=== PATIENT | male | born 1955 | race Caucasian/White ===

== ENCOUNTER 2022-11-26 10:59 | Inpatient (IN) ==
--- NOTE | 2022-11-26 11:22 | Emergency Department Note ---
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 Dosing ml/min Est GFR ( Amer) ml/min Est GFR (Non-Af Amer) ml/min BUN/Creatinine Ratio (10-20) Glucose (70-99(Fasting)) mg/dl Osmolality (280-300) mOsm/kg Lactate (0.4-2.0) mmol/L Calcium (8.6-10.3) mg/dl Magnesium (1.7-2.4) mg/dl Total Bilirubin (0.2-1.0) mg/dl AST (13-39) U/L ALT (7-52) U/L Alkaline Phosphatase (34-104) U/L Total Creatine Kinase (30-223) U/L Troponin I High Sens 35.2 H (0-20) pg/ml Total Protein (6.0-8.3) gm/dl Albumin (3.4-5.0) gm/dl Globulin (2.5-4.0) gm/dl Albumin/Globulin Ratio (0.9-2) Procalcitonin (0-0.5) ng/ml TSH (0.300-4.500) uIu/ml Urine Color Urine Appearance (Clear) Urine pH (4.5-7.5) Ur Specific [place] (1.000-1.030) Urine Protein (Negative) Urine Glucose (UA) (Negative) Urine Ketones (Negative) Urine Blood (Negative) Urine Nitrite (Negative) Urine Bilirubin (Negative) Urine Urobilinogen (Negative) Ur Leukocyte Esterase (Negative) Urine WBC (Auto) (0-5) /hpf Urine RBC (Auto) (0-4) /hpf U Hyaline Cast (Auto) (0-5) /lpf U Epithel Cells (Auto) (0-5) /lpf Urine Bacteria (Auto) (Negative) Urine Yeast Urine Osmolality (500-800) mOsm/kg Ur Random Sodium 10 mmol/L Urine Opiates Screen (Neg) Ur Methadone, Qual (Neg) Urine Barbiturates (Neg) Ur Phencyclidine (PCP) (Neg) U Amphetamin/Meth Scrn (Neg) MDMA (Ecstasy) Screen (Neg) U Benzodiazepines Scrn (Neg) Ur Cocaine Metabolite (Neg) U Marijuana (THC) Screen (Neg) SARS-CoV-2, RNA, NAAT NEGATIVE (NEGATIVE) Staphylococcus sp PCR (NotDetected) Staph aureus (PCR) (NotDetected) mecA/C & MREJ Resist Gene (NotDetected) Bld Cult ID Panel PCR (NotDetected) 11/26/22 11/26/22 11/26/22 Range/Units 14:16 14:44 15:16 WBC (4.8-10.8) K/ul RBC (4.70-6.10) M/uL Hgb (14.0-18.0) g/dl Hct (42.0-52.0) % MCV (80.0-100.0) fL MCH (25.0-34.0) pg MCHC (32.0-36.0) g/dL RDW Std Deviation (36.4-46.3) fL RDW Coeff of Timoteo (11.5-14.5) % Plt Count (130-400) K/uL MPV (9.4-12.4) fL Immature Gran % (Auto) % Neut % (Auto) % Lymph % (Auto) % [place] % (Auto) % Eos % (Auto) % Baso % (Auto) % Neut # (Auto) (1.40-6.50) K/uL Lymph # (Auto) (1.20-3.40) K/uL [place] # (Auto) (0.11-0.59) K/uL Eos # (Auto) (0.00-0.50) K/uL Baso # (Auto) (0.00-0.20) K/uL Immature Gran # (Auto) (0.01-0.20) K/uL PT (9.0-12.0) Seconds INR (0.9-1.1) APTT (21.0-31.0) Seconds PTT Ratio D-Dimer (0-500) ug/L FEU VBG pH 7.48 H (7.36-7.41) VBG pCO2 39 (38-50) mmHg VBG pO2 67 mmHg VBG HCO3 29 mmol/L VBG O2 Saturation 94.2 % VBG Base Excess 5.2 mEq/L Sodium (136-145) mmol/L Potassium (3.5-5.1) mmol/L Chloride (98-107) mmol/L Carbon Dioxide (21-32) mmol/L Anion Gap (3-11) BUN (6-23) mg/dl Creatinine (0.6-1.4) mg/dl Est Cr Clr Drug Dosing ml/min Est GFR ( Amer) ml/min Est GFR (Non-Af Amer) ml/min BUN/Creatinine Ratio (10-20) Glucose (70-99(Fasting)) mg/dl Osmolality 277 L (280-300) mOsm/kg Lactate 1.8 (0.4-2.0) mmol/L Calcium (8.6-10.3) mg/dl Magnesium (1.7-2.4) mg/dl Total Bilirubin (0.2-1.0) mg/dl AST (13-39) U/L ALT (7-52) U/L Alkaline Phosphatase (34-104) U/L Total Creatine Kinase (30-223) U/L Troponin I High Sens (0-20) pg/ml Total Protein (6.0-8.3) gm/dl Albumin (3.4-5.0) gm/dl Globulin (2.5-4.0) gm/dl Albumin/Globulin Ratio (0.9-2) Procalcitonin (0-0.5) ng/ml TSH (0.300-4.500) uIu/ml Urine Color Urine Appearance (Clear) Urine pH (4.5-7.5) Ur Specific [place] (1.000-1.030) Urine Protein (Negative) Urine Glucose (UA) (Negative) Urine Ketones (Negative) Urine Blood (Negative) Urine Nitrite (Negative) Urine Bilirubin (Negative) Urine Urobilinogen (Negative) Ur Leukocyte Esterase (Negative) Urine WBC (Auto) (0-5) /hpf Urine RBC (Auto) (0-4) /hpf U Hyaline Cast (Auto) (0-5) /lpf U Epithel Cells (Auto) (0-5) /lpf Urine Bacteria (Auto) (Negative) Urine Yeast Urine Osmolality (500-800) mOsm/kg Ur Random Sodium mmol/L Urine Opiates Screen (Neg) Ur Methadone, Qual (Neg) Urine Barbiturates (Neg) Ur Phencyclidine (PCP) (Neg) U Amphetamin/Meth Scrn (Neg) MDMA (Ecstasy) Screen (Neg) U Benzodiazepines Scrn (Neg) Ur Cocaine Metabolite (Neg) U Marijuana (THC) Screen (Neg) SARS-CoV-2, RNA, NAAT (NEGATIVE) Staphylococcus sp PCR (NotDetected) Staph aureus (PCR) (NotDetected) mecA/C & MREJ Resist Gene (NotDetected) Bld Cult ID Panel PCR (NotDetected) Imaging Data Radiologist's Impression: Cervical Spine CT 11/26/22 11:47 CT cervical spine wo con CLINICAL HISTORY: frequent falls, fall last night, neck pain TECHNIQUE: Multidetector row helical CT of the cervical spine was performed without administration of intravenous contrast. Coronal and sagittal reformations were obtained. Automated dose lowering techniques and/or adjustment according to patient size were utilized for this exam. Comparison: None available at the time of this dictation. FINDINGS: No acute fractures or subluxations are identified. Degenerative changes are seen in the visualized spine. The alignment is normal. Biapical scarring is seen in the lungs. IMPRESSION: Degenerative changes without evidence of acute bony injury. ACT 112: Negative or not required by law. Electronically signed by: Patel Up M.D. 11/26/2022 1:44 PM Chest X-Ray 11/26/22 11:47 XR chest 1V not portable CLINICAL HISTORY: weakness, possible sepsis COMPARISON STUDY: No previous studies for comparison. FINDINGS: No pneumothorax or pleural effusion is noted. There is mild interstitial thickening. Mild cardiomegaly is noted. No consolidation is identified. Patient is mildly rotated. Underlying emphysema is depicted within the lung apices on the cervical spine CT. IMPRESSION: 1. No consolidation to suggest pneumonia. 2. Cardiomegaly. Pulmonary vascular congestion without overt pulmonary edema. 3. Emphysema. ACT 112: Negative or not required by law. Electronically signed by: Franklyn Man M.D. 11/26/2022 1:[address] 11/26/22 11:[address] DOSE: HISTORY: frequent falls, evidence of trauma TECHNIQUE: Multiaxial CT images of the head were performed without the use of intravenous contrast. Automated exposure control was utilized for this study. A dose lowering technique was utilized adhering to the principles of ALARA. Comparison: None. Findings: The paranasal sinuses and mastoid air cells are clear. The calvarium and skull base are intact. There is no mass, hematoma, midline shift, acute infarct. White matter hypodensity is nonspecific but suggestive of microvascular ischemic change. The ventricles and sulci demonstrate mild age-related involutional changes. Right frontal scalp swelling. Impression: No acute intracranial abnormality. Right frontal scalp swelling. ACT 112: Negative or not required by law. Electronically signed by: Ced Buchanan M.D. 11/26/2022 1:31 PM Knee X-Ray 11/26/22 11:58 XR knee RT 1 or 2V routine, XR knee LT 1 or 2V routine CLINICAL HISTORY: chronic pain r knee, recent falls. Bilateral knee pain. COMPARISON STUDY: None. FINDINGS: No acute fracture or dislocation within the right or left knee. There is moderate right knee effusion. No significant left knee effusion. Basilar calcifications are noted. Severe tricompartmental osteoarthritis within the bilateral knees. Intramedullary rods seen within the left femur and left tibia. The excised hardware appears intact. IMPRESSION: 1. No acute fractures within the right or left knee. 2. Severe osteoarthritis within the bilateral knees. 3. Moderate right knee effusion. ACT 112: Negative or not required by law. Electronically signed by: Ced Buchanan M.D. 11/26/2022 1:09 PM Pelvis X-Ray 11/26/22 12:02 XR pelvis 1-2V routine CLINICAL HISTORY: recent falls, ambulatory dysfunction. Pelvic pain. COMPARISON STUDY: None. FINDINGS: Prior internal fixation of an old, healed proximal left femoral fracture. The visualized hardware appears intact. No acute fracture or dislocation within the pelvis or hips. The sacrum appears intact. Mild degenerative changes within the bilateral hips. IMPRESSION: No acute fracture or dislocation within the pelvis or hips. ACT 112: Negative or not required by law. Electronically signed by: Ced Buchanan M.D. 11/26/2022 1:36 PM Knee X-Ray 11/26/22 12:29 XR knee RT 1 or 2V routine, XR knee LT 1 or 2V routine CLINICAL HISTORY: chronic pain r knee, recent falls. Bilateral knee pain. COMPARISON STUDY: None. FINDINGS: No acute fracture or dislocation within the right or left knee. There is moderate right knee effusion. No significant left knee effusion. Basilar calcifications are noted. Severe tricompartmental osteoarthritis within the bilateral knees. Intramedullary rods seen within the left femur and left tibia. The excised hardware appears intact. IMPRESSION: 1. No acute fractures within the right or left knee. 2. Severe osteoarthritis within the bilateral knees. 3. Moderate right knee effusion. ACT 112: Negative or not required by law. Electronically signed by: Ced Buchanan M.D. 11/26/2022 1:09 PM Chest CTA 11/26/22 13:42 CT ANGIOGRAPHY OF THE CHEST, PULMONARY EMBOLUS PROTOCOL CLINICAL HISTORY: elevated dimer, hypoxia, elevated troponin COMPARISON STUDY: Chest radiograph performed earlier today. TECHNIQUE: Following IV administration of 117 mL of Optiray, helical axial images of the chest were obtained utilizing the pulmonary embolus protocol. Maximal intensity projections and sagittal and coronal reformats were viewed on an independent 3D workstation. IV contrast was administered without complication. Automated exposure control was utilized for the study. A dose lowering technique was utilized adhering to the principles of ALARA. CT DOSE: 2936.18 mGy.cm FINDINGS: No pulmonary emboli are identified although segmental and subsegmental pulmonary arteries are suboptimally assessed due to respiratory motion. There is no thoracic aortic dissection. No enlarged thoracic lymph nodes are present. Moderate emphysema is present. Subpleural opacities favor atelectasis. There is no consolidation to suggest pneumonia. Bilateral gynecomastia is incidentally noted. A 7 mm perifissural right middle lobe nodule on image 137 of 251 is likely benign. No acute fractures within the visualized bony thorax are noted. There are several old bilateral rib fractures. Severe joint space narrowing of the right shoulder is noted with multifocal calcific densities adjacent to the right shoulder which are degenerative. There is a right glenohumeral joint effusion with adjacent soft tissue thickening. A few equivocal tiny locules of gas are present. No acute fractures identified within the right shoulder. Abdomen and pelvis CT will be reported separately. IMPRESSION: 1. No pulmonary emboli identified although segmental and subsegmental pulmonary arteries suboptimally assessed due to respiratory motion. 2. Subpleural opacities suggestive of atelectasis. No consolidation to suggest pneumonia. 3. Moderate emphysema. 4. Severe right glenohumeral joint osteoarthritis, as described above. Suspected right glenohumeral joint effusion with adjacent stranding and two punctate locules of soft tissue gas. The findings are likely related to severe osteoarthritis. However, a superimposed infectious etiology would be difficult to completely exclude. ACT 112: Negative or not required by law. Electronically signed by: Franklyn Man M.D. 11/26/2022 3:50 PM Abdomen/Pelvis CT 11/26/22 13:47 CT OF THE ABDOMEN AND PELVIS WITH CONTRAST CLINICAL HISTORY: pain, infection, falls COMPARISON STUDY: Pelvis radiograph performed earlier today. TECHNIQUE: Following IV administration of 117 mL of Optiray, axial images of the abdomen and pelvis were obtained from the lung bases to the proximal femurs. Images were reviewed in the axial, sagittal, and coronal planes. IV contrast was administered without complication. Automated exposure control was utilized for the study. A dose lowering technique was utilized adhering to the principles of ALARA. FINDINGS: Please note that the chest CT will be reported separately. No pneumatosis, free air or portal venous gas is present. There is no hemoperitoneum. Bilateral gynecomastia is incidentally noted. 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 The liver is cirrhotic. No hepatic lesions are identified on venous phase exam. Main, left and right portal veins are patent. There is no biliary or pancreatic ductal dilatation. There are gallstones within the gallbladder without evidence for acute cholecystitis. The spleen is not visualized. The adrenal glands and kidneys are unremarkable. There is no hydronephrosis. Ayad pouch is noted with descending colostomy. There is no evidence for a bowel obstruction. There is slight thickening of the appendiceal tip, measuring 9 mm. There is a 6 cm nodule along the appendix. There is no periappendiceal inflammation. No free air or abscess. No lymphadenopathy is pre sent. No acute fractures within the pelvis, hips or lumbar spine are noted. Left femoral internal fixation is partially imaged. IMPRESSION: 1. No acute traumatic findings within the abdomen or pelvis. 2. Cirrhosis with varices formation. 3. 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 No bowel obstruction. 4. Mildly thickened appendiceal tip with a small appendiceal nodule. No evidence for acute appendicitis. However, nonemergent Surgical consultation is recommended given the possibility of an underlying appendiceal lesion. ACT 112: Positive. There are findings on this exam that require communication between the performing entity and the patient following Patient Test Result Information Act ([place] Act 112) guidelines. Electronically signed by: Franklyn Man M.D. 11/26/2022 4:09 PM Elbow X-Ray 11/26/22 14:06 XR elbow RT min 3V routine CLINICAL HISTORY: fall last night, pain COMPARISON: None FINDINGS: Alignment of the right elbow is anatomic. No acute fracture is identified. There is no evidence for a right elbow joint effusion. There may be lateral elbow soft tissue swelling. Exam is mildly compromised given difficulty positioning. There is mild osteoarthritis. IMPRESSION: 1. No acute fracture. Exam mildly compromised given difficulty positioning. 2. No evidence for a right elbow joint effusion. ACT 112: Negative or not required by law. Electronically signed by: Franklyn Man M.D. 11/26/2022 3:26 PM ECG Data Attestation: I personally reviewed and interpreted this ECG as follows: (Sinus tachycardia with a rate of 103. Intervals within normal limits. Normal axis. No acute ST elevation. No prior to compare.) MDM Narrative 67-year-old male with a history above is referred to the emergency department by his primary care provider for generalized weakness, frequent falls, inability to care for himself at home. Sounds like the patient's living situation is not healthy. He has a history of chronic pain medication and reportedly had methamphetamine in his system several months ago. When I initially evaluated the patient he was pleasant, slightly drowsy, tachycardic, temperature 99.6 orally. He does appear to be generally weak and can barely lift his legs off the stretcher. Mucous membranes are dry. Some superficial evidence of his fall last night with a wound on the right forearm, mild tenderness in the left knee. Right knee appears to be chronically painful. His O2 saturation was 87% on room air, he was placed on 5 L nasal cannula which is his baseline. Differential diagnosis as above was considered. IV was inserted and labs were obtained. He was given gentle IV fluids. Was given some Tylenol for pain and possible sepsis given temperature 99.6, tachycardia, and weakness. EKG sinus tachycardia, no STEMI. An order was placed for continuous cardiac monitoring and at time of evaluation demonstrated a sinus rhythm with a rate in the low 100s. X-rays of chest, pelvis, bilateral knees, and right elbow were obtained. Chest x-ray shows cardiomegaly with pulmonary vascular congestion, no pneumonia. Moderate right knee effusion, no fracture. No injury to the elbow. CT head and neck was obtained to evaluate for ambulatory dysfunction and recent falls, soft tissue swelling to right forehead, no additional acute process. Tdap updated Labs: Leukocytosis of 15 concerning for sepsis given tachycardia and weakness. Procalcitonin 4.75. Mild anemia hemoglobin 11.6. aPTT minimally elevated 31.9. Hyponatremia at 124, corrects to 125 with glucose of 183. Hypomagnesemia at 1.1, repleted with IV magnesium. Elevated AST and ALT likely secondary to cirrhosis. Total bilirubin 2.1 which is new finding. D-dimer significant elevated at 6030. Troponin mildly elevated at 37.8. 2-hour repeat essentially the same. Lactate normal 1.8. Urine with evidence of infection 3+ blood, positive nitrites. Urine drug screen positive marijuana. Patient covered with Zosyn empirically. Additional gentle fluids were administered hesitant to give high volume bolus due to hyponatremia. Case was reviewed with ED attending Dr. Orellana multiple times throughout the patient's stay in the emergency department. CTA of the chest and abdomen were obtained to further evaluate for the hypoxia, elevated D-dimer, and further evaluate for evidence of infection. This was pending when I discussed the case with Josselyn Alonzo PA-C with the hospitalist group. They agreed to admit the patient, request VBG, and will await CT findings prior to placement. Please refer to their notes for patient's further management. Attending Attestation: I Kar Reyna MD independently saw and evaluated this patient and agree with history and physical is otherwise documented by the physician occupational therapist assistant. See their note for full details. Patient in bed with pain to RUE after falls. Some contusion and abrasion here at elbow noted. Soft compartments of arms and legs. CTs and xrays ordered to look for traumatic orthopedic injury/fracture/bleed/dislocation. Reports of CTs and xrays reassuring. Labs are concerning for infection and covered with Abx (broad spectrum zosyn) as well as new O2 requirement. Bld cultures sent. Hyponatremia noted and given this without elevated lactate or hypotension only given 500mL NS here to prevent rapid sodium correction. Soft abdomen with ostomy in place. Patient agreeable for admission. Impression Sepsis, Hyponatremia, Hypomagnesemia, Falls, Hypoxia Discharge Plan Visit Data Chief Complaint: Pain (Generalized) Stated Complaint: PARESH HIGHLANDS REFERRED, R KNEE, SHOULDER, NECK PA ED Provider: Kar Orellana ED Midlevel Provider: Augie Nunes Discharge Problem: Sepsis, Hyponatremia, Hypomagnesemia, Falls, Hypoxia Patient Disposition: Admitted As Inpatient Discharge Instructions Interventions: ED Discharge Assessment Last Done: 11/26/22 20:05 Sepsis Qualifiers: Sepsis type: sepsis due to unspecified organism Sepsis acute organ dysfunction status: without acute organ dysfunction Qualified Code(s): A41.9 - Sepsis, unspecified organism Falls Qualifiers: Encounter type: initial encounter Qualified Code(s): W19.XXXA - Unspecified fall, initial encounter
[2022-11-26] MEDS ORDERED: SODIUM CHLORIDE 0.9% 500 ML IV ONE ×2 (11:47→16:45)
[2022-11-26] MEDS ORDERED: ACETAMINOPHEN 325 MG TAB PO STA (11:50)
[2022-11-26 12:37] LABS: Basophils # (auto) 0.03 K/uL (0.00-0.20); Basophils % (auto) 0.2 %; Hematocrit (blood only) 32.7 % (42.0-52.0); Hemoglobin 11.6 g/dl (14.0-18.0); Immature Granulocytes # (auto) 0.09 K/uL (0.01-0.20); Immature Granulocytes % (auto) 0.6 %; Lymphocytes # (auto) 0.54 K/uL (1.20-3.40); Lymphocytes % (auto) 3.6 %; Mean Corpuscular Hemoglobin 31.7 pg (25.0-34.0); Mean Corpuscular Hgb Conc 35.5 g/dL (32.0-36.0); Mean Corpuscular Volume 89.3 fL (80.0-100.0); Mean Platelet Volume 13.2 fL (9.4-12.4); Monocytes # (auto) 1.21 K/uL (0.11-0.59); Neutrophils # (auto) 13.29 K/uL (1.40-6.50); Neutrophils % (auto) 87.6 %; Platelet Count 140 K/uL (130-400); RDW Coefficient of Variation 13.2 % (11.5-14.5); RDW Standard Deviation 43.8 fL (36.4-46.3); Red Blood Count 3.66 M/uL (4.70-6.10); White Blood Count 15.16 K/ul (4.8-10.8)
[2022-11-26] MEDS ORDERED: DIPHTHERIA/TETANUS/PERTUSSIS Vaccine (Tdap, Age 7+yrs) 0.5mL SYR/VL IM ONE (12:46)
--- NOTE | 2022-11-26 13:10 | XRay Report ---
XR knee RT 1 or 2V routine, XR knee LT 1 or 2V routine CLINICAL HISTORY: chronic pain r knee, recent falls. Bilateral knee pain. COMPARISON STUDY: None. FINDINGS: No acute fracture or dislocation within the right or left knee. There is moderate right kne e effusion. No significant left knee effusion. Basilar calcifications are noted. Severe tricompartmen david osteoarthritis within the bilateral knees. Intramedullary rods seen within the left femur and lef t tibia. The excised hardware appears intact. IMPRESSION: 1. No acute fractures within the right or left knee. 2. Severe osteoarthritis within the bilateral knees. 3. Moderate right knee effusion. ACT 112: Negative or not required by law. Electronically signed by: Ced Buchanan M.D. 11/26/2022 1:09 PM
--- NOTE | 2022-11-26 13:19 | XRay Report ---
XR chest 1V not portable CLINICAL HISTORY: weakness, possible sepsis COMPARISON STUDY: No previous studies for comparison. FINDINGS: No pneumothorax or pleural effusion is noted. There is mild interstitial thickening. Mild c ardiomegaly is noted. No consolidation is identified. Patient is mildly rotated. Underlying emphysema is depicted within the lung apices on the cervical spine CT. IMPRESSION: 1. No consolidation to suggest pneumonia. 2. Cardiomegaly. Pulmonary vascular congestion without overt pulmonary edema. 3. Emphysema. ACT 112: Negative or not required by law. Electronically signed by: Franklyn Man M.D. 11/26/2022 1:18 PM
[2022-11-26 13:20] LABS: Albumin Level 2.9 gm/dl (3.4-5.0); Bilirubin,Total 2.1 mg/dl (0.2-1.0); Magnesium 1.1 mg/dl (1.7-2.4); Potassium 3.9 mmol/L (3.5-5.1)
[2022-11-26 13:26] LABS: Albumin Globulin Ratio 0.7 (0.9-2); BUN Creatinine Ratio 29.1 (10-20); Creatinine Clr Calc Pharmacy 88.1 ml/min; Est GFR (African American) 73.8 ml/min; Est GFR (Non-African American) 63.7 ml/min; Globulin 4.2 gm/dl (2.5-4.0); Total Protein 7.1 gm/dl (6.0-8.3)
[2022-11-26 13:33] LABS: Troponin I High Sensitivity 37.8 pg/ml (0-20)
--- NOTE | 2022-11-26 13:33 | CT Scan Report ---
HEAD CT NONCONTRAST CT DOSE: HISTORY: frequent falls, evidence of trauma TECHNIQUE: Multiaxial CT images of the head were performed without the use of intravenous contrast. A utomated exposure control was utilized for this study. A dose lowering technique was utilized adheri ng to the principles of ALARA. Comparison: None. Findings: The paranasal sinuses and mastoid air cells are clear. The calvarium and skull base are int act. There is no mass, hematoma, midline shift, acute infarct. White matter hypodensity is nonspecifi c but suggestive of microvascular ischemic change. The ventricles and sulci demonstrate mild age-rela ena involutional changes. Right frontal scalp swelling. Impression: No acute intracranial abnormality. Right frontal scalp swelling. ACT 112: Negative or not required by law. Electronically signed by: Ced Buchanan M.D. 11/26/2022 1:31 PM
--- NOTE | 2022-11-26 13:37 | XRay Report ---
XR pelvis 1-2V routine CLINICAL HISTORY: recent falls, ambulatory dysfunction. Pelvic pain. COMPARISON STUDY: None. FINDINGS: Prior internal fixation of an old, healed proximal left femoral fracture. The visualized camacho rdware appears intact. No acute fracture or dislocation within the pelvis or hips. The sacrum appears intact. Mild degenerative changes within the bilateral hips. IMPRESSION: No acute fracture or dislocation within the pelvis or hips. ACT 112: Negative or not required by law. Electronically signed by: Ced Buchanan M.D. 11/26/2022 1:36 PM
[2022-11-26 13:42] LABS: D Dimer 6030 ug/L FEU (0-500); Thyroid Stimulating Hormone 1.135 uIu/ml (0.300-4.500)
--- NOTE | 2022-11-26 13:45 | CT Scan Report ---
CT cervical spine wo con CLINICAL HISTORY: frequent falls, fall last night, neck pain TECHNIQUE: Multidetector row helical CT of the cervical spine was performed without administration of intravenous contrast. Coronal and sagittal reformations were obtained. Automated dose lowering techn iques and/or adjustment according to patient size were utilized for this exam. Comparison: None available at the time of this dictation. FINDINGS: No acute fractures or subluxations are identified. Degenerative changes are seen in the visualized sp ine. The alignment is normal. Biapical scarring is seen in the lungs. IMPRESSION: Degenerative changes without evidence of acute bony injury. ACT 112: Negative or not required by law. Electronically signed by: Patel Up M.D. 11/26/2022 1:44 PM
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
[2022-11-26] MEDS ORDERED: PIPERACILLIN/TAZOBACTAM 4.5 GM/100 ML BAG IV ONE (14:17)
[2022-11-26 14:33] LABS: Appearance Urine Cloudy (Clear); Bacteria Urine Automated Negative (Negative); Blood Urine 3+ (Negative); Glucose Urine UA Negative (Negative); Ketones Urine 1+ (Negative); Leukocyte Esterase Urine Trace (Negative); Nitrite Urine Positive (Negative); Protein Urine 2+ (Negative); Specific Gravity Urine 1.025 (1.000-1.030); Urobilinogen Urine Negative (Negative)
[2022-11-26 14:36] LABS: Amphetamines+Metham, Urine Neg (Neg); Barbiturates, Urine Neg (Neg); Benzodiazepine, Urine Neg (Neg); Cocaine, Urine Neg (Neg); MDMA (Ecstacy), Urine Neg (Neg); Methadone, Urine Neg (Neg); Opiate, Urine Neg (Neg); Phencyclidine, Urine Neg (Neg)
[2022-11-26 14:38] LABS: Bilirubin Urine 1+ (Negative); Color Urine Amber
[2022-11-26 14:48] LABS: RBC Urine Automated 0-4 /hpf (0-4)
[2022-11-26 14:54] LABS: Base Excess VBG 5.2 mEq/L; HCO3 VBG 29 mmol/L; Oxygen Saturation VBG 94.2 %; PCO2 VBG 39 mmHg (38-50); PO2 VBG 67 mmHg; pH VBG 7.48 (7.36-7.41)
[2022-11-26] MEDS: MAGNESIUM SULFATE / D5W 1 GM/100 ML BAG IV SCH ×4 (14:55→23:15)
[2022-11-26 15:02] LABS: INR 1.1 (0.9-1.1); Partial Thromboplastin Ratio 1.1; Partial Thromboplastin Time 31.9 Seconds (21.0-31.0); Prothrombin Time 11.9 Seconds (9.0-12.0)
[2022-11-26] MEDS ORDERED: OPTIRAY 320 125ml IV ONE (15:09)
[2022-11-26] MEDS ORDERED: KETOROLAC TROMETHAMINE 15 MG/ML VIAL IV ONE (15:26)
--- NOTE | 2022-11-26 15:27 | XRay Report ---
XR elbow RT min 3V routine CLINICAL HISTORY: fall last night, pain COMPARISON: None FINDINGS: Alignment of the right elbow is anatomic. No acute fracture is identified. There is no everardo dence for a right elbow joint effusion. There may be lateral elbow soft tissue swelling. Exam is mild ly compromised given difficulty positioning. There is mild osteoarthritis. IMPRESSION: 1. No acute fracture. Exam mildly compromised given difficulty positioning. 2. No evidence for a right elbow joint effusion. ACT 112: Negative or not required by law. Electronically signed by: Franklyn Man M.D. 11/26/2022 3:26 PM
--- NOTE | 2022-11-26 15:52 | CT Scan Report ---
CT ANGIOGRAPHY OF THE CHEST, PULMONARY EMBOLUS PROTOCOL CLINICAL HISTORY: elevated dimer, hypoxia, elevated troponin COMPARISON STUDY: Chest radiograph performed earlier today. TECHNIQUE: Following IV administration of 117 mL of Optiray, helical axial images of the chest were o btained utilizing the pulmonary embolus protocol. Maximal intensity projections and sagittal and cor onal reformats were viewed on an independent 3D workstation. IV contrast was administered without co mplication. Automated exposure control was utilized for the study. A dose lowering technique was ut ilized adhering to the principles of ALARA. CT DOSE: 2936.18 mGy.cm FINDINGS: No pulmonary emboli are identified although segmental and subsegmental pulmonary arteries are suboptimally assessed due to respiratory motion. There is no thoracic aortic dissection. No enlar ged thoracic lymph nodes are present. Moderate emphysema is present. Subpleural opacities favor atele ctasis. There is no consolidation to suggest pneumonia. Bilateral gynecomastia is incidentally noted. A 7 mm perifissural right middle lobe nodule on image 137 of 251 is likely benign. No acute fracture s within the visualized bony thorax are noted. There are several old bilateral rib fractures. Severe joint space narrowing of the right shoulder is noted with multifocal calcific densities adjacent to t he right shoulder which are degenerative. There is a right glenohumeral joint effusion with adjacent soft tissue thickening. A few equivocal tiny locules of gas are present. No acute fractures identifie d within the right shoulder. Abdomen and pelvis CT will be reported separately. IMPRESSION: 1. No pulmonary emboli identified although segmental and subsegmental pulmonary arteries suboptimally assessed due to respiratory motion. 2. Subpleural opacities suggestive of atelectasis. No consolidation to suggest pneumonia. 3. Moderate emphysema. 4. Severe right glenohumeral joint osteoarthritis, as described above. Suspected right glenohumeral joint effusion with adjacent stranding and two punctate locules of soft tissue gas. The findings are likely related to severe osteoarthritis. However, a superimposed infectious etiology would be difficu lt to completely exclude. ACT 112: Negative or not required by law. Electronically signed by: Franklyn Man M.D. 11/26/2022 3:50 PM
--- NOTE | 2022-11-26 16:11 | CT Scan Report ---
CT OF THE ABDOMEN AND PELVIS WITH CONTRAST CLINICAL HISTORY: pain, infection, falls COMPARISON STUDY: Pelvis radiograph performed earlier today. TECHNIQUE: Following IV administration of 117 mL of Optiray, axial images of the abdomen and pelvis w ere obtained from the lung bases to the proximal femurs. Images were reviewed in the axial, sagittal, and coronal planes. IV contrast was administered without complication. Automated exposure control w as utilized for the study. A dose lowering technique was utilized adhering to the principles of MONALISA Chacon. FINDINGS: Please note that the chest CT will be reported separately. No pneumatosis, free air or port al venous gas is present. There is no hemoperitoneum. Bilateral gynecomastia is incidentally noted. T here are paraesophageal varices. The liver is cirrhotic. No hepatic lesions are identified on venous phase exam. Main, left and right portal veins are patent. There is no biliary or pancreatic ductal di latation. There are gallstones within the gallbladder without evidence for acute cholecystitis. The s pleen is not visualized. The adrenal glands and kidneys are unremarkable. There is no hydronephrosis. Ayad pouch is noted with descending colostomy. There is no evidence for a bowel obstruction. The re is slight thickening of the appendiceal tip, measuring 9 mm. There is a 6 cm nodule along the appe ndix. There is no periappendiceal inflammation. No free air or abscess. No lymphadenopathy is present . No acute fractures within the pelvis, hips or lumbar spine are noted. Left femoral internal fixatio n is partially imaged. IMPRESSION: 1. No acute traumatic findings within the abdomen or pelvis. 2. Cirrhosis with varices formation. 3. 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 No bowel obs truction. 4. Mildly thickened appendiceal tip with a small appendiceal nodule. No evidence for acute appendicit is. However, nonemergent Surgical consultation is recommended given the possibility of an underlying appendiceal lesion. ACT 112: Positive. There are findings on this exam that require communication between the performing entity and the patient following Patient Test Result Information Act ([place] Act 112) guidelines. Electronically signed by: Franklyn Man M.D. 11/26/2022 4:09 PM
--- NOTE | 2022-11-26 17:01 | Electrocardiogram Report ---
Test Reason : Blood Pressure : / mmHG Vent. Rate : 103 BPM Atrial Rate : 103 BPM P-R Int : 178 ms QRS Dur : 094 ms QT Int : 354 ms P-R-T Axes : 087 027 027 degrees QTc Int : 463 ms Sinus tachycardia with Premature supraventricular complexes Low voltage QRS Borderline ECG No previous ECGs available Confirmed by Canelo Rolon ([id number]) on 11/26/2022 5:01:07 PM Referred By: REFERRED SELF Confirmed By:Canelo Rolon
[2022-11-26] MEDS ORDERED: ALBUTEROL 0.083% NEBU SOLN 3 ML VIAL INH PRN (17:09)
[2022-11-26] MEDS ORDERED: SODIUM CHLORIDE 0.45 % 1,000 ML IV SCH (18:45)
[2022-11-26 18:48] LABS: BUN Creatinine Ratio 31.1 (10-20); Calcium 8.9 mg/dl (8.6-10.3); Creatinine Clr Calc Pharmacy 97.2 ml/min; Est GFR (African American) 83.2 ml/min; Est GFR (Non-African American) 71.8 ml/min; Potassium 3.4 mmol/L (3.5-5.1)
[2022-11-26] MEDS ORDERED: GLUCAGON FOR INJ 1 MG VIAL SQ PRN (20:31)
[2022-11-26] MEDS ORDERED: GLUCOSE 10 TAB/TUBE PO PRN (20:31)
[2022-11-26] MEDS ORDERED: CARBOHYDRATES FOR HYPOGLYCEMIA PO PRN (20:31)
[2022-11-26] MEDS ORDERED: GLUCOSE 40% GEL 15 GM TUBE PO PRN (20:31)
[2022-11-26] MEDS ORDERED: POLYETHYLENE (MIRALAX) 17 GM PACK PO PRN (20:31)
[2022-11-26] MEDS ORDERED: ONDANSETRON INJ 2 MG/ML 2 ML VIAL IV PRN (20:31)
[2022-11-26] MEDS ORDERED: DEXTROSE 50% 50 ML SYRINGE IV PRN (20:31)
[2022-11-26] MEDS ORDERED: POTASSIUM CHLORIDE CRTAB 20 MEQ TABCR PO STA (20:37)
[2022-11-26] MEDS: PANTOprazole 40 MG TAB PO SCH (20:56)
[2022-11-26] MEDS: bisacodyL 5 MG TABEC PO SCH (20:56)
[2022-11-26] MEDS: CITALOPRAM 20 MG TAB PO SCH (20:58)
[2022-11-26] MEDS: ENOXAPARIN INJ 40 MG/0.4 ML SYR SQ SCH (21:13)
[2022-11-26] MEDS: ACETAMINOPHEN 500 MG TAB PO SCH (21:17)
[2022-11-26] MEDS: PIPERACILLIN/TAZOBACTAM 4.5 GM in DEXTROSE 5% MINI-B 100 ML IV SCH (21:18)
[2022-11-26] MEDS: LANTUS PER UNIT CHARGE SQ SCH (22:38)
[2022-11-26] MEDS: INSULIN ASPART PER UNIT CHARGE SC SCH (23:08)
[2022-11-26] MEDS: oxyCODONE HCL IR 5 MG TAB (IMMEDIATE RELEASE) PO PRN (23:14)
[2022-11-27 01:35] LABS: A calco-baum cmplx NotReported Not Detected (NotDetected); Bact fragilis Not Reported Not Detected (NotDetected); C auris Not Reported Not Detected (NotDetected); Calbicans Not Reported Not Detected (NotDetected); Candida glabrata Not Reported Not Detected (NotDetected); Candida krusei Not Reported Not Detected (NotDetected); Cneoformans/gatti Not Reported Not Detected (NotDetected); Cparapsilosis Not Reported Not Detected (NotDetected); E cloacae compx Not Reported Not Detected (NotDetected); Efaecalis Not Reported Not Detected (NotDetected); Efaecium Not Reported Not Detected (NotDetected); Enterobacterales Not Reported Not Detected (NotDetected); Escherichia coli Not Reported Not Detected (NotDetected); H influenzae Not Reported Not Detected (NotDetected); K aerogenes Not Reported Not Detected (NotDetected); Koxytoca Not Reported Not Detected (NotDetected); Kpneumoniae grp Not Reported Not Detected (NotDetected); Lmonocyt Not Reported Not Detected (NotDetected); N meningitidis Not Reported Not Detected (NotDetected); P aeruginosa Not Reported Not Detected (NotDetected); Proteus spp Not Reported Not Detected (NotDetected); Salmonella spp Not Reported Not Detected (NotDetected); Smarcescens Not Reported Not Detected (NotDetected); Staph lugdunensis Not Reported Not Detected (NotDetected); Staph spp. Not Reported DETECTED (NotDetected); Staphaureus Not Reported DETECTED (NotDetected); Staphepi Not Reported Not Detected (NotDetected); Staphylococcus spp. DETECTED (NotDetected); Stenmaltophilia Not Reported Not Detected (NotDetected); Strep agal(GrpB) Not Reported Not Detected (NotDetected); Strep pneum Not Reported Not Detected (NotDetected); Strep pyog (GrpA) Not Reported Not Detected (NotDetected); Strep spp Not Reported Not Detected (NotDetected)
[2022-11-27 01:54] LABS: BUN Creatinine Ratio 30.7 (10-20); Calcium 8.9 mg/dl (8.6-10.3); Creatinine Clr Calc Pharmacy 91.8 ml/min; Est GFR (African American) 76.2 ml/min; Est GFR (Non-African American) 65.7 ml/min; Potassium 3.4 mmol/L (3.5-5.1)
[2022-11-27 01:59] LABS: mecAC+MREJ Resistant Gene MRSA DETECTED (NotDetected)
[2022-11-27] MEDS ORDERED: NSS + 20MEQ KCL 20 MEQ/1,000 ML BAG IV ONE (02:15)
[2022-11-27] MEDS: DAPTOmycin 625 MG in SYRINGE 0 ML IV SCH (02:50)
[2022-11-27] MEDS: ACETAMINOPHEN 500 MG TAB PO SCH ×3 (05:36→20:55)
[2022-11-27] MEDS: PIPERACILLIN/TAZOBACTAM 4.5 GM in DEXTROSE 5% MINI-B 100 ML IV SCH ×3 (05:41→20:53)
[2022-11-27] MEDS ORDERED: POTASSIUM CHLORIDE CRTAB 20 MEQ TABCR PO STA (06:53)
--- NOTE | 2022-11-27 06:55 | Hospitalist Progress Note ---
Date of Service November 27, 2022 Assessment & Plan (1) Sepsis: Plan: This is a 67yo M who follows with [facility] with complex medical history of DM II, history of chronic pain no longer on narcotics, cirrhosis, history of splenectomy, history of Jazmyne's gangrene, lymphedema, nocturnal hypoxia who presents with multiple falls at home. On admission, HR 110, WBC 15.16, meeting SIRs criteria. Lactate wnl, procal 4.75 CT abd/pelvis without acute infectious abnormality but did note mildly thickened appendiceal tip with a small appendiceal nodule. No evidence for acute appendicitis. CTA chest with suspected right glenohumeral joint effusion with adjacent stranding and two punctate locules of soft tissue gas. The findings are likely related to severe osteoarthritis. However, a superimposed infectious etiology would be difficult to completely exclude. Dedicated shoulder xray notes severe OA Blood Cx x2 growing staph species. Started on Daptomycin, repeat blood Cx pending. Infectious Disease consult placed. UA abnormal with trace leuk est, + nitrite, 3+ blood, urine Cx with pinpoint growth at this time Continue empiric Zosyn with Daptomycin at this time. General Surgery consult- recommending follow up CT scan in 3 months, no surgical intervention. (2) Hyponatremia: Plan: Na 124 on admission Serum osm 277, urine osm 608, urine na 10 Secondary to dehydration IV fluids-currently on NSS with Kcl 20mEq @80 Nephrology consult- appreciate recs (3) Falls: Plan: Frequent falls at home, worsened over past few weeks No acute fracture or traumatic findings on imaging as above Head CT with no suggestive cause CK elevated at 4266 on admission and downtrending to 1263 Continue IV hydration as above PT/OT eval once more stable (4) Hypomagnesemia: Plan: Mg 1.1, ran out of supplementation 4 days ago Replete as needed (5) Diabetes mellitus, type II: Plan: A1c 7.5 in June 2022, repeat currently 7.6 Hold home agents Basal/bolus insulin while in-patient BSG AC HS (6) Anemia: Plan: Chronic. Hgb 11.6 today (unknown baseline). Continue iron supplementation (7) Nocturnal hypoxia: Plan: On oxygen at night (8) COPD (chronic obstructive pulmonary disease): Plan: History of tobacco use, no longer smoking Continue Bethany Medina Currently saturating 93% on 5 L nasal cannula-unclear whether he uses oxygen during the day but does so at night Goal O2 >90% given COPD-wean as tolerated (9) Depression: Plan: Continue SSRI (10) Cirrhosis: Plan: Listed on outpatient paperwork from [facility], patient a poor historian so unclear Abdomen/pelvis CT notes cirrhosis with varices formation. T. bili 2.1, AST 198, ALT 59 and downtrending currently Continue to follow labs (11) Chronic pain syndrome: Plan: Pt noting he is in significant pain, notes that his pain is not currently being treated. Previously on narcotics but PCP discontinued when he failed UDS. UDS on admission positive for marijuana, endorses daily use Given pt's Hx of frequent falls, severe OA and complaints that his pain is not being treated appropriately, will treat his pain temporarily while hospitalized with the following regimen: tylenol 1000mg q8h for mild pain, po oxycodone 5mg q8h for moderate pain and dilaudid 0.5mg q6h for severe pain. Goal is to wean off narcotics for discharge. Consider consult to pain management. DVT Ppx: Lovenox Code status: DNR/DNI per conversation PCP: CLIFTON Pena [facility] Dispo: PT initial eval recommending extended care facility Admission and Anticipated Discharge Date Admission Date: November 26, 2022 Subjective Pt seen this AM. States that he is in significant pain, hurts on his right side especially. States that "tylenol is not cutting it". Notes that he falls frequently. Review of Systems Review of Systems: All systems reviewed & are unremarkable except as noted in Subjective Physical Exam Physical Exam: General: Alert at times and other times appears somnolent Psych: mood and affect dejected Neuro:Difficulty moving especially his right side HEENT: NC/AT CV: RRR, Normal s1, s2. Resp: no increased effort of breathing. Abdomen: Soft, nontender Extremities: Difficulty moving right shoulder Results & Data Results & Data Vital Signs (Past 12 Hours) Vital Signs Temp Pulse Pulse Resp BP BP Pulse Ox 11/27/22 04:00 37 C 99 H 21 124/74 95 11/27/22 00:37 98 H 11/27/22 00:35 87 11/26/22 23:29 36.6 C 104 H 20 121/71 94 11/26/22 20:31 36.9 C 100 H 21 133/79 94 11/26/22 20:31 11/26/22 20:32 11/26/22 20:05 79 22 128/85 92 Pulse Ox O2 Del Method O2 Del Method O2 Flow Rate O2 Flow Rate 11/27/22 04:00 Oxymask 6 11/27/22 00:37 11/27/22 00:35 11/26/22 23:29 Oxymask 6 11/26/22 20:31 Nasal Cannula 5 11/26/22 20:31 96 Nasal Cannula 5 11/26/22 20:32 Nasal Cannula 5 11/26/22 20:05 Nasal Cannula 4 (1) Sepsis Sepsis acute organ dysfunction status: without acute organ dysfunction Sepsis type: sepsis due to unspecified organism Qualified Code(s): A41.9 - Sepsis, unspecified organism (3) Falls Encounter type: initial encounter Qualified Code(s): W19.XXXA - Unspecified fall, initial encounter
[2022-11-27 07:16] LABS: Albumin Globulin Ratio 0.7 (0.9-2); Albumin Level 2.7 gm/dl (3.4-5.0); BUN Creatinine Ratio 29.7 (10-20); Bilirubin,Total 1.9 mg/dl (0.2-1.0); Creatinine Clr Calc Pharmacy 91.9 ml/min; Est GFR (African American) 78.7 ml/min; Est GFR (Non-African American) 67.9 ml/min; Globulin 4.1 gm/dl (2.5-4.0); Potassium 3.6 mmol/L (3.5-5.1); Total Protein 6.8 gm/dl (6.0-8.3)
[2022-11-27 07:21] LABS: Hematocrit (blood only) 31.8 % (42.0-52.0); Hemoglobin 11.1 g/dl (14.0-18.0); Mean Corpuscular Hemoglobin 31.3 pg (25.0-34.0); Mean Corpuscular Hgb Conc 34.9 g/dL (32.0-36.0); Mean Corpuscular Volume 89.6 fL (80.0-100.0); Mean Platelet Volume 13.2 fL (9.4-12.4); Platelet Count 155 K/uL (130-400); RDW Coefficient of Variation 13.3 % (11.5-14.5); RDW Standard Deviation 43.8 fL (36.4-46.3); Red Blood Count 3.55 M/uL (4.70-6.10); White Blood Count 14.48 K/ul (4.8-10.8)
[2022-11-27] MEDS: CITALOPRAM 20 MG TAB PO SCH ×2 (08:10→20:57)
[2022-11-27] MEDS: MAGNESIUM OXIDE 400 MG TAB PO SCH (08:11)
[2022-11-27] MEDS: ENOXAPARIN INJ 40 MG/0.4 ML SYR SQ SCH ×2 (08:11→20:56)
[2022-11-27] MEDS: FLUTICASONE FUROATE 100MCG 14 PUFFS/INHALER INH SCH (08:11)
[2022-11-27] MEDS: FERROUS SULFATE 325 MG TAB PO SCH (08:11)
[2022-11-27] MEDS: PANTOprazole 40 MG TAB PO SCH ×2 (08:12→20:57)
[2022-11-27] MEDS: VITAMIN B COMPLEX TAB PO SCH (08:12)
[2022-11-27] MEDS: MULTIVITAMIN TAB PO SCH (08:12)
[2022-11-27] MEDS: UMECLIDINIUM/VILANTEROL 62.5/25MCG 7 PUFFS/INHALER INH SCH (08:13)
[2022-11-27] MEDS: oxyCODONE HCL IR 5 MG TAB (IMMEDIATE RELEASE) PO PRN (08:15)
[2022-11-27] MEDS: INSULIN ASPART PER UNIT CHARGE SC SCH ×4 (08:15→20:45)
[2022-11-27] MEDS ORDERED: NON-FORMULARY MEDICATION (Fluticasone-Umeclidin-Vilanter [Trelegy Ellipta] 100-62.5-25 mcg INH SCH (09:00)
--- NOTE | 2022-11-27 09:47 | XRay Report ---
XR shoulder RT min 2V routine CLINICAL HISTORY: pain TECHNIQUE: 2 views of the right shoulder were obtained. Comparison: Comparison is made to CT chest 11/26/2022 FINDINGS: There is no evidence of an acute fracture. Prominent degenerative changes are seen at the glenohumera l joint. The overlying soft tissues are unremarkable. The visualized portions of the lungs are clear. IMPRESSION: Prominent osteoarthritic changes are seen in the shoulder joint without evidence of acute fracture. ACT 112: Negative or not required by law. Electronically signed by: Patel Up M.D. 11/27/2022 9:45 AM
[2022-11-27 09:55] LABS: Estimated Average Glucose 171 mg/dl; Hemoglobin A1C 7.6 % (4.5-5.6)
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
--- NOTE | 2022-11-27 10:51 | Orthopedic Consultation ---
Date of Consultation November 27, 2022 Assessment & Plan (1) Osteoarthritis, shoulder: (2) Shoulder effusion: Plan Plan I suspect this is an exacerbation of arthritis. Shoulder at this point in time does not have appearance of a septic joint. We will continue to follow. If his clinical course worsens or changes, we may consider aspiration. History of Present Illness Reason for Consultation: Right shoulder pain Attending Physician: Kat Pickens MD History of Present Illness The gentleman admitted with sepsis and confusion. He has complaints of pain in the right shoulder region. He states a history of chronic pain in the shoulder, but has worsened with time Allergies Allergy/AdvReac Type Severity Reaction Status Date / Time morphine AdvReac Unknown Hallucinati Verified 11/26/22 17:04 ng Home Medications Medication Instructions Recorded Confirmed Type acetaminophen 500 mg tablet 500 mg PO BID PRN Pain 11/26/22 11/26/22 History albuterol sulfate 2.5 mg/3 mL 2.5 mg inhalation Q4H PRN 11/26/22 11/26/22 History (0.083 %) solution for nebulization Shortness Of Breath Or Wheezing baclofen 10 mg tablet 10 mg PO TID PRN Muscle Spasm 11/26/22 11/26/22 History bisacodyl 5 mg tablet 5 mg PO HS 11/26/22 11/26/22 History bumetanide 2 mg tablet 2 mg PO DAILY 11/26/22 11/26/22 History citalopram 20 mg tablet 20 mg PO BID 11/26/22 11/26/22 History doxylamine succinate 25 mg tablet 25 mg PO HS PRN Sleep 11/26/22 11/26/22 History ferrous sulfate 325 mg (65 mg 325 mg PO DAILY 11/26/22 11/26/22 History iron) tablet fluticasone fur. 100 mcg-umeclid 1 inh inhalation DAILY 11/26/22 11/26/22 History 62.5 mcg-vilant 25 mcg inhalat.powder (Trelegy Ellipta) guselkumab 100 mg/mL subcutaneous 100 mg subcut UD 11/26/22 11/26/22 History auto-injector (Tremfya) insulin degludec 200 unit/mL (3 20 unit subcut HS 11/26/22 11/26/22 History mL) subcutaneous pen (Tresiba FlexTouch U-200 insulin) magnesium 500 mg tablet 15 mg PO DAILY 11/26/22 11/26/22 History metformin 500 mg tablet 1,000 mg PO BID 11/26/22 11/26/22 History multivit,Ca,min-iron 8 mg-folic 1 tab PO DAILY 11/26/22 11/26/22 History acid 200 mcg-lycopene 600 mcg tablet (Centrum Men) pantoprazole 40 mg tablet,delayed 40 mg PO BID 11/26/22 11/26/22 History release vitamin B complex 1 tab PO DAILY 11/26/22 11/26/22 History Patient History Medical History (Updated 11/27/22 @ 10:58 by Indra Gautam MD) Anemia Chronic pain syndrome Cirrhosis COPD (chronic obstructive pulmonary disease) Depression Diabetes mellitus, type II Nocturnal hypoxia Surgical History Amputated finger S/P colon resection Family History Other Heart disease Stroke Social History (Updated 11/26/22 @ 16:07 by Josselyn Alonzo PA-C) Smoking Status: Never smoker Second Hand Exposure: No; Do You Dip or Chew Tobacco: No; Hx Alcohol Use: No Hx Substance Use: Yes Prescribed Medications: Marijuana Last Used Substance: Hours (ago) Preferred Language: Spanish Communication Ability: Effective Inspector Subassemblies Required: No Beliefs That Will Affect Care: None Current Living Situation: Family Current Living Situation Comment: Lives w/ daughter who is w/c bound Other Information That Helps Us Care for You: No Feels Safe at Home: Yes Safety Concerns: Feels Safe At This Time Assistive Devices: Cane, Oxygen - Continuous and Walker Physical Exam Musculoskeletal: Right shoulder exam: He has effusion in the shoulder. He has no redness or increase in warmth in the shoulder compared to the contralateral side. He has pain with range of motion of the shoulder Results & Data Vital Signs (Past 12 Hours) Vital Signs Temp Pulse Pulse Resp BP Pulse Ox O2 Del Method 11/27/22 07:43 36.8 C 92 H 18 132/81 94 Oxymask 11/27/22 04:00 37 C 99 H 21 124/74 95 Oxymask 11/27/22 00:37 98 H 11/27/22 00:35 87 11/26/22 23:29 36.6 C 104 H 20 121/71 94 Oxymask O2 Flow Rate 11/27/22 07:43 6.0 11/27/22 04:00 6 11/27/22 00:37 11/27/22 00:35 11/26/22 23:29 6 Diagnostic Findings I reviewed x-rays of the right shoulder which show severe arthritic changes in the shoulder. (2) Shoulder effusion Laterality: right Qualified Code(s): M25.411 - Effusion, right shoulder
--- NOTE | 2022-11-27 15:26 | Surgery Consultation ---
Date of Consultation November 27, 2022 Assessment & Plan (1) Abnormal abdominal CT scan: Patient seen and examined with Dr. Mohr. Recent imaging, labs, and progress notes reviewed. 67-year-old male admitted with diagnosis of sepsis. Incidental finding of mildly thickened appendiceal tip with small appendiceal nodule. Patient denies abdominal pain, he is non-tender with palpation. Abdomen is soft. No indication for surgical intervention. Would recommend follow-up CT scan in 3 months to evaluate appendix. General Surgery will sign off at this time, please reach out with any questions or concerns. Supervising Physician Co-Signing Physician Notes As per Toshia Martínez physician inventory assistant Incidental finding of a small nodule 6 mm in the appendix Patient is completely asymptomatic regarding any issues associated with right lower quadrant tenderness or pain At this time he is alert issues a priority and I would recommend a follow-up CAT scan in approximately 3 to 4 months to document stability of this 6 mm nodule This was discussed with the patient History of Present Illness Reason for Consultation: Abnormal appendix Attending Physician: Kat Pickens MD History of Present Illness Mr. Carbajal is a 67-year-old male who presented to [facility] for evaluation after recent multiple falls at home and generalized weakness. He has a complicated past medical history significant for DM II, history of chronic pain no longer on narcotics, h/o drug acute, cirrhosis, history of splenectomy, history of Jazmyne's gangrene, lymphedema, nocturnal hypoxia. Patient was admitted by hospitalist service with diagnosis of Sepsis. CT scan of the abdomen revealed no acute infectious abnormality, but mentioned a mildly thickened appendiceal tip with a small appendiceal nodule. No evidence for acute appendicitis. Currently, Mr. Carbajal denies abdominal pain, nausea or vomiting. Allergies Allergy/AdvReac Type Severity Reaction Status Date / Time morphine AdvReac Unknown Hallucinati Verified 11/26/22 17:04 ng Home Medications Medication Instructions Recorded Confirmed Type acetaminophen 500 mg tablet 500 mg PO BID PRN Pain 11/26/22 11/26/22 History albuterol sulfate 2.5 mg/3 mL 2.5 mg inhalation Q4H PRN 11/26/22 11/26/22 History (0.083 %) solution for nebulization Shortness Of Breath Or Wheezing baclofen 10 mg tablet 10 mg PO TID PRN Muscle Spasm 11/26/22 11/26/22 History bisacodyl 5 mg tablet 5 mg PO HS 11/26/22 11/26/22 History bumetanide 2 mg tablet 2 mg PO DAILY 11/26/22 11/26/22 History citalopram 20 mg tablet 20 mg PO BID 11/26/22 11/26/22 History doxylamine succinate 25 mg tablet 25 mg PO HS PRN Sleep 11/26/22 11/26/22 History ferrous sulfate 325 mg (65 mg 325 mg PO DAILY 11/26/22 11/26/22 History iron) tablet fluticasone fur. 100 mcg-umeclid 1 inh inhalation DAILY 11/26/22 11/26/22 History 62.5 mcg-vilant 25 mcg inhalat.powder (Trelegy Ellipta) guselkumab 100 mg/mL subcutaneous 100 mg subcut UD 11/26/22 11/26/22 History auto-injector (Tremfya) insulin degludec 200 unit/mL (3 20 unit subcut HS 11/26/22 11/26/22 History mL) subcutaneous pen (Tresiba FlexTouch U-200 insulin) magnesium 500 mg tablet 15 mg PO DAILY 11/26/22 11/26/22 History metformin 500 mg tablet 1,000 mg PO BID 11/26/22 11/26/22 History multivit,Ca,min-iron 8 mg-folic 1 tab PO DAILY 11/26/22 11/26/22 History acid 200 mcg-lycopene 600 mcg tablet (Centrum Men) pantoprazole 40 mg tablet,delayed 40 mg PO BID 11/26/22 11/26/22 History release vitamin B complex 1 tab PO DAILY 11/26/22 11/26/22 History Patient History Medical History (Updated 11/27/22 @ 15:22 by Isamar Martínez PA-C) Anemia Chronic pain syndrome Cirrhosis COPD (chronic obstructive pulmonary disease) Depression Diabetes mellitus, type II Nocturnal hypoxia Surgical History Amputated finger S/P colon resection Family History Other Heart disease Stroke Social History (Updated 11/26/22 @ 16:07 by Josselyn Alonzo PA-C) Smoking Status: Never smoker Second Hand Exposure: No; Do You Dip or Chew Tobacco: No; Hx Alcohol Use: No Hx Substance Use: Yes Prescribed Medications: Marijuana Last Used Substance: Hours (ago) Preferred Language: Maltese Communication Ability: Effective Energy Conservation Technician Required: No Beliefs That Will Affect Care: None Current Living Situation: Family Current Living Situation Comment: Lives w/ daughter who is w/c bound Other Information That Helps Us Care for You: No Feels Safe at Home: Yes Safety Concerns: Feels Safe At This Time Assistive Devices: Cane, Oxygen - Continuous and Walker Review of Systems Constitutional: no fever and no chills Gastrointestinal: no abdominal pain, no nausea and no vomiting Physical Exam Constitutional: WD/WN, vitals as above Respiratory: no respiratory distress and no labored breathing Gastrointestinal (Abdomen): Inspection/Auscultation: abdomen not distended Percussion/Palpation: abdomen soft; abdomen nontender, no guarding and abdomen not rigid Results & Data Vital Signs (Past 12 Hours) Vital Signs Temp Pulse Resp BP Pulse Ox O2 Del Method O2 Flow Rate 11/27/22 14:21 Oxymask 6 11/27/22 11:25 36.8 C 91 H 20 124/94 94 Oxymask 6.0 11/27/22 08:00 Oxymask 6 11/27/22 07:43 36.8 C 92 H 18 132/81 94 Oxymask 6.0 11/27/22 04:00 37 C 99 H 21 124/74 95 Oxymask 6 PG Care Time/CCT Total # of Minutes Spent Total Time Spent with Patient: Total time spent is greater than 50% in coordination of care (as documented) at patient's floor/unit and/or counseling patient: Coding Level of Care Code 85431 INT INP/OBS CARE 2/55MIN Diagnoses Abnormal abdominal CT scan R93.5
[2022-11-27] MEDS: LANTUS PER UNIT CHARGE SQ SCH (20:47)
[2022-11-27] MEDS: bisacodyL 5 MG TABEC PO SCH (20:56)
[2022-11-27] MEDS: NSS + 20MEQ KCL 20 MEQ/1,000 ML BAG IV SCH (21:05)
[2022-11-28] MEDS: oxyCODONE HCL IR 5 MG TAB (IMMEDIATE RELEASE) PO PRN ×2 (00:35→20:45)
[2022-11-28] MEDS: HYDROmorphone INJ 0.5 MG/0.5 ML SYR IV PRN (02:56)
[2022-11-28] MEDS: PIPERACILLIN/TAZOBACTAM 4.5 GM in DEXTROSE 5% MINI-B 100 ML IV SCH ×3 (05:17→20:32)
[2022-11-28] MEDS: ACETAMINOPHEN 500 MG TAB PO SCH ×3 (05:17→20:35)
[2022-11-28] MEDS: NSS + 20MEQ KCL 20 MEQ/1,000 ML BAG IV SCH ×3 (05:17→20:34)
[2022-11-28] MEDS: DAPTOmycin 625 MG in SYRINGE 0 ML IV SCH (05:19)
[2022-11-28 06:32] LABS: Hematocrit (blood only) 29.6 % (42.0-52.0); Hemoglobin 10.2 g/dl (14.0-18.0); Mean Corpuscular Hemoglobin 31.1 pg (25.0-34.0); Mean Corpuscular Hgb Conc 34.5 g/dL (32.0-36.0); Mean Corpuscular Volume 90.2 fL (80.0-100.0); Mean Platelet Volume 12.8 fL (9.4-12.4); Nucleated RBC # (auto) 0.05 K/uL (0.00-0.12); Nucleated RBC % (auto) 0.5 %; Platelet Count 184 K/uL (130-400); RDW Coefficient of Variation 14.1 % (11.5-14.5); RDW Standard Deviation 46.8 fL (36.4-46.3); Red Blood Count 3.28 M/uL (4.70-6.10); White Blood Count 10.46 K/ul (4.8-10.8)
[2022-11-28 06:40] LABS: Albumin Globulin Ratio 0.6 (0.9-2); Albumin Level 2.5 gm/dl (3.4-5.0); BUN Creatinine Ratio 32.4 (10-20); Bilirubin,Total 1.6 mg/dl (0.2-1.0); Calcium 8.8 mg/dl (8.6-10.3); Creatinine Clr Calc Pharmacy 103.2 ml/min; Est GFR (African American) 87.1 ml/min; Est GFR (Non-African American) 75.2 ml/min; Magnesium 1.8 mg/dl (1.7-2.4); Phosphorus 2.4 mg/dl (2.5-4.9); Potassium 4.1 mmol/L (3.5-5.1); Total Protein 6.5 gm/dl (6.0-8.3)
[2022-11-28 06:54] LABS: Basophils # (auto) 0.04 K/uL (0.00-0.20); Basophils % (auto) 0.4 %; Eosinophils # (auto) 0.11 K/uL (0.00-0.50); Eosinophils % (auto) 1.1 %; Immature Granulocytes # (auto) 0.11 K/uL (0.01-0.20); Immature Granulocytes % (auto) 1.1 %; Lymphocytes # (auto) 0.55 K/uL (1.20-3.40); Lymphocytes % (auto) 5.3 %; Monocytes # (auto) 0.51 K/uL (0.11-0.59); Monocytes % (auto) 4.9 %; Neutrophils # (auto) 9.14 K/uL (1.40-6.50); Neutrophils % (auto) 87.2 %
[2022-11-28] MEDS: INSULIN ASPART PER UNIT CHARGE SC SCH ×4 (08:31→20:37)
[2022-11-28] MEDS: FERROUS SULFATE 325 MG TAB PO SCH (08:33)
[2022-11-28] MEDS: MULTIVITAMIN TAB PO SCH (08:33)
[2022-11-28] MEDS: CITALOPRAM 20 MG TAB PO SCH ×2 (08:33→20:35)
[2022-11-28] MEDS: PANTOprazole 40 MG TAB PO SCH ×2 (08:33→20:36)
[2022-11-28] MEDS: VITAMIN B COMPLEX TAB PO SCH (08:34)
[2022-11-28] MEDS: MAGNESIUM OXIDE 400 MG TAB PO SCH (08:34)
[2022-11-28] MEDS: FLUTICASONE FUROATE 100MCG 14 PUFFS/INHALER INH SCH (08:35)
[2022-11-28] MEDS: UMECLIDINIUM/VILANTEROL 62.5/25MCG 7 PUFFS/INHALER INH SCH (08:35)
[2022-11-28] MEDS: ENOXAPARIN INJ 40 MG/0.4 ML SYR SQ SCH ×2 (08:36→20:34)
--- NOTE | 2022-11-28 10:04 | Orthopedic Progress Note ---
Date of Service November 28, 2022 Assessment & Plan (1) Osteoarthritis, shoulder: Plan: I do not see clinical evidence of septic shoulder at this point in time to warrant arthrocentesis of the shoulder. We will continue to observe for now. If symptoms worsen, may consider arthrocentesis of the shoulder (2) Shoulder effusion: Admission and Anticipated Discharge Date Admission Date: November 26, 2022 Subjective he states overall his right shoulder feels better today. Physical Exam Musculoskeletal: Right shoulder exam: He exhibits effusion in the shoulder. He has no evidence of warmth. Overall I can move the shoulder slightly more than yesterday. He has no erythema. Results & Data Vital Signs (Past 12 Hours) Vital Signs Temp Pulse Pulse Resp BP Pulse Ox O2 Del Method 11/28/22 07:43 36.8 C 84 20 110/60 96 Oxymask 11/28/22 07:19 89 11/28/22 02:53 36.6 C 89 21 119/69 94 Oxymask 11/27/22 23:20 36.9 C 90 21 108/70 93 Oxymask O2 Flow Rate 11/28/22 07:43 7.0 11/28/22 07:19 11/28/22 02:53 6 11/27/22 23:20 6 (2) Shoulder effusion Laterality: right Qualified Code(s): M25.411 - Effusion, right shoulder
[2022-11-28] MEDS ORDERED: SODIUM PHOSPHATE 3 MMOL/1 ML INFUSION IV STA (10:45)
[2022-11-28] MEDS ORDERED: SODIUM PHOSPHATE 15 MMOL in SODIUM CHLORIDE 0.9% 250 ML IV ONE (11:00)
--- NOTE | 2022-11-28 11:01 | Nephrology Progress Note ---
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 Initial picture was of hypovolemia but now has been adequately resuscitated. Urine was monitored on 608 and urine sodium of 10. -Will give urea 15g bid. -Daily Na (2) Hypomagnesemia: Plan: Magnesium is improving with supplements. Continue to monitor and supplement as needed. Admission and Anticipated Discharge Date Admission Date: November 26, 2022 Subjective Seen for Hyponatremia. he now has MRSA bacteremia. c/o shoulder pain. No SOB Review of Systems Review of Systems: All other systems were reviewed and negative except as noted in HPI Physical Exam Physical Exam: General exam: Appears comfortable, no acute distress HEENT: Pupils are equal and reactive to light Neck: No JVD, neck is supple trachea is midline Respiratory system: Clear breath sounds bilaterally. Gastrointestinal: Abdomen is soft, non distended, non tender, bowel sounds are p resent CVS: Regular rate and rhythm. No murmurs, rubs or gallops Musculoskeletal: Right shoulder is very tender with limited range of motion Extremities: Non tender, no edema, peripheral pulses are present Neuro: Oriented, no tremors, no focal neurological deficits Skin: No rashes Results & Data Vital Signs (Past 12 Hours) Vital Signs Temp Pulse Pulse Resp BP Pulse Ox O2 Del Method 11/28/22 07:43 36.8 C 84 20 110/60 96 Oxymask 11/28/22 07:19 89 11/28/22 02:53 36.6 C 89 21 119/69 94 Oxymask 11/27/22 23:20 36.9 C 90 21 108/70 93 Oxymask O2 Flow Rate 11/28/22 07:43 7.0 11/28/22 07:19 11/28/22 02:53 6 11/27/22 23:20 6 Laboratory Results 11/28/22 05:25 11/28/22 11/28/22 05:25 05:25 WBC 10.46 RBC 3.28 L MCV 90.2 MCH 31.1 MCHC 34.5 RDW Std Deviation 46.8 H RDW Coeff of Timoteo 14.1 Plt Count 184 MPV 12.8 H Phosphorus 2.4 L Albumin 2.5 L
[2022-11-28] MEDS: UREA (UREA-NA) 15 GM PACK PO SCH ×3 (11:44→20:50)
--- NOTE | 2022-11-28 14:57 | Hospitalist Progress Note ---
Date of Service November 28, 2022 Assessment & Plan (1) Sepsis: Plan: This is a 67yo M who follows with [facility] with complex medical history of DM II, history of chronic pain no longer on narcotics, cirrhosis, history of splenectomy, history of Jazmyne's gangrene, lymphedema, nocturnal hypoxia who presents with multiple falls at home. On admission, HR 110, WBC 15.16, meeting SIRs criteria. Lactate wnl, procal 4.75 CT abd/pelvis without acute infectious abnormality but did note mildly thickened appendiceal tip with a small appendiceal nodule. No evidence for acute appendicitis. CTA chest with suspected right glenohumeral joint effusion with adjacent stranding and two punctate locules of soft tissue gas. The findings are likely related to severe osteoarthritis. However, a superimposed infectious etiology would be difficult to completely exclude. Dedicated shoulder xray notes severe OA Blood Cx x2 growing staph species. Started on Daptomycin, repeat blood Cx pending. Infectious Disease consult placed. UA abnormal with trace leuk est, + nitrite, 3+ blood, urine Cx with no significant growth at this time Continue empiric Zosyn with Daptomycin at this time. General Surgery consult- recommending follow up CT scan in 3 months, no surgical intervention. Appreciate ID recs. (2) Hyponatremia: Plan: Na 124 on admission Serum osm 277, urine osm 608, urine na 10 Secondary to dehydration IV fluids-currently on NSS with Kcl 20mEq @80 Nephrology consult- appreciate recs (3) Falls: Plan: Frequent falls at home, worsened over past few weeks No acute fracture or traumatic findings on imaging as above Head CT with no suggestive cause CK elevated at 4266 on admission and downtrending to 1263 Continue IV hydration as above PT/OT eval once more stable (4) Hypomagnesemia: Plan: Mg 1.1, ran out of supplementation 4 days ago Replete as needed (5) Diabetes mellitus, type II: Plan: A1c 7.5 in June 2022, repeat currently 7.6 Hold home agents Basal/bolus insulin while in-patient BSG AC HS (6) Anemia: Plan: Chronic. Hgb 11.6 on admission (unknown baseline). Continue iron supplementation (7) Nocturnal hypoxia: Plan: On oxygen at night (8) COPD (chronic obstructive pulmonary disease): Plan: History of tobacco use, no longer smoking Continue Bethany Medina Currently saturating 93% on 5 L nasal cannula-unclear whether he uses oxygen during the day but does so at night Goal O2 >90% given COPD-wean as tolerated (9) Depression: Plan: Continue SSRI (10) Cirrhosis: Plan: Listed on outpatient paperwork from [facility], patient a poor historian so unclear Abdomen/pelvis CT notes cirrhosis with varices formation. T. bili 2.1, AST 198, ALT 59 and downtrending currently Continue to follow labs (11) Chronic pain syndrome: Plan: Pt noting he is in significant pain, noted that his pain was not currently being treated. Previously on narcotics but PCP discontinued when he failed UDS. UDS on admission positive for marijuana, endorses daily use Given pt's Hx of frequent falls, severe OA and complaints that his pain is not being treated appropriately, will treat his pain temporarily while hospitalized with the following regimen: tylenol 1000mg q8h for mild pain, po oxycodone 5mg q8h for moderate pain and dilaudid 0.5mg q6h for severe pain. Goal is to wean off narcotics for discharge. Consider consult to pain management. DVT Ppx: Lovenox Code status: DNR/DNI per conversation PCP: CLIFTON Pena [facility] Dispo: PT initial eval recommending extended care facility Admission and Anticipated Discharge Date Admission Date: November 26, 2022 Subjective Pt seen this AM, drowsy. Appears to be talking to himself at times. Notes that pain is improved but still there. Review of Systems Review of Systems: All systems reviewed & are unremarkable except as noted in Subjective Physical Exam Physical Exam: General: somnolent Psych: mood and affect could not be determined Neuro:Difficulty moving especially his right side HEENT: NC/AT CV: RRR, Normal s1, s2. Resp: no increased effort of breathing. Abdomen: Soft, nontender Extremities: + edema Results & Data Results & Data Vital Signs (Past 12 Hours) Vital Signs Temp Pulse Pulse Resp BP Pulse Ox O2 Del Method 11/28/22 12:42 Oxymask 11/28/22 12:27 36.9 C 82 18 112/55 L 94 Oxymask 11/28/22 07:43 36.8 C 84 20 110/60 96 Oxymask 11/28/22 07:19 89 O2 Flow Rate 11/28/22 12:42 6 11/28/22 12:27 6.0 11/28/22 07:43 7.0 11/28/22 07:19 (1) Sepsis Sepsis acute organ dysfunction status: without acute organ dysfunction Sepsis type: sepsis due to unspecified organism Qualified Code(s): A41.9 - Sepsis, unspecified organism (3) Falls Encounter type: initial encounter Qualified Code(s): W19.XXXA - Unspecified fall, initial encounter
[2022-11-28] MEDS: bisacodyL 5 MG TABEC PO SCH (20:36)
[2022-11-28] MEDS: LANTUS PER UNIT CHARGE SQ SCH (20:39)
[2022-11-29] MEDS: MELATONIN 3 MG TAB PO PRN (01:44)
[2022-11-29] MEDS: HYDROmorphone INJ 0.5 MG/0.5 ML SYR IV PRN ×2 (03:54→17:02)
[2022-11-29] MEDS: DAPTOmycin 625 MG in SYRINGE 0 ML IV SCH (05:24)
[2022-11-29] MEDS: PIPERACILLIN/TAZOBACTAM 4.5 GM in DEXTROSE 5% MINI-B 100 ML IV SCH ×3 (05:25→20:29)
[2022-11-29] MEDS: ACETAMINOPHEN 500 MG TAB PO SCH ×3 (05:26→22:46)
[2022-11-29 06:22] LABS: Marijuana Quant, GCMS Urine 2000 ng/mL (<5)
[2022-11-29] MEDS: UREA (UREA-NA) 15 GM PACK PO SCH ×2 (08:00→20:31)
[2022-11-29] MEDS: ENOXAPARIN INJ 40 MG/0.4 ML SYR SQ SCH ×2 (08:00→20:26)
[2022-11-29] MEDS: NSS + 20MEQ KCL 20 MEQ/1,000 ML BAG IV SCH ×2 (08:00→20:20)
[2022-11-29] MEDS: INSULIN ASPART PER UNIT CHARGE SC SCH ×4 (08:00→20:50)
[2022-11-29] MEDS: MAGNESIUM OXIDE 400 MG TAB PO SCH (08:01)
[2022-11-29] MEDS: PANTOprazole 40 MG TAB PO SCH ×2 (08:01→20:29)
[2022-11-29] MEDS: UMECLIDINIUM/VILANTEROL 62.5/25MCG 7 PUFFS/INHALER INH SCH (08:01)
[2022-11-29] MEDS: CITALOPRAM 20 MG TAB PO SCH ×2 (08:01→20:26)
[2022-11-29] MEDS: FLUTICASONE FUROATE 100MCG 14 PUFFS/INHALER INH SCH (08:01)
[2022-11-29] MEDS: FERROUS SULFATE 325 MG TAB PO SCH (08:01)
[2022-11-29] MEDS: MULTIVITAMIN TAB PO SCH (08:01)
[2022-11-29] MEDS: VITAMIN B COMPLEX TAB PO SCH (08:01)
[2022-11-29 08:06] LABS: Albumin Globulin Ratio 0.6 (0.9-2); Albumin Level 2.4 gm/dl (3.4-5.0); BUN Creatinine Ratio 30.1 (10-20); Bilirubin,Total 1.6 mg/dl (0.2-1.0); Calcium 8.7 mg/dl (8.6-10.3); Creatinine Clr Calc Pharmacy 93.2 ml/min; Est GFR (Non-African American) 66.4 ml/min; Globulin 4.1 gm/dl (2.5-4.0); Magnesium 1.7 mg/dl (1.7-2.4); Phosphorus 2.1 mg/dl (2.5-4.9); Total Protein 6.5 gm/dl (6.0-8.3)
[2022-11-29] MEDS ORDERED: SODIUM PHOSPHATE 3 MMOL/1 ML INFUSION IV STA (08:11)
[2022-11-29 08:15] LABS: Hematocrit (blood only) 29.6 % (42.0-52.0); Hemoglobin 10.1 g/dl (14.0-18.0); Mean Corpuscular Hemoglobin 30.8 pg (25.0-34.0); Mean Corpuscular Hgb Conc 34.1 g/dL (32.0-36.0); Mean Corpuscular Volume 90.2 fL (80.0-100.0); RDW Coefficient of Variation 14.4 % (11.5-14.5); RDW Standard Deviation 47.8 fL (36.4-46.3); Red Blood Count 3.28 M/uL (4.70-6.10); White Blood Count 9.89 K/ul (4.8-10.8)
[2022-11-29 08:19] LABS: Mean Platelet Volume 12.6 fL (9.4-12.4); Platelet Count 247 K/uL (130-400)
[2022-11-29 08:22] LABS: Basophils # (auto) 0.06 K/uL (0.00-0.20); Basophils % (auto) 0.6 %; Dohle Bodies 1+; Echinocytes 1+; Eosinophils # (auto) 0.18 K/uL (0.00-0.50); Eosinophils % (auto) 1.8 %; Immature Granulocytes # (auto) 0.29 K/uL (0.01-0.20); Immature Granulocytes % (auto) 2.9 %; Lymphocytes # (auto) 0.92 K/uL (1.20-3.40); Lymphocytes % (auto) 9.3 %; Monocytes # (auto) 0.69 K/uL (0.11-0.59); Neutrophils # (auto) 7.75 K/uL (1.40-6.50); Neutrophils % (auto) 78.4 %; Nucleated RBC # (auto) 0.11 K/uL (0.00-0.12); Nucleated RBC % (auto) 1.1 %; Platelet Estimate Normal (Normal); Polychromasia 1+; Target Cells 1+; Toxic Vacuolation 1+
--- NOTE | 2022-11-29 08:27 | Hospitalist Progress Note ---
Date of Service November 29, 2022 Assessment & Plan (1) Sepsis: Plan: This is a 67yo M who follows with [facility] with complex medical history of DM II, history of chronic pain no longer on narcotics, cirrhosis, history of splenectomy, history of Jazmyne's gangrene, lymphedema, nocturnal hypoxia who presents with multiple falls at home. On admission, HR 110, WBC 15.16, meeting SIRs criteria. Lactate wnl, procal 4.75 CT abd/pelvis without acute infectious abnormality but did note mildly thickened appendiceal tip with a small appendiceal nodule. No evidence for acute appendicitis. CTA chest with suspected right glenohumeral joint effusion with adjacent stranding and two punctate locules of soft tissue gas. The findings are likely related to severe osteoarthritis. However, a superimposed infectious etiology would be difficult to completely exclude. Dedicated shoulder xray notes severe OA Blood Cx x2 growing staph species. Started on Daptomycin, transitioned to vancomycin with Zosyn. Infectious Disease consult placed- appreciate recs. UA abnormal with trace leuk est, + nitrite, 3+ blood, urine Cx with no significant growth at this time. Echo pending. Imaging of right arm, right elbow and right forearm pending. General Surgery consult- recommending follow up CT scan in 3 months, no surgical intervention. Appreciate ID recs. (2) Hyponatremia: Plan: Na 124 on admission Serum osm 277, urine osm 608, urine na 10 IV fluids-currently on NSS with Kcl 20mEq @40 On urea started by nephrology Nephrology on board- appreciate recs (3) Falls: Plan: Frequent falls at home, worsened over past few weeks No acute fracture or traumatic findings on imaging as above Head CT with no suggestive cause CK elevated at 4266 on admission and downtrending to 1263 Continue IV hydration as above ID recommending CT imaging of arm, elbow and forearm. 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 Hgb 11.6 on admission (unknown baseline). Continue iron supplementation (7) Nocturnal hypoxia: Plan: On oxygen at night (8) COPD (chronic obstructive pulmonary disease): Plan: History of tobacco use, no longer smoking Continue Bethany Medina Currently saturating 93% on 5 L nasal cannula-unclear whether he uses oxygen during the day but does so at night Goal O2 >90% given COPD-wean as tolerated (9) Depression: Plan: Continue SSRI (10) Cirrhosis: Plan: Listed on outpatient paperwork from [facility], patient a poor historian so unclear Abdomen/pelvis CT notes cirrhosis with varices formation. T. bili 2.1, AST 198, ALT 59 and downtrending currently Continue to follow labs (11) Chronic pain syndrome: Plan: Pt noting he is in significant pain, noted that his pain was not currently being treated. Previously on narcotics but PCP discontinued when he failed UDS. UDS on admission positive for marijuana, endorses daily use Given pt's Hx of frequent falls, severe OA and complaints that his pain is not being treated appropriately, will treat his pain temporarily while hospitalized with the following regimen: tylenol 1000mg q8h for mild pain, po oxycodone 5mg q8h for moderate pain and dilaudid 0.5mg q6h for severe pain. Goal is to wean off narcotics for discharge. Consider consult to pain management. DVT Ppx: Lovenox Code status: DNR/DNI per conversation PCP: CLIFTON Pena [facility] Dispo: PT initial eval recommending extended care facility Admission and Anticipated Discharge Date Admission Date: November 26, 2022 Subjective Seen this AM. States that his pain is better controlled but still there. Denies other acute concerns. Review of Systems Review of Systems: All systems reviewed & are unremarkable except as noted in Subjective Physical Exam Physical Exam: General: somnolent Psych: mood and affect could not be determined Neuro:Difficulty moving especially his right side HEENT: NC/AT CV: RRR Resp: no increased effort of breathing. Abdomen: Soft, nontender Extremities: + edema Results & Data Results & Data Vital Signs (Past 12 Hours) Vital Signs Temp Pulse Pulse Resp BP Pulse Ox O2 Del Method 11/29/22 07:38 37.0 C 79 20 123/66 95 Nasal Cannula 11/29/22 02:33 36.8 C 83 18 116/72 97 Nasal Cannula 11/29/22 00:19 89 11/28/22 20:30 Nasal Cannula 11/28/22 22:42 36.8 C 89 18 114/69 94 Nasal Cannula O2 Flow Rate 11/29/22 07:38 5 11/29/22 02:33 6 11/29/22 00:19 11/28/22 20:30 6 11/28/22 22:42 (1) Sepsis Sepsis acute organ dysfunction status: without acute organ dysfunction Sepsis type: sepsis due to unspecified organism Qualified Code(s): A41.9 - Sepsis, unspecified organism (3) Falls Encounter type: initial encounter Qualified Code(s): W19.XXXA - Unspecified fall, initial encounter
[2022-11-29] MEDS ORDERED: SODIUM PHOSPHATE 15 MMOL in SODIUM CHLORIDE 0.9% 250 ML IV ONE (08:30)
--- NOTE | 2022-11-29 09:01 | Nephrology Progress Note ---
Date of Service November 29, 2022 Assessment & Plan (1) Hyponatremia: Plan: Patient with hyponatremia from SIADH. Urine osms 608 and urine sodium of 10. -on 11/28 started urea 15g bid which should continue -Daily bmp > 1L positive yesterday but < 1L po intake charted > started FR 1.5L lowered fluid rate to 40 ml/hr; would look to stop if possible may need to consider JAKE if bacteremia persists (2) Hypomagnesemia: Plan: Magnesium is improving with supplements. Continue to monitor and supplement as needed. mag 1.7 today Admission and Anticipated Discharge Date Admission Date: November 26, 2022 Subjective no interval events. ongoing bacteremia though cxs yesterday not as strongly positive; no pain, no worsening breathing. ros limited by pt MS Review of Systems Review of Systems: All systems reviewed & are unremarkable except as noted in Subjective (MS waxes and wanes during interview) Physical Exam Constitutional: well developed, well nourished, + obese, + altered mental status and + frail appearing; no acute distress Eyes: EOM intact bilaterally ENMT: Ears: no external ear abnormality Nose: no external nose abnormality Mouth: + dry oral mucous membranes Neck: no nuchal rigidity Respiratory: normal respiratory effort Auscultation: + diminished lung sounds Cardiovascular: Rate/Rhythm: regular rate and regular rhythm Extremities: + edema (trace BLE distally) Gastrointestinal (Abdomen): Inspection/Auscultation: normal bowel sounds; + abdomen abnormal to inspection (ostomy present) Percussion/Palpation: abdomen soft; abdomen nontender Musculoskeletal: Extremities: strength 5/5 throughout Skin: no rashes, warm and dry Neurologic: pritchard, fluent speech, no tremor Psychiatric: Orientation: oriented to person and oriented to place; + not oriented to time Results & Data Vital Signs (Past 12 Hours) Vital Signs Temp Pulse Pulse Resp BP Pulse Ox O2 Del Method 11/29/22 07:38 37.0 C 79 20 123/66 95 Nasal Cannula 11/29/22 02:33 36.8 C 83 18 116/72 97 Nasal Cannula 11/29/22 00:19 89 11/28/22 22:42 36.8 C 89 18 114/69 94 Nasal Cannula O2 Flow Rate 11/29/22 07:38 5 11/29/22 02:33 6 11/29/22 00:19 11/28/22 22:42 Laboratory Results 11/29/22 07:15 11/29/22 07:[address] chest 11/26 1. No pulmonary emboli identified although segmental and subsegmental pulmonary arteries suboptimally assessed due to respiratory motion. 2. Subpleural opacities suggestive of atelectasis. No consolidation to suggest pneumonia. 3. Moderate emphysema. 4. Severe right glenohumeral joint osteoarthritis, as described above. Suspected right glenohumeral joint effusion with adjacent stranding and two punctate locules of soft tissue gas. The findings are likely related to severe osteoarthritis. However, a superimposed infectious etiology would be difficult to completely exclude.
[2022-11-29] MEDS: oxyCODONE HCL IR 5 MG TAB (IMMEDIATE RELEASE) PO PRN (13:38)
--- NOTE | 2022-11-29 14:36 | Infectious Disease Consult ---
Date of Service November 29, 2022 Telehealth Information I performed this visit using a real-time telehealth connection between my location and the patients location ([facility]). After connecting through interactive tele-video, patient was identified by name and date of and/or wristband check.Patient (or authorized healthcare packaging sales representative) was informed that this was a telemedicine visit and it was being conducted confidentially over secure lines. My office door was closed and no one else was present in the room with me.Patient (or authorized healthcare packaging sales representative) provided consent to proceed with the visit, expressed an understanding of privacy and security of the telemedicine visit, and gave permission to have a hospital packaging sales representative in the room in order to assist with the visit and to conduct portions of the visit, as needed. I informed the patient (or authorized healthcare packaging sales representative) that I reviewed their record and presented the opportunity for them to ask any questions regarding the visit today. The patient agreed to participate. Assessment & Plan (1) MRSA bacteremia: (2) Right forearm cellulitis: (3) Multiple falls: (4) Chronic liver disease and cirrhosis: Plan 1. If there is no contraindication for using vancomycin, I would recommend changing daptomycin into IV vancomycin. 2. Please continue to send for blood cultures every 48 hours instead of daily until negative. 3. Please obtain a CT scan with IV contrast of the right arm, right elbow, and right forearm to rule out deep-seated infection or septic arthritis of the right elbow. 4. Please obtain a transthoracic echo. 5. Thank you for consulting ID. We will continue to follow. History of Present Illness History of Present Illness Mr. Carbajal is a 67-year-old man with a history of type 2 diabetes, liver cirrhosis, COPD, with a chronic hypoxic respiratory failure, and chronic pain syndrome who was admitted to [facility] on 11/26 because of generalized weakness and multiple falls at home. Most of the history was obtained from medical records as the patient could not communicate well. On presentation, he was afebrile, normotensive and saturating 92% at room air. Initial blood workup showed leukocytosis of 15 (ANC of 13), hyponatremia, hypokalemia, bilirubin of 2.1, moderately elevated AST and mildly elevated ALT as well as CPK of 4266. CTA of the chest and CT abdomen and pelvis were performed which showed severe osteoarthritis of the right shoulder with effusion. It further demonstrated cirrhotic changes in the liver with a post surgical changes status post partial colectomy with Ayad pouch and colostomy. It further demonstrated mildly thickened appendiceal tip with a small appendiceal nodule. Both Orthopedics and the surgical team were consulted because of the changes in the right shoulder and mildly thickened appendiceal tip and none of the teams were concerned about any active pathologies or infections. Shortly after admission, 4/4 bottles came back positive for MRSA. After obtaining further history and assessing the patient via TeleMed, I noticed significant swelling and redness around the right elbow. He also had significant tenderness on moving the arm and the forearm. The ID team was consulted for further recommendations and to help with the management of MRSA bacteremia. Allergies Allergy/AdvReac Type Severity Reaction Status Date / Time morphine AdvReac Unknown Hallucinati Verified 11/26/22 17:04 ng Home Medications Medication Instructions Recorded Confirmed Type acetaminophen 500 mg tablet 500 mg PO BID PRN Pain 11/26/22 11/26/22 History albuterol sulfate 2.5 mg/3 mL 2.5 mg inhalation Q4H PRN 11/26/22 11/26/22 History (0.083 %) solution for nebulization Shortness Of Breath Or Wheezing baclofen 10 mg tablet 10 mg PO TID PRN Muscle Spasm 11/26/22 11/26/22 History bisacodyl 5 mg tablet 5 mg PO HS 11/26/22 11/26/22 History bumetanide 2 mg tablet 2 mg PO DAILY 11/26/22 11/26/22 History citalopram 20 mg tablet 20 mg PO BID 11/26/22 11/26/22 History doxylamine succinate 25 mg tablet 25 mg PO HS PRN Sleep 11/26/22 11/26/22 History ferrous sulfate 325 mg (65 mg 325 mg PO DAILY 11/26/22 11/26/22 History iron) tablet fluticasone fur. 100 mcg-umeclid 1 inh inhalation DAILY 11/26/22 11/26/22 History 62.5 mcg-vilant 25 mcg inhalat.powder (Trelegy Ellipta) guselkumab 100 mg/mL subcutaneous 100 mg subcut UD 11/26/22 11/26/22 History auto-injector (Tremfya) insulin degludec 200 unit/mL (3 20 unit subcut HS 11/26/22 11/26/22 History mL) subcutaneous pen (Tresiba FlexTouch U-200 insulin) magnesium 500 mg tablet 15 mg PO DAILY 11/26/22 11/26/22 History metformin 500 mg tablet 1,000 mg PO BID 11/26/22 11/26/22 History multivit,Ca,min-iron 8 mg-folic 1 tab PO DAILY 11/26/22 11/26/22 History acid 200 mcg-lycopene 600 mcg tablet (Centrum Men) pantoprazole 40 mg tablet,delayed 40 mg PO BID 11/26/22 11/26/22 History release vitamin B complex 1 tab PO DAILY 11/26/22 11/26/22 History Patient History Medical History (Updated 11/29/22 @ 14:38 by Jordon Story MD) Anemia Chronic pain syndrome Cirrhosis COPD (chronic obstructive pulmonary disease) Depression Diabetes mellitus, type II Nocturnal hypoxia Surgical History Amputated finger S/P colon resection Family History Other Heart disease Stroke Social History (Updated 11/26/22 @ 16:07 by Josselyn Alonzo PA-C) Smoking Status: Never smoker Second Hand Exposure: No; Do You Dip or Chew Tobacco: No; Hx Alcohol Use: No Hx Substance Use: Yes Prescribed Medications: Marijuana Last Used Substance: Hours (ago) Preferred Language: Estonian Communication Ability: Effective Backend Tester Required: No Beliefs That Will Affect Care: None Current Living Situation: Family Current Living Situation Comment: Lives w/ daughter who is w/c bound Other Information That Helps Us Care for You: No Feels Safe at Home: Yes Safety Concerns: Feels Safe At This Time Assistive Devices: Cane, Oxygen - at Night, Oxygen - Continuous and Walker Review of Systems Constitutional: fatigue and chills. HEENT: no sore throat, no nasal discharge Cardiovascular: no chest pain, or palpitations Respiratory: SOB (chronic). No cough Gastrointestinal: No nausea, vomiting, diarrhea or abdominal pain : no dysuria, hesitancy or frequency. Musculoskeletal/Skin: Rt arm and forearm swelling and pain Neurologic: no dizziness or headache Physical Exam Couldn't be obtained as the visit was via telemed. Results & Data Vital Signs (Past 12 Hours) Vital Signs Temp Pulse Pulse Resp BP Pulse Ox O2 Del Method 11/29/22 08:00 Nasal Cannula 11/29/22 12:44 36.6 C 80 22 126/70 95 Nasal Cannula 11/29/22 07:00 91 H 11/29/22 07:38 37.0 C 79 20 123/66 95 Nasal Cannula 11/29/22 02:33 36.8 C 83 18 116/72 97 Nasal Cannula O2 Flow Rate 11/29/22 08:00 5 11/29/22 12:44 5 11/29/22 07:00 11/29/22 07:38 5 11/29/22 02:33 6 Laboratory Results MICROBIOLOGY: 11/26: 4/4 bottles of blood culture came back positive for MRSA 11/26: Urine culture with possible skin prudencio contamination 11/27: 2/4 bottles of blood culture positive for MRSA 11/28: 1/ bottles of blood culture positive for MRSA 11/29: 2 sets of blood culture pending Diagnostic Findings CT abd/pelvis on 11/26: 1. No acute traumatic findings within the abdomen or pelvis. 2. Cirrhosis with varices formation. 3. 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 No bowel obstruction. 4. Mildly thickened appendiceal tip with a small appendiceal nodule. No evidence for acute appendicitis. However, nonemergent Surgical consultation is recommended given the possibility of an underlying appendiceal lesion. CTA chest on 11/26: 1. No pulmonary emboli identified although segmental and subsegmental pulmonary arteries suboptimally assessed due to respiratory motion. 2. Subpleural opacities suggestive of atelectasis. No consolidation to suggest pneumonia. 3. Moderate emphysema. 4. Severe right glenohumeral joint osteoarthritis, as described above. Suspected right glenohumeral joint effusion with adjacent stranding and two punctate locules of soft tissue gas. The findings are likely related to severe osteoarthritis. However, a superimposed infectious etiology would be difficult to completely exclude.
[2022-11-29] MEDS ORDERED: VANCOMYCIN CONSULT ACTIVE PRN (15:43)
[2022-11-29] MEDS ORDERED: VANCOMYCIN HCL 2,000 MG in SODIUM CHLORIDE 0.9% 500 ML IV SCH ×2 (15:45→17:00)
[2022-11-29] MEDS ORDERED: VANCOMYCIN HCL 2,000 MG in SODIUM CHLORIDE 0.9% 500 ML IV ONE (17:00)
--- NOTE | 2022-11-29 17:19 | Pharmacy Report ---
Pharmacy PK ABX Note - Date of Service November 29, 2022 - Assessment and Plan Assessment 67 year old M receiving vancomycin for treatment of bacteremia. Pertinent microbiologic data includes: blood culture growing MRSA from 11/26; blood culture growing MRSA from 11/27; blood culture growing MRSA from 11/28. Blood cultures from 11/29 currently pending Day # 1 of antimicrobial therapy. Plan Vancomycin * Loading dose: 2000 mg IV x 1 * Maintenance dose: 1000 mg IV every 8 hours * Regimen is predicted to achieve target AUC/VISHAL of 400-600 mg/L.hr * Trough to be ordered if continued > 48 hours Pharmacy will continue to follow and will adjust dose/frequency as necessary. Thank you. Pharmacy has transitioned to AUC monitoring for vancomycin. AUC/VISHAL is the preferred PK/PD target and is associated with decreased risk of nephrotoxicity compared to traditional trough targets.
[2022-11-29] MEDS: bisacodyL 5 MG TABEC PO SCH (20:25)
[2022-11-29] MEDS: LANTUS PER UNIT CHARGE SQ SCH (20:49)
[2022-11-29] MEDS: VANCOMYCIN HCL 1,000 MG in SODIUM CHLORIDE 0.9% 250 ML IV SCH (22:45)
[2022-11-30] MEDS: PIPERACILLIN/TAZOBACTAM 4.5 GM in DEXTROSE 5% MINI-B 100 ML IV SCH (05:06)
[2022-11-30] MEDS: VANCOMYCIN HCL 1,000 MG in SODIUM CHLORIDE 0.9% 250 ML IV SCH ×3 (05:07→20:38)
[2022-11-30] MEDS ORDERED: DAPTOmycin 850 MG in SYRINGE 0 ML IV SCH (06:00)
[2022-11-30] MEDS: ACETAMINOPHEN 500 MG TAB PO SCH ×3 (06:33→20:23)
[2022-11-30 07:04] LABS: Hematocrit (blood only) 29.8 % (42.0-52.0); Hemoglobin 10.2 g/dl (14.0-18.0); Mean Corpuscular Hemoglobin 31.1 pg (25.0-34.0); Mean Corpuscular Hgb Conc 34.2 g/dL (32.0-36.0); Mean Corpuscular Volume 90.9 fL (80.0-100.0); Mean Platelet Volume 12.2 fL (9.4-12.4); Nucleated RBC % (auto) 0.9 %; Platelet Count 269 K/uL (130-400); RDW Coefficient of Variation 13.6 % (11.5-14.5); RDW Standard Deviation 45.4 fL (36.4-46.3); Red Blood Count 3.28 M/uL (4.70-6.10); White Blood Count 11.22 K/ul (4.8-10.8)
[2022-11-30 07:19] LABS: Albumin Globulin Ratio 0.6 (0.9-2); Albumin Level 2.3 gm/dl (3.4-5.0); BUN Creatinine Ratio 39.8 (10-20); Bilirubin,Total 1.8 mg/dl (0.2-1.0); Creatinine Clr Calc Pharmacy 113.2 ml/min; Est GFR (African American) 97.4 ml/min; Est GFR (Non-African American) 84.1 ml/min; Magnesium 1.6 mg/dl (1.7-2.4); Phosphorus 2.8 mg/dl (2.5-4.9); Total Protein 6.3 gm/dl (6.0-8.3)
[2022-11-30 07:27] LABS: Basophils % (auto) 0.9 %; Dohle Bodies 1+; Echinocytes 1+; Eosinophils # (auto) 0.21 K/uL (0.00-0.50); Eosinophils % (auto) 1.9 %; Immature Granulocytes # (auto) 0.69 K/uL (0.01-0.20); Immature Granulocytes % (auto) 6.1 %; Lymphocytes # (auto) 1.32 K/uL (1.20-3.40); Lymphocytes % (auto) 11.8 %; Monocytes # (auto) 1.04 K/uL (0.11-0.59); Monocytes % (auto) 9.3 %; Neutrophils # (auto) 7.86 K/uL (1.40-6.50); Target Cells 1+
--- NOTE | 2022-11-30 08:19 | Nephrology Progress Note ---
Date of Service November 30, 2022 Assessment & Plan (1) Hyponatremia: Plan: Patient with hyponatremia from SIADH. Urine osms 608 and urine sodium of 10. -on 11/28 started urea 15g bid which should continue -Daily bmp > 1L positive yesterday but < 1L po intake charted > continue FR 1.5L -will give him lasix 10 mg IV tid and K 10 mEq bid >IVF are off now may need to consider JAKE if bacteremia persists (2) Hypomagnesemia: Plan: Magnesium is improving with supplements. Continue to monitor and supplement as needed. mag 1.6 today >>changed daily mag ox to bid slo mag Admission and Anticipated Discharge Date Admission Date: November 26, 2022 Subjective 1.5L positive yesterday; on bipap; unable to give much ROS > awakens and alert only transiently; denies pain; started on vanco yesterday Review of Systems Review of Systems: Unobtainable due to reduced consciousness Physical Exam Constitutional: well developed, well nourished, + obese, + altered mental status and + frail appearing; no acute distress Eyes: EOM intact bilaterally ENMT: Ears: no external ear abnormality Nose: no external nose abnormality Mouth: + dry oral mucous membranes Neck: no nuchal rigidity Respiratory: normal respiratory effort Auscultation: + diminished lung sounds Cardiovascular: Rate/Rhythm: regular rate and regular rhythm Extremities: + edema (trace BLE distally) Gastrointestinal (Abdomen): Inspection/Auscultation: normal bowel sounds; + abdomen abnormal to inspection (ostomy present) Percussion/Palpation: abdomen soft; abdomen nontender Musculoskeletal: Extremities: strength 5/5 throughout Skin: no rashes, warm and dry Psychiatric: Orientation: oriented to person and oriented to place; + not oriented to time Results & Data Vital Signs (Past 12 Hours) Vital Signs Temp Pulse Pulse Resp BP Pulse Ox O2 Del Method 11/29/22 23:02 84 11/30/22 02:30 37 C 80 20 147/78 H 94 Nasal Cannula 11/29/22 22:47 36.6 C 85 20 125/75 95 Nasal Cannula Laboratory Results 11/30/22 06:05 11/30/22 06:05
[2022-11-30] MEDS: INSULIN ASPART PER UNIT CHARGE SC SCH ×4 (08:50→20:29)
[2022-11-30 10:11] LABS: Base Excess VBG 3.1 mEq/L; HCO3 VBG 30 mmol/L; Oxygen Saturation VBG 93.6 %; PCO2 VBG 59 mmHg (38-50); PO2 VBG 65 mmHg; pH VBG 7.32 (7.36-7.41)
--- NOTE | 2022-11-30 10:20 | Hospitalist Progress Note ---
Date of Service November 30, 2022 Assessment & Plan (1) Sepsis: Plan: This is a 67yo M who follows with [facility] with complex medical history of DM II, history of chronic pain no longer on narcotics, cirrhosis, history of splenectomy, history of Jazmyne's gangrene, lymphedema, nocturnal hypoxia who presents with multiple falls at home. On admission, HR 110, WBC 15.16, meeting SIRs criteria. Lactate wnl, procal 4.75 CT abd/pelvis without acute infectious abnormality but did note mildly thickened appendiceal tip with a small appendiceal nodule. No evidence for acute appendicitis. CTA chest with suspected right glenohumeral joint effusion with adjacent stranding and two punctate locules of soft tissue gas. The findings are likely related to severe osteoarthritis. However, a superimposed infectious etiology would be difficult to completely exclude. Dedicated shoulder xray notes severe OA Blood Cx x2 growing staph species. Started on Daptomycin, transitioned to vancomycin with Zosyn. Infectious Disease consult placed- appreciate recs of finding source with arm CT imaging and TTE. Currently on Vancomycin only for treatment. UA abnormal with trace leuk est, + nitrite, 3+ blood, urine Cx with no significant growth at this time. General Surgery consult- recommending follow up CT scan in 3 months, no surgical intervention. Continue Vancomycin (2) Hypercapnic respiratory failure, chronic: Plan: With increased lethargy, vbg ordered Retaining CO2, placed on bipap. Repeat ABG with increased retention, ICU consulted and pt transferred- Appreciate recs. Last narcotic dose 5pm the day before, less likely cause. Question of whether pt should be using cpap chronically for sleep- consider outpatient polysomnography. (3) Hyponatremia: Plan: Na 124 on admission Serum osm 277, urine osm 608, urine na 10 on admission On urea started by nephrology- appreciate nephrology recs Improving (4) Falls: Plan: Frequent falls at home, worsened over past few weeks No acute fracture or traumatic findings on imaging as above Head CT with no suggestive cause CK elevated at 4266 on admission and downtrending to 1263 Treated with IV hydration CT imaging of arm, elbow and forearm pending, XRAYS with no acute fracture. 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 Hgb 11.6 on admission (unknown baseline). Continue iron supplementation (8) Nocturnal hypoxia: Plan: On oxygen at night (9) COPD (chronic obstructive pulmonary disease): Plan: History of tobacco use, no longer smoking Continue Bethany Medina (10) Depression: Plan: Continue SSRI (11) Cirrhosis: Plan: Listed on outpatient paperwork from [facility] [address] [facility], patient a poor historian so unclear Abdomen/pelvis CT notes cirrhosis with varices formation. T. bili 2.1, AST 198, ALT 59 and downtrending currently Continue to follow labs (12) Chronic pain syndrome: Plan: Pt noting he is in significant pain, noted that his pain was not currently being treated. Previously on narcotics but PCP discontinued when he failed UDS. UDS on admission positive for marijuana, endorses daily use Given pt's Hx of frequent falls, severe OA and complaints that his pain is not being treated appropriately, previously temporarily treated while hospitalized with the following regimen: tylenol 1000mg q8h prn for mild pain, po oxycodone 5mg q8h prn for moderate pain and dilaudid 0.5mg q6h prn for severe pain. Goal is to wean off narcotics for discharge. Consider consult to pain management. DVT Ppx: Lovenox Code status: DNR/DNI per conversation PCP: CLIFTON Pena [facility] [address] [facility] Dispo: PT initial eval recommending extended care facility Admission and Anticipated Discharge Date Admission Date: November 26, 2022 Subjective Pt seen multiple times. Concern for lethargy- per nursing pt had not received pain medications since the day prior. Was able to be aroused but would fall back asleep quickly. Review of Systems Review of Systems: Unobtainable due to cognitive status Physical Exam Physical Exam: General: somnolent Psych: mood and affect could not be determined Neuro:somnolent HEENT: NC/AT CV: RRR Resp: no increased effort of breathing. Abdomen: Soft, nontender Extremities: + edema Results & Data Results & Data Vital Signs (Past 12 Hours) Vital Signs Temp Pulse Pulse Resp BP Pulse Ox O2 Del Method 11/30/22 08:32 36.7 C 88 18 142/70 H 96 Room Air 11/29/22 23:02 84 11/30/22 02:30 37 C 80 20 147/78 H 94 Nasal Cannula 11/29/22 22:47 36.6 C 85 20 125/75 95 Nasal Cannula (1) Sepsis Sepsis acute organ dysfunction status: without acute organ dysfunction Sepsis type: sepsis due to unspecified organism Qualified Code(s): A41.9 - Sepsis, unspecified organism (4) Falls Encounter type: initial encounter Qualified Code(s): W19.XXXA - Unspecified fall, initial encounter
[2022-11-30] MEDS: ENOXAPARIN INJ 40 MG/0.4 ML SYR SQ SCH ×2 (10:55→20:19)
[2022-11-30] MEDS: CITALOPRAM 20 MG TAB PO SCH ×2 (10:56→20:22)
[2022-11-30] MEDS: MULTIVITAMIN TAB PO SCH (10:56)
[2022-11-30] MEDS: PANTOprazole 40 MG TAB PO SCH ×2 (10:56→20:23)
[2022-11-30] MEDS: FERROUS SULFATE 325 MG TAB PO SCH (10:56)
[2022-11-30] MEDS: FLUTICASONE FUROATE 100MCG 14 PUFFS/INHALER INH SCH (10:56)
[2022-11-30] MEDS: UMECLIDINIUM/VILANTEROL 62.5/25MCG 7 PUFFS/INHALER INH SCH (10:56)
[2022-11-30] MEDS: MAGNESIUM CHLORIDE W/CALCIUM 64MG DELAYED REL TAB PO SCH ×2 (10:56→20:22)
[2022-11-30] MEDS: VITAMIN B COMPLEX TAB PO SCH (10:57)
[2022-11-30] MEDS: UREA (UREA-NA) 15 GM PACK PO SCH ×2 (10:57→20:23)
[2022-11-30] MEDS: MAGNESIUM SULFATE / D5W 1 GM/100 ML BAG IV SCH ×2 (11:02→13:28)
--- NOTE | 2022-11-30 12:12 | Communication Note ---
Date of Service: November 30, 2022 MICROBIOLOGY: 11/26: 4/4 bottles of blood culture came back positive for MRSA 11/26: Urine culture with possible skin prudencio contamination 11/27: 2/4 bottles of blood culture positive for MRSA 11/28: 2/4 bottles of blood culture positive for MRSA 11/29: 2/4 bottles of blood culture positive for MRSA Diagnostic Findings CT abd/pelvis on 11/26: 1. No acute traumatic findings within the abdomen or pelvis. 2. Cirrhosis with varices formation. 3. 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 No bowel obstruction. 4. Mildly thickened appendiceal tip with a small appendiceal nodule. No evidence for acute appendicitis. However, nonemergent Surgical consultation is recommended given the possibility of an underlying appendiceal lesion. CTA chest on 11/26: 1. No pulmonary emboli identified although segmental and subsegmental pulmonary arteries suboptimally assessed due to respiratory motion. 2. Subpleural opacities suggestive of atelectasis. No consolidation to suggest pneumonia. 3. Moderate emphysema. 4. Severe right glenohumeral joint osteoarthritis, as described above. Suspected right glenohumeral joint effusion with adjacent stranding and two punctate locules of soft tissue gas. The findings are likely related to severe osteoarthritis. However, a superimposed infectious etiology would be difficult to completely exclude. Assessment & Plan (1) MRSA bacteremia - with persistent bacteremia, the 2 potential etiologies (given the current clinical picture will be Rt arm/forearm abscess or endocarditis or both) (2) Right forearm cellulitis: (3) Multiple falls: (4) Chronic liver disease and cirrhosis: Plan 1. Please continue on IV vancomycin (VISHAL of 1). The persistent bacteremia is due to uncontrolled source (Rt arm/forearm abscess) or endocarditis (literature jocelyne wed that the median days of MRSA bacteremia in endocarditis is 5-7 days); therefore, I have no concerns for failure of therapy especially with MRSA VISHAL of 1 to Vancomycin. 2. Please continue to send for blood cultures every 48 hours instead of daily until negative. 3. We follow up on the CT scan of the right arm, right elbow, and right forearm to investigate for deep-seated infection or septic arthritis of the right elbow.We will also F/U on transthoracic echo. 5. Thank you for consulting ID. We will continue to follow.
[2022-11-30] MEDS ORDERED: VANCOMYCIN LEVEL ONE (13:00)
[2022-11-30 13:26] LABS: Base Excess ABG 4.9 mEq/L (-9-1.8); HCO3 ABG 33 mmol/L (19-24); Oxygen Saturation ABG 98.3 % (90-95); PCO2 ABG 65 mmHg (35-46); PO2 ABG 83 mmHg (80-95); pH ABG 7.31 (7.35-7.45)
[2022-11-30 13:28] LABS: Allen Test Pos (Pos)
[2022-11-30] MEDS: FUROSEMIDE INJ 20 MG/2 ML VIAL IV SCH ×2 (14:11→20:19)
[2022-11-30] MEDS ORDERED: POTASSIUM CHLORIDE / WTR 10 MEQ/100 ML PLCT IV ONE (14:21)
[2022-11-30] MEDS: POTASSIUM CHLORIDE 10 MEQ TABCR PO SCH ×2 (14:30→20:23)
--- NOTE | 2022-11-30 15:12 | Critical Care Consultation ---
Date of Consultation November 30, 2022 Assessment & Plan (1) Hypercapnic respiratory failure, chronic: (2) Chronic liver disease and cirrhosis: (3) MRSA bacteremia: (4) Hyponatremia: Plan Impression: 67-year-old male with known cirrhosis and sleep disordered breathing with hypercarbic respiratory failure likely exacerbated by concomitant use of respiratory suppressant medications (Dilaudid and oxycodone). He is also bacteremic. Recommendations: 1. Neurologic: The patient is encephalopathic. Suspect this is related to his metabolic disarray. We will follow his clinical status. Check ammonia. We will discontinue all respiratory suppressant medications especially narcotics and avoid any benzodiazepines or other medications which could contribute to his hypercarbia. Hold baclofen and doxylamine at night. 2. Pulmonary: Acute on chronic hypercapnic respiratory failure. We will transition the patient to bilevel 20/12 and continue this. We will repeat venous blood gas in the a.m. to assess how the patient is doing. He should use noninvasive positive pressure ventilation nightly and as needed during the day. Weight loss recommended. 3. Cardiovascular: Patient is hemodynamically stable currently. Continue to follow. 4. Renal: Hyponatremia: On p.o. urea. Nephrology following. Acid-base status demonstrates acute on chronic hypercarbic respiratory failure and would follow for now. Volume status appears adequate. 5. ID: MRSA bacteremia on vancomycin. Management per infectious disease. May require PICC line once bacteremia clears. Defer to ID additional work-up. 6. Endocrine: Glycemic control per ICU protocol. 7. GI: History of cirrhosis. Appears reasonably well compensated currently. Await ammonia level. 8. Heme-onc: Mild anemia. No indication for transfusion. Mild leukocytosis unremarkable in the setting of acute infection. Discussed with ICU nurse. We will follow overnight in the intensive care unit. Anticipate he may be able to go to the floor if we stabilize his respiratory requirements. History of Present Illness Attending Physician: Kat Pickens MD History of Present Illness Asked by hospitalist to evaluate this patient with hypercarbic respiratory failure and altered sensorium. History is obtained from review electronic medical record and discussion with the hospitalist as well as the bedside nurse. Patient is a 67-year-old morbidly obese male with a history of sleep disordered breathing who is on oxygen chronically at 5 L/min and CPAP at unknown settings. He was admitted to the hospital 11/26/2022 after being found down at home. The patient has frequent falls and apparently is being evaluated for placement as he is no longer felt to be safe at home. There is a questionable history of obstructive lung disease although the patient's been noncompliant with medication. He was found to be bacteremic. He has had infectious disease consultation for been placed on vancomycin. He is hyponatremic. He was found to be altered this morning. They placed him on BiPAP. He appears to be on AVAPS. A follow-up blood gas performed later revealed stable elevation in his CO2 and was recommended the patient be transferred to the ICU. I assessed the patient on the floor. He is obtunded but does awaken to verbal and tactile stimulus. He appears oriented when you talk to him but does fall back to sleep. Allergies Allergy/AdvReac Type Severity Reaction Status Date / Time morphine AdvReac Unknown Hallucinati Verified 11/26/22 17:04 ng Home Medications Medication Instructions Recorded Confirmed Type acetaminophen 500 mg tablet 500 mg PO BID PRN Pain 11/26/22 11/26/22 History albuterol sulfate 2.5 mg/3 mL 2.5 mg inhalation Q4H PRN 11/26/22 11/26/22 History (0.083 %) solution for nebulization Shortness Of Breath Or Wheezing baclofen 10 mg tablet 10 mg PO TID PRN Muscle Spasm 11/26/22 11/26/22 History bisacodyl 5 mg tablet 5 mg PO HS 11/26/22 11/26/22 History bumetanide 2 mg tablet 2 mg PO DAILY 11/26/22 11/26/22 History citalopram 20 mg tablet 20 mg PO BID 11/26/22 11/26/22 History doxylamine succinate 25 mg tablet 25 mg PO HS PRN Sleep 11/26/22 11/26/22 History ferrous sulfate 325 mg (65 mg 325 mg PO DAILY 11/26/22 11/26/22 History iron) tablet fluticasone fur. 100 mcg-umeclid 1 inh inhalation DAILY 11/26/22 11/26/22 History 62.5 mcg-vilant 25 mcg inhalat.powder (Trelegy Ellipta) guselkumab 100 mg/mL subcutaneous 100 mg subcut UD 11/26/22 11/26/22 History auto-injector (Tremfya) insulin degludec 200 unit/mL (3 20 unit subcut HS 11/26/22 11/26/22 History mL) subcutaneous pen (Tresiba FlexTouch U-200 insulin) magnesium 500 mg tablet 15 mg PO DAILY 11/26/22 11/26/22 History metformin 500 mg tablet 1,000 mg PO BID 11/26/22 11/26/22 History multivit,Ca,min-iron 8 mg-folic 1 tab PO DAILY 11/26/22 11/26/22 History acid 200 mcg-lycopene 600 mcg tablet (Centrum Men) pantoprazole 40 mg tablet,delayed 40 mg PO BID 11/26/22 11/26/22 History release vitamin B complex 1 tab PO DAILY 11/26/22 11/26/22 History Patient History Medical History (Updated 11/30/22 @ 16:04 by King Desouza MD) Anemia Chronic pain syndrome Cirrhosis COPD (chronic obstructive pulmonary disease) Depression Diabetes mellitus, type II Nocturnal hypoxia Surgical History Amputated finger S/P colon resection Family History Other Heart disease Stroke Social History (Updated 11/26/22 @ 16:07 by Josselyn Alonzo PA-C) Smoking Status: Never smoker Second Hand Exposure: No; Do You Dip or Chew Tobacco: No; Hx Alcohol Use: No Hx Substance Use: Yes Prescribed Medications: Marijuana Last Used Substance: Hours (ago) Preferred Language: German Communication Ability: Effective Cook Chili Required: No Beliefs That Will Affect Care: None Current Living Situation: Family Current Living Situation Comment: Lives w/ daughter who is w/c bound Other Information That Helps Us Care for You: No Feels Safe at Home: Yes Safety Concerns: Feels Safe At This Time Assistive Devices: Cane, Oxygen - at Night, Oxygen - Continuous and Walker Review of Systems Review of Systems: Unobtainable due to reduced consciousness Physical Exam Constitutional: + morbidly obese and + disheveled; not ill appearing Neck: trachea midline, no thyromegaly Respiratory: normal respiratory effort, lungs clear to auscultation Cardiovascular: RRR, no murmur, no edema Gastrointestinal (Abdomen): normal bowel sounds, soft, nontender, no hepatosplenomegaly Musculoskeletal: Extremities: extremities normal to inspection Skin: no rashes, warm and dry Neurologic: Nonfocal exam Lymphatic: no cervical lymphadenopathy Results & Data Results & Data Vital Signs (Past 12 Hours) Vital Signs Temp Pulse Pulse Resp BP Pulse Ox O2 Del Method 11/30/22 11:30 36.7 C 84 18 132/74 96 BiPAP 11/30/22 10:38 72 25 H 95 11/30/22 09:15 Oxymask 11/30/22 08:32 36.7 C 88 18 142/70 H 96 BiPAP O2 Flow Rate 11/30/22 11:30 5 11/30/22 10:38 5 11/30/22 09:15 5 11/30/22 08:32 5 Critical Care Results & Data Vital Signs (Past 12 Hours) Vital Signs Temp Pulse Pulse Resp BP Pulse Ox O2 Del Method 11/30/22 11:30 36.7 C 84 18 132/74 96 BiPAP 11/30/22 10:38 72 25 H 95 11/30/22 09:15 Oxymask 11/30/22 08:32 36.7 C 88 18 142/70 H 96 BiPAP O2 Flow Rate 11/30/22 11:30 5 11/30/22 10:38 5 11/30/22 09:15 5 11/30/22 08:32 5 Lab & Micro Results (Past 24 Hours) RBC 3.28 M/uL (4.70-6.10) L 11/30/22 WBC 11.22 K/ul (4.8-10.8) H 11/30/22 Hgb 10.2 g/dl (14.0-18.0) L 11/30/22 Hct 29.8 % (42.0-52.0) L 11/30/22 MCV 90.9 fL (80.0-100.0) 11/30/22 MCH 31.1 pg (25.0-34.0) 11/30/22 MCHC 34.2 g/dL (32.0-36.0) 11/30/22 RDW Standard Deviation 45.4 fL (36.4-46.3) 11/30/22 RDW Coefficient of Variation 13.6 % (11.5-14.5) 11/30/22 Plt Count 269 K/uL (130-400) 11/30/22 MPV 12.2 fL (9.4-12.4) 11/30/22 Nucleated Red Blood Cells % (auto) 0.9 % 11/30 Nucleated RBC Absolute Count (auto) 0.10 K/uL (0.00-0.12) 0 11/30/22 Neutrophils (%) (Auto) 70.0 % 11/30/22 Lymphocytes (%) (Auto) 11.8 % 11/30/22 Monocytes # (Auto) 1.04 K/uL (0.11-0.59) H 11/30/22 Eosinophils # (Auto) 0.21 K/uL (0.00-0.50) 11/30/22 Immature Granulocyte % (Auto) 6.1 % 11/30/22 Neutrophils # (Auto) 7.86 K/uL (1.40-6.50) H 11/30/22 Lymphocytes # (Auto) 1.32 K/uL (1.20-3.40) 11/30/22 Monocytes # (Auto) 1.04 K/uL (0.11-0.59) H 11/30/22 Eosinophils # (Auto) 0.21 K/uL (0.00-0.50) 11/30/22 Basophils # (Auto) 0.10 K/uL (0.00-0.20) 11/30/22 Immature Granulocyte # (Auto) 0.69 K/uL (0.01-0.20) H 11/30 Echinocytes 1+ 11/30/22 Target Cells 1+ 11/30/22 Dohle Bodies 1+ 11/30/22 Na 132 mmol/L (136-145) L 11/30/22 K 4.0 mmol/L (3.5-5.1) 11/30/22 Cl 99 mmol/L (98-107) 11/30/22 CO2 29 mmol/L (21-32) 11/30/22 Anion Gap 4 (3-11) 11/30/22 BUN 37 mg/dl (6-23) H 11/30/22 Creatinine 0.93 mg/dl (0.6-1.4) 11/30/22 Estimated GFR ( Amer) 97.4 ml/min 11/30/22 Estimated GFR (Non-Af Amer) 84.1 ml/min 11/30/22 BUN/Creatinine Ratio 39.8 (10-20) H 11/30/22 Glu 127 mg/dl (70-99(Fasting)) H 11/30/22 Ca 9.0 mg/dl (8.6-10.3) 11/30/22 Phosphorus Level 2.8 mg/dl (2.5-4.9) 11/30/22 Total Bilirubin 1.8 mg/dl (0.2-1.0) H 11/30/22 AST 72 U/L (13-39) H 11/30/22 ALT 51 U/L (7-52) 11/30/22 Alkaline Phosphatase 248 U/L (34-104) H 11/30/22 TP 6.3 gm/dl (6.0-8.3) 11/30/22 Albumin 2.3 gm/dl (3.4-5.0) L 11/30/22 Globulin 4.0 gm/dl (2.5-4.0) 11/30/22 Albumin/Globulin Ratio 0.6 (0.9-2) L 11/30/22 Mg 1.6 mg/dl (1.7-2.4) L 11/30/22 06:05 Calcium Level 9.0 mg/dl (8.6-10.3) 11/30/22 06:05 Ionized Calcium 1.24 mmol/L (1.12-1.32) 11/30/22 06:05 Venous Blood pH 7.32 (7.36-7.41) L 11/30/22 10:06 Venous Blood Partial Pressure CO2 59 mmHg (38-50) H 11/30/22 10 :06 Venous Blood Partial Pressure O2 65 mmHg 11/30/22 10:06 Venous Blood HCO3 30 mmol/L 11/30/22 10:06 Venous Blood Base Excess 3.1 mEq/L 11/30/22 10:06 Venous Blood Oxygen Saturation 93.6 % 11/30/22 10:06 Arterial Blood pH 7.31 (7.35-7.45) L 11/30/22 13:16 Arterial Blood Partial Pressure CO2 65 mmHg (35-46) H 11/30/22 13:16 Arterial Blood Partial Pressure O2 83 mmHg (80-95) 11/30/22 13: 16 Arterial Blood HCO3 33 mmol/L (19-24) H 11/30/22 13:16 Arterial Blood Base Excess 4.9 mEq/L (-9-1.8) H 11/30/22 13:16 Arterial Blood Oxygen Saturation 98.3 % (90-95) H 11/30/22 13:1 6 Blood Gas Oxygen Given 4.5L 11/30/22 13:16 Lapesh Test Pos (Pos) 11/30/22 13:16 Microbiology 11/29/22 07:34 Aerobic Blood Culture - Preliminary Blood Gram positive cocci clusters Anaerobic Blood Culture - Preliminary No growth in Anaerobic bottle after 24 hours. 11/29/22 07:11 Aerobic Blood Culture - Preliminary Blood Gram positive cocci clusters Anaerobic Blood Culture - Preliminary No growth in Anaerobic bottle after 24 hours. 11/28/22 05:25 Aerobic Blood Culture - Preliminary Blood Staph aureus MRSA Anaerobic Blood Culture - Preliminary No growth in Anaerobic bottle after 48 hours. 11/28/22 05:32 Aerobic Blood Culture - Preliminary Blood Gram positive cocci clusters Anaerobic Blood Culture - Preliminary No growth in Anaerobic bottle after 48 hours. I & O Totals 24 Hours 11/29/22 11/30/22 12/01/22 06:59 06:59 06:59 Intake Total 2288.333 / 2288.333 4156.334 / 4156.334 800.667 / 800.667 Output Total 1875 / 1875 1900 / 1900 Balance 413.333 / 381.760 9118.334 / 2256.334 800.667 / 800.667 Cumulative 11/26/22 10:59 thru 11/30/22 15:30 Intake Total 30517.167 Output Total 5275 Balance 7332.167 RT Ventilator Mngmt (Last Documented) Ventilator Ordered Settings Respiratory Rate 18 11/30/22 11:30 Ventilator - PT Measurements Respiratory Rate 18 Coding Level of Care Code 72948 IN/OBS CONSULT LVL 4,60M Diagnoses Hypercapnic respiratory failure, chronic J96.12 Chronic liver disease and cirrhosis K74.60; K76.9 MRSA bacteremia R78.81; B95.62 Hyponatremia E87.1
--- NOTE | 2022-11-30 15:20 | Pharmacy Report ---
Pharmacy PK ABX Note - Date of Service November 30, 2022 - Assessment and Plan Assessment 67 year old M receiving vancomycin for treatment of MRSA bacteremia. Pertinent microbiologic data includes: blood culture growing MRSA from 11/26; blood culture growing MRSA from 11/27; blood culture growing MRSA from 11/28. Blood cultures from 11/29 (+) [facility]. ID following. Day # 2 of antimicrobial therapy. Plan Vancomycin * Current vanc regimen: 1gm IV q8h * Trough level this afternoon (drawn late, non-steady state, ~9hr level), 13.5mcg/mL. Predicted to achieve ssAUC 539mg/L.hr- therapeutic. * Continue Maintenance dose: 1000 mg IV every 8 hours * Repeat trough 12/02 AM (or sooner if clinically indicated) Pharmacy will continue to follow and will adjust dose/frequency as necessary. Thank you. Pharmacy has transitioned to AUC monitoring for vancomycin. AUC/VISHAL is the preferred PK/PD target and is associated with decreased risk of nephrotoxicity compared to traditional trough targets.
--- NOTE | 2022-11-30 18:30 | Cardiology Consultation ---
Date of Consultation November 30, 2022 Assessment & Plan (1) MRSA bacteremia: (2) Chronic liver disease and cirrhosis: (3) Hypercapnic respiratory failure, chronic: Plan -Possible source could be skin infection with subsequent bacteremia. A transthoracic echocardiogram was attempted today but is technically insufficient due to the patient's body habitus and his inability to cooperate with the examination. A CT of the abdomen pelvis was performed on 11/26/2022 with notable findings of cirrhosis as well as paraesophageal varices. Although the information obtained with regards to presence or absence of vegetation will be helpful, patient's respiratory status at present precludes transesophageal echocardiogram. This is being addressed by withholding sedatives, and with positive pressure ventilation. The patient however has been found to have findings on CT consistent with hepatic cirrhosis as well as distal paraesophageal varices which may preclude JAKE unless the varices can be better delineated perhaps with an EGD. Overall the risks of such procedures may prove prohibitive at present. Patient's condition to be reassessed. History of Present Illness Attending Physician: Kat Pickens MD History of Present Illness Patient seen in cardiology consultation per the request of Dr. Pickens for consideration of a transesophageal echocardiogram for further evaluation of the patient's findings of persistent MRSA bacteremia on 6 blood cultures performed 11/27/2022 11/28/2022 and 11/29/2022. The patient has received the majority of his health care in the past within the [facility] system, and therefore no significant cardiac history is available at present. He presented via the emergency department on 11/26/2022 having been found lying under a table post fall. Patient with multiple recent falls. 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 The patient has been receiving IV vancomycin. Today he became progressively more somnolent. An arterial blood gas revealed hypercapnia with PCO2 of 65, HCO3 33, oxygen saturation 98%, and pH of 7.31. He has since been transferred to the intensive care unit and is now resting comfortably on CPAP with oxygen supplementation at 5 L/min. He is somnolent and unable to answer questions at present. Allergies Allergy/AdvReac Type Severity Reaction Status Date / Time morphine AdvReac Unknown Hallucinati Verified 11/26/22 17:04 ng Home Medications Medication Instructions Recorded Confirmed Type acetaminophen 500 mg tablet 500 mg PO BID PRN Pain 11/26/22 11/26/22 History albuterol sulfate 2.5 mg/3 mL 2.5 mg inhalation Q4H PRN 11/26/22 11/26/22 H istory (0.083 %) solution for nebulization Shortness Of Breath Or Wheezing baclofen 10 mg tablet 10 mg PO TID PRN Muscle Spasm 11/26/22 11/26/22 History bisacodyl 5 mg tablet 5 mg PO HS 11/26/22 11/26/22 History bumetanide 2 mg tablet 2 mg PO DAILY 11/26/22 11/26/22 History citalopram 20 mg tablet 20 mg PO BID 11/26/22 11/26/22 History doxylamine succinate 25 mg tablet 25 mg PO HS PRN Sleep 11/26/22 11/26/22 History ferrous sulfate 325 mg (65 mg 325 mg PO DAILY 11/26/22 11/26/22 History iron) tablet fluticasone fur. 100 mcg-umeclid 1 inh inhalation DAILY 11/26/22 11/26/22 History 62.5 mcg-vilant 25 mcg inhalat.powder (Trelegy Ellipta) guselkumab 100 mg/mL subcutaneous 100 mg subcut UD 11/26/22 11/26/22 History auto-injector (Tremfya) insulin degludec 200 unit/mL (3 20 unit subcut HS 11/26/22 11/26/22 History mL) subcutaneous pen (Tresiba FlexTouch U-200 insulin) magnesium 500 mg tablet 15 mg PO DAILY 11/26/22 11/26/22 History metformin 500 mg tablet 1,000 mg PO BID 11/26/22 11/26/22 History multivit,Ca,min-iron 8 mg-folic 1 tab PO DAILY 11/26/22 11/26/22 History acid 200 mcg-lycopene 600 mcg tablet (Centrum Men) pantoprazole 40 mg tablet,delayed 40 mg PO BID 11/26/22 11/26/22 History release vitamin B complex 1 tab PO DAILY 11/26/22 11/26/22 History Patient History Medical History Anemia Chronic pain syndrome Cirrhosis COPD (chronic obstructive pulmonary disease) Depression Diabetes mellitus, type II Nocturnal hypoxia Surgical History Amputated finger S/P colon resection Family History Other Heart disease Stroke Social History Smoking Status: Never smoker Second Hand Exposure: No; Do You Dip or Chew Tobacco: No; Hx Alcohol Use: No Hx Substance Use: Yes Prescribed Medications: Marijuana Last Used Substance: Hours (ago) Preferred Language: Croatian Communication Ability: Effective 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 Beliefs That Will Affect Care: None Current Living Situation: Family Current Living Situation Comment: Lives w/ daughter who is w/c bound Other Information That Helps Us Care for You: No Feels Safe at Home: Yes Safety Concerns: Feels Safe At This Time Assistive Devices: Cane, Oxygen - at Night, Oxygen - Continuous and Walker Review of Systems Review of Systems: Unobtainable due to reduced consciousness Physical Exam Constitutional: + morbidly obese Respiratory: Mildly reduced breath sounds at bases Cardiovascular: Rate/Rhythm: regular rate and regular rhythm Extremities: + edema (Chronic edema, history of lymphedema) Gastrointestinal (Abdomen): normal bowel sounds, soft, nontender, no hepatosplenomegaly Neurologic: PERRL, EOMI, accommodation nl, no face palsy, no dysarthria Results & Data Vital Signs (Past 12 Hours) Vital Signs Temp Pulse Pulse Resp BP BP Pulse Ox 11/30/22 18:00 75 19 96 11/30/22 18:00 134/81 11/30/22 17:02 131/97 11/30/22 17:02 76 22 96 11/30/22 17:00 74 25 H 98 11/30/22 16:00 70 18 99 11/30/22 16:00 119/66 11/30/22 15:57 125/72 11/30/22 15:57 71 17 11/30/22 15:00 75 23 93 11/30/22 14:00 79 25 H 88 L 11/30/22 13:46 77 21 91 11/30/22 13:46 159/68 H 11/30/22 13:30 77 22 90 11/30/22 13:30 148/78 H 11/30/22 13:15 157/85 H 11/30/22 13:15 74 21 96 11/30/22 13:00 77 22 96 11/30/22 13:00 110/67 11/30/22 12:45 137/80 11/30/22 12:45 76 29 H 86 L 11/30/22 12:30 76 23 95 11/30/22 12:30 135/77 11/30/22 12:15 117/82 11/30/22 12:15 75 21 93 11/30/22 12:00 78 21 92 11/30/22 12:00 141/75 H 11/30/22 11:46 142/78 H 11/30/22 11:46 80 22 91 11/30/22 11:30 79 25 H 88 L 11/30/22 11:30 115/82 11/30/22 11:15 136/84 11/30/22 11:15 78 31 H 92 11/30/22 11:00 81 27 H 93 11/30/22 11:00 130/73 11/30/22 10:45 137/78 11/30/22 10:45 75 23 91 11/30/22 10:31 127/71 11/30/22 10:31 76 20 93 11/30/22 10:16 227/197 H 11/30/22 10:16 74 31 H 95 11/30/22 10:00 77 19 95 11/30/22 10:00 142/81 H 11/30/22 09:45 138/79 11/30/22 09:45 79 19 98 11/30/22 09:30 140/72 11/30/22 09:30 80 21 99 11/30/22 09:15 83 20 71 L 11/30/22 09:15 137/73 11/30/22 09:00 75 28 H 91 11/30/22 18:16 37 C 11/30/22 18:01 77 11/30/22 18:01 11/30/22 15:06 70 24 98 11/30/22 11:30 36.7 C 84 18 132/74 96 11/30/22 10:38 72 25 H 95 11/30/22 09:15 11/30/22 08:32 36.7 C 88 18 142/70 H 96 O2 Del Method O2 Flow Rate 11/30/22 18:00 11/30/22 18:00 11/30/22 17:02 11/30/22 17:02 11/30/22 17:00 11/30/22 16:00 11/30/22 16:00 11/30/22 15:57 11/30/22 15:57 11/30/22 15:00 11/30/22 14:00 11/30/22 13:46 11/30/22 13:46 11/30/22 13:30 11/30/22 13:30 11/30/22 13:15 11/30/22 13:15 11/30/22 13:00 11/30/22 13:00 11/30/22 12:45 11/30/22 12:45 11/30/22 12:30 11/30/22 12:30 11/30/22 12:15 11/30/22 12:15 11/30/22 12:00 11/30/22 12:00 11/30/22 11:46 11/30/22 11:46 11/30/22 11:30 11/30/22 11:30 11/30/22 11:15 11/30/22 11:15 11/30/22 11:00 11/30/22 11:00 11/30/22 10:45 11/30/22 10:45 11/30/22 10:31 11/30/22 10:31 11/30/22 10:16 11/30/22 10:16 11/30/22 10:00 11/30/22 10:00 11/30/22 09:45 11/30/22 09:45 11/30/22 09:30 11/30/22 09:30 11/30/22 09:15 11/30/22 09:15 11/30/22 09:00 11/30/22 18:16 11/30/22 18:01 11/30/22 18:01 CPAP 5 11/30/22 15:06 5 11/30/22 11:30 BiPAP 5 11/30/22 10:38 5 11/30/22 09:15 Oxymask 5 11/30/22 08:32 BiPAP 5 Laboratory Results Cardiac Enzymes 11/30/22 Range/Units 06:05 AST 72 H (13-39) U/L CBC 11/30/22 Range/Units 06:05 WBC 11.22 H (4.8-10.8) K/ul RBC 3.28 L (4.70-6.10) M/uL Hgb 10.2 L (14.0-18.0) g/dl Hct 29.8 L (42.0-52.0) % Plt Count 269 (130-400) K/uL Neut # (Auto) 7.86 H (1.40-6.50) K/uL Lymph # (Auto) 1.32 (1.20-3.40) K/uL Cherry # (Auto) 1.04 H (0.11-0.59) K/uL Eos # (Auto) 0.21 (0.00-0.50) K/uL Baso # (Auto) 0.10 (0.00-0.20) K/uL Comprehensive Metabolic Panel 11/30/22 Range/Units 06:05 Sodium 132 L (136-145) mmol/L Potassium 4.0 (3.5-5.1) mmol/L Chloride 99 (98-107) mmol/L Carbon Dioxide 29 (21-32) mmol/L BUN 37 H (6-23) mg/dl Creatinine 0.93 (0.6-1.4) mg/dl Glucose 127 H (70-99(Fasting)) mg/dl Calcium 9.0 (8.6-10.3) mg/dl AST 72 H (13-39) U/L ALT 51 (7-52) U/L Alkaline Phosphatase 248 H (34-104) U/L Total Protein 6.3 (6.0-8.3) gm/dl Albumin 2.3 L (3.4-5.0) gm/dl Intake and Output 11/30/22 11/30/22 11/30/22 06:59 14:59 22:59 Intake Total 740 / 4156.334 700.667 / 1170.667 470 / 1170.667 Output Total 750 / 1900 600 / 600 Balance -10 / 2256.334 700.667 / 570.667 -130 / 570.667 Intake: IV 640 / 3536.334 700.667 / 1170.667 470 / 1170.667 Magnesium Sulfate / D5w 1 gm In 100 / 200 100 / 200 100 ml @ 50 mls/hr IV Q2H [facility] Rx#:[id number] Nss + 20Meq KCl 20 meq In 1,000 500.667 / 500.667 ml @ 40 mls/hr IV .Q24H [facility] Rx #:[id number] Piperacillin/Tazobactam 4.5 gm 100 / 300 100 / 100 In Dextrose 5% Mini-B 100 ml @ 25 mls/hr IV Q8H [facility] Rx#: [id number] Potassium Chloride / Wtr 10 meq 100 / 100 In 100 ml @ 100 mls/hr IV ONE ONE Rx#:[id number] Vancomycin HCl 1,000 mg In 540 / 540 270 / 270 Sodium Chloride 0.9% 250 ml @ 200 mls/hr IV Q8 [facility] Rx#: [id number] Oral 100 / 620 Output: Urine 750 / 1800 600 / 600 Other: Weight 133.1 kg Diagnostic Findings EKG performed 11/26/2022 revealed sinus tachycardia 103 bpm with occasional PACs
[2022-11-30] MEDS: bisacodyL 5 MG TABEC PO SCH (20:22)
[2022-11-30 20:33] LABS: HCO3 VBG 33 mmol/L; Oxygen Saturation VBG 92.3 %; PCO2 VBG 54 mmHg (38-50); PO2 VBG 62 mmHg
[2022-11-30] MEDS: LANTUS PER UNIT CHARGE SQ SCH (20:40)
[2022-12-01] MEDS: FUROSEMIDE INJ 20 MG/2 ML VIAL IV SCH ×3 (04:30→20:05)
[2022-12-01] MEDS: VANCOMYCIN HCL 1,000 MG in SODIUM CHLORIDE 0.9% 250 ML IV SCH (04:50)
[2022-12-01 04:51] LABS: Hematocrit (blood only) 31.8 % (42.0-52.0); Hemoglobin 10.6 g/dl (14.0-18.0); Mean Corpuscular Hemoglobin 30.6 pg (25.0-34.0); Mean Corpuscular Hgb Conc 33.3 g/dL (32.0-36.0); Mean Corpuscular Volume 91.9 fL (80.0-100.0); Mean Platelet Volume 11.8 fL (9.4-12.4); Platelet Count 296 K/uL (130-400); RDW Coefficient of Variation 15.2 % (11.5-14.5); RDW Standard Deviation 50.6 fL (36.4-46.3); Red Blood Count 3.46 M/uL (4.70-6.10)
[2022-12-01 04:52] LABS: Albumin Globulin Ratio 0.6 (0.9-2); Albumin Level 2.4 gm/dl (3.4-5.0); BUN Creatinine Ratio 33.7 (10-20); Bilirubin,Total 1.3 mg/dl (0.2-1.0); Calcium 9.1 mg/dl (8.6-10.3); Creatinine Clr Calc Pharmacy 126.9 ml/min; Est GFR (African American) 104.8 ml/min; Est GFR (Non-African American) 90.4 ml/min; Globulin 4.3 gm/dl (2.5-4.0); Magnesium 1.6 mg/dl (1.7-2.4); Potassium 3.8 mmol/L (3.5-5.1); Total Protein 6.7 gm/dl (6.0-8.3)
[2022-12-01] MEDS: ACETAMINOPHEN 500 MG TAB PO SCH ×3 (05:02→23:00)
[2022-12-01 05:12] LABS: Basophils # (auto) 0.09 K/uL (0.00-0.20); Basophils % (auto) 0.9 %; Eosinophils # (auto) 0.17 K/uL (0.00-0.50); Eosinophils % (auto) 1.7 %; Immature Granulocytes # (auto) 0.89 K/uL (0.01-0.20); Lymphocytes # (auto) 1.27 K/uL (1.20-3.40); Lymphocytes % (auto) 12.8 %; Monocytes % (auto) 9.1 %; Neutrophils # (auto) 6.58 K/uL (1.40-6.50); Neutrophils % (auto) 66.5 %; Poikilocytosis Present; Polychromasia 2+; Rouleaux 1+
[2022-12-01] MEDS ORDERED: MAGNESIUM SULFATE / D5W 1 GM/100 ML BAG IV ONE ×2 (06:32→07:50)
--- NOTE | 2022-12-01 07:42 | Hospitalist Progress Note ---
Date of Service December 01, 2022 Assessment & Plan (1) Sepsis: (2) Hypercapnic respiratory failure, chronic: (3) Hyponatremia: (4) Falls: (5) Hypomagnesemia: (6) Diabetes mellitus, type II: (7) Anemia: (8) Nocturnal hypoxia: Plan: On oxygen at night (9) COPD (chronic obstructive pulmonary disease): (10) Depression: (11) Cirrhosis: (12) Chronic pain syndrome: Plan: Plan Mr. Carbajal is 67 year old gentleman who follows with [facility] with complex medical history of DM II, prior chronic pain no longer on narcotics, cirrhosis, history of splenectomy, history of Jazmyne's gangrene, lymphedema, nocturnal hypoxia who presented on 11/26 with multiple falls at home and found to have MRSA bacteremia. TTE was not able to r/o abscess/vegetations and JAKE was attempted but not successful due to encephalopathy and respiratory liability. 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 Course has been complicated by metabolic encephalopathy and acute on chronic hypercapnic respiratory failure, prompting over night transfer to ICU on 11/30. #Acute metabolic encephalopathy -Transferred to ICU given progressive hypercarbia and worsening mentation on 11/30 -ICU management #Persistent MRSA bacteremia #Sepsis *resolved #Leukocytosis *resolved On admission, HR 110, WBC 15.16, meeting SIRs criteria. Lactate wnl, procal 4.75 CT abd/pelvis without acute infectious abnormality but did note mildly thickened appendiceal tip with a small appendiceal nodule. No evidence for acute appendicitis. CTA chest with suspected right glenohumeral joint effusion with adjacent stranding and two punctate locules of soft tissue gas. The findings are likely related to severe osteoarthritis. However, a superimposed infectious etiology would be difficult to completely exclude. Dedicated shoulder xray notes severe OA UA abnormal with trace leuk est, + nitrite, 3+ blood, urine Cx with no significant growth at this time. -Infectious Disease consult, attempt to find source of bacteremia: JAKE and CT w/ con R arm -Ortho Surgery consult- recommended follow up CT scan in 3 months, no surgical intervention. -Orthopedics called on 12/01: discussed options with Dr Roby, recommended IR for arthrocentesis -Continue Vancomycin -Order for R shoulder arthrocentesis, tentative 12/02 #Acute on Chronic hypercapnic respiratory failure With increased lethargy, vbg ordered Retaining CO2, placed on bipap. Repeat ABG with increased retention, ICU consulted and pt transferred- Appreciate recs. Last narcotic dose 5pm the day before, less likely cause. Question of whether pt should be using cpap chronically for sleep- consider outpatient polysomnography. #Hyponatremia * resolved Na 124 on admission Serum osm 277, urine osm 608, urine na 10 on admission Nephrology consulted: 11/28 Urea 15mg BID Continue to monitor while NPO #Hypomagnesemia -Replace as needed #Chronic normocytic anemia #Mechanical falls #Rhabdomyolysis *resolved #Right shoulder pain, severe OA, ?septic joint No acute fracture or traumatic findings on imaging as above Head CT with no suggestive cause CK elevated at 4266 on admission and downtrending to 1263 CT imaging of arm, elbow and forearm: OA v ? septic joint PT/OT eval once more stable -IR joint aspiration pending, vanc as above #DMII A1c 7.5 in June 2022, repeat currently 7.6 Hold home agents Basal/bolus insulin while in-patient #COPD History of tobacco use, no longer smoking Continue Bethany Medina #Depression Continue SSRI #Compensated Cirrhosis Listed on outpatient paperwork from [facility], patient a poor historian so unclear Abdomen/pelvis CT notes cirrhosis with varices formation. T. bili 2.1, AST 198, ALT 59 and downtrending currently Continue to follow labs Ammonia 31 #Chronic Pain syndrome Pt noting he is in significant pain, noted that his pain was not currently being treated. Previously on narcotics but PCP discontinued when he failed UDS. UDS on admission positive for marijuana, endorses daily use Given pt's Hx of frequent falls, severe OA and complaints that his pain is not being treated appropriately, previously temporarily treated while hospitalized with the following regimen: tylenol 1000mg q8h prn for mild pain, po oxycodone 5mg q8h prn for moderate pain and dilaudid 0.5mg q6h prn for severe pain. Goal is to wean off narcotics for discharge. DVT Ppx: Lovenox Code status: DNR/DNI per conversation PCP: CLIFTON Pena [facility] Dispo: PT initial eval recommending extended care facility, will reeval given recent decline Admission and Anticipated Discharge Date Admission Date: November 26, 2022 Subjective Moved to ICU overnight due to progressive encephalopathy and hypercapnia Evaluated at bedside, arousable to physical stimuli, on bipap Review of Systems Review of Systems: Unobtainable due to reduced consciousness Physical Exam Constitutional: laying in bed, bipap mask in place Respiratory: clear lungs, no wheezing, rhonchi or crackles appreciated, tolertaing bipap Cardiovascular: RRR, no murmur, no edema Gastrointestinal (Abdomen): normal bowel sounds, soft, nontender, no hepatosplenomegaly Skin: no rashes, warm and dry Results & Data Results & Data Vital Signs (Past 12 Hours) Vital Signs Pulse Resp BP Pulse Ox O2 Del Method O2 Flow Rate 12/01/22 06:00 81 25 H 88 L 12/01/22 06:00 133/70 12/01/22 05:00 78 18 91 12/01/22 05:00 118/65 12/01/22 04:01 86/73 L 12/01/22 04:01 77 24 91 12/01/22 04:00 77 19 94 12/01/22 02:25 77 26 H 93 5 11/30/22 22:37 90 27 H 93 5 12/01/22 03:01 76 21 140/72 88 L 12/01/22 03:00 78 17 92 12/01/22 02:01 79 25 H 87 L 12/01/22 02:01 143/102 H 12/01/22 02:00 79 21 93 12/01/22 03:58 BiPAP 5 12/01/22 01:01 80 16 86 L 12/01/22 01:00 77 15 136/80 95 12/01/22 00:00 81 16 95 11/30/22 23:01 116/65 11/30/22 23:01 81 21 86 L 11/30/22 23:00 79 26 H 92 11/30/22 22:01 79 25 H 96 11/30/22 22:01 142/69 H 11/30/22 22:00 80 21 97 11/30/22 21:00 80 23 98 11/30/22 21:00 140/72 11/30/22 20:00 78 24 98 11/30/22 20:21 77 19 97 5 Laboratory Results Short CBC 12/01/22 Range/Units 04:03 WBC 9.90 (4.8-10.8) K/ul Hgb 10.6 L (14.0-18.0) g/dl Hct 31.8 L (42.0-52.0) % Plt Count 296 (130-400) K/uL BMP 12/01/22 04:03 Sodium 136 Potassium 3.8 Chloride 98 Carbon Dioxide 34 H BUN 28 H Creatinine 0.83 Glucose 111 H Calcium 9.1 Liver Function 12/01/22 Range/Units 04:03 Total Bilirubin 1.3 H (0.2-1.0) mg/dl AST 50 H (13-39) U/L ALT 44 (7-52) U/L Alkaline Phosphatase 289 H (34-104) U/L Albumin 2.4 L (3.4-5.0) gm/dl Medications Administered Home Medications Medication Instructions Recorded Confirmed Last Taken acetaminophen 500 mg tablet 500 mg PO BID PRN Pain 11/26/22 11/26/22 Unknown albuterol sulfate 2.5 mg/3 mL 2.5 mg inhalation Q4H PRN 11/26/22 11/26/22 Unknown (0.083 %) solution for nebulization Shortness Of Breath Or Wheezing baclofen 10 mg tablet 10 mg PO TID PRN Muscle Spasm 11/26/22 11/26/22 Unknown bisacodyl 5 mg tablet 5 mg PO HS 11/26/22 11/26/22 Unknown bumetanide 2 mg tablet 2 mg PO DAILY 11/26/22 11/26/22 Unknown citalopram 20 mg tablet 20 mg PO BID 11/26/22 11/26/22 Unknown doxylamine succinate 25 mg tablet 25 mg PO HS PRN Sleep 11/26/22 11/26/22 Unknown ferrous sulfate 325 mg (65 mg 325 mg PO DAILY 11/26/22 11/26/22 Unknown iron) tablet fluticasone fur. 100 mcg-umeclid 1 inh inhalation DAILY 11/26/22 11/26/22 Unknown 62.5 mcg-vilant 25 mcg inhalat.powder (Trelegy Ellipta) guselkumab 100 mg/mL subcutaneous 100 mg subcut UD 11/26/22 11/26/22 Unknown auto-injector (Tremfya) insulin degludec 200 unit/mL (3 20 unit subcut HS 11/26/22 11/26/22 Unknown mL) subcutaneous pen (Tresiba FlexTouch U-200 insulin) magnesium 500 mg tablet 15 mg PO DAILY 11/26/22 11/26/22 Unknown metformin 500 mg tablet 1,000 mg PO BID 11/26/22 11/26/22 Unknown multivit,Ca,min-iron 8 mg-folic 1 tab PO DAILY 11/26/22 11/26/22 Unknown acid 200 mcg-lycopene 600 mcg tablet (Centrum Men) pantoprazole 40 mg tablet,delayed 40 mg PO BID 11/26/22 11/26/22 Unknown release vitamin B complex 1 tab PO DAILY 11/26/22 11/26/22 Unknown Active Medications Generic Name Dose Route Start Last Admin Trade Name Markoq PRN Reason Stop Dose Admin Acetaminophen 1,000 mg 11/26/22 21:00 12/01/22 05:02 Acetaminophen 500 Mg Tab PO 12/26/22 20:59 1,000 mg Q8 TIFFANI Administration Bisacodyl 5 mg 11/26/22 21:00 11/30/22 20:22 Bisacodyl 5 Mg Tabec PO 12/26/22 20:59 Not Given HS TIFFANI Citalopram Hydrobromide 20 mg 11/26/22 21:00 11/30/22 20:22 Citalopram 20 Mg Tab PO 12/26/22 20:59 Not Given BID TIFFANI Enoxaparin Sodium 40 mg 11/26/22 21:00 11/30/22 20:19 Enoxaparin Inj 40 Mg/0.4 Ml Syr SQ 12/26/22 20:59 40 mg Q12H TIFFANI Administration Ferrous Sulfate 325 mg 11/27/22 09:00 11/30/22 10:56 Ferrous Sulfate 325 Mg Tab PO 12/27/22 08:59 Not Given DAILY TIFFANI Fluticasone Furoate 1 puffs 11/27/22 09:00 11/30/22 10:56 Fluticasone Furoate 100mcg 14 Puffs/Inhaler INH 12/27/22 08:59 Not Given DAILY TIFFANI Furosemide 10 mg 11/30/22 12:45 12/01/22 04:30 Furosemide Inj 20 Mg/2 Ml Vial IV 12/30/22 12:44 10 mg Q8H TIFFANI Administration Vancomycin HCl 1,000 mg/ 270 mls @ 200 mls/hr 11/29/22 22:00 12/01/22 06:48 Sodium Chloride IV 12/13/22 21:59 Infused Q8 TIFFANI Infusion Magnesium Sulfate/Dextrose 1 gm in 100 mls @ 50 mls/hr 12/01/22 06:32 12/01/22 07:22 Magnesium Sulfate / D5w IV 12/01/22 08:31 50 mls/hr ONE ONE Administration Insulin Aspart 0 units 11/26/22 21:00 11/30/22 20:29 Insulin Aspart Per Unit Charge SC 12/26/22 20:59 Not Given ACHS TIFFANI Insulin Glargine 0 units 11/26/22 21:00 11/30/22 20:40 Lantus Per Unit Charge SQ 12/26/22 20:59 8 units HS TIFFANI Administration Magnesium Chloride 64 mg 11/30/22 09:00 11/30/22 20:22 Magnesium Chloride W/Calcium 64mg Delayed Rel Tab PO 12/30/22 08:59 Not Given BID TIFFANI Melatonin 3 mg 11/29/22 01:36 11/29/22 01:44 Melatonin 3 Mg Tab PO 12/29/22 01:35 3 mg HS PRN Administration Sleep Multivitamins 1 tab 11/27/22 09:00 11/30/22 10:56 Multivitamin Tab PO 12/27/22 08:59 Not Given QAM TIFFANI Pantoprazole Sodium 40 mg 11/26/22 21:00 11/30/22 20:23 Pantoprazole 40 Mg Tab PO 12/26/22 20:59 Not Given BID TIFFANI Potassium Chloride 10 meq 11/30/22 12:45 11/30/22 20:23 Potassium Chloride 10 Meq Tabcr PO 12/30/22 12:44 Not Given BID TIFFANI Umeclidinium/Vilanterol 1 puffs 11/27/22 09:00 11/30/22 10:56 Umeclidinium/Vilanterol 62.5/25mcg 7 Puffs/Inhaler INH 12/27/22 08:59 Not Given DAILY TIFFANI Urea 15 gm 11/28/22 11:00 11/30/22 20:23 Urea (Urea-Na) 15 Gm Pack PO 12/28/22 10:59 Not Given BID TIFFANI Vitamin B Complex 1 tab 11/27/22 09:00 11/30/22 10:57 Vitamin B Complex Tab PO 12/27/22 08:59 Not Given DAILY TIFFANI (1) Sepsis Sepsis acute organ dysfunction status: without acute organ dysfunction Sepsis type: sepsis due to unspecified organism Qualified Code(s): A41.9 - Sepsis, un specified organism (4) Falls Encounter type: initial encounter Qualified Code(s): W19.XXXA - Unspecified fall, initial encounter
--- NOTE | 2022-12-01 08:00 | Critical Care Progress Note ---
Date of Service December 01, 2022 Assessment & Plan (1) Hypercapnic respiratory failure, chronic: (2) Chronic liver disease and cirrhosis: (3) Multiple falls: (4) Right forearm cellulitis: (5) MRSA bacteremia: Plan Reason Critically Ill: 67 -year-old male upgraded to ICU status yesterday due to hypercarbic respiratory failure likely exacerbated by concomitant use of respiratory suppressant medications Neuro - Altered mental status likely multifactorial in the setting of metabolic encephalology, medications. - Ammonia wnl - TSH= 1.135 - Hold on any mediations that could alter mental status Cardiac - Hemodynamically stable TTE with poor visualization Respiratory - Acute on chronic hypercapnic respiratory failure.History of COPD - repeat VBG this morning - noninvasive positive pressure ventilation nightly and try to wean during the day pending stability in his repeat VBG GI - NPO diet Cirrhosis: Abdomen/pelvis CT notes cirrhosis with varices formation. Ammonia wnl Continue to follow LFTs RENAL/LYTES - Hyponatremia: On p.o. urea. Nephrology following. Acid-base status demonstrates acute on chronic hypercarbic respiratory failure. Replace lytes as needed. - No concerns at this time. ENDO - Follow ICU hyperglycemic protocols HEME - Stable H&H. Continue to trend ID - MRSA bacteremia on vancomycin. Repeat blood cultures drawn on 12/01, continue with q48h blood cultures until cleared Continue Vancomycin Management per infectious disease. 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 CT arm pending for evaluation. LINES/IV ACCESS - PIVs intact. DVT PROPHYLAXIS - Lovenox Thank you for allowing us to be part of this patient's care. Please refer to Dr. bah's documentation for any further recommendations. Admission and Anticipated Discharge Date Admission Date: November 26, 2022 Supervising Physician Co-Signing Physician Notes Patient seen and examined. EMR reviewed. Discussed on multidisciplinary rounds and with bedside critical care nurse as well as with family practice resident. Agree with assessment plan as noted. Patient's blood gas on BiPAP looks significantly better. For reasons that are not entirely clear, the patient was transition from BiPAP to CPAP overnight. His blood gas this morning demonstrates elevation in his CO2 with respiratory acidosis. He was transitioned back to bilevel and will follow-up with a blood gas later today to see how he is doing. This needs to be a bridge to something as the patient cannot remain on BiPAP indefinitely. His ammonia level appears appropriate. We will discontinue all medications potentially related to altered sensorium. His exam is nonfocal and I do not think additional imaging is required at this point in time. Patient remains persistently bacteremic. ID consultation has been obtained and he is undergoing evaluation for signs of potential metastatic seeding including a CT of his elbow or humerus. There did appear to be some increased fluid around the glenohumeral joint however the patient was evaluated by orthopedics earlier during this admission and does not appear that they felt the joint was septic. May consider aspiration. We discussed with cardiology potential JAKE. This is risky given the patient's known varices and I am not sure that it would private branch exchange service advisor acutely. If he had a large vegetation, I do not think he is a surgical candidate given his other underlying medical issues and he does not have evidence of septic emboli. It is too early to determine whether or not he is persistently bacteremic or not and he has no evidence of a perivalvular abscess but will continue to follow for any evidence of conduction delays. Continue antibiotics dosed by ID. We will keep in the ICU pending patient's improvement and weaning from noninvasive positive pressure ventilation. Patient remains critically ill at this point in time with significant possibility of clinical deterioration and/or . A total of 35 minutes in critical care time was spent in evaluation management stabilization of this patient Subjective Pt on BiPap this morning. Arousable and asnering questions appropriately but then immediately goes back to sleep. Review of Systems Review of Systems: As per above Physical Exam Physical Exam: Constitutional: well-appearing, no acute distress HEENT: NCAT, no conjunctival injection CV: regular rhythm, no murmur appreciated, extremities well-perfused, no LE edema Resp:+ wheezes, no rales/rhonchi appreciated, no increased work of breathing GI: soft, nondistended, nontender, BS normoactive MSK: no gross deformities appreciated Skin: warm, dry, no rash appreciated Neuro: alert, oriented, no focal neurologic deficit appreciated Results & Data Results & Data Vital Signs (Past 12 Hours) Vital Signs Pulse Resp BP Pulse Ox O2 Del Method O2 Flow Rate 12/01/22 06:00 81 25 H 88 L 12/01/22 06:00 133/70 09/27/23 05:00 78 18 91 12/01/22 05:00 118/65 12/01/22 04:01 86/73 L 12/01/22 04:01 77 24 91 12/01/22 04:00 77 19 94 12/01/22 02:25 77 26 H 93 5 11/30/22 22:37 90 27 H 93 5 12/01/22 03:01 76 21 140/72 88 L 12/01/22 03:00 78 17 92 12/01/22 02:01 79 25 H 87 L 12/01/22 02:01 143/102 H 12/01/22 02:00 79 21 93 12/01/22 03:58 BiPAP 5 12/01/22 01:01 80 16 86 L 12/01/22 01:00 77 15 136/80 95 12/01/22 00:00 81 16 95 11/30/22 23:01 116/65 11/30/22 23:01 81 21 86 L 11/30/22 23:00 79 26 H 92 11/30/22 22:01 79 25 H 96 11/30/22 22:01 142/69 H 11/30/22 22:00 80 21 97 11/30/22 21:00 80 23 98 11/30/22 21:00 140/72 11/30/22 20:00 78 24 98 11/30/22 20:21 77 19 97 5 Resident Activity Tracking Resident Involvement: Resident Care Provided Care Provided: Adult Hospital Medicine (ICU)
--- NOTE | 2022-12-01 09:08 | Cardiology Progress Note ---
Date of Service December 01, 2022 Assessment & Plan (1) MRSA bacteremia: (2) Chronic liver disease and cirrhosis: (3) Hypercapnic respiratory failure, chronic: Plan -Possible source could be skin infection with subsequent bacteremia. A transthoracic echocardiogram was attempted today but is technically insufficient due to the patient's body habitus and his inability to cooperate with the examination. A CT of the abdomen pelvis was performed on 11/26/2022 with notable findings of cirrhosis as well as paraesophageal varices. Respiratory status and esophageal varices precludes JAKE. Patient not a candidate for cardiac surgery due to multiple comorbidities. Best option likely to proceed with 4 week course of empiric antibiotic therapy. Admission and Anticipated Discharge Date Admission Date: November 26, 2022 Subjective Patient seen in cardiology follow up. Still somnolent. Remains on BiPap. Opens eyes to his name, but not conversant. Telemetry reveals SR in the 70s . Physical Exam Constitutional: + morbidly obese Cardiovascular: Rate/Rhythm: regular rate and regular rhythm Extremities: + edema (Chronic edema, history of lymphedema) Gastrointestinal (Abdomen): normal bowel sounds, soft, nontender, no hepatosplenomegaly Neurologic: PERRL, EOMI, accommodation nl, no face palsy, no dysarthria Results & Data Vital Signs (Past 12 Hours) Vital Signs Pulse Resp BP Pulse Ox O2 Del Method O2 Flow Rate 12/01/22 06:00 81 25 H 88 L 12/01/22 06:00 133/70 12/01/22 05:00 78 18 91 12/01/22 05:00 118/65 12/01/22 04:01 86/73 L 12/01/22 04:01 77 24 91 12/01/22 04:00 77 19 94 12/01/22 02:25 77 26 H 93 5 11/30/22 22:37 90 27 H 93 5 12/01/22 03:01 76 21 140/72 88 L 12/01/22 03:00 78 17 92 12/01/22 02:01 79 25 H 87 L 12/01/22 02:01 143/102 H 12/01/22 02:00 79 21 93 12/01/22 03:58 BiPAP 5 12/01/22 01:01 80 16 86 L 12/01/22 01:00 77 15 136/80 95 12/01/22 00:00 81 16 95 11/30/22 23:01 116/65 11/30/22 23:01 81 21 86 L 11/30/22 23:00 79 26 H 92 11/30/22 22:01 79 25 H 96 11/30/22 22:01 142/69 H 11/30/22 22:00 80 21 97 Laboratory Results Cardiac Enzymes 12/01/22 Range/Units 04:03 AST 50 H (13-39) U/L CBC 12/01/22 Range/Units 04:03 WBC 9.90 (4.8-10.8) K/ul RBC 3.46 L (4.70-6.10) M/uL Hgb 10.6 L (14.0-18.0) g/dl Hct 31.8 L (42.0-52.0) % Plt Count 296 (130-400) K/uL Neut # (Auto) 6.58 H (1.40-6.50) K/uL Lymph # (Auto) 1.27 (1.20-3.40) K/uL Roane # (Auto) 0.90 H (0.11-0.59) K/uL Eos # (Auto) 0.17 (0.00-0.50) K/uL Baso # (Auto) 0.09 (0.00-0.20) K/uL Comprehensive Metabolic Panel 12/01/22 Range/Units 04:03 Sodium 136 (136-145) mmol/L Potassium 3.8 (3.5-5.1) mmol/L Chloride 98 (98-107) mmol/L Carbon Dioxide 34 H (21-32) mmol/L BUN 28 H (6-23) mg/dl Creatinine 0.83 (0.6-1.4) mg/dl Glucose 111 H (70-99(Fasting)) mg/dl Calcium 9.1 (8.6-10.3) mg/dl AST 50 H (13-39) U/L ALT 44 (7-52) U/L Alkaline Phosphatase 289 H (34-104) U/L Total Protein 6.7 (6.0-8.3) gm/dl Albumin 2.4 L (3.4-5.0) gm/dl Intake and Output 11/30/22 12/01/22 12/01/22 22:59 06:59 14:59 Intake Total 470 / 1710.667 540 / 1710.667 Output Total 1100 / 3100 2000 / 3100 Balance -630 / -1389.333 -1460 / -1389.333 Intake: IV 470 / 1710.667 540 / 1710.667 Magnesium Sulfate / D5w 1 gm In 100 / 200 100 ml @ 50 mls/hr IV Q2H [facility] Rx#:[id number] Potassium Chloride / Wtr 10 meq 100 / 100 In 100 ml @ 100 mls/hr IV ONE ONE Rx#:[id number] Vancomycin HCl 1,000 mg In 270 / 810 540 / 810 Sodium Chloride 0.9% 250 ml @ 200 mls/hr IV Q8 [facility] Rx#: [id number] Output: Urine 600 / 600 Urine Amount (Catheter) 500 / 2499 1999 / 2499 Friedman/Indwelling 500 / 2499 1999 / 2499 Other: Weight 107.7 kg Weight Measurement Method Built in [facility]
[2022-12-01 10:05] LABS: Base Excess VBG 7.9 mEq/L; HCO3 VBG 36 mmol/L; Oxygen Saturation VBG 93.8 %; PCO2 VBG 69 mmHg (38-50); PO2 VBG 69 mmHg; pH VBG 7.33 (7.36-7.41)
--- NOTE | 2022-12-01 10:12 | Pharmacy Report ---
Pharmacy PK ABX Note - Date of Service December 01, 2022 - Assessment and Plan Assessment 67 year old M receiving vancomycin for treatment of MRSA bacteremia. Pertinent microbiologic data includes: blood culture growing MRSA from 11/26; blood culture growing MRSA from 11/27; blood culture growing MRSA from 11/28. Blood cultures from 11/29 (+) [facility]. ID following. Day # 3 of antimicrobial therapy. Plan Vancomycin * Current vanc regimen: 1gm IV q8h * Dose adjusted to 1500mg IV q12h starting this afternoon to assist with ease of dosing/administration in anticipation of prolonged course * Regimen predicted to achieve ssAUC 579mg/L.hr and less toxicity compared with q8h regimen * Random level tomorrow afternoon Pharmacy will continue to follow and will adjust dose/frequency as necessary. Thank you. Pharmacy has transitioned to AUC monitoring for vancomycin. AUC/VISHAL is the preferred PK/PD target and is associated with decreased risk of nephrotoxicity compared to traditional trough targets.
[2022-12-01] MEDS: POTASSIUM CHLORIDE / WTR 10 MEQ/100 ML PLCT IV SCH ×6 (10:18→17:07)
[2022-12-01] MEDS: FERROUS SULFATE 325 MG TAB PO SCH (10:21)
[2022-12-01] MEDS: MULTIVITAMIN TAB PO SCH (10:21)
[2022-12-01] MEDS: PANTOprazole 40 MG TAB PO SCH ×2 (10:21→20:04)
[2022-12-01] MEDS: MAGNESIUM CHLORIDE W/CALCIUM 64MG DELAYED REL TAB PO SCH ×2 (10:21→20:04)
[2022-12-01] MEDS: VITAMIN B COMPLEX TAB PO SCH (10:22)
[2022-12-01] MEDS: POTASSIUM CHLORIDE 10 MEQ TABCR PO SCH (10:22)
[2022-12-01] MEDS: ENOXAPARIN INJ 40 MG/0.4 ML SYR SQ SCH ×2 (10:22→13:07)
[2022-12-01] MEDS: UREA (UREA-NA) 15 GM PACK PO SCH (10:22)
[2022-12-01] MEDS: UMECLIDINIUM/VILANTEROL 62.5/25MCG 7 PUFFS/INHALER INH SCH (10:23)
[2022-12-01] MEDS: FLUTICASONE FUROATE 100MCG 14 PUFFS/INHALER INH SCH (10:24)
[2022-12-01] MEDS: INSULIN ASPART PER UNIT CHARGE SC SCH ×4 (10:34→20:45)
[2022-12-01] MEDS ORDERED: OPTIRAY 320 100ml IV ONE (11:26)
--- NOTE | 2022-12-01 12:14 | CT Scan Report ---
CT humerus RT w con CT DOSE: CLINICAL HISTORY: r/o infection . Right shoulder pain. Fall. TECHNIQUE: Multiaxial CT images the right humerus were performed following the intravenous administra tion of contrast. Sagittal and coronal reformations were also obtained. A dose lowering technique wa s utilized adhering to the principles of ALARA. COMPARISON STUDY: Chest CTA 11/26/2022. FINDINGS: No acute fracture or dislocation within the right humerus. Severe osteoarthritis at the gle nohumeral joint with subchondral cystic change, subchondral sclerosis, large marginal osteophytes. Th ere are multiple intra-articular loose bodies seen at the glenohumeral joint. No definite destructive changes at the glenohumeral joint. However, this is only partially imaged on this study. There is a moderate right shoulder effusion with peripheral enhancement of the synovial lining. Narrowing of the subacromial space consistent with chronic rotator cuff injury. Mild subcutaneous edema within the ri ght shoulder/upper arm. IMPRESSION: 1. No acute fracture or dislocation within the right humerus. 2. Moderate effusion of the right glenohumeral joint with enhancement of the synovial lining. This co uld be due to the chronic/severe osteoarthritis. However, a superimposed infection would be difficult to exclude by imaging. No definite destructive changes identified at the glenohumeral joint. 3. Mild subcutaneous edema within the right shoulder/upper arm. ACT 112: Negative or not required by law. Electronically signed by: Ced Buchanan M.D. 12/01/2022 12:11 PM
--- NOTE | 2022-12-01 12:22 | Nephrology Progress Note ---
Date of Service December 01, 2022 Assessment & Plan (1) Hyponatremia: Plan: Patient with now resolved hyponatremia from SIAD[facility]. Urine osms 608 and urine sodium of 10. ->>on 11/28 started urea 15g bid which I stopped today d/t NPO status adn now normal Na -Daily bmp >>> pt is NPO; when taking full po again, will need to continue FR 1.5L; protein shakes should not count toward this ->>Continue lasix 10 mg IV tid for now; may need to cut back soon -changed po K to IV; already had 20 mEq IV today >> will give another 30 mEq K IV and follow labs >IVF are off now Repeat chest x-ray ordered Cardiology consultation 11/30 and 12/01 progress note reviewed today: Patient not a JAKE candidate d/t esophageal varices adn respiratory status; not a cardiac surgery candidate d/t comorbidities/deconditioned status > recommend empiric 4 wk therapy (2) Hypomagnesemia: Plan: Magnesium is improving with supplements. Continue to monitor and supplement as needed. mag plateaued at 1.6 today >>changed bid slo mag 2 double dose of Slow-Mag twice daily Continue daily magnesium checks Plan pt NPO currently > has had 4 gm IV mag today > check mag daily; continue to replete IV for now Admission and Anticipated Discharge Date Admission Date: November 26, 2022 Subjective moved to ICU yesterday PM for acute on chronic resp failure. 1.8 liters negative yesterday. remains on bipap and for me lethargic/obtunded though RN re ports he was more alert earlier in day Review of Systems Review of Systems: Unobtainable due to reduced consciousness Physical Exam Constitutional: well developed, well nourished, + obese, + altered mental status and + frail appearing; no acute distress Eyes: EOM intact bilaterally ENMT: Ears: no external ear abnormality Nose: no external nose abnormality Mouth: + dry oral mucous membranes Neck: no nuchal rigidity Respiratory: normal respiratory effort Auscultation: + diminished lung sounds Cardiovascular: Rate/Rhythm: regular rate and regular rhythm Extremities: + edema (trace BLE distally) Gastrointestinal (Abdomen): Inspection/Auscultation: normal bowel sounds; + abdomen abnormal to inspection (ostomy present) Percussion/Palpation: abdomen soft; abdomen nontender Musculoskeletal: Extremities: strength 5/5 throughout Skin: no rashes, warm and dry Psychiatric: Orientation: oriented to person and oriented to place; + not oriented to time Results & Data Vital Signs (Past 12 Hours) Vital Signs Temp Pulse Pulse Pulse Resp BP BP 12/01/22 12:13 84 21 12/01/22 08:30 78 12/01/22 08:30 12/01/22 10:25 80 17 12/01/22 09:00 36.1 C L 74 18 127/67 12/01/22 08:00 36.1 C L 74 18 143/85 H 12/01/22 07:00 35.9 C L 75 18 149/93 H 12/01/22 06:00 81 25 H 12/01/22 06:00 133/70 12/01/22 05:00 78 18 12/01/22 05:00 118/65 12/01/22 04:01 86/73 L 12/01/22 04:01 77 24 12/01/22 04:00 77 19 12/01/22 02:25 77 26 H 12/01/22 03:01 76 21 140/72 12/01/22 03:00 78 17 12/01/22 02:01 79 25 H 12/01/22 02:01 143/102 H 12/01/22 02:00 79 21 12/01/22 03:58 12/01/22 01:01 80 16 12/01/22 01:00 77 15 136/80 Pulse Ox O2 Del Method O2 Flow Rate FiO2 12/01/22 12:13 96 45 12/01/22 08:30 12/01/22 08:30 CPAP 12/01/22 10:25 91 5 12/01/22 09:00 93 CPAP 5 12/01/22 08:00 93 CPAP 5 12/01/22 07:00 93 CPAP 5 12/01/22 06:00 88 L 12/01/22 06:00 12/01/22 05:00 91 12/01/22 05:00 12/01/22 04:01 12/01/22 04:01 91 12/01/22 04:00 94 12/01/22 02:25 93 5 12/01/22 03:01 88 L 12/01/22 03:00 92 12/01/22 02:01 87 L 12/01/22 02:01 12/01/22 02:00 93 12/01/22 03:58 BiPAP 5 12/01/22 01:01 86 L 12/01/22 01:00 95 Laboratory Results 12/01/22 04:03 12/01/22 04:03 Mag 1.6 ABG reviewed
--- NOTE | 2022-12-01 12:34 | CT Scan Report ---
CT forearm RT w con, CT elbow RT w con CLINICAL HISTORY: r/o infection TECHNIQUE: Multidetector row helical CT of the right forearm was performed without intravenous contra st. Coronal and sagittal reformations were obtained. Automated dose lowering techniques and/or adjust ment according to patient size were utilized for this examination. CT DOSE: 4130.49 mGy.cm Comparison: Comparison is made to elbow radiograph 11/27/2019 FINDINGS: Exam is limited by patient positioning. No joint effusion is seen. Mild osteoarthritic degenerative changes are seen. IMPRESSION: No acute fracture or dislocation. There is mild osteoarthritic degenerative change in the elbow ACT 112: Negative or not required by law. Electronically signed by: Patel Up M.D. 12/01/2022 12:32 PM
--- NOTE | 2022-12-01 12:46 | Billing Data ---
Date of Service December 01, 2022 Coding Level of Care Code 33215 CRITICAL CARE
--- NOTE | 2022-12-01 14:06 | XRay Report ---
XR chest 1V portable HISTORY: f/u fluid status; hypoxic pt COMPARISON: Chest CT 11/26/2022. FINDINGS: There are low lung volumes. No pneumothorax. No pleural effusions. The heart is mildly enla rged. Emphysema and mild diffuse interstitial thickening persists. No new focal lung consolidations t o suggest a pneumonia. There is mild central pulmonary vascular congestion without overt edema. This is similar to the prior study. IMPRESSION: Stable cardiomegaly and mild central pulmonary vascular congestion without overt edema. ACT 112: Negative or not required by law. Electronically signed by: Ced Buchanan M.D. 12/01/2022 2:04 PM
[2022-12-01 14:28] LABS: iSTAT Art Bld Gas pCO2 Correct 60 mmHg (35-46); iSTAT Art Bld Gas pH Corrected 7.367 (7.35-7.45); iSTAT Arterial Blood Gas HCO3 35 meg/L (19-24); iSTAT Arterial Blood Gas pCO2 62 mmHg (35-46); iSTAT Arterial Blood Gas pH 7.36 (7.35-7.45); iSTAT Arterial Blood Gas pO2 92 mmHg (80-95); iSTAT Arterial Blood Gas pO2 C 88; iSTAT Carbon Dioxide 36 mmol/L (24-31); iSTAT FiO2 45 %; iSTAT Hematocrit 33 % (42-52); iSTAT Hemoglobin 11.2 g/dl (14.0-18.0); iSTAT Potassium 4.2 mmol/L (3.3-5.0); iSTAT Site L Brachial; iSTAT Sodium 137 mmol/L (135-144)
[2022-12-01] MEDS: VANCOMYCIN HCL 1,500 MG in SODIUM CHLORIDE 0.9% 500 ML IV SCH (15:00)
[2022-12-01] MEDS ORDERED: Nursing to Pharmacy Communication SCH (19:15)
[2022-12-01] MEDS: bisacodyL 5 MG TABEC PO SCH (20:04)
[2022-12-01] MEDS: LANTUS PER UNIT CHARGE SQ SCH (20:45)
[2022-12-02] MEDS: VANCOMYCIN HCL 1,500 MG in SODIUM CHLORIDE 0.9% 500 ML IV SCH (01:51)
[2022-12-02 04:51] LABS: Base Excess VBG 12.1 mEq/L; HCO3 VBG 41 mmol/L; Oxygen Saturation VBG 81.6 %; PCO2 VBG 70 mmHg (38-50); PO2 VBG 50 mmHg; pH VBG 7.37 (7.36-7.41)
[2022-12-02 05:08] LABS: Albumin Globulin Ratio 0.6 (0.9-2); Albumin Level 2.3 gm/dl (3.4-5.0); BUN Creatinine Ratio 37.7 (10-20); Bilirubin,Total 1.2 mg/dl (0.2-1.0); C Reactive Protein 24.5 mg/dl (0-0.5); Calcium 9.2 mg/dl (8.6-10.3); Creatinine Clr Calc Pharmacy 137.9 ml/min; Est GFR (African American) 113.1 ml/min; Est GFR (Non-African American) 97.5 ml/min; Globulin 3.9 gm/dl (2.5-4.0); Magnesium 1.5 mg/dl (1.7-2.4); Phosphorus 2.7 mg/dl (2.5-4.9); Potassium 4.1 mmol/L (3.5-5.1); Total Protein 6.2 gm/dl (6.0-8.3)
[2022-12-02 05:09] LABS: Hematocrit (blood only) 31.3 % (42.0-52.0); Hemoglobin 10.7 g/dl (14.0-18.0); Mean Corpuscular Hemoglobin 31.3 pg (25.0-34.0); Mean Corpuscular Hgb Conc 34.2 g/dL (32.0-36.0); Mean Corpuscular Volume 91.5 fL (80.0-100.0); Mean Platelet Volume 11.8 fL (9.4-12.4); Nucleated RBC # (auto) 0.12 K/uL (0.00-0.12); Nucleated RBC % (auto) 1.2 %; Platelet Count 316 K/uL (130-400); RDW Coefficient of Variation 15.6 % (11.5-14.5); RDW Standard Deviation 51.5 fL (36.4-46.3); Red Blood Count 3.42 M/uL (4.70-6.10); White Blood Count 10.07 K/ul (4.8-10.8)
[2022-12-02] MEDS: FUROSEMIDE INJ 20 MG/2 ML VIAL IV SCH ×3 (05:30→20:12)
[2022-12-02] MEDS: ACETAMINOPHEN 500 MG TAB PO SCH ×3 (05:42→20:11)
[2022-12-02 06:47] LABS: Acanthocytes 1+; Target Cells 2+
--- NOTE | 2022-12-02 06:53 | Hospitalist Progress Note ---
Date of Service December 02, 2022 Assessment & Plan (1) Sepsis: (2) Hypercapnic respiratory failure, chronic: (3) Hyponatremia: (4) Falls: (5) Hypomagnesemia: (6) Diabetes mellitus, type II: (7) Anemia: (8) Nocturnal hypoxia: (9) COPD (chronic obstructive pulmonary disease): (10) Depression: (11) Cirrhosis: (12) Chronic pain syndrome: Plan: Plan Mr. Carbajal is 67 year old gentleman who follows with [facility] with complex medical history of DM II, prior chronic pain no longer on narcotics, cirrhosis, history of splenectomy, history of Jazmyne's gangrene, lymphedema, nocturnal hypoxia who presented on 11/26 with multiple falls at home and found to have MRSA bacteremia. TTE was not able to r/o abscess/vegetations and JAKE was attempted but not successful due to encephalopathy and respiratory liability. Given cardiac comorbidities, if source is cardiac in nature, it would not exchange operator; however, there is also looming concern for septic joint given subcutaneous edema and effusion of right shoulder noted on repeat CT with con on 12/01. Course has been complicated by metabolic encephalopathy and acute on chronic hypercapnic respiratory failure, prompting over night transfer to ICU on 11/30. Patient not deemed a candidate for JAKE given varices and respiratory status, therefore unable to r/o cardiac etiology of bacteremia. Planned for IR arthocentesis of right should to assess if joint possible source. Last blood culture with growth on 11/29. If positive, will discuss washout with ortho. If negative, will plan for 4 weeks of IV antibiotics. In the interim, patient in ICU due to encephalopathy. Patient now with relative hypotension. VBG with in uptrending pCO2. Per ICU, deemed appropriate for downgrade. Patient to continue bipap and wean as able throughout day. Plan for arthocentesis today to explore possibility of septic joint. #Acute metabolic encephalopathy -Transferred to ICU given progressive hypercarbia and worsening mentation on 11/30 -Appears to be at baseline #Persistent MRSA bacteremia, unclear source #Sepsis 2/2 MRSA bacteremia*resolved #Leukocytosis *resolved On admission, HR 110, WBC 15.16, meeting SIRs criteria. Lactate wnl, procal 4.75 CT abd/pelvis without acute infectious abnormality but did note mildly thickened appendiceal tip with a small appendiceal nodule. No evidence for acute appendicitis. CTA chest with suspected right glenohumeral joint effusion with adjacent stranding and two punctate locules of soft tissue gas. The findings are likely related to severe osteoarthritis. However, a superimposed infectious etiology would be difficult to completely exclude. Dedicated shoulder xray notes severe OA UA abnormal with trace leuk est, + nitrite, 3+ blood, urine Cx with no significant growth at this time. -Infectious Disease consult, attempt to find source of bacteremia: JAKE and CT w/ con R arm -Ortho Surgery consult- recommended follow up CT scan in 3 months, no surgical intervention. -Orthopedics called on 12/01: discussed options with Dr Ca, if fluid +/? will consider washout -Continue Vancomycin -Follow up fluid studies from arthrocentesis #Acute on Chronic hypercapnic respiratory failure *stable With increased lethargy, vbg ordered Retaining CO2, placed on bipap. Last narcotic dose 5pm the day before, less likely cause. Continue bipap with naps and overnight Oxygen saturation goal no higher 88-92% #Hyponatremia * resolved Na 124 on admission Serum osm 277, urine osm 608, urine na 10 on admission Nephrology consulted: 11/28 Urea 15mg BID, discontinued 12/01 Diet started lunch 12/02 #Hypomagnesemia -Replace as needed #Chronic normocytic anemia Stable #Mechanical falls #Rhabdomyolysis *resolved #Right shoulder pain, severe OA, ?septic joint No acute fracture or traumatic findings on imaging as above Head CT with no suggestive cause CK elevated at 4266 on admission and downtrending to 1263 CT imaging of arm, elbow and forearm: OA v ? septic joint PT/OT eval once more stable -IR joint aspiration pending, vanc as above #DMII A1c 7.5 in June 2022, repeat currently 7.6 Hold home agents Basal/bolus insulin while in-patient #COPD History of tobacco use, no longer smoking Continue Trelegy, DuoNebs #Depression Continue SSRI #Compensated Cirrhosis Listed on outpatient paperwork from [facility], patient a poor historian so unclear Abdomen/pelvis CT notes cirrhosis with varices formation. T. bili 2.1, AST 198, ALT 59 and downtrending currently Continue to follow labs Ammonia 31 #Chronic Pain syndrome Pt noting he is in significant pain, noted that his pain was not currently being treated. Previously on narcotics but PCP discontinued when he failed UDS. UDS on admission positive for marijuana, endorses daily use Given pt's Hx of frequent falls, severe OA and complaints that his pain is not being treated appropriately, previously temporarily treated while hospitalized with the following regimen: tylenol 1000mg q8h prn for mild pain, po oxycodone 5mg q8h prn for moderate pain and dilaudid 0.5mg q6h prn for severe pain. Goal is to wean off narcotics for discharge. DVT Ppx: Lovenox Code status: DNR/DNI per conversation PCP: CLIFTON Pena [place] Dispo: PT initial eval recommending extended care facility, will reeval given recent decline Admission and Anticipated Discharge Date Admission Date: November 26, 2022 Subjective NAEO Reports occasional pain with movement, but denies any new acute concerns. Bipap in place, still appears sleepy but more easy to awaken with verbal stimuli Review of Systems Review of Systems: All systems reviewed & are unremarkable except as noted in Subjective Physical Exam Constitutional: WD/WN, vitals as above Cardiovascular: RRR, no murmur, no edema Gastrointestinal (Abdomen): normal bowel sounds, soft, nontender, no hepatosplenomegaly Skin: no rashes, warm and dry Results & Data Results & Data Vital Signs (Past 12 Hours) Vital Signs Temp Pulse Resp BP BP Pulse Ox O2 Del Method 12/02/22 04:00 72 16 95 12/02/22 04:00 36.4 C L 106/63 12/02/22 03:01 117/70 12/02/22 03:00 74 22 97 12/02/22 02:00 75 20 98 12/02/22 02:58 75 22 97 12/02/22 01:00 73 20 96 12/02/22 01:00 108/61 12/02/22 00:00 36.9 C 74 20 97 12/02/22 00:00 102/58 L 12/01/22 23:02 69 20 98 12/01/22 23:02 78/47 L 12/01/22 23:01 70 20 95 12/01/22 23:01 80/51 L 12/01/22 23:00 69 20 97 12/01/22 22:11 117/47 L 12/01/22 22:00 71 26 H 12/01/22 21:00 71 22 93 12/01/22 20:00 74 20 94 12/01/22 20:00 36.1 C L 133/71 12/01/22 19:01 134/60 12/01/22 19:00 74 23 97 12/01/22 23:06 118/72 12/02/22 00:00 68 12/01/22 20:00 73 12/01/22 20:00 BiPAP 12/01/22 22:25 73 25 H 98 FiO2 12/02/22 04:00 12/02/22 04:00 12/02/22 03:01 12/02/22 03:00 12/02/22 02:00 12/02/22 02:58 35 12/02/22 01:00 12/02/22 01:00 12/02/22 00:00 12/02/22 00:00 12/01/22 23:02 12/01/22 23:02 12/01/22 23:01 12/01/22 23:01 12/01/22 23:00 12/01/22 22:11 12/01/22 22:00 12/01/22 21:00 12/01/22 20:00 12/01/22 20:00 12/01/22 19:01 12/01/22 19:00 12/01/22 23:06 12/02/22 00:00 12/01/22 20:00 12/01/22 20:00 12/01/22 22:25 45 Laboratory Results Short CBC 12/02/22 Range/Units 04:31 WBC 10.07 (4.8-10.8) K/ul Hgb 10.7 L (14.0-18.0) g/dl Hct 31.3 L (42.0-52.0) % Plt Count 316 (130-400) K/uL BMP 12/02/22 04:31 Sodium 137 Potassium 4.1 Chloride 99 Carbon Dioxide 34 H BUN 26 H Creatinine 0.69 Glucose 106 H Calcium 9.2 Liver Function 12/02/22 Range/Units 04:31 Total Bilirubin 1.2 H (0.2-1.0) mg/dl AST 39 (13-39) U/L ALT 36 (7-52) U/L Alkaline Phosphatase 313 H (34-104) U/L Albumin 2.3 L (3.4-5.0) gm/dl Medications Administered Home Medications Medication Instructions Recorded Confirmed Last Taken acetaminophen 500 mg tablet 500 mg PO BID PRN Pain 11/26/22 11/26/22 Unknown albuterol sulfate 2.5 mg/3 mL 2.5 mg inhalation Q4H PRN 11/26/22 11/26/22 Unknown (0.083 %) solution for nebulization Shortness Of Breath Or Wheezing baclofen 10 mg tablet 10 mg PO TID PRN Muscle Spasm 11/26/22 11/26/22 Unknown bisacodyl 5 mg tablet 5 mg PO HS 11/26/22 11/26/22 Unknown bumetanide 2 mg tablet 2 mg PO DAILY 11/26/22 11/26/22 Unknown citalopram 20 mg tablet 20 mg PO BID 11/26/22 11/26/22 Unknown doxylamine succinate 25 mg tablet 25 mg PO HS PRN Sleep 11/26/22 11/26/22 Unk nown ferrous sulfate 325 mg (65 mg 325 mg PO DAILY 11/26/22 11/26/22 Unknown iron) tablet fluticasone fur. 100 mcg-umeclid 1 inh inhalation DAILY 11/26/22 11/26/22 Unknown 62.5 mcg-vilant 25 mcg inhalat.powder (Trelegy Ellipta) guselkumab 100 mg/mL subcutaneous 100 mg subcut UD 11/26/22 11/26/22 Unknown auto-injector (Tremfya) insulin degludec 200 unit/mL (3 20 unit subcut HS 11/26/22 11/26/22 Unknown mL) subcutaneous pen (Tresiba FlexTouch U-200 insulin) magnesium 500 mg tablet 15 mg PO DAILY 11/26/22 11/26/22 Unknown metformin 500 mg tablet 1,000 mg PO BID 11/26/22 11/26/22 Unknown multivit,Ca,min-iron 8 mg-folic 1 tab PO DAILY 11/26/22 11/26/22 Unknown acid 200 mcg-lycopene 600 mcg tablet (Centrum Men) pantoprazole 40 mg tablet,delayed 40 mg PO BID 11/26/22 11/26/22 Unknown release vitamin B complex 1 tab PO DAILY 11/26/22 11/26/22 Unknown Active Medications Generic Name Dose Route Start Last Admin Trade Name Freq PRN Reason Stop Dose Admin Acetaminophen 1,000 mg 11/26/22 21:00 12/02/22 05:42 Acetaminophen 500 Mg Tab PO 12/26/22 20:59 1,000 mg Q8 [facility] Administration Bisacodyl 5 mg 11/26/22 21:00 12/01/22 20:04 Bisacodyl 5 Mg Tabec PO 12/26/22 20:59 Not Given HS [facility] Citalopram Hydrobromide 20 mg 11/26/22 21:00 11/30/22 20:22 Citalopram 20 Mg Tab PO 12/26/22 20:59 Not Given BID [facility] Enoxaparin Sodium 40 mg 12/01/22 10:00 12/01/22 10:22 Enoxaparin Inj 40 Mg/0.4 Ml Syr SQ 12/26/22 20:59 40 mg DAILY [facility] Administration Ferrous Sulfate 325 mg 11/27/22 09:00 12/01/22 10:21 Ferrous Sulfate 325 Mg Tab PO 12/27/22 08:59 Not Given DAILY [facility] Fluticasone Furoate 1 puffs 11/27/22 09:00 12/01/22 10:24 Fluticasone Furoate 100mcg 14 Puffs/Inhaler INH 12/27/22 08:59 1 puffs DAILY [facility] Administration Furosemide 10 mg 11/30/22 12:45 12/02/22 05:30 Furosemide Inj 20 Mg/2 Ml Vial IV 12/30/22 12:44 10 mg Q8H [facility] Administration Vancomycin HCl 1,500 mg/ 530 mls @ 200 mls/hr 12/01/22 14:00 12/02/22 04:49 Sodium Chloride IV 12/15/22 13:59 Infused Q12H [facility] Infusion Protocol Insulin Aspart 0 units 11/26/22 21:00 12/01/22 20:45 Insulin Aspart Per Unit Charge SC 12/26/22 20:59 Not Given ACHS [facility] Insulin Glargine 0 units 11/26/22 21:00 12/01/22 20:45 Lantus Per Unit Charge SQ 12/26/22 20:59 Not Given HS [facility] Magnesium Chloride 64 mg 11/30/22 09:00 12/01/22 20:04 Magnesium Chloride W/Calcium 64mg Delayed Rel Tab PO 12/30/22 08:59 Not Given BID [facility] Melatonin 3 mg 11/29/22 01:36 11/29/22 01:44 Melatonin 3 Mg Tab PO 12/29/22 01:35 3 mg HS PRN Administration Sleep Multivitamins 1 tab 11/27/22 09:00 12/01/22 10:21 Multivitamin Tab PO 12/27/22 08:59 Not Given QAM [facility]FF[facility] Pantoprazole Sodium 40 mg 11/26/22 21:00 12/01/22 20:04 Pantoprazole 40 Mg Tab PO 12/26/22 20:59 Not Given BID [facility]FFANI Umeclidinium/Vilanterol 1 puffs 11/27/22 09:00 12/01/22 10:23 Umeclidinium/Vilanterol 62.5/25mcg 7 Puffs/Inhaler INH 12/27/22 08:59 1 puffs DAILY TIFFANI Administration Vitamin B Complex 1 tab 11/27/22 09:00 12/01/22 10:22 Vitamin B Complex Tab PO 12/27/22 08:59 Not Given DAILY TIFFANI (1) Sepsis Sepsis acute organ dysfunction status: without acute organ dysfunction Sepsis type: sepsis due to unspecified organism Qualified Code(s): A41.9 - Sepsis, unspecified organism (4) Falls Encounter type: initial encounter Qualified Code(s): W19.XXXA - Unspecified fall, initial encounter
[2022-12-02 07:09] LABS: Neutrophils % (manual) 78 %
[2022-12-02 07:11] LABS: Basophils % (manual) 1 %; Lymphocytes % (manual) 7 %; Metamyelocytes % (manual) 4 %; Monocytes % (manual) 6 %; Myelocytes % (manual) 4 %
[2022-12-02 07:12] LABS: Nucleated Red Blood Cells (manual) 5 %
--- NOTE | 2022-12-02 07:41 | Critical Care Progress Note ---
Date of Service December 02, 2022 Assessment & Plan (1) Hypercapnic respiratory failure, chronic: (2) Chronic liver disease and cirrhosis: (3) Multiple falls: (4) Right forearm cellulitis: (5) MRSA bacteremia: Plan Reason Critically Ill: 67 -year-old male upgraded to ICU status due to hypercarbic respiratory failure likely exacerbated by concomitant use of respiratory suppressant medications Neuro - Altered mental status likely multifactorial in the setting of metabolic encephalology, medications. - Ammonia wnl; plan to repeat tomorrow - TSH= 1.135 - Hold on any mediations that could alter mental status Cardiac - Hemodynamically stable TTE with poor visualization Respiratory - Acute on chronic hypercapnic respiratory failure.History of COPD - repeat VBG 12/01 with normal pH, pCO2 remains elevated - BiPap nightly and try to wean during the day GI - NPO diet; advance as tolerated Cirrhosis: Abdomen/pelvis CT notes cirrhosis with varices formation. Ammonia wnl, will repeat tomorrow Continue to follow LFTs RENAL/LYTES - Hyponatremia: On p.o. urea. Nephrology following. Acid-base status demonstrates acute on chronic hypercarbic respiratory failure. Replace lytes as needed. - No concerns at this time. ENDO - Follow ICU hyperglycemic protocols HEME - Stable H&H. Continue to trend ID - MRSA bacteremia on vancomycin. Repeat blood cultures drawn on 12/01 without growth after 24 hours, continue with q48h blood cultures until cleared Continue Vancomycin Management per infectious disease. TTE with poor visualization, JAKE unlikely to exchange consultant and given esophageal varices on CT would be caution in moving forward with at present CT 12/03 demonstrates moderate effusion of the right glenohumeral joint, ortho had seen prior in admission. In discussion with ortho/hospitalist with have IR aspiration of the joint hopefully this afternoon INTEGUMENTARY - Concern for abscess/cellulitis as possible source of sepsis.Management as per above LINES/IV ACCESS - PIVs intact. DVT PROPHYLAXIS - Lovenox Thank you for allowing us to be part of this patient's care. Please refer to Dr. Desouza's documentation for any further recommendations. Admission and Anticipated Discharge Date Admission Date: November 26, 2022 Supervising Physician Co-Signing Physician Notes Patient seen and examined. EMR reviewed. Discussed on multidisciplinary rounds and with respiratory therapy and bedside critical care nurse. Seen and examined with family practice resident and agree with assessment plan as noted. The patient appears to be showing some functional improvement. He is able to wake up. We will pursue a trial off of BiPAP at this point in time. His pH has normalized. I think he would do better if he is able to sit up and would certainly do better being out of bed to chair as tolerated. PT and OT consultations been entered. We may be able to advance his diet if he is able to stay awake. We will review with orthopedics findings on the CT scan and see whether or not aspiration is required. His surveillance cultures have been negative. Antibiotics are dosed per ID. We will continue BiPAP but will increase to 18/8 nightly and as needed during the day. The patient's critical care issues appear resolved. His current state appears to be likely at or close to his respiratory baseline. Would not try and target oxygen saturations above 88% given his hypercarbia. Continue to avoid any respiratory suppressant medications. Patient can be transferred out of the intensive care unit with the hospitalist to assume primary care. We will continue to follow for pulmonary issues. Feel free to call us with questions or concerns Subjective Pt was seen at bedside this morning. Arousable and answering questions appropriately. More awake than yesterday. Review of Systems Review of Systems: As per above Physical Exam Physical Exam: Constitutional: well-appearing, no acute distress HEENT: NCAT, no conjunctival injection CV: regular rhythm, no murmur appreciated, extremities well-perfused, no LE edema Resp:+ wheezes, no rales/rhonchi appreciated, no increased work of breathing GI: soft, nondistended, nontender, BS normoactive MSK: no gross deformities appreciated. Pain is motion of right shoulder limiting ROM. No erythema over joint. Skin: warm, dry, no rash appreciated Neuro: alert, oriented, no focal neurologic deficit appreciated Results & Data Results & Data Vital Signs (Past 12 Hours) Vital Signs Temp Pulse Resp BP BP Pulse Ox O2 Del Method 12/02/22 04:00 72 16 95 12/02/22 04:00 36.4 C L 106/63 12/02/22 03:01 117/70 12/02/22 03:00 74 22 97 12/02/22 02:00 75 20 98 12/02/22 02:58 75 22 97 12/02/22 01:00 73 20 96 12/02/22 01:00 108/61 09/28/23 00:00 36.9 C 74 20 97 12/02/22 00:00 102/58 L 12/01/22 23:02 69 20 98 12/01/22 23:02 78/47 L 12/01/22 23:01 70 20 95 12/01/22 23:01 80/51 L 12/01/22 23:00 69 20 97 12/01/22 22:11 117/47 L 12/01/22 22:00 71 26 H 12/01/22 21:00 71 22 93 12/01/22 20:00 74 20 94 12/01/22 20:00 36.1 C L 133/71 12/01/22 23:06 118/72 12/02/22 00:00 68 12/01/22 20:00 73 12/01/22 20:00 BiPAP 12/01/22 22:25 73 25 H 98 FiO2 12/02/22 04:00 12/02/22 04:00 12/02/22 03:01 12/02/22 03:00 12/02/22 02:00 12/02/22 02:58 35 12/02/22 01:00 12/02/22 01:00 12/02/22 00:00 12/02/22 00:00 12/01/22 23:02 12/01/22 23:02 12/01/22 23:01 12/01/22 23:01 12/01/22 23:00 12/01/22 22:11 12/01/22 22:00 12/01/22 21:00 12/01/22 20:00 12/01/22 20:00 12/01/22 23:06 12/02/22 00:00 12/01/22 20:00 12/01/22 20:00 12/01/22 22:25 45 Resident Activity Tracking Resident Involvement: Resident Care Provided Care Provided: Adult Hospital Medicine (ICU)
[2022-12-02] MEDS: MAGNESIUM SULFATE / D5W 1 GM/100 ML BAG IV SCH ×2 (07:51→10:28)
[2022-12-02] MEDS: INSULIN ASPART PER UNIT CHARGE SC SCH ×4 (07:52→21:03)
[2022-12-02] MEDS: MAGNESIUM CHLORIDE W/CALCIUM 64MG DELAYED REL TAB PO SCH ×2 (07:53→20:11)
[2022-12-02] MEDS: FERROUS SULFATE 325 MG TAB PO SCH (07:53)
[2022-12-02] MEDS: MULTIVITAMIN TAB PO SCH (07:53)
[2022-12-02] MEDS: PANTOprazole 40 MG TAB PO SCH ×2 (07:53→20:11)
[2022-12-02] MEDS: UMECLIDINIUM/VILANTEROL 62.5/25MCG 7 PUFFS/INHALER INH SCH (07:54)
[2022-12-02] MEDS: FLUTICASONE FUROATE 100MCG 14 PUFFS/INHALER INH SCH (07:54)
[2022-12-02] MEDS: VITAMIN B COMPLEX TAB PO SCH (07:54)
[2022-12-02] MEDS ORDERED: PANTOprazole 40 MG in SYRINGE 0 ML IV SCH (09:00)
--- NOTE | 2022-12-02 09:43 | Nephrology Progress Note ---
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 Urine osms 608 and urine sodium of 10. ->>on 11/28 started urea 15g bid which I stopped December 01 d/t NPO status and remains with normal Na -Daily bmp >>> pt is NPO; when taking full po again, will need to continue FR 1.5L; protein shakes should not count toward this and should be encouraged ->>Continue lasix 10 mg IV tid for now; may need to cut to twice daily tomorrow or day after ->> Ordered potassium IV 60 mill equivalents total today >>Evaluate for need for standing potassium dose starting tomorrow Cardiology consultation 11/30 and 12/01 progress note reviewed today: Patient not a JAKE candidate d/t esophageal varices adn respiratory status; not a cardiac surgery candidate d/t comorbidities/deconditioned status > recommend empiric 4 wk therapy Magnesium is improving with supplements. Continue to monitor and supplement as needed. mag plateaued at 1.6 today >> When taking p.o. needs double dose of Slow-Mag twice daily >> Until then continue as needed IV repletion We will sign off Recommend Daily basic metabolic panel while in house Basic metabolic panel 1 week after hospital discharge 1.5 L fluid limit towards which protein shakes do not count when taking p.o. again and at discharge Resume outpatient Bumex when taking p.o. again Magnesium supplementation orally as below when taking p.o. again No need for postdischarge nephrology follow-up unless electrolyte issues ongoing (2) Hypomagnesemia: Plan: Magnesium is improving with supplements. Continue to monitor and supplement as needed. mag plateaued at 1.6 today >> When taking p.o. needs double dose of Slow-Mag twice daily >> Until then continue as needed IV repletion Admission and Anticipated Discharge Date Admission Date: November 26, 2022 Subjective remains NPO\on BiPAP; 1.4 L negative yesterday; attempted to see pt x 2 this am but he was at IR for shoulder; did not do ROS or PE for today Physical Exam Neck: + nuchal rigidity Respiratory: normal respiratory effort Auscultation: + diminished lung sounds Cardiovascular: Rate/Rhythm: regular rate and regular rhythm Extremities: + edema (trace BLE distally) Gastrointestinal (Abdomen): Inspection/Auscultation: normal bowel sounds; + abdomen abnormal to inspection (ostomy present) Percussion/Palpation: abdomen soft; abdomen nontender Musculoskeletal: Extremities: strength 5/5 throughout Skin: no rashes, warm and dry Psychiatric: Orientation: oriented to person and oriented to place; + not oriented to time Results & Data Vital Signs (Past 12 Hours) Vital Signs Temp Pulse Resp BP BP Pulse Ox FiO2 12/02/22 08:00 79 21 98 12/02/22 08:00 128/79 12/02/22 07:59 80 24 97 12/02/22 07:59 128/70 12/02/22 07:00 78 23 98 12/02/22 07:00 130/68 12/02/22 07:59 77 26 H 97 45 12/02/22 04:00 72 16 95 12/02/22 04:00 36.4 C L 106/63 12/02/22 03:01 117/70 12/02/22 03:00 74 22 97 12/02/22 02:00 75 20 98 12/02/22 02:58 75 22 97 35 12/02/22 01:00 73 20 96 12/02/22 01:00 108/61 12/02/22 00:00 36.9 C 74 20 97 12/02/22 00:00 102/58 L 12/01/22 23:02 69 20 98 12/01/22 23:02 78/47 L 12/01/22 23:01 70 20 95 12/01/22 23:01 80/51 L 12/01/22 23:00 69 20 97 12/01/22 22:11 117/47 L 12/01/22 22:00 71 26 H 12/01/22 23:06 118/72 12/02/22 00:00 68 12/01/22 22:25 73 25 H 98 45 Laboratory Results 12/02/22 04:31 12/02/22 04:31 Diagnostic Findings Repeat chest x-ray reviewed; less vascular congestion and no pako edema
[2022-12-02] MEDS: POTASSIUM CHLORIDE / WTR 10 MEQ/100 ML PLCT IV SCH ×6 (10:31→17:39)
--- NOTE | 2022-12-02 10:45 | Billing Data ---
Date of Service December 02, 2022 Coding Level of Care Code 58784 INT INP/OBS CARE
--- NOTE | 2022-12-02 13:08 | Fluoroscopy Report ---
Fluoroscopic guided left shoulder joint aspiration INDICATION: Persistent bacteremia; rule out septic arthritis PROCEDURE: Procedure and risks were explained. Informed consent was obtained. A final timeout was com pleted. The left shoulder was prepped and draped in sterile fashion. 1% lidocaine was utilized for sk in anesthesia. Utilizing fluoroscopic guidance, an 18-gauge 10 cm Chiba needle was advanced into the left shoulder j oint capsule. 2 permanent spot images were obtained. Approximately 11 mL of blood-tinged joint fluid was aspirated and sent to lab for analysis. The needle was removed and Band-Aid applied. The patient tolerated the procedure well. Total fluoroscopy time 9 seconds. DAP is 0.298 mcGy/m2. IMPRESSION: Left shoulder joint aspiration as above. Performed, dictated, and signed by Kang Oneill PA-C; to be co-signed by Dr. Ced Buchanan. Electronically signed by: Ced Buchanan M.D. 12/02/2022 1:45 PM
--- NOTE | 2022-12-02 13:57 | Pharmacy Report ---
Pharmacy PK ABX Note - Date of Service December 02, 2022 - Assessment and Plan Assessment 67 year old M receiving vancomycin for treatment of MRSA bacteremia. Pertinent microbiologic data includes: blood culture growing MRSA from 11/26; blood culture growing MRSA from 11/27; blood culture growing MRSA from 11/28. Blood cultures from 11/29 (+) MRSA. 12/01 surveillance cultures negative at 24h. ID following. Day # 4 of antimicrobial therapy. Plan Vancomycin * Current vanc regimen: 1500mg IV q12h * Random, non-steady state level drawn this afternoon ~(10hr level), 21.6mcg/mL. Predicted to achieve ssAUC nearly 600mg/L.hr (ssTrough 20.7mcg/mL) with ~20% toxicity risk. * Decrease dose to 1250mg IV q12h given body habitus and additional accumulation likely (predicted to achieve ssAUC 488mg/L.hr) * Repeat random level 12/04 Pharmacy will continue to follow and will adjust dose/frequency as necessary. Thank you. Pharmacy has transitioned to AUC monitoring for vancomycin. AUC/VISHAL is the preferred PK/PD target and is associated with decreased risk of nephrotoxicity compared to traditional trough targets.
[2022-12-02] MEDS: VANCOMYCIN HCL 1,250 MG in SODIUM CHLORIDE 0.9% 250 ML IV SCH (14:47)
[2022-12-02 16:03] LABS: Appearance Synovial Fluid Cloudy; Color Synovial Fluid Red; Mononuclear WBC Synovial 8.4 %; Polynuclear WBC Synovial 91.6 %; RBC Synovial Fluid Auto 90000 /uL; Source Synovial Fluid Other; WBC Synovial Fluid Auto 61470 /ul (0-200)
--- NOTE | 2022-12-02 17:01 | Communication Note ---
Date of Service: December 02, 2022 Attempted to see pt x 2 today but at IR for elbow We will sign off Recommend Daily basic metabolic panel while in house Basic metabolic panel 1 week after hospital discharge 1.5 L fluid limit towards which protein shakes do not count when taking p.o. again and at discharge Resume outpatient Bumex when taking p.o. again; for now cont IV lasix 10 mg tid; may need to cut to 2 x daily next 48 hrs >K repleted aggressively (60 mEq today IV) > eval in am for standing dose Magnesium supplementation orally as below when taking p.o. again No need for postdischarge nephrology follow-up unless electrolyte issues ongoing
--- NOTE | 2022-12-02 19:54 | Communication Note ---
Date of Service: December 02, 2022 Patient's shoulder aspiration today yielded approximately 61,000 nucleated cells and 91% neutrophils. Considering this level is concerning for septic arthritis we will plan on making patient n.p.o. at midnight for planned irrigation and debridement tomorrow.
[2022-12-02] MEDS: CITALOPRAM 20 MG TAB PO SCH (20:10)
[2022-12-02] MEDS: bisacodyL 5 MG TABEC PO SCH (20:12)
[2022-12-02] MEDS: MELATONIN 3 MG TAB PO PRN (20:12)
[2022-12-02] MEDS ORDERED: LANTUS PER UNIT CHARGE SQ STA (20:50)
[2022-12-03] MEDS: VANCOMYCIN HCL 1,250 MG in SODIUM CHLORIDE 0.9% 250 ML IV SCH ×2 (01:02→18:39)
[2022-12-03] MEDS: FUROSEMIDE INJ 20 MG/2 ML VIAL IV SCH ×3 (04:16→20:24)
[2022-12-03 04:31] LABS: Albumin Globulin Ratio 0.6 (0.9-2); Albumin Level 2.4 gm/dl (3.4-5.0); BUN Creatinine Ratio 31.6 (10-20); Bilirubin,Total 1.2 mg/dl (0.2-1.0); Calcium 9.2 mg/dl (8.6-10.3); Creatinine Clr Calc Pharmacy 134.9 ml/min; Est GFR (African American) 106.9 ml/min; Est GFR (Non-African American) 92.3 ml/min; Globulin 4.2 gm/dl (2.5-4.0); Magnesium 1.4 mg/dl (1.7-2.4); Phosphorus 2.3 mg/dl (2.5-4.9); Potassium 4.2 mmol/L (3.5-5.1); Total Protein 6.6 gm/dl (6.0-8.3)
[2022-12-03] MEDS: MAGNESIUM SULFATE / D5W 1 GM/100 ML BAG IV SCH ×2 (05:08→06:38)
[2022-12-03] MEDS: ACETAMINOPHEN 500 MG TAB PO SCH ×3 (05:11→22:42)
[2022-12-03] MEDS ORDERED: SODIUM PHOSPHATE 3 MMOL/1 ML 5 ML VIAL IV STA (06:49)
[2022-12-03 06:53] LABS: Hematocrit (blood only) 29.6 % (42.0-52.0); Hemoglobin 10.2 g/dl (14.0-18.0); Mean Corpuscular Hemoglobin 30.7 pg (25.0-34.0); Mean Corpuscular Hgb Conc 34.5 g/dL (32.0-36.0); Mean Corpuscular Volume 89.2 fL (80.0-100.0); Mean Platelet Volume 11.3 fL (9.4-12.4); Platelet Count 358 K/uL (130-400); RDW Coefficient of Variation 14.6 % (11.5-14.5); RDW Standard Deviation 47.3 fL (36.4-46.3); Red Blood Count 3.32 M/uL (4.70-6.10)
--- NOTE | 2022-12-03 06:58 | Hospitalist Progress Note ---
Date of Service December 03, 2022 Assessment & Plan (1) Sepsis: (2) Hypercapnic respiratory failure, chronic: (3) Hyponatremia: (4) Falls: (5) Hypomagnesemia: (6) Diabetes mellitus, type II: (7) Anemia: (8) Nocturnal hypoxia: (9) COPD (chronic obstructive pulmonary disease): (10) Depression: (11) Cirrhosis: (12) Chronic pain syndrome: Plan: Plan Mr. Carbajal is 67 year old gentleman who follows with [facility] with complex medical history of DM II, prior chronic pain no longer on narcotics, cirrhosis, history of splenectomy, history of Jazmyne's gangrene, lymphedema, nocturnal hypoxia who presented on 11/26 with multiple falls at home and found to have MRSA bacteremia. TTE was not able to r/o abscess/vegetations and JAKE was attempted but not successful due to encephalopathy and respiratory liability. Given cardiac comorbidities, if source is cardiac in nature, it would not price changer; however, there is also looming concern for septic joint given subcutaneous edema and effusion of right shoulder noted on repeat CT with con on 12/01. Course has been complicated by metabolic encephalopathy and acute on chronic hypercapnic respiratory failure, prompting over night transfer to ICU on 11/30. Patient not deemed a candidate for JAKE given varices and respiratory status, therefore unable to r/o cardiac etiology of bacteremia. Planned for IR arthocentesis of right should to assess if joint possible source. Last blood culture with growth on 11/29. If positive, will discuss washout with ortho. If negative, will plan for 4 weeks of IV antibiotics. Course in icu with relative hypotension. VBG with in uptrending pCO2. Per ICU, deemed appropriate for downgrade on 12/02 with patient to continue bipap and wean as able throughout day. Given intermittent fevers, hypotension, poor TTE imaging/inability to obtain JAKE, and findings on CT, IR aspiration of shoulder was pursued. Aspirate within values suggestive for septic arthritis, likely explaining poor clinical progress. Discussion with Ortho on 12/02 was had regarding washout with procedure planned today, 12.03. #Acute metabolic encephalopathy *resolved -Transferred to ICU given progressive hypercarbia and worsening mentation on 11/30 -Appears to be at baseline #Right shoulder septic joint #Persistent MRSA bacteremia, unclear source #Sepsis 2/2 MRSA bacteremia*resolved #Leukocytosis *resolved On admission, HR 110, WBC 15.16, meeting SIRs criteria. Lactate wnl, procal 4.75 CT abd/pelvis without acute infectious abnormality but did note mildly thickened appendiceal tip with a small appendiceal nodule. No evidence for acute appendicitis. CTA chest with suspected right glenohumeral joint effusion with adjacent stranding and two punctate locules of soft tissue gas. The findings are likely related to severe osteoarthritis. However, a superimposed infectious etiology would be difficult to completely exclude. Dedicated shoulder xray notes severe OA; UA abnormal with trace leuk est, + nitrite, 3+ blood, urine Cx with no significant growth at this time. CT R shoulder with subcutaneous edema and effusion -IR aspiration 12/02: WBC 26325, 91% PMNS -Orthopedics called on 12/01: discussed options with Dr Ca, if fluid +/? will consider washout -Given aspiration values meet threshold for septic joint, plan for washout 12/03 -Continue Vancomycin -Repeat Blood Cultures #Acute on Chronic hypercapnic respiratory failure *stable Baselin 5 L requirement, per pulm now at baseline and stable Continue bipap 18 over 8 with naps and overnight Oxygen saturation goal no higher 88-92% Encourage weight loss when pending discharge CPT ordered Encourage OOB, PT/OT Extubate to Bipap in PACU #Hyponatremia * resolved Na 124 on admission Serum osm 277, urine osm 608, urine na 10 on admission Nephrology consulted: 11/28 Urea 15mg BID, discontinued 12/01 Diet started lunch 12/02 #Hypomagnesemia -Replace as needed #Chronic normocytic anemia Stable #Mechanical falls #Rhabdomyolysis *resolved #Right shoulder pain, severe OA, ?septic joint No acute fracture or traumatic findings on imaging as above Head CT with no suggestive cause CK elevated at 4266 on admission and downtrending to 1263 CT imaging of arm, elbow and forearm: OA v ? septic joint PT/OT eval once more stable -Joint washout 12/03 #DMII A1c 7.5 in June 2022, repeat currently 7.6 Hold home agents Basal/bolus insulin while in-patient #COPD History of tobacco use, no longer smoking Continue Bethany Medina #Depression Continue SSRI #Compensated Cirrhosis Listed on outpatient paperwork from [facility], patient a poor historian so unclear Abdomen/pelvis CT notes cirrhosis with varices formation. T. bili 2.1, AST 198, ALT 59 and downtrending currently ALP elevated, ? related to septic joint Continue to follow labs Ammonia WNL Plan to RUQ US if LFT fail to down trend after washout #Chronic Pain syndrome Pt noting he is in significant pain, noted that his pain was not currently being treated. Previously on narcotics but PCP discontinued when he failed UDS. UDS on admission positive for marijuana, endorses daily use Given pt's Hx of frequent falls, severe OA and complaints that his pain is not being treated appropriately, previously temporarily treated while hospitalized with the following regimen: tylenol 1000mg q8h prn for mild pain, po oxycodone 5mg q8h prn for moderate pain and dilaudid 0.5mg q6h prn for severe pain. Goal is to wean off narcotics for discharge. DVT Ppx: Lovenox Code status: DNR/DNI per conversation PCP: CLIFTON Silveira Witten Dispo: PT initial eval recommending extended care facility, will reeval given recent decline Admission and Anticipated Discharge Date Admission Date: November 26, 2022 Subjective NAEO, pending washout of right shoulder Denies any new symptoms this am, but agitated when attempting to awaken patient Review of Systems Review of Systems: All systems reviewed & are unremarkable except as noted in Subjective Physical Exam Constitutional: WD/WN, vitals as above Cardiovascular: RRR, no murmur, no edema Gastrointestinal (Abdomen): normal bowel sounds, soft, nontender, no hepatosplenomegaly Skin: no rashes, warm and dry Results & Data Results & Data Vital Signs (Past 12 Hours) Vital Signs Temp Pulse Pulse Resp BP Pulse Ox O2 Del Method 12/03/22 04:00 38 C H 81 20 125/67 94 BiPAP 12/03/22 02:50 81 27 H 95 12/03/22 00:19 80 26 H 98 12/03/22 00:00 37.1 C 77 20 106/53 L 97 BiPAP 12/02/22 20:00 Nasal Cannula 12/02/22 20:00 37.6 C H 82 19 112/62 96 Nasal Cannula O2 Flow Rate FiO2 12/03/22 04:00 30 12/03/22 02:50 30 12/03/22 00:19 30 12/03/22 00:00 30 12/02/22 20:00 4 09/28/23 20:00 4 Laboratory Results Short CBC 12/03/22 Range/Units 06:10 Hgb 10.2 L (14.0-18.0) g/dl Hct 29.6 L (42.0-52.0) % Plt Count 358 (130-400) K/uL BMP 12/03/22 04:00 Sodium 134 L Potassium 4.2 Chloride 95 L Carbon Dioxide 34 H BUN 25 H Creatinine 0.79 Glucose 162 H Calcium 9.2 Liver Function 12/03/22 Range/Units 04:00 Total Bilirubin 1.2 H (0.2-1.0) mg/dl AST 70 H (13-39) U/L ALT 48 (7-52) U/L Alkaline Phosphatase 421 H (34-104) U/L Albumin 2.4 L (3.4-5.0) gm/dl Medications Administered Home Medications Medication Instructions Recorded Confirmed Last Taken acetaminophen 500 mg tablet 500 mg PO BID PRN Pain 11/26/22 11/26/22 Unknown albuterol sulfate 2.5 mg/3 mL 2.5 mg inhalation Q4H PRN 11/26/22 11/26/22 Unknown (0.083 %) solution for nebulization Shortness Of Breath Or Wheezing baclofen 10 mg tablet 10 mg PO TID PRN Muscle Spasm 11/26/22 11/26/22 Unknown bisacodyl 5 mg tablet 5 mg PO HS 11/26/22 11/26/22 Unknown bumetanide 2 mg tablet 2 mg PO DAILY 11/26/22 11/26/22 Unknown citalopram 20 mg tablet 20 mg PO BID 11/26/22 11/26/22 Unknown doxylamine succinate 25 mg tablet 25 mg PO HS PRN Sleep 11/26/22 11/26/22 Unknown ferrous sulfate 325 mg (65 mg 325 mg PO DAILY 11/26/22 11/26/22 Unknown iron) tablet fluticasone fur. 100 mcg-umeclid 1 inh inhalation DAILY 11/26/22 11/26/22 Unknown 62.5 mcg-vilant 25 mcg inhalat.powder (Trelegy Ellipta) guselkumab 100 mg/mL subcutaneous 100 mg subcut UD 11/26/22 11/26/22 Unknown auto-injector (Tremfya) insulin degludec 200 unit/mL (3 20 unit subcut HS 11/26/22 11/26/22 Unknown mL) subcutaneous pen (Tresiba FlexTouch U-200 insulin) magnesium 500 mg tablet 15 mg PO DAILY 11/26/22 11/26/22 Unknown metformin 500 mg tablet 1,000 mg PO BID 11/26/22 11/26/22 Unknown multivit,Ca,min-iron 8 mg-folic 1 tab PO DAILY 11/26/22 11/26/22 Unknown acid 200 mcg-lycopene 600 mcg tablet (Centrum Men) pantoprazole 40 mg tablet,delayed 40 mg PO BID 11/26/22 11/26/22 Unknown release vitamin B complex 1 tab PO DAILY 11/26/22 11/26/22 Unknown Active Medications Generic Name Dose Route Start Last Admin Trade Name Markoq PRN Reason Stop Dose Admin Acetaminophen 1,000 mg 11/26/22 21:00 12/03/22 05:11 Acetaminophen 500 Mg Tab PO 12/26/22 20:59 1,000 mg Q8 TIFFANI Administration Bisacodyl 5 mg 11/26/22 21:00 12/02/22 20:12 Bisacodyl 5 Mg Tabec PO 12/26/22 20:59 5 mg HS TIFFANI Administration Citalopram Hydrobromide 20 mg 11/26/22 21:00 12/02/22 20:10 Citalopram 20 Mg Tab PO 12/26/22 20:59 20 mg BID TIFFANI Administration Enoxaparin Sodium 40 mg 12/01/22 10:00 12/01/22 10:22 Enoxaparin Inj 40 Mg/0.4 Ml Syr SQ 12/26/22 20:59 40 mg DAILY TIFFANI Administration Ferrous Sulfate 325 mg 11/27/22 09:00 12/02/22 07:53 Ferrous Sulfate 325 Mg Tab PO 12/27/22 08:59 Not Given DAILY TIFFANI Fluticasone Furoate 1 puffs 11/27/22 09:00 12/02/22 07:54 Fluticasone Furoate 100mcg 14 Puffs/Inhaler INH 12/27/22 08:59 1 puffs DAILY TIFFANI Administration Furosemide 10 mg 11/30/22 12:45 12/03/22 04:16 Furosemide Inj 20 Mg/2 Ml Vial IV 12/30/22 12:44 10 mg Q8H TIFFANI Administration Vancomycin HCl 1,250 mg/ 275 mls @ 200 mls/hr 12/02/22 14:00 12/03/22 02:30 Sodium Chloride IV 12/16/22 13:59 Infused Q12H TIFFANI Infusion Protocol Magnesium Sulfate/Dextrose 1 gm in 100 mls @ 50 mls/hr 12/03/22 05:00 11/06 11/27 06:38 Magnesium Sulfate / D5w IV 12/03/22 08:59 50 mls/hr Q2H TIFFANI Administration Insulin Aspart 0 units 11/26/22 21:00 12/02/22 21:03 Insulin Aspart Per Unit Charge SC 12/26/22 20:59 2 units ACHS TIFFANI Administration Insulin Glargine 0 units 11/26/22 21:00 12/01/22 20:45 Lantus Per Unit Charge SQ 12/26/22 20:59 Not Given HS TIFFANI Magnesium Chloride 64 mg 11/30/22 09:00 12/02/22 20:11 Magnesium Chloride W/Calcium 64mg Delayed Rel Tab PO 12/30/22 08:59 64 mg BID TIFFANI Administration Melatonin 3 mg 11/29/22 01:36 12/02/22 20:12 Melatonin 3 Mg Tab PO 12/29/22 01:35 3 mg HS PRN Administration Sleep Multivitamins 1 tab 11/27/22 09:00 12/02/22 07:53 Multivitamin Tab PO 12/27/22 08:59 Not Given QAM TIFAFNI Pantoprazole Sodium 40 mg 12/02/22 21:00 12/02/22 20:11 Pantoprazole 40 Mg Tab PO 01/01/23 20:59 40 mg BID TIFFANI Administration Umeclidinium/Vilanterol 1 puffs 11/27/22 09:00 12/02/22 07:54 Umeclidinium/Vilanterol 62.5/25mcg 7 Puffs/Inhaler INH 12/27/22 08:59 1 puffs DAILY TIFFANI Administration Vitamin B Complex 1 tab 11/27/22 09:00 12/02/22 07:54 Vitamin B Complex Tab PO 12/27/22 08:59 Not Given DAILY TIFFANI (1) Sepsis Sepsis acute organ dysfunction status: without acute organ dysfunction Sepsis type: sepsis due to unspecified organism Qualified Code(s): A41.9 - Sepsis, uns pecified organism (4) Falls Encounter type: initial encounter Qualified Code(s): W19.XXXA - Unspecified fall, initial encounter
[2022-12-03] MEDS ORDERED: SODIUM PHOSPHATE 20 MMOL in SODIUM CHLORIDE 0.9% 500 ML IV ONE (07:00)
[2022-12-03] MEDS ORDERED: MAGNESIUM SULFATE / D5W 1 GM/100 ML BAG IV SCH (07:00)
[2022-12-03 07:11] LABS: ALC (manual) 1.12 K/uL (1.2-3.4); ANC (manual) 8.65 K/uL (1.4-6.5); Eosinophils # (manual) 0.22 K/uL (0-0.50); Eosinophils % (manual) 2 %; Lymphocytes # (manual) 1.12 K/uL (1.2-3.4); Lymphocytes % (manual) 10 %; Metamyelocytes # (manual) 0.67 K/uL (0-0); Metamyelocytes % (manual) 6 %; Monocytes # (manual) 0.45 K/uL (0.11-0.59); Monocytes % (manual) 4 %; Myelocytes # (manual) 0.11 K/uL (0-0); Myelocytes % (manual) 1 %; Neutrophils # (manual) 8.65 K/uL (1.40-6.50); Neutrophils % (manual) 77 %; Nucleated RBC # (auto) 0.13 K/uL (0.00-0.12); Nucleated RBC % (auto) 1.2 %; Polychromasia 1+; Target Cells 1+; White Blood Count 11.23 K/ul (4.8-10.8)
[2022-12-03] MEDS: INSULIN ASPART PER UNIT CHARGE SC SCH ×4 (08:57→22:43)
--- NOTE | 2022-12-03 09:19 | Pulmonology Progress Note ---
Date of Service December 03, 2022 Assessment & Plan (1) Hypercapnic respiratory failure, chronic: Plan Impression: 67-year-old male admitted with bacteremia and likely septic shoulder with acute on chronic hypercarbic respiratory failure. Recommendations: 1. Hypercarbic respiratory failure: Continue BiPAP 18 over 8 at night and as needed during the day. If the patient goes to the OR, would recommend extubating him to BiPAP in the PACU. Continue to avoid use of any respiratory suppressant medication. 2. Would work on pulmonary toilet and optimizing the patient's pulmonary respiratory mechanics. Getting him sitting up in bed and out of bed to chair as tolerated is much as possible would be beneficial. 3. Ultimately weight loss will be required. 4. The patient has an oxygen requirement around 5 L at baseline. Would try to avoid oxygen saturations above 90% given his concomitant hypercarbia. Will continue to follow for pulmonary issues. Feel free to contact us with questions or concerns Admission and Anticipated Discharge Date Admission Date: November 26, 2022 Subjective Patient seen and examined. EMR reviewed. Review of Systems Review of Systems: Unobtainable due to reduced consciousness Physical Exam Constitutional: + morbidly obese and + disheveled; not ill appearing Neck: trachea midline, no thyromegaly Respiratory: normal respiratory effort, lungs clear to auscultation Cardiovascular: RRR, no murmur, no edema Gastrointestinal (Abdomen): normal bowel sounds, soft, nontender, no hepatosplenomegaly Musculoskeletal: Extremities: extremities normal to inspection Skin: no rashes, warm and dry Neurologic: Nonfocal exam Lymphatic: no cervical lymphadenopathy Results & Data Results & Data Vital Signs (Past 12 Hours) Vital Signs Temp Pulse Pulse Resp BP Pulse Ox O2 Del Method 12/03/22 04:00 38 C H 81 20 125/67 94 BiPAP 12/03/22 02:50 81 27 H 95 12/03/22 00:19 80 26 H 98 12/03/22 00:00 37.1 C 77 20 106/53 L 97 BiPAP FiO2 12/03/22 04:00 30 12/03/22 02:50 30 12/03/22 00:19 30 12/03/22 00:00 30 Laboratory Results 12/03/22 06:10 12/03/22 04:00 PG Care Time/CCT Total # of Minutes Spent Total Time Spent with Patient: Total time spent is greater than 50% in coordination of care (as documented) at patient's floor/unit and/or counseling patient: Coding Level of Care Code 57211 SUB INP/OBS CARE 2/35MIN Diagnoses Hypercapnic respiratory failure, chronic J96.12
[2022-12-03] MEDS: UMECLIDINIUM/VILANTEROL 62.5/25MCG 7 PUFFS/INHALER INH SCH (10:58)
[2022-12-03] MEDS: ENOXAPARIN INJ 40 MG/0.4 ML SYR SQ SCH (10:58)
[2022-12-03] MEDS: FLUTICASONE FUROATE 100MCG 14 PUFFS/INHALER INH SCH (10:58)
[2022-12-03] MEDS ORDERED: fentaNYL citrate PF 100 MCG/2 ML VIAL ONE (14:05)
[2022-12-03] MEDS ORDERED: PROPOFOL IV EMULSION 10 MG/ML 20 ML VIAL IV ONE (14:09)
[2022-12-03] MEDS ORDERED: LIDOCAINE 2% 2 ML VIAL/AMP(20MG/ML) INFIL ONE (14:09)
--- NOTE | 2022-12-03 14:31 | Anesthesiology Consultation ---
Date of Service December 03, 2022 Assessment & Plan (1) Encounter for pre-operative examination: Chart Review Chart Review: Acceptable Risk for Surgery (urgent due to infection) History Surgery Operation Date: 12/03/22 12:35 Proposed Procedures p Arthroscopy Shoulder - Mitch Ramirez DO s Incision and Drainage Shoulder - Mitch Ramirez DO Height/Weight Height: 6 ft 4 in Weight: 136.7 kg Allergies Allergy/AdvReac Type Severity Reaction Status Date / Time morphine AdvReac Unknown Hallucinati Verified 11/26/22 17:04 ng Medications Home Medications Medication Instructions Recorded Confirmed Last Taken acetaminophen 500 mg tablet 500 mg PO BID PRN Pain 11/26/22 11/26/22 Unknown albuterol sulfate 2.5 mg/3 mL 2.5 mg inhalation Q4H PRN 11/26/22 11/26/22 Unknown (0.083 %) solution for nebulization Shortness Of Breath Or Wheezing baclofen 10 mg tablet 10 mg PO TID PRN Muscle Spasm 11/26/22 11/26/22 Unknown bisacodyl 5 mg tablet 5 mg PO HS 11/26/22 11/26/22 Unknown bumetanide 2 mg tablet 2 mg PO DAILY 11/26/22 11/26/22 Unknown citalopram 20 mg tablet 20 mg PO BID 11/26/22 11/26/22 Unknown doxylamine succinate 25 mg tablet 25 mg PO HS PRN Sleep 11/26/22 11/26/22 Unknown ferrous sulfate 325 mg (65 mg 325 mg PO DAILY 11/26/22 11/26/22 Unknown iron) tablet fluticasone fur. 100 mcg-umeclid 1 inh inhalation DAILY 11/26/22 11/26/22 Unknown 62.5 mcg-vilant 25 mcg inhalat.powder (Trelegy Ellipta) guselkumab 100 mg/mL subcutaneous 100 mg subcut UD 11/26/22 11/26/22 Unknown auto-injector (Tremfya) insulin degludec 200 unit/mL (3 20 unit subcut HS 11/26/22 11/26/22 Unknown mL) subcutaneous pen (Tresiba FlexTouch U-200 insulin) magnesium 500 mg tablet 15 mg PO DAILY 11/26/22 11/26/22 Unknown metformin 500 mg tablet 1,000 mg PO BID 11/26/22 11/26/22 Unknown multivit,Ca,min-iron 8 mg-folic 1 tab PO DAILY 11/26/22 11/26/22 Unknown acid 200 mcg-lycopene 600 mcg tablet (Centrum Men) pantoprazole 40 mg tablet,delayed 40 mg PO BID 11/26/22 11/26/22 Unknown release vitamin B complex 1 tab PO DAILY 11/26/22 11/26/22 Unknown Active Medications Generic Name Dose Route Start Last Admin Trade Name Herlinda PRN Reason Stop Dose Admin Acetaminophen 1,000 mg 11/26/22 21:00 12/03/22 05:11 Acetaminophen 500 Mg Tab PO 12/26/22 20:59 1,000 mg Q8 TIFFANI Administration Bisacodyl 5 mg 11/26/22 21:00 12/02/22 20:12 Bisacodyl 5 Mg Tabec PO 12/26/22 20:59 5 mg HS TIFFANI Administration Citalopram Hydrobromide 20 mg 11/26/22 21:00 12/02/22 20:10 Citalopram 20 Mg Tab PO 12/26/22 20:59 20 mg BID TIFFANI Administration Enoxaparin Sodium 40 mg 12/01/22 10:00 12/03/22 10:58 Enoxaparin Inj 40 Mg/0.4 Ml Syr SQ 12/26/22 20:59 40 mg DAILY TIFFANI Administration Ferrous Sulfate 325 mg 11/27/22 09:00 12/02/22 07:53 Ferrous Sulfate 325 Mg Tab PO 12/27/22 08:59 Not Given DAILY TIFFANI Fluticasone Furoate 1 puffs 11/27/22 09:00 12/03/22 10:58 Fluticasone Furoate 100mcg 14 Puffs/Inhaler INH 12/27/22 08:59 1 puffs DAILY TIFFANI Administration Furosemide 10 mg 11/30/22 12:45 12/03/22 12:07 Furosemide Inj 20 Mg/2 Ml Vial IV 12/30/22 12:44 10 mg Q8H TIFFANI Administration Vancomycin HCl 1,250 mg/ 275 mls @ 200 mls/hr 12/02/22 14:00 12/03/22 02:30 Sodium Chloride IV 12/16/22 13:59 Infused Q12H [facility] Infusion Protocol Insulin Aspart 0 units 11/26/22 21:00 12/03/22 08:57 Insulin Aspart Per Unit Charge SC 12/26/22 20:59 1 units ACHS TIFFANI Administration Insulin Glargine 0 units 11/26/22 21:00 12/01/22 20:45 Lantus Per Unit Charge SQ 12/26/22 20:59 Not Given HS TIFFANI Magnesium Chloride 64 mg 11/30/22 09:00 12/02/22 20:11 Magnesium Chloride W/Calcium 64mg Delayed Rel Tab PO 12/30/22 08:59 64 mg BID TIFFANI Administration Melatonin 3 mg 11/29/22 01:36 12/02/22 20:12 Melatonin 3 Mg Tab PO 12/29/22 01:35 3 mg HS PRN Administration Sleep Multivitamins 1 tab 11/27/22 09:00 12/02/22 07:53 Multivitamin Tab PO 12/27/22 08:59 Not Given QAM TIFFANI Pantoprazole Sodium 40 mg 12/02/22 21:00 12/02/22 20:11 Pantoprazole 40 Mg Tab PO 01/01/23 20:59 40 mg BID TIFFANI Administration Umeclidinium/Vilanterol 1 puffs 11/27/22 09:00 12/03/22 10:58 Umeclidinium/Vilanterol 62.5/25mcg 7 Puffs/Inhaler INH 12/27/22 08:59 1 puffs DAILY TIFFANI Administration Vitamin B Complex 1 tab 11/27/22 09:00 12/02/22 07:54 Vitamin B Complex Tab PO 12/27/22 08:59 Not Given DAILY TIFFANI NPO Date Last Intake of Fluids: 12/02/22 Time Last Intake of Fluids: 16:30 Date Last Intake of Solids: 12/02/22 Time Last Intake of Solids: 16:30 Past Medical History Medical History (Updated 12/03/22 @ 14:31 by Brooks Valencia MD) Anemia Chronic pain syndrome Cirrhosis COPD (chronic obstructive pulmonary disease) Depression Diabetes mellitus, type II Hypercapnic respiratory failure, chronic MRSA bacteremia Nocturnal hypoxia Past Family History Family History Other Heart disease Stroke Past Surgical History Surgical History Amputated finger S/P colon resection Social History Smoking Status: Never smoker Do You Dip or Chew Tobacco: No Hx Alcohol Use: No Hx Substance Use: Yes substance use type: marijuana Last Used Substance: Hours (ago) Physical Exam Vital Signs Last Vital Signs Temp 36.8 C 12/03/22 12:26 Pulse 74 12/03/22 12:26 Resp 20 12/03/22 12:26 BP 106/63 12/03/22 12:26 Pulse Ox 92 12/03/22 12:26 O2 Del Method Nasal Cannula 12/03/22 12:26 O2 Flow Rate 4 12/03/22 12:26 FiO2 30 12/03/22 10:36 Testing Laboratory Results 12/03/22 06:10 12/03/22 04:00 PT 11.9 Seconds (9.0-12.0) 11/26/22 12:11 INR 1.1 (0.9-1.1) 11/26/22 12:11 APTT 31.9 Seconds (21.0-31.0) H 11/26/22 12:11 Hemoglobin A1c 7.6 % (4.5-5.6) H 11/27/22 05:37 Urine Color Gini 11/26/22 13:47 Urine Appearance Cloudy (Clear) A 11/26/22 13:47 Urine pH 6.0 (4.5-7.5) 11/26/22 13:47 Ur Specific [place] 1.025 (1.000-1.030) 11/26/22 13:47 Urine Protein 2+ (Negative) H 11/26/22 13:47 Urine Glucose (UA) Negative (Negative) 11/26/22 13:47 Urine Ketones 1+ (Negative) H 11/26/22 13:47 Urine Nitrite Positive (Negative) A 11/26/22 13:47 Ur Leukocyte Esterase Trace (Negative) H 11/26/22 13:47 Urine WBC (Auto) 1-5 /hpf (0-5) 11/26/22 13:47 Urine RBC (Auto) 0-4 /hpf (0-4) 11/26/22 13:47 U Hyaline Cast (Auto) 1-5 /lpf (0-5) 11/26/22 13:47 U Epithel Cells (Auto) 10-20 /lpf (0-5) H 11/26/22 13:47 Urine Bacteria (Auto) Negative (Negative) 11/26/22 13:47 12/02/22 11:17 Gram Stain - Final Synovial Fluid Aerobic and Anaerobic Culture - Preliminary Staphylococcus species 12/02/22 11:17 Fungal Smear - Final Joint Fluid,Shoulder 11/28/22 05:25 Aerobic Blood Culture - Preliminary Blood Staph aureus MRSA Anaerobic Blood Culture - Final No growth in Anaerobic bottle after 5 days. 11/28/22 05:32 Aerobic Blood Culture - Preliminary Blood Staph aureus MRSA Anaerobic Blood Culture - Final No growth in Anaerobic bottle after 5 days. 12/01/22 04:03 Aerobic Blood Culture - Preliminary Blood No growth in Aerobic bottle after 48 hours. Anaerobic Blood Culture - Final 12/01/22 04:03 Aerobic Blood Culture - Preliminary Blood No growth in Aerobic bottle after 48 hours. Anaerobic Blood Culture - Final 11/27/22 05:37 Aerobic Blood Culture - Preliminary Blood Staph aureus MRSA Anaerobic Blood Culture - Final No growth in Anaerobic bottle after 5 days. 11/27/22 05:49 Aerobic Blood Culture - Preliminary Blood Staph aureus MRSA Anaerobic Blood Culture - Final No growth in Anaerobic bottle after 5 days. 11/29/22 07:34 Aerobic Blood Culture - Preliminary Blood Staph aureus MRSA Anaerobic Blood Culture - Preliminary No growth in Anaerobic bottle after 48 hours. 11/29/22 07:11 Aerobic Blood Culture - Preliminary Blood Staph aureus MRSA Anaerobic Blood Culture - Preliminary No growth in Anaerobic bottle after 48 hours. 11/26/22 13:44 Aerobic Blood Culture - Final Blood Staph aureus MRSA Anaerobic Blood Culture - Final Staph aureus MRSA 11/26/22 12:11 Aerobic Blood Culture - Final Blood Staph aureus MRSA Anaerobic Blood Culture - Final Staph aureus MRSA 11/26/22 13:47 Urine Culture - Final Urine,Clean Catch Three types of organisms present, all low counts probable skin prudencio. No further identifications or sensitivities to follow. 12/03/22 08:24 POC Glucose 150 H Electrocardiogram Date: 11/26/22 Findings: + ST @ (103) Echocardiogram Date: 11/30/22 difficult study be LV systolic function listed as normal
[2022-12-03] MEDS ORDERED: ATROPINE SULFATE 0.1 MG/ML 10ML SYR IV PRN (14:41)
[2022-12-03] MEDS ORDERED: KETOROLAC 30 MG/ML VIAL IV PRN (14:41)
[2022-12-03] MEDS ORDERED: HYDROmorphone INJ 1 MG/ML SYRINGE IV PRN (14:41)
--- NOTE | 2022-12-03 14:49 | History & Physical Bridge Note ---
Date of Service December 03, 2022 History & Physical Bridge Note I have examined the patient, reviewed the History & Physical and in the interval since the performance of the History & Physical I have noted the following changes of clinical significance: Will perform arthroscopic irrigation debridement right shoulder, synovectomy shoulder and aspiration right knee.
[2022-12-03] MEDS: LACTATED RINGER'S 1,000 ML IV SCH (14:56)
[2022-12-03] MEDS ORDERED: EpINEphrine HCL INJ 1 MG/ML 1ML SYRINGE ONE ×2 (15:23→16:38)
[2022-12-03] MEDS ORDERED: ROCURONIUM BROMIDE 10 MG/ML 5 ML VIAL IV ONE (15:58)
[2022-12-03] MEDS ORDERED: SUGAMMADEX SODIUM 200 MG/2 ML VIAL IV ONE (15:58)
[2022-12-03] MEDS ORDERED: ONDANSETRON INJ 2 MG/ML 2 ML VIAL ONE (15:58)
[2022-12-03] MEDS ORDERED: PHENYLEPHRINE 100MCG/ML 5ML SYR ONE (15:59)
[2022-12-03] MEDS ORDERED: SUCCINYLCHOLINE CHLORIDE 20 MG/ML 10 ML VIAL IV ONE (15:59)
[2022-12-03 16:15] LABS: Appearance Synovial Fluid Cloudy; Color Synovial Fluid Pink; Mononuclear WBC Synovial 25.2 %; Polynuclear WBC Synovial 74.8 %; RBC Synovial Fluid Auto 80000 /uL; Source Synovial Fluid Right Knee; WBC Synovial Fluid Auto 102040 /ul (0-200)
[2022-12-03] MEDS ORDERED: ePHEDrine sulfate 50 MG/5 ML SYR ONE (16:30)
[2022-12-03] MEDS: CITALOPRAM 20 MG TAB PO SCH ×2 (16:40→22:42)
[2022-12-03] MEDS: MULTIVITAMIN TAB PO SCH (16:41)
[2022-12-03] MEDS: VITAMIN B COMPLEX TAB PO SCH (16:41)
[2022-12-03] MEDS: MAGNESIUM CHLORIDE W/CALCIUM 64MG DELAYED REL TAB PO SCH ×2 (16:41→22:43)
[2022-12-03] MEDS: FERROUS SULFATE 325 MG TAB PO SCH (16:41)
[2022-12-03] MEDS: PANTOprazole 40 MG TAB PO SCH ×2 (16:41→22:43)
[2022-12-03] MEDS ORDERED: BUPIVACAINE/EPINEPHRINE 0.5% MPF 1:200,000 30 ML VIAL ONE (16:55)
--- NOTE | 2022-12-03 17:41 | Anesthesiology Progress Note ---
Date of Service December 03, 2022 Anesthesia Post Procedure Vital Signs Vital Signs: Temp Pulse Pulse Resp BP BP Pulse Ox 12/03/22 11:23 78 24 97 12/03/22 07:05 74 24 98 12/03/22 12:10 37.1 C 74 24 97 12/03/22 12:05 115/69 12/03/22 12:05 37.1 C 72 15 97 12/03/22 12:00 37.1 C 76 16 98 12/03/22 11:50 37.1 C 75 23 99 12/03/22 11:40 37.0 C 73 25 H 98 12/03/22 11:30 37.0 C 74 20 97 12/03/22 11:20 37.0 C 74 23 98 12/03/22 11:10 37.0 C 74 22 98 12/03/22 11:00 37.0 C 74 23 95 12/03/22 10:50 37.0 C 75 14 100 12/03/22 10:40 36.9 C 73 21 95 12/03/22 10:30 36.9 C 74 21 98 12/03/22 10:20 36.9 C 73 22 97 12/03/22 10:10 36.9 C 73 18 98 12/03/22 10:00 36.9 C 72 17 95 12/03/22 09:50 36.9 C 76 24 96 12/03/22 09:40 36.9 C 73 21 95 12/03/22 09:30 36.9 C 73 24 96 12/03/22 09:20 36.9 C 74 24 98 12/03/22 09:10 36.9 C 74 22 98 12/03/22 12:26 36.8 C 74 20 106/63 92 12/03/22 08:00 74 12/03/22 10:36 12/03/22 09:00 36.9 C 74 24 99 12/03/22 08:25 36.9 C 74 21 97 12/03/22 08:25 129/82 12/03/22 08:00 36.9 C 74 23 97 12/03/22 07:00 37.4 C 78 16 96 12/03/22 04:00 38 C H 81 20 125/67 94 12/03/22 02:50 81 27 H 95 12/03/22 00:19 80 26 H 98 12/03/22 00:00 37.1 C 77 20 106/53 L 97 12/02/22 20:00 12/02/22 20:00 37.6 C H 82 19 112/62 96 12/02/22 18:08 86 25 H 97 O2 Del Method O2 Flow Rate FiO2 12/03/22 11:23 30 12/03/22 07:05 30 12/03/22 12:10 12/03/22 12:05 12/03/22 12:05 12/03/22 12:00 12/03/22 11:50 12/03/22 11:40 12/03/22 11:30 12/03/22 11:20 12/03/22 11:10 12/03/22 11:00 12/03/22 10:50 12/03/22 10:40 12/03/22 10:30 12/03/22 10:20 12/03/22 10:10 12/03/22 10:00 12/03/22 09:50 12/03/22 09:40 12/03/22 09:30 12/03/22 09:20 12/03/22 09:10 12/03/22 12:26 Nasal Cannula 4 12/03/22 08:00 12/03/22 10:36 BiPAP 30 12/03/22 09:00 12/03/22 08:25 12/03/22 08:25 12/03/22 08:00 12/03/22 07:00 12/03/22 04:00 BiPAP 30 12/03/22 02:50 30 12/03/22 00:19 30 12/03/22 00:00 BiPAP 30 12/02/22 20:00 Nasal Cannula 4 12/02/22 20:00 Nasal Cannula 4 12/02/22 18:08 30 Pain Intensity Generalized: Pain Intensity: 7 Right: Pain Intensity: 10 Transfer of Care Handoff Completed per policy Notes Mental Status: alert / awake / arousable and participated in evaluation Patient Amnestic to Procedure: Yes Nausea / Vomiting: adequately controlled Pain: adequately controlled Airway Patency, RR, SpO2: stable & adequate BP & HR: stable & adequate Hydration State: stable & adequate Anesthetic Complications: no major complications apparent and Pt Satisfied with anesthetic care
--- NOTE | 2022-12-03 17:53 | Operative Report ---
Post Operative Report Pre & Post Diagnosis Operation Date: 12/04/22 09:50 Pre Operative: Procedure Operation Date: 12/04/22 09:50 <No data on this case meets the specified criteria> Surgeon Mitch Ramirez, Estimated Blood Loss 5 I attest to the content of the Intraoperative Record and any orders documented therein. Any exceptions are noted below.
--- NOTE | 2022-12-03 18:09 | Operative Report ---
Post Operative Report Pre & Post Diagnosis Operation Date: 12/04/22 09:50 Pre Op diagnosis: Right shoulder septic arthritis, osteoarthritis right shoulder, right shoulder pain, Right knee effusion Postop diagnosis: Right shoulder septic arthritis, large rotator cuff tear, glenoid labral tear, extensive synovitis shoulder, subacromial impingement, loose body 10 mm x 9 mm x 7 mm, severe osteoarthritis, Right knee septic arthritis I identified the patient and participated in the time-out.: Yes Procedure Operation Date: 12/04/22 09:50 Procedure: Right shoulder arthroscopic irrigation and extensive debridement, debridement rotator cuff tear, debridement glenoid labral tear, extensive synovectomy shoulder, chondroplasty humerus and chondroplasty glenoid, removal loose body 10 mm x 9 mm x 7 mm, subacromial decompression with bursectomy, right knee aspiration Surgeon Mitch Ramirez, Centrifuge Separator Tender None Estimated Blood Loss 5 Findings Consistent with Post-Op Diagnosis Specimens Aerobic, anaerobic, Gram stain right shoulder joint. Loose body right shoulder joint. Aerobic, anaerobic, Gram stain right knee joint Drains 10 Swiss Hemovac right shoulder joint Anesthesia Type General Complications none Disposition Accompanied Patient To Recovery: No Indications This is a 67-year-old gentleman with unexplained sepsis who eventually had a guided aspiration performed of the right shoulder noting 61,000 white count with left shift. Patient was initially to be treated by Dr. Marcelino Ca yesterday however he was not n.p.o. for surgery. Dr. Marcelino Ca requested that I assumed care of the patient and patient was then scheduled for arthroscopic irrigation debridement right shoulder and then after discussion with the patient who indicated that his right knee was also severely painful since his admission, patient was also scheduled for aspiration of his right knee under anesthesia. Patient was scheduled for surgery as indicated Description of Procedure All potential risks, benefits, complications, alternatives, rehab, need for further surgery, potential for incomplete relief of symptoms, neurovascular injury, DVT, PE, , stiffness, weakness, loss of function, persistent pain, swelling, numbness, bone fracture and wound complications were discussed with the patient. The patient decided to proceed with the procedure as indicated. The patient was taken to the operative suite and placed supine on the operating room table. After the consent was reviewed and the proper operative site was identified, the patient was anesthetized and LMA was placed. Next patient was then positioned in a beachchair position using a Schlein positioner and the right shoulder was then sterilely prepped and draped in the usual fashion. Surgical timeout was performed. Next an 18-gauge spinal needle was placed into the posterior portal site for the shoulder and then an #11 Blade scalpel was used to make an incision in the posterior aspect the of the shoulder followed by placement of a blunt trocar and sleeve, camera and inflow. Next the anterior portal site was established using a #18-gauge spinal needle placed through the rotator interval. Followed placement of a blunt trocar and sleeve. Next sequential diagnostic arthroscopy commenced first noting extensive synovitis, murky purulent drainage, extensive glenoid labral tear, large rotator cuff tear with visualization of the subacromial space and severe osteoarthritis of the humerus and glenoid. The biceps tendon was noted to have intra-articular Tenosynovitis. There is synovitis throughout the glenohumeral joint including extension into the inferior pouch. Next a 4.5 mm sucker shaver was then introduced to perform an extensive debridement of the labrum, tenosynovectomy was performed of the bicep tendon with a 4.5 mm sucker shaver and an extensive synovectomy of the entire glenohumeral joint was performed with a 4.5 mm sucker shaver and an werewolf ablation wand. Advanced arthritic changes were noted of both the humerus and the glenoid. Chondroplasty was performed with the 4.5 mm sucker shaver to remove loose fragments of articular cartilage of both the humerus and the glenoid. A large loose body was encountered in this superior aspect of the glenohumeral joint measuring 10 mm x 9 mm x 7 mm. A hemostat was inserted to the anterior portal and the large loose body was then removed and passed off the specimen. The werewolf ablation wand was then inserted to smooth and contour the remaining glenoid labrum as well as to finish the complete synovectomy within the joint. Next the arthroscope was directed into the subacromial space and a lateral portal was established under direct visualization using an 18-gauge spinal needle and an 11 blade scalpel. Next 4.5 mm sucker shaver was introduced and due to the soft tissue and bursal impingement within the subacromial space, a subacromial decompression and bursectomy was performed. The rotator cuff was inspected noted to have extensive tearing with retraction of the supraspinatus and infraspinatus. A 4.5 mm sucker shaver was then used to perform a debridement of the supraspinatus and infraspinatus tendons. The werewolf ablation wand was then used to smooth the remaining fibers of the supraspinatus. A 10 Swiss Hemovac drain was guided from the anterior portal site through the lateral portal site using a Wissinger [place] transfer technique. After all particulate debris was flushed from the subacromial space, the instruments were removed and the portal sites were closed using buried interrupted 3-0 nylon and a sterile compressive dressing and sling was applied. Next the right knee was sterilely prepped with Betadine and alcohol and an 18- gauge needle was then used to aspirate approxi-20 cc of murky yellow appearing aspirate from the right knee joint. The specimen was sent for cell count with manual differential, aerobic, anaerobic and Gram stain analysis as well as crystal analysis. A sterile Band-Aid was applied to the aspiration site in the right knee. The patient was awakened and taken to recovery in stable condition. I attest to the content of the Intraoperative Record and any orders documented therein. Any exceptions are noted below.
[2022-12-03] MEDS: LANTUS PER UNIT CHARGE SQ SCH (22:43)
[2022-12-03] MEDS: bisacodyL 5 MG TABEC PO SCH (22:43)
[2022-12-04 04:01] LABS: Hematocrit (blood only) 28.7 % (42.0-52.0); Hemoglobin 9.7 g/dl (14.0-18.0); Mean Corpuscular Hemoglobin 30.7 pg (25.0-34.0); Mean Corpuscular Hgb Conc 33.8 g/dL (32.0-36.0); Mean Corpuscular Volume 90.8 fL (80.0-100.0); Mean Platelet Volume 11.5 fL (9.4-12.4); Nucleated RBC # (auto) 0.06 K/uL (0.00-0.12); Nucleated RBC % (auto) 0.5 %; Platelet Count 325 K/uL (130-400); RDW Coefficient of Variation 14.6 % (11.5-14.5); Red Blood Count 3.16 M/uL (4.70-6.10); White Blood Count 12.63 K/ul (4.8-10.8)
[2022-12-04 04:20] LABS: Albumin Globulin Ratio 0.5 (0.9-2); Albumin Level 2.3 gm/dl (3.4-5.0); BUN Creatinine Ratio 27.2 (10-20); Bilirubin,Total 1.3 mg/dl (0.2-1.0); Calcium 8.7 mg/dl (8.6-10.3); Creatinine Clr Calc Pharmacy 131.8 ml/min; Est GFR (African American) 105.8 ml/min; Est GFR (Non-African American) 91.3 ml/min; Globulin 4.2 gm/dl (2.5-4.0); Magnesium 1.4 mg/dl (1.7-2.4); Phosphorus 3.7 mg/dl (2.5-4.9); Total Protein 6.5 gm/dl (6.0-8.3)
[2022-12-04 04:43] LABS: Basophils # (auto) 0.07 K/uL (0.00-0.20); Basophils % (auto) 0.6 %; Eosinophils # (auto) 0.14 K/uL (0.00-0.50); Eosinophils % (auto) 1.1 %; Immature Granulocytes # (auto) 1.23 K/uL (0.01-0.20); Immature Granulocytes % (auto) 9.7 %; Lymphocytes # (auto) 2.01 K/uL (1.20-3.40); Lymphocytes % (auto) 15.9 %; Monocytes # (auto) 0.75 K/uL (0.11-0.59); Monocytes % (auto) 5.9 %; Neutrophils # (auto) 8.43 K/uL (1.40-6.50); Neutrophils % (auto) 66.8 %
[2022-12-04] MEDS ORDERED: VANCOMYCIN LEVEL ONE ×2 (05:00→13:00)
[2022-12-04] MEDS: FUROSEMIDE INJ 20 MG/2 ML VIAL IV SCH ×3 (05:16→20:50)
[2022-12-04] MEDS: ACETAMINOPHEN 500 MG TAB PO SCH ×3 (05:21→20:51)
[2022-12-04] MEDS: VANCOMYCIN HCL 1,250 MG in SODIUM CHLORIDE 0.9% 250 ML IV SCH ×2 (06:45→18:23)
--- NOTE | 2022-12-04 06:53 | Pharmacy Report ---
Pharmacy PK ABX Note - Date of Service December 04, 2022 - Assessment and Plan Assessment 12/04: * Vanc level obtained this morning, indicating that current regimen is appropriate to continue (predicted AUC 461mg/L.hr). * Would prefer AUC at higher end of 400-600mg/L.hr range. PM dose of vanc was delayed by 4 hours yesterday. Expect that level would have been higher without this delay, achieving AUC at the higher end of goal. * No changes at this time. 12/02: * 67 year old M receiving vancomycin for treatment of MRSA bacteremia. Pertinent microbiologic data includes: blood culture growing MRSA from 11/26; blood culture growing MRSA from 11/27; blood culture growing MRSA from 11/28. Blood cultures from 11/29 (+) MRSA. 12/01 surveillance cultures negative at 24h. ID following. * Day # 4 of antimicrobial therapy. Plan Vancomycin * Continue Vanc 1250mg IV q12h * No further levels have been ordered at this time. Will consider ordering additional labs in 1-2 days if pt remains hospitalized on vanc therapy. Pharmacy will continue to follow and will adjust dose/frequency as necessary. Thank you. Pharmacy has transitioned to AUC monitoring for vancomycin. AUC/VISHAL is the preferred PK/PD target and is associated with decreased risk of nephrotoxicity compared to traditional trough targets.
--- NOTE | 2022-12-04 07:19 | Anesthesiology Consultation ---
Date of Service December 04, 2022 Assessment & Plan (1) Encounter for pre-operative examination: Chart Review Chart Review: Acceptable Risk for Surgery History Surgery Operation Date: 12/03/22 12:35 Proposed Procedures p Arthroscopy Shoulder - Mitch Ramirez DO s Incision and Drainage Shoulder - Mitch Ramirez DO Operation Date: 12/04/22 09:50 Proposed Procedures p Arthroscopy Knee - Mitch Ramirez DO s Incision and Drainage Right Knee - Mitch Ramirez DO Height/Weight Height: 6 ft 4 in Weight: 137 kg Allergies Allergy/AdvReac Type Severity Reaction Status Date / Time morphine AdvReac Unknown Hallucinati Verified 11/26/22 17:04 ng Medications Home Medications Medication Instructions Recorded Confirmed Last Taken acetaminophen 500 mg tablet 500 mg PO BID PRN Pain 11/26/22 11/26/22 Unknown albuterol sulfate 2.5 mg/3 mL 2.5 mg inhalation Q4H PRN 11/26/22 11/26/22 Unknown (0.083 %) solution for nebulization Shortness Of Breath Or Wheezing baclofen 10 mg tablet 10 mg PO TID PRN Muscle Spasm 11/26/22 11/26/22 Unknown bisacodyl 5 mg tablet 5 mg PO HS 11/26/22 11/26/22 Unknown bumetanide 2 mg tablet 2 mg PO DAILY 11/26/22 11/26/22 Unknown citalopram 20 mg tablet 20 mg PO BID 11/26/22 11/26/22 Unknown doxylamine succinate 25 mg tablet 25 mg PO HS PRN Sleep 11/26/22 11/26/22 Unknow n ferrous sulfate 325 mg (65 mg 325 mg PO DAILY 11/26/22 11/26/22 Unknown iron) tablet fluticasone fur. 100 mcg-umeclid 1 inh inhalation DAILY 11/26/22 11/26/22 Unknown 62.5 mcg-vilant 25 mcg inhalat.powder (Trelegy Ellipta) guselkumab 100 mg/mL subcutaneous 100 mg subcut UD 11/26/22 11/26/22 Unknown auto-injector (Tremfya) insulin degludec 200 unit/mL (3 20 unit subcut HS 11/26/22 11/26/22 Unknown mL) subcutaneous pen (Tresiba FlexTouch U-200 insulin) magnesium 500 mg tablet 15 mg PO DAILY 11/26/22 11/26/22 Unknown metformin 500 mg tablet 1,000 mg PO BID 11/26/22 11/26/22 Unknown multivit,Ca,min-iron 8 mg-folic 1 tab PO DAILY 11/26/22 11/26/22 Unknown acid 200 mcg-lycopene 600 mcg tablet (Centrum Men) pantoprazole 40 mg tablet,delayed 40 mg PO BID 11/26/22 11/26/22 Unknown release vitamin B complex 1 tab PO DAILY 11/26/22 11/26/22 Unknown Active Medications Generic Name Dose Route Start Last Admin Trade Name Herlinda PRN Reason Stop Dose Admin Acetaminophen 1,000 mg 11/26/22 21:00 12/04/22 05:21 Acetaminophen 500 Mg Tab PO 12/26/22 20:59 1,000 mg Q8 TIFFANI Administration Bisacodyl 5 mg 11/26/22 21:00 12/03/22 22:43 Bisacodyl 5 Mg Tabec PO 12/26/22 20:59 5 mg HS TIFFANI Administration Citalopram Hydrobromide 20 mg 11/26/22 21:00 12/03/22 22:42 Citalopram 20 Mg Tab PO 12/26/22 20:59 20 mg BID TIFFANI Administration Ferrous Sulfate 325 mg 11/27/22 09:00 12/03/22 16:41 Ferrous Sulfate 325 Mg Tab PO 12/27/22 08:59 Not Given DAILY TIFFANI Fluticasone Furoate 1 puffs 11/27/22 09:00 12/03/22 10:58 Fluticasone Furoate 100mcg 14 Puffs/Inhaler INH 12/27/22 08:59 1 puffs DAILY TIFFANI Administration Furosemide 10 mg 11/30/22 12:45 12/04/22 05:16 Furosemide Inj 20 Mg/2 Ml Vial IV 12/30/22 12:44 10 mg Q8H TIFFANI Administration Vancomycin HCl 1,250 mg/ 275 mls @ 200 mls/hr 12/02/22 14:00 12/04/22 06:45 Sodium Chloride IV 12/16/22 13:59 200 mls/hr Q12H TIFFANI Administration Protocol Lactated Ringer's 1,000 mls @ 15 mls/hr 12/03/22 15:00 12/03/22 14:56 Lr IV 01/02/23 14:59 15 mls/hr .Q24H TIFFANI Administration Insulin Aspart 0 units 11/26/22 21:00 12/03/22 22:43 Insulin Aspart Per Unit Charge SC 12/26/22 20:59 2 units ACHS TIFFANI Administration Insulin Glargine 0 units 11/26/22 21:00 12/03/22 22:43 Lantus Per Unit Charge SQ 12/26/22 20:59 8 units HS TIFFANI Administration Magnesium Chloride 64 mg 11/30/22 09:00 12/03/22 22:43 Magnesium Chloride W/Calcium 64mg Delayed Rel Tab PO 12/30/22 08:59 64 mg BID TIFFANI Administration Melatonin 3 mg 11/29/22 01:36 12/02/22 20:12 Melatonin 3 Mg Tab PO 12/29/22 01:35 3 mg HS PRN Administration Sleep Multivitamins 1 tab 11/27/22 09:00 12/03/22 16:41 Multivitamin Tab PO 12/27/22 08:59 Not Given QAM TIFFANI Pantoprazole Sodium 40 mg 12/02/22 21:00 12/03/22 22:43 Pantoprazole 40 Mg Tab PO 01/01/23 20:59 40 mg BID TIFFANI Administration Umeclidinium/Vilanterol 1 puffs 11/27/22 09:00 12/03/22 10:58 Umeclidinium/Vilanterol 62.5/25mcg 7 Puffs/Inhaler INH 12/27/22 08:59 1 puffs DAILY TIFFANI Administration Vitamin B Complex 1 tab 11/27/22 09:00 12/03/22 16:41 Vitamin B Complex Tab PO 12/27/22 08:59 Not Given DAILY TIFFANI NPO Date Last Intake of Fluids: 12/02/22 Time Last Intake of Fluids: 16:30 Date Last Intake of Solids: 12/02/22 Time Last Intake of Solids: 16:30 Past Medical History Medical History Anemia Chronic pain syndrome Cirrhosis COPD (chronic obstructive pulmonary disease) Depression Diabetes mellitus, type II Hypercapnic respiratory failure, chronic MRSA bacteremia Nocturnal hypoxia Past Family History Family History Other Heart disease Stroke Past Surgical History Surgical History Amputated finger S/P colon resection Social History Smoking Status: Never smoker Do You Dip or Chew Tobacco: No Hx Alcohol Use: No Hx Substance Use: Yes substance use type: marijuana Last Used Substance: Hours (ago) Physical Exam Vital Signs Last Vital Signs Temp 36.6 C 12/04/22 03:00 Pulse 77 12/04/22 03:00 Resp 20 12/04/22 03:00 BP 106/63 12/04/22 03:00 Pulse Ox 96 12/04/22 03:00 O2 Del Method Nasal Cannula 12/04/22 03:00 O2 Flow Rate 3 12/03/22 23:00 FiO2 30 12/04/22 02:33 Testing Laboratory Results 12/04/22 03:36 12/04/22 03:36 PT 11.9 Seconds (9.0-12.0) 11/26/22 12:11 INR 1.1 (0.9-1.1) 11/26/22 12:11 APTT 31.9 Seconds (21.0-31.0) H 11/26/22 12:11 Hemoglobin A1c 7.6 % (4.5-5.6) H 11/27/22 05:37 Urine Color Gini 11/26/22 13:47 Urine Appearance Cloudy (Clear) A 11/26/22 13:47 Urine pH 6.0 (4.5-7.5) 11/26/22 13:47 Ur Specific [place]ow 1.025 (1.000-1.030) 11/26/22 13:47 Urine Protein 2+ (Negative) H 11/26/22 13:47 Urine Glucose (UA) Negative (Negative) 11/26/22 13:47 Urine Ketones 1+ (Negative) H 11/26/22 13:47 Urine Nitrite Positive (Negative) A 11/26/22 13:47 Ur Leukocyte Esterase Trace (Negative) H 11/26/22 13:47 Urine WBC (Auto) 1-5 /hpf (0-5) 11/26/22 13:47 Urine RBC (Auto) 0-4 /hpf (0-4) 11/26/22 13:47 U Hyaline Cast (Auto) 1-5 /lpf (0-5) 11/26/22 13:47 U Epithel Cells (Auto) 10-20 /lpf (0-5) H 11/26/22 13:47 Urine Bacteria (Auto) Negative (Negative) 11/26/22 13:47 12/03/22 Unknown Gram Stain - Final Knee 12/03/22 16:11 Gram Stain - Final Shoulder,Right 12/02/22 11:17 Gram Stain - Final Synovial Fluid Aerobic and Anaerobic Culture - Preliminary Staphylococcus species 12/02/22 11:17 Fungal Smear - Final Joint Fluid,Shoulder 11/28/22 05:25 Aerobic Blood Culture - Preliminary Blood Staph aureus MRSA Anaerobic Blood Culture - Final No growth in Anaerobic bottle after 5 days. 11/28/22 05:32 Aerobic Blood Culture - Preliminary Blood Staph aureus MRSA Anaerobic Blood Culture - Final No growth in Anaerobic bottle after 5 days. 12/01/22 04:03 Aerobic Blood Culture - Preliminary Blood No growth in Aerobic bottle after 48 hours. Anaerobic Blood Culture - Final 12/01/22 04:03 Aerobic Blood Culture - Preliminary Blood No growth in Aerobic bottle after 48 hours. Anaerobic Blood Culture - Final 11/27/22 05:37 Aerobic Blood Culture - Preliminary Blood Staph aureus MRSA Anaerobic Blood Culture - Final No growth in Anaerobic bottle after 5 days. 11/27/22 05:49 Aerobic Blood Culture - Preliminary Blood Staph aureus MRSA Anaerobic Blood Culture - Final No growth in Anaerobic bottle after 5 days. 11/29/22 07:34 Aerobic Blood Culture - Preliminary Blood Staph aureus MRSA Anaerobic Blood Culture - Preliminary No growth in Anaerobic bottle after 48 hours. 11/29/22 07:11 Aerobic Blood Culture - Preliminary Blood Staph aureus MRSA Anaerobic Blood Culture - Preliminary No growth in Anaerobic bottle after 48 hours. 11/26/22 13:44 Aerobic Blood Culture - Final Blood Staph aureus MRSA Anaerobic Blood Culture - Final Staph aureus MRSA 11/26/22 12:11 Aerobic Blood Culture - Final Blood Staph aureus MRSA Anaerobic Blood Culture - Final Staph aureus MRSA 11/26/22 13:47 Urine Culture - Final Urine,Clean Catch Three types of organisms present, all low counts probable skin prudencio. No further identifications or sensitivities to follow. 12/03/22 20:41 POC Glucose 179 H Electrocardiogram Date: 11/26/22 Findings: + ST @ (103) Echocardiogram Date: 11/30/22 LV Function: normal
--- NOTE | 2022-12-04 08:39 | Hospitalist Progress Note ---
Date of Service December 04, 2022 Assessment & Plan (1) Sepsis: (2) Hypercapnic respiratory failure, chronic: (3) Hyponatremia: (4) Falls: (5) Hypomagnesemia: (6) Diabetes mellitus, type II: (7) Anemia: (8) Nocturnal hypoxia: (9) COPD (chronic obstructive pulmonary disease): (10) Depression: (11) Cirrhosis: (12) Chronic pain syndrome: Plan: Plan Mr. Carbajal is 67 year old gentleman who follows with [facility] with complex medical history of DM II, prior chronic pain no longer on narcotics, cirrhosis, history of splenectomy, history of Jazmyne's gangrene, lymphedema, nocturnal hypoxia who presented on 11/26 with multiple falls at home and found to have MRSA bacteremia. TTE was not able to r/o abscess/vegetations and JAKE was attempted but not successful due to encephalopathy and respiratory liability. 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 Course has been complicated by metabolic encephalopathy and acute on chronic hypercapnic respiratory failure, prompting over night transfer to ICU on 11/30. Patient not deemed a candidate for JAKE given varices and respiratory status, therefore unable to r/o cardiac etiology of bacteremia. Course in icu with relative hypotension. VBG with in uptrending pCO2. Per ICU, deemed appropriate for downgrade on 12/02 with patient to continue bipap and wean as able throughout day. Given intermittent fevers, hypotension, poor TTE imaging/inability to obtain JAKE, and findings on CT, IR aspiration of shoulder was pursued on 12/02. Aspirate within values suggestive for septic arthritis, likely explaining poor clinical progress. Patient underwent washout/shoulder synovectomy and extensive debridement. Right knee also with concerns of septic arthritis during surgical evaluation on 12/03. Now planned for right knee washout on 12/04 #Acute metabolic encephalopathy *resolved -Transferred to ICU given progressive hypercarbia and worsening mentation on 11/30 -Appears to be at baseline #Right shoulder septic arthritis #Extensive synovitis of right shoulder #Right knee septic arthritis #Persistent MRSA bacteremia, unclear source #Sepsis 2/2 MRSA bacteremia*resolved #Leukocytosis *resolved On admission, HR 110, WBC 15.16, meeting SIRs criteria. Lactate wnl, procal 4.75 CT abd/pelvis without acute infectious abnormality but did note mildly thickened appendiceal tip with a small appendiceal nodule. No evidence for acute appendicitis. CTA chest with suspected right glenohumeral joint effusion with adjacent stranding and two punctate locules of soft tissue gas. The findings are likely related to severe osteoarthritis. However, a superimposed infectious etiology would be difficult to completely exclude. Dedicated shoulder xray notes severe OA; UA abnormal with trace leuk est, + nitrite, 3+ blood, urine Cx with no significant growth at this time. CT R shoulder with subcutaneous edema and effusion; Blood cultures +11/26-11/29 NRSA, repeat NGTD, synovial aspirate R Shoulder MRSA 12/02 -IR aspiration 12/02: WBC 61635, 91% PMNS -Orthopedics called on 12/01: discussed options with Dr Ca, if fluid +/? will consider washout -s/p extensive washout of right shoulder 12/03 -pending right knee washout 12/04 -Continue Vancomycin #Acute on Chronic hypercapnic respiratory failure *stable Baselin 5 L requirement, per pulm now at baseline and stable Continue bipap 18 over 8 with naps and overnight Oxygen saturation goal no higher 88-92% Encourage weight loss when pending discharge CPT ordered Encourage OOB, PT/OT Extubate to Bipap in PACU post operatively #Hyponatremia * resolved Na 124 on admission Serum osm 277, urine osm 608, urine na 10 on admission Nephrology consulted: 11/28 Urea 15mg BID, discontinued 12/01 1.5 L fluid limit towards which protein shakes do not count when taking p.o. again and at discharge Lasix 10mg q8h #Hypomagnesemia -Replace as needed #Chronic normocytic anemia Stable #Large rotator cuff tear, right #Severe osteoarthritis, right shoulder #Mechanical falls #Rhabdomyolysis *resolved No acute fracture or traumatic findings on imaging as above Head CT with no suggestive cause CK elevated at 4266 on admission and downtrending to 1263 CT imaging of arm, elbow and forearm: OA v ? septic joint PT/OT eval once more stable -Joint washout 12/03 with chondroplasty/synovectomy -Right knee 12/04 pending #DMII A1c 7.5 in June 2022, repeat currently 7.6 Hold home agents Basal/bolus insulin while in-patient #COPD History of tobacco use, no longer smoking Continue Trelevenita, DuMatteo #Depression Continue SSRI #Compensated Cirrhosis Listed on outpatient paperwork from [facility], patient a poor historian so unclear Abdomen/pelvis CT notes cirrhosis with varices formation. T. bili 2.1, AST 198, ALT 59 and downtrending currently ALP elevated, ? related to septic joint Continue to follow labs Ammonia WNL Plan to RUQ US if LFT fail to down trend after washout #Chronic Pain syndrome Pt noting he is in significant pain, noted that his pain was not currently being treated. Previously on narcotics but PCP discontinued when he failed UDS. UDS on admission positive for marijuana, endorses daily use Given pt's Hx of frequent falls, severe OA and complaints that his pain is not being treated appropriately, previously temporarily treated while hospitalized with the following regimen: tylenol 1000mg q8h prn for mild pain, po oxycodone 5mg q8h prn for moderate pain and dilaudid 0.5mg q6h prn for severe pain. Goal is to wean off narcotics for discharge. DVT Ppx: Lovenox Code status: DNR/DNI per conversation PCP: CLIFTON Pena [facility] Dispo: PT initial eval recommending extended care facility, will reeval given recent decline Admission and Anticipated Discharge Date Admission Date: November 26, 2022 Subjective NAEO, no postoperative complications Endorses on going pain but states it is much improved Review of Systems Review of Systems: All systems reviewed & are unremarkable except as noted in Subjective Physical Exam Constitutional: WD/WN, vitals as above Cardiovascular: RRR, no murmur, no edema Gastrointestinal (Abdomen): normal bowel sounds, soft, nontender, no hepatosplenomegaly Skin: no rashes, warm and dry Results & Data Results & Data Vital Signs (Past 12 Hours) Vital Signs Temp Pulse Pulse Resp BP Pulse Ox O2 Del Method 12/04/22 08:07 80 12/04/22 08:07 Nasal Cannula 12/03/22 22:00 83 12/04/22 03:00 36.6 C 77 20 106/63 96 Nasal Cannula 12/04/22 02:33 81 32 H 97 12/04/22 00:35 77 24 98 12/03/22 23:00 37.4 C 83 16 106/62 94 Nasal Cannula O2 Flow Rate FiO2 09/30/23 08:07 12/04/22 08:07 3 12/03/22 22:00 12/04/22 03:00 12/04/22 02:33 30 12/04/22 00:35 30 12/03/22 23:00 3 Laboratory Results Short CBC 12/04/22 Range/Units 03:36 WBC 12.63 H (4.8-10.8) K/ul Hgb 9.7 L (14.0-18.0) g/dl Hct 28.7 L (42.0-52.0) % Plt Count 325 (130-400) K/uL BMP 12/04/22 03:36 Sodium 134 L Potassium 4.0 Chloride 94 L Carbon Dioxide 35 H BUN 22 Creatinine 0.81 Glucose 128 H Calcium 8.7 Liver Function 12/04/22 Range/Units 03:36 Total Bilirubin 1.3 H (0.2-1.0) mg/dl AST 62 H (13-39) U/L ALT 43 (7-52) U/L Alkaline Phosphatase 356 H (34-104) U/L Albumin 2.3 L (3.4-5.0) gm/dl Medications Administered Home Medications Medication Instructions Recorded Confirmed Last Taken acetaminophen 500 mg tablet 500 mg PO BID PRN Pain 11/26/22 11/26/22 Unknown albuterol sulfate 2.5 mg/3 mL 2.5 mg inhalation Q4H PRN 11/26/22 11/26/22 Unknown (0.083 %) solution for nebulization Shortness Of Breath Or Wheezing baclofen 10 mg tablet 10 mg PO TID PRN Muscle Spasm 11/26/22 11/26/22 Unknown bisacodyl 5 mg tablet 5 mg PO HS 11/26/22 11/26/22 Unknown bumetanide 2 mg tablet 2 mg PO DAILY 11/26/22 11/26/22 Unknown citalopram 20 mg tablet 20 mg PO BID 11/26/22 11/26/22 Unknown doxylamine succinate 25 mg tablet 25 mg PO HS PRN Sleep 11/26/22 11/26/22 Unknown ferrous sulfate 325 mg (65 mg 325 mg PO DAILY 11/26/22 11/26/22 Unknown iron) tablet fluticasone fur. 100 mcg-umeclid 1 inh inhalation DAILY 11/26/22 11/26/22 Unknown 62.5 mcg-vilant 25 mcg inhalat.powder (Trelegy Ellipta) guselkumab 100 mg/mL subcutaneous 100 mg subcut UD 11/26/22 11/26/22 Unknown auto-injector (Tremfya) insulin degludec 200 unit/mL (3 20 unit subcut HS 11/26/22 11/26/22 Unknown mL) subcutaneous pen (Tresiba FlexTouch U-200 insulin) magnesium 500 mg tablet 15 mg PO DAILY 11/26/22 11/26/22 Unknown metformin 500 mg tablet 1,000 mg PO BID 11/26/22 11/26/22 Unknown multivit,Ca,min-iron 8 mg-folic 1 tab PO DAILY 11/26/22 11/26/22 Unknown acid 200 mcg-lycopene 600 mcg tablet (Centrum Men) pantoprazole 40 mg tablet,delayed 40 mg PO BID 11/26/22 11/26/22 Unknown release vitamin B complex 1 tab PO DAILY 11/26/22 11/26/22 Unknown Active Medications Generic Name Dose Route Start Last Admin Trade Name Markoq PRN Reason Stop Dose Admin Acetaminophen 1,000 mg 11/26/22 21:00 12/04/22 05:21 Acetaminophen 500 Mg Tab PO 12/26/22 20:59 1,000 mg Q8 TIFFANI Administration Bisacodyl 5 mg 11/26/22 21:00 12/03/22 22:43 Bisacodyl 5 Mg Tabec PO 12/26/22 20:59 5 mg HS TIFFANI Administration Citalopram Hydrobromide 20 mg 11/26/22 21:00 12/03/22 22:42 Citalopram 20 Mg Tab PO 12/26/22 20:59 20 mg BID TIFFANI Administration Ferrous Sulfate 325 mg 11/27/22 09:00 12/03/22 16:41 Ferrous Sulfate 325 Mg Tab PO 12/27/22 08:59 Not Given DAILY TIFFANI Fluticasone Furoate 1 puffs 11/27/22 09:00 12/03/22 10:58 Fluticasone Furoate 100mcg 14 Puffs/Inhaler INH 12/27/22 08:59 1 puffs DAILY TIFFANI Administration Furosemide 10 mg 11/30/22 12:45 12/04/22 05:16 Furosemide Inj 20 Mg/2 Ml Vial IV 12/30/22 12:44 10 mg Q8H TIFFANI Administration Vancomycin HCl 1,250 mg/ 275 mls @ 200 mls/hr 12/02/22 14:00 12/04/22 08:29 Sodium Chloride IV 12/16/22 13:59 Infused Q12H TIFFANI Infusion Protocol Lactated Ringer's 1,000 mls @ 15 mls/hr 12/03/22 15:00 12/04/22 08:29 Lr IV 01/02/23 14:59 0 mls/hr .Q24H TIFFANI Infusion Insulin Aspart 0 units 11/26/22 21:00 12/04/22 10:21 Insulin Aspart Per Unit Charge SC 12/26/22 20:59 Not Given ACHS TIFFANI Insulin Glargine 0 units 11/26/22 21:00 12/03/22 22:43 Lantus Per Unit Charge SQ 12/26/22 20:59 8 units HS TIFFANI Administration Magnesium Chloride 64 mg 11/30/22 09:00 12/03/22 22:43 Magnesium Chloride W/Calcium 64mg Delayed Rel Tab PO 12/30/22 08:59 64 mg BID TIFFANI Administration Melatonin 3 mg 11/29/22 01:36 12/02/22 20:12 Melatonin 3 Mg Tab PO 12/29/22 01:35 3 mg HS PRN Administration Sleep Multivitamins 1 tab 11/27/22 09:00 12/03/22 16:41 Multivitamin Tab PO 12/27/22 08:59 Not Given QAM TIFFANI Pantoprazole Sodium 40 mg 12/02/22 21:00 12/03/22 22:43 Pantoprazole 40 Mg Tab PO 01/01/23 20:59 40 mg BID TIFFANI Administration Umeclidinium/Vilanterol 1 puffs 11/27/22 09:00 12/03/22 10:58 Umeclidinium/Vilanterol 62.5/25mcg 7 Puffs/Inhaler INH 12/27/22 08:59 1 puffs DAILY TIFFANI Administration Vitamin B Complex 1 tab 11/27/22 09:00 12/03/22 16:41 Vitamin B Complex Tab PO 12/27/22 08:59 Not Given DAILY TIFFANI (1) Sepsis Sepsis acute organ dysfunction status: without acute organ dysfunction Sepsis type: sepsis due to unspecified organism Qualified Code(s): A41.9 - Sepsis, unspecified organism (4) Falls Encounter type: initial encounter Qualified Code(s): W19.XXXA - Unspecified fall, initial encounter
--- NOTE | 2022-12-04 08:54 | Pulmonology Progress Note ---
Date of Service December 04, 2022 Assessment & Plan (1) Hypercapnic respiratory failure, chronic: Plan Impression: 67-year-old male admitted with bacteremia and septic shoulder/knee with acute on chronic hypercarbic respiratory failure. Recommendations: 1. Hypercarbic respiratory failure: He appears to be responding favorably. Continue BiPAP 18 over 8 at night and as needed during the day. 2. Would work on pulmonary toilet and optimizing the patient's pulmonary respiratory mechanics. Getting him sitting up in bed and out of bed to chair as tolerated is much as possible would be beneficial. 3. Ultimately weight loss will be required. Patient appears to be back to his pulmonary baseline. Pulmonary will sign off at this point time. Feel free to contact us with questions or concerns Admission and Anticipated Discharge Date Admission Date: November 26, 2022 Subjective Patient seen and examined. EMR reviewed. The patient is awake alert and conversant this morning. He states he used positive airway pressure last evening. He was taken to the OR for shoulder washout. Shoulder feels much better. His knee was also aspirated. He is not having any significant respiratory difficulties currently. Review of Systems Review of Systems: All systems reviewed & are unremarkable except as noted in Subjective Physical Exam Constitutional: + morbidly obese and + disheveled; not ill appearing Neck: trachea midline, no thyromegaly Respiratory: normal respiratory effort, lungs clear to auscultation Cardiovascular: RRR, no murmur, no edema Gastrointestinal (Abdomen): normal bowel sounds, soft, nontender, no hepatosplenomegaly Musculoskeletal: Extremities: extremities normal to inspection Skin: no rashes, warm and dry Lymphatic: no cervical lymphadenopathy Results & Data Results & Data Vital Signs (Past 12 Hours) Vital Signs Temp Pulse Pulse Resp BP Pulse Ox O2 Del Method 12/04/22 08:00 37.0 C 77 18 115/74 94 Room Air 12/04/22 08:07 80 12/04/22 08:07 Nasal Cannula 12/03/22 22:00 83 12/04/22 03:00 36.6 C 77 20 106/63 96 Nasal Cannula 12/04/22 02:33 81 32 H 97 12/04/22 00:35 77 24 98 12/03/22 23:00 37.4 C 83 16 106/62 94 Nasal Cannula O2 Flow Rate FiO2 12/04/22 08:00 12/04/22 08:07 12/04/22 08:07 3 12/03/22 22:00 12/04/22 03:00 12/04/22 02:33 30 12/04/22 00:35 30 12/03/22 23:00 3 Laboratory Results 12/04/22 03:36 12/04/22 03:36 PG Care Time/CCT Total # of Minutes Spent Total Time Spent with Patient: Total time spent is greater than 50% in coordination of care (as documented) at patient's floor/unit and/or counseling patient: Coding Level of Care Code 35147 SUB INP/OBS CARE 2/35MIN Diagnoses Hypercapnic respiratory failure, chronic J96.12
[2022-12-04] MEDS ORDERED: fentaNYL citrate PF 100 MCG/2 ML VIAL ONE ×3 (09:31→11:35)
[2022-12-04] MEDS ORDERED: EPINEPHrine INJ 1 MG/ML AMP ONE ×2 (09:32)
[2022-12-04] MEDS ORDERED: BUPIVACAINE/EPINEPHRINE 0.5% MPF 1:200,000 30 ML VIAL ONE (09:32)
[2022-12-04] MEDS ORDERED: ONDANSETRON INJ 2 MG/ML 2 ML VIAL IV PRN (09:44)
[2022-12-04] MEDS ORDERED: KETOROLAC 30 MG/ML VIAL IV PRN (09:44)
[2022-12-04] MEDS ORDERED: ATROPINE SULFATE 0.1 MG/ML 10ML SYR IV PRN (09:44)
--- NOTE | 2022-12-04 09:44 | History & Physical Bridge Note ---
Date of Service December 04, 2022 History & Physical Bridge Note I have examined the patient, reviewed the History & Physical and in the interval since the performance of the History & Physical I have noted the following changes of clinical significance: Will require arthroscopic irrigation and debridement right knee due to septic arthritis.
[2022-12-04] MEDS: INSULIN ASPART PER UNIT CHARGE SC SCH ×4 (10:21→20:53)
[2022-12-04] MEDS ORDERED: ONDANSETRON INJ 2 MG/ML 2 ML VIAL ONE (10:38)
[2022-12-04] MEDS ORDERED: PROPOFOL IV EMULSION 10 MG/ML 20 ML VIAL IV ONE (10:38)
[2022-12-04] MEDS ORDERED: LIDOCAINE 2% 2 ML VIAL/AMP(20MG/ML) INFIL ONE (10:38)
[2022-12-04] MEDS: HYDROmorphone INJ 1 MG/ML SYRINGE IV PRN ×8 (11:35→12:11)
[2022-12-04] MEDS ORDERED: HYDROmorphone INJ 1 MG/ML SYRINGE ONE ×2 (11:36→12:00)
[2022-12-04] MEDS ORDERED: KETOROLAC 30 MG/ML VIAL ONE (11:37)
--- NOTE | 2022-12-04 12:07 | Operative Report ---
Post Operative Report Pre & Post Diagnosis Operation Date: 12/04/22 09:50 Pre-Op Diagnosis: Septic arthritis right knee, effusion, sepsis Post-Op Diagnosis: Septic arthritis right knee, severe post traumatic osteoarthritis right knee, medial meniscus tear, lateral meniscus tear, Contracture right knee, extensive synovitis, ACL tear I identified the patient and participated in the time-out.: Yes Procedure Operation Date: 12/04/22 09:50 Actual Procedures p Arthroscopic irrigation and debridement right septic knee, extensive synovectomy, debridement ACL, partial medial meniscectomy, partial lateral meniscectomy, removal of large loose bodies x 3 (15 mm x 10 mm x 6 mm) (10 mm x 6 mm x 5 mm ) (8 mm x 7 mm x 5 mm) (Right) - Mitch Ramirez DO Surgeon Mitch Ramirez DO Macerator Operator None Estimated Blood Loss 5 Findings Consistent with Post-Op Diagnosis Specimens Large loose bodies as noted above for pathology. Aerobic/anaerobic/Gram stain from aspirate on 12/03/2022 Drains 10 Greek Hemovac x1 Anesthesia Type General Complications none Disposition Accompanied Patient To Recovery: No Indications This is a 67-year-old gentleman with severe right knee pain. Patient had knee pain and right shoulder pain for the last several weeks. He presented with sepsis and shoulder was determined to be septic. Aspiration performed yesterday to rule out sepsis right knee. Right knee was determined to be septic as well and patient scheduled for arthroscopic irrigation debridement as indicated. Description of Procedure All potential risks, benefits, complications, alternatives, rehab, need for further surgery, potential for incomplete relief of symptoms, neurovascular injury, DVT, PE, , stiffness, weakness, loss of function, persistent pain, swelling, numbness, and wound complications were discussed with the patient. The patient decided to proceed with the procedure as indicated. The patient was taken to the operative suite and placed supine on the operating room table. The right lower extremity was identified and the consent was reviewed. Patient was anesthetized and LMA was placed. Tourniquet was placed high on the operative right thigh over cast padding. The operative extremity was then sterilely prepped and draped in usual fashion. The right lower limb was then elevated and tourniquet was inflated to 325 mmHg. 11 blade scalpel was used to make an incision inferior lateral aspect of the knee followed by placement of blunt trocar sleeve, camera and inflow. Next superior medial portal was established using 11 blade scalpel incision followed by placement of a blunt trocar and sleeve and outflow. Next sequential diagnostic arthroscopy commenced in the anterior knee. The severe contracture prevented typical order of operations due to limited space within the knee joint compartments. There is noted to be obvious murky thick fluid throughout the knee joint consistent with septic arthritis. The anterior compartment was severely scarred and using direct visualization an 18-gauge spinal needle was inserted for anteromedial portal placement followed by 11 blade scalpel incision. Next a blunt trocar and sleeve was inserted followed by placement of the 4.5 mm incisor plus sucker shaver. Synovectomy and debridement was performed in the anterior compartment of the knee which then allowed visualization of 3 large loose bodies in the anterior compartment measuring 15 mm x 10 mm x 6 mm, 10 mm x 6 mm x 5 mm, 8 mm x 7 mm x 5 mm. The loose bodies were debrided with the sucker shaver and any soft tissue connections were severed. Next a arthroscopic grasper was used to morselized and removed the large loose bodies from the anterior knee. These were passed off for pathologic specimen. Next the visualization was improved and the portals were switched to allow improved visualization and further debridement and synovectomy of the anterior knee. Next with further debridement and lavage with Ancef in the lavage solution, the medial and lateral gutters were then cleared and synovectomy was performed with the sucker shaver. Next the camera was then placed in the superior medial portal site and a new accessory portal was made anterolaterally to allow visualization and synovectomy of the suprapatellar pouch. Knee joint contracture noted to be severe. Fixed flexion contracture of approximately 12 degrees and flexion limited to approximately 50 degrees. Next the next the arthroscope was placed in the inferior lateral portal site and the medial compartment was visualized noting severe tearing of the medial meniscus. Partial medial meniscectomy was then performed with the 4.5 mm sucker shaver. 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 Next the arthroscope was then directed into the lateral compartment noting similar c hanges with tearing of the lateral meniscus and grade IV chondromalacia of the lateral femoral condyle and lateral tibial plateau. Next a 4.5 mm sucker shaver was then used to perform a partial lateral meniscectomy and synovectomy of the lateral compartment. Next the ACL was visualized and noted to be torn approximately 30%. Arthroscopic debridement was performed of the ACL with a 4.5 mm sucker shaver. The patellofemoral joint was difficult to visualize due to the severe contracture however grade IV chondromalacia was noted of the patellofemoral joint. Next the arthroscope was then directed back into the suprapatellar pouch and a 10 Greek Hemovac drain was then shuttled into the joint and then using a arthroscopic manipulator, the 10 Greek Hemovac drain was then guided into the lateral gutter and then into the anterior compartment of the knee. Next the excess fluid was removed from the joint after approximately 15 L of fluid had been run through the joint. No evidence of further sepsis was noted. Complete synovectomy had been performed. Next the portal sites were closed with interrupted 3-0 nylon sutures. Portal sites and joint were injected with approximate 20 cc of 0.5% Marcaine. A sterile compressive dressing was applied overwrapped with a double Garrison wrap from the toes to the groin. The tourniquet was released, the patient was awakened and taken to recovery in s table condition. I attest to the content of the Intraoperative Record and any orders documented therein. Any exceptions are noted below.
--- NOTE | 2022-12-04 12:26 | Anesthesiology Progress Note ---
Date of Service December 04, 2022 Anesthesia Post Procedure Vital Signs Vital Signs: Temp Pulse Pulse Resp BP Pulse Ox O2 Del Method 12/04/22 12:10 75 14 140/81 93 Nasal Cannula 12/04/22 12:00 72 13 128/72 93 Nasal Cannula 12/04/22 11:50 74 14 126/65 93 Nasal Cannula 12/04/22 11:40 37 C 72 12 116/65 93 Nasal Cannula 12/04/22 11:30 36 C L 75 13 126/66 93 Nasal Cannula 12/04/22 08:00 37.0 C 77 18 115/74 94 Room Air 12/04/22 08:07 80 12/04/22 08:07 Nasal Cannula 12/03/22 22:00 83 12/04/22 03:00 36.6 C 77 20 106/63 96 Nasal Cannula 12/04/22 02:33 81 32 H 97 12/04/22 00:35 77 24 98 12/03/22 23:00 37.4 C 83 16 106/62 94 Nasal Cannula 12/03/22 20:30 Nasal Cannula 12/03/22 19:00 36.7 C 89 21 110/65 97 Nasal Cannula 12/03/22 19:07 85 18 140/74 96 Nasal Cannula 12/03/22 18:40 36.7 C 85 18 126/68 96 Nasal Cannula 12/03/22 17:55 87 20 109/64 92 Nasal Cannula 12/03/22 18:15 37.2 C 83 20 123/69 91 Nasal Cannula 12/03/22 18:05 86 22 117/60 91 Nasal Cannula 12/03/22 17:45 86 19 136/63 100 Oxymask 12/03/22 17:35 86 24 131/58 L 96 Oxymask 12/03/22 17:26 36.2 C L 87 17 138/66 97 Oxymask O2 Flow Rate FiO2 12/04/22 12:10 3 12/04/22 12:00 3 12/04/22 11:50 3 12/04/22 11:40 3 12/04/22 11:30 3 12/04/22 08:00 12/04/22 08:07 12/04/22 08:07 3 12/03/22 22:00 12/04/22 03:00 12/04/22 02:33 30 12/04/22 00:35 30 12/03/22 23:00 3 12/03/22 20:30 3 12/03/22 19:00 12/03/22 19:07 3 12/03/22 18:40 3 12/03/22 17:55 2 12/03/22 18:15 2 12/03/22 18:05 2 12/03/22 17:45 5 12/03/22 17:35 5 12/03/22 17:26 11 Pain Intensity Generalized: Pain Intensity: 2 Right: Pain Intensity: 4 Right Shoulder: Pain Intensity: 2 Right Knee: Pain Intensity: 7 Transfer of Care Handoff Completed per policy Notes Mental Status: alert / awake / arousable Patient Amnestic to Procedure: Yes Nausea / Vomiting: adequately controlled Pain: adequately controlled Airway Patency, RR, SpO2: stable & adequate BP & HR: stable & adequate Hydration State: stable & adequate Anesthetic Complications: no major complications apparent
[2022-12-04] MEDS: VITAMIN B COMPLEX TAB PO SCH (13:45)
[2022-12-04] MEDS: UMECLIDINIUM/VILANTEROL 62.5/25MCG 7 PUFFS/INHALER INH SCH (13:46)
[2022-12-04] MEDS: CITALOPRAM 20 MG TAB PO SCH ×2 (13:46→20:52)
[2022-12-04] MEDS: FERROUS SULFATE 325 MG TAB PO SCH (13:46)
[2022-12-04] MEDS: PANTOprazole 40 MG TAB PO SCH ×2 (13:46→20:52)
[2022-12-04] MEDS: MAGNESIUM CHLORIDE W/CALCIUM 64MG DELAYED REL TAB PO SCH ×2 (13:46→20:52)
[2022-12-04] MEDS: MULTIVITAMIN TAB PO SCH (13:46)
[2022-12-04] MEDS: FLUTICASONE FUROATE 100MCG 14 PUFFS/INHALER INH SCH (13:46)
[2022-12-04] MEDS: MAGNESIUM SULFATE / D5W 1 GM/100 ML BAG IV SCH ×3 (13:59→18:40)
[2022-12-04] MEDS: LACTATED RINGER'S 1,000 ML IV SCH (17:32)
[2022-12-04] MEDS: bisacodyL 5 MG TABEC PO SCH (20:51)
[2022-12-04] MEDS: LANTUS PER UNIT CHARGE SQ SCH (20:52)
[2022-12-05] MEDS: FUROSEMIDE INJ 20 MG/2 ML VIAL IV SCH ×3 (04:11→20:08)
[2022-12-05] MEDS: VANCOMYCIN HCL 1,250 MG in SODIUM CHLORIDE 0.9% 250 ML IV SCH ×2 (06:06→17:54)
[2022-12-05] MEDS: ACETAMINOPHEN 500 MG TAB PO SCH ×3 (06:12→21:00)
[2022-12-05 06:36] LABS: Hematocrit (blood only) 28.5 % (42.0-52.0); Hemoglobin 9.4 g/dl (14.0-18.0); Mean Corpuscular Hemoglobin 30.5 pg (25.0-34.0); Mean Corpuscular Volume 92.5 fL (80.0-100.0); Mean Platelet Volume 11.6 fL (9.4-12.4); Nucleated RBC # (auto) 0.03 K/uL (0.00-0.12); Nucleated RBC % (auto) 0.3 %; Platelet Count 313 K/uL (130-400); RDW Coefficient of Variation 14.9 % (11.5-14.5); RDW Standard Deviation 49.5 fL (36.4-46.3); Red Blood Count 3.08 M/uL (4.70-6.10); White Blood Count 9.99 K/ul (4.8-10.8)
[2022-12-05 07:00] LABS: BUN Creatinine Ratio 27.8 (10-20); Calcium 8.3 mg/dl (8.6-10.3); Est GFR (African American) 106.9 ml/min; Est GFR (Non-African American) 92.3 ml/min; Magnesium 1.6 mg/dl (1.7-2.4); Phosphorus 3.3 mg/dl (2.5-4.9); Potassium 4.2 mmol/L (3.5-5.1)
[2022-12-05 07:33] LABS: Basophils # (auto) 0.08 K/uL (0.00-0.20); Basophils % (auto) 0.8 %; Eosinophils # (auto) 0.18 K/uL (0.00-0.50); Eosinophils % (auto) 1.8 %; Immature Granulocytes # (auto) 0.91 K/uL (0.01-0.20); Immature Granulocytes % (auto) 9.1 %; Monocytes # (auto) 0.68 K/uL (0.11-0.59); Monocytes % (auto) 6.8 %; Neutrophils # (auto) 6.34 K/uL (1.40-6.50); Neutrophils % (auto) 63.5 %; Target Cells 1+
--- NOTE | 2022-12-05 09:04 | Hospitalist Progress Note ---
Date of Service December 05, 2022 Assessment & Plan (1) Sepsis: (2) Hypercapnic respiratory failure, chronic: (3) Hyponatremia: (4) Falls: (5) Hypomagnesemia: (6) Diabetes mellitus, type II: (7) Anemia: (8) Nocturnal hypoxia: (9) COPD (chronic obstructive pulmonary disease): (10) Depression: (11) Cirrhosis: (12) Chronic pain syndrome: Plan: Plan Mr. Carbajal is 67 year old gentleman who follows with [facility] with complex medical history of DM II, prior chronic pain no longer on narcotics, cirrhosis, history of splenectomy, history of Jazmyne's gangrene, lymphedema, nocturnal hypoxia who presented on 11/26 with multiple falls at home and found to have MRSA bacteremia. TTE was not able to r/o abscess/vegetations and JAKE was attempted but not successful due to encephalopathy and respiratory liability. Given cardiac comorbidities, if source is cardiac in nature, it would not manager program management; however, there was looming concern for septic joint given subcutaneous edema and effusion of right shoulder noted on repeat CT with con on 12/01. Course has been complicated by metabolic encephalopathy and acute on chronic hypercapnic respiratory failure, prompting over night transfer to ICU on 11/30. Patient not deemed a candidate for JAKE given varices and respiratory status, therefore unable to r/o cardiac etiology of bacteremia. Course in icu with relative hypotension. VBG with in uptrending pCO2. Per ICU, deemed appropriate for downgrade on 12/02 with patient to continue bipap and wean as able throughout day. Given intermittent fevers, hypotension, poor TTE imaging/inability to obtain JAKE, and findings on CT, IR aspiration of shoulder was pursued on 12/02. Aspirate within values suggestive for septic arthritis, likely explaining poor clinical progress. Patient underwent washout/shoulder synovectomy and extensive debridement. Right knee also with concerns of septic arthritis during surgical evaluation on 12/03. Now s/p right knee washout on 12/04. Discussed with Dr Story Infectious disease, [Fowler text communication] new recommendations for duration of abx. The plan is for 6 weeks of therapy from 12/04 (last washout). This prolonged duration is due to inability to confirm/refute presence of vegetations with JAKE. EOT 01/15/2023 #Acute metabolic encephalopathy *resolved -Transferred to ICU given progressive hypercarbia and worsening mentation on 11/30 -Appears to be at baseline #Right shoulder septic arthritis #Extensive synovitis of right shoulder #Right knee septic arthritis #Persistent MRSA bacteremia, unclear source #Sepsis 2/2 MRSA bacteremia*resolved #Leukocytosis *resolved On admission, HR 110, WBC 15.16, meeting SIRs criteria. Lactate wnl, procal 4.75 CT abd/pelvis without acute infectious abnormality but did note mildly thickened appendiceal tip with a small appendiceal nodule. No evidence for acute appendicitis. CTA chest with suspected right glenohumeral joint effusion with adjacent stranding and two punctate locules of soft tissue gas. The findings are likely related to severe osteoarthritis. However, a superimposed infectious etiology would be difficult to completely exclude. Dedicated shoulder xray notes severe OA; UA abnormal with trace leuk est, + nitrite, 3+ blood, urine Cx with no significant growth at this time. CT R shoulder with subcutaneous edema and effusion; Blood cultures +11/26-11/29 NRSA, repeat NGTD, synovial aspirate R Shoulder MRSA 12/02 -IR aspiration 12/02: WBC 68019, 91% PMNS -Orthopedics called on 12/01: discussed options with Dr Ca -s/p extensive washout of right shoulder 12/03 -s/p right knee washout 12/04 -Continue Vancomycin EOT 01/15/2023 #Acute on Chronic hypercapnic respiratory failure *stable/baseline Baselin 5 L requirement, per pulm now at baseline and stable Continue bipap 18 over 8 with naps and overnight Oxygen saturation goal no higher 88-92% Encourage weight loss when pending discharge CPT ordered Encourage OOB, PT/OT Pulm on consult, reports overall improvement/stable respiratory status #Hyponatremia iso cirrhosis *stable Na 124 on admission Serum osm 277, urine osm 608, urine na 10 on admission Nephrology consulted: 11/28 Urea 15mg BID, discontinued 12/01 1.5 L fluid limit towards which protein shakes do not count when taking p.o. again and at discharge Continue IV lasix with plan to transition to PO in am, 40mg daily #Hypomagnesemia -Replace as needed with IV #Chronic normocytic anemia Stable #Large rotator cuff tear, right #Severe osteoarthritis, right shoulder #Mechanical falls #Rhabdomyolysis *resolved No acute fracture or traumatic findings on imaging as above Head CT with no suggestive cause CK elevated at 4266 on admission and downtrending to 1263 CT imaging of arm, elbow and forearm: OA v ? septic joint PT/OT eval once more stable -Joint washout 12/03 with chondroplasty/synovectomy -Right knee 12/04 pending #DMII A1c 7.5 in June 2022, repeat currently 7.6 Hold home agents Basal/bolus insulin while in-patient #COPD History of tobacco use, no longer smoking Continue Trelegy, DuoNebs #Depression Continue SSRI #Compensated Cirrhosis Listed on outpatient paperwork from [facility], patient a poor historian so unclear Abdomen/pelvis CT notes cirrhosis with varices formation. T. bili 2.1, AST 198, ALT 59 and downtrending currently ALP elevated, ? related to septic joint ammonia WNL, no signs of HE CMP and INR in am Lasix 40mg in am Consider addition of spironolactone #Chronic Pain syndrome Pt noting he is in significant pain, noted that his pain was not currently being treated. Previously on narcotics but PCP discontinued when he failed UDS. UDS on admission positive for marijuana, endorses daily use Given pt's Hx of frequent falls, severe OA and complaints that his pain is not being treated appropriately, previously temporarily treated while hospitalized with the following regimen: tylenol 1000mg q8h prn for mild pain, po oxycodone 5mg q8h prn for moderate pain and dilaudid 0.5mg q6h prn for severe pain. Goal is to wean off narcotics for discharge. DVT Ppx: Lovenox Code status: DNR/DNI per conversation PCP: CLIFTON Pena [facility] Dispo: PT initial eval recommending extended care facility, will reeval given recent decline Admission and Anticipated Discharge Date Admission Date: November 26, 2022 Subjective NAEO Reports feeling aching, but pain and mental clarity much improved Review of Systems Review of Systems: All systems reviewed & are unremarkable except as noted in Subjective Physical Exam Constitutional: WD/WN, vitals as above Respiratory: NC 3 L, decreased bibasilar breath sound, but no wheezing/crackles Skin: multiple plaques of dry/purple skin on upper extremities Results & Data Results & Data Vital Signs (Past 12 Hours) Vital Signs Temp Pulse Pulse Resp BP Pulse Ox O2 Del Method 12/05/22 08:00 77 12/05/22 08:00 Nasal Cannula, CPAP 12/05/22 03:00 36.6 C 74 21 113/67 96 Nasal Cannula 12/05/22 02:25 19 12/04/22 23:00 36.8 C 78 20 105/67 95 Nasal Cannula 12/04/22 22:02 78 12/04/22 22:21 77 23 94 O2 Flow Rate FiO2 12/05/22 08:00 12/05/22 08:00 3 12/05/22 03:00 12/05/22 02:25 30 12/04/22 23:00 12/04/22 22:02 12/04/22 22:21 30 Laboratory Results Short CBC 12/05/22 Range/Units 05:58 WBC 9.99 (4.8-10.8) K/ul Hgb 9.4 L (14.0-18.0) g/dl Hct 28.5 L (42.0-52.0) % Plt Count 313 (130-400) K/uL BMP 12/05/22 05:58 Sodium 135 L Potassium 4.2 Chloride 95 L Carbon Dioxide 36 H BUN 22 Creatinine 0.79 Glucose 101 H Calcium 8.3 L Medications Administered Home Medications Medication Instructions Recorded Confirmed Last Taken acetaminophen 500 mg tablet 500 mg PO BID PRN Pain 11/26/22 11/26/22 Unknown albuterol sulfate 2.5 mg/3 mL 2.5 mg inhalation Q4H PRN 11/26/22 11/26/22 Unknown (0.083 %) solution for nebulization Shortness Of Breath Or Wheezing baclofen 10 mg tablet 10 mg PO TID PRN Muscle Spasm 11/26/22 11/26/22 Unknown bisacodyl 5 mg tablet 5 mg PO HS 11/26/22 11/26/22 Unknown bumetanide 2 mg tablet 2 mg PO DAILY 11/26/22 11/26/22 Unknown citalopram 20 mg tablet 20 mg PO BID 11/26/22 11/26/22 Unknown doxylamine succinate 25 mg tablet 25 mg PO HS PRN Sleep 11/26/22 11/26/22 Unknown ferrous sulfate 325 mg (65 mg 325 mg PO DAILY 11/26/22 11/26/22 Unknown iron) tablet fluticasone fur. 100 mcg-umeclid 1 inh inhalation DAILY 11/26/22 11/26/22 Unkn own 62.5 mcg-vilant 25 mcg inhalat.powder (Trelegy Ellipta) guselkumab 100 mg/mL subcutaneous 100 mg subcut UD 11/26/22 11/26/22 Unknown auto-injector (Tremfya) insulin degludec 200 unit/mL (3 20 unit subcut HS 11/26/22 11/26/22 Unknown mL) subcutaneous pen (Tresiba FlexTouch U-200 insulin) magnesium 500 mg tablet 15 mg PO DAILY 11/26/22 11/26/22 Unknown metformin 500 mg tablet 1,000 mg PO BID 11/26/22 11/26/22 Unknown multivit,Ca,min-iron 8 mg-folic 1 tab PO DAILY 11/26/22 11/26/22 Unknown acid 200 mcg-lycopene 600 mcg tablet (Centrum Men) pantoprazole 40 mg tablet,delayed 40 mg PO BID 11/26/22 11/26/22 Unknown release vitamin B complex 1 tab PO DAILY 11/26/22 11/26/22 Unknown Active Medications Generic Name Dose Route Start Last Admin Trade Name Herlinda PRN Reason Stop Dose Admin Acetaminophen 1,000 mg 11/26/22 21:00 12/05/22 06:12 Acetaminophen 500 Mg Tab PO 12/26/22 20:59 1,000 mg Q8 TIFFANI Administration Bisacodyl 5 mg 11/26/22 21:00 12/04/22 20:51 Bisacodyl 5 Mg Tabec PO 12/26/22 20:59 5 mg HS TIFFANI Administration Citalopram Hydrobromide 20 mg 11/26/22 21:00 12/04/22 20:52 Citalopram 20 Mg Tab PO 12/26/22 20:59 20 mg BID TIFFANI Administration Ferrous Sulfate 325 mg 11/27/22 09:00 12/04/22 13:46 Ferrous Sulfate 325 Mg Tab PO 12/27/22 08:59 325 mg DAILY TIFFANI Administration Fluticasone Furoate 1 puffs 11/27/22 09:00 12/04/22 13:46 Fluticasone Furoate 100mcg 14 Puffs/Inhaler INH 12/27/22 08:59 1 puffs DAILY TIFFANI Administration Furosemide 10 mg 11/30/22 12:45 12/05/22 04:11 Furosemide Inj 20 Mg/2 Ml Vial IV 12/30/22 12:44 10 mg Q8H TIFFANI Administration Vancomycin HCl 1,250 mg/ 275 mls @ 200 mls/hr 12/02/22 14:00 12/05/22 06:06 Sodium Chloride IV 12/16/22 13:59 200 mls/hr Q12H TIFFANI Administration Protocol Lactated Ringer's 1,000 mls @ 15 mls/hr 12/03/22 15:00 12/04/22 17:32 Lr IV 01/02/23 14:59 Infused .Q24H TIFFANI Infusion Insulin Aspart 0 units 11/26/22 21:00 12/04/22 20:53 Insulin Aspart Per Unit Charge SC 12/26/22 20:59 5 units ACHS TIFFANI Administration Insulin Glargine 0 units 11/26/22 21:00 12/04/22 20:52 Lantus Per Unit Charge SQ 12/26/22 20:59 15 units HS TIFFANI Administration Magnesium Chloride 64 mg 11/30/22 09:00 12/04/22 20:52 Magnesium Chloride W/Calcium 64mg Delayed Rel Tab PO 12/30/22 08:59 64 mg BID TIFFANI Administration Melatonin 3 mg 11/29/22 01:36 12/02/22 20:12 Melatonin 3 Mg Tab PO 12/29/22 01:35 3 mg HS PRN Administration Sleep Multivitamins 1 tab 11/27/22 09:00 12/04/22 13:46 Multivitamin Tab PO 12/27/22 08:59 1 tab QAM TIFFANI Administration Pantoprazole Sodium 40 mg 12/02/22 21:00 12/04/22 20:52 Pantoprazole 40 Mg Tab PO 01/01/23 20:59 40 mg BID TIFFANI Administration Umeclidinium/Vilanterol 1 puffs 11/27/22 09:00 12/04/22 13:46 Umeclidinium/Vilanterol 62.5/25mcg 7 Puffs/Inhaler INH 12/27/22 08:59 1 puffs DAILY TIFFANI Administration Vitamin B Complex 1 tab 11/27/22 09:00 12/04/22 13:45 Vitamin B Complex Tab PO 12/27/22 08:59 1 tab DAILY TIFFANI Administration (1) Sepsis Sepsis acute organ dysfunction status: without acute organ dysfunction Sepsis type: sepsis due to unspecified organism Qualified Code(s): A41.9 - Sepsis, unspecified organism (4) Falls Encounter type: initial encounter Qualified Code(s): W19.XXXA - Unspecified fall, initial encounter
[2022-12-05] MEDS: PANTOprazole 40 MG TAB PO SCH ×2 (09:52→21:02)
[2022-12-05] MEDS: INSULIN ASPART PER UNIT CHARGE SC SCH ×4 (09:53→20:59)
[2022-12-05] MEDS: VITAMIN B COMPLEX TAB PO SCH (09:53)
[2022-12-05] MEDS: FERROUS SULFATE 325 MG TAB PO SCH (09:53)
[2022-12-05] MEDS: MULTIVITAMIN TAB PO SCH (09:53)
[2022-12-05] MEDS: FLUTICASONE FUROATE 100MCG 14 PUFFS/INHALER INH SCH (09:53)
[2022-12-05] MEDS: CITALOPRAM 20 MG TAB PO SCH ×2 (09:53→21:01)
[2022-12-05] MEDS: MAGNESIUM CHLORIDE W/CALCIUM 64MG DELAYED REL TAB PO SCH ×2 (09:53→21:01)
[2022-12-05] MEDS: UMECLIDINIUM/VILANTEROL 62.5/25MCG 7 PUFFS/INHALER INH SCH (09:53)
[2022-12-05] MEDS: MAGNESIUM SULFATE / D5W 1 GM/100 ML BAG IV SCH ×3 (09:59→14:27)
[2022-12-05] MEDS: LACTATED RINGER'S 1,000 ML IV SCH (16:11)
[2022-12-05] MEDS: LANTUS PER UNIT CHARGE SQ SCH (20:59)
[2022-12-05] MEDS: DOCUSATE SODIUM/SENNA 50/8.6MG TAB PO SCH (21:01)
[2022-12-05] MEDS: bisacodyL 5 MG TABEC PO SCH (21:01)
[2022-12-05] MEDS: TRIAMCINOLONE ACET 0.1% OINT 15 GM TUBE EXT SCH (21:01)
[2022-12-06] MEDS: ACETAMINOPHEN 500 MG TAB PO SCH ×3 (05:25→22:08)
[2022-12-06] MEDS: VANCOMYCIN HCL 1,250 MG in SODIUM CHLORIDE 0.9% 250 ML IV SCH ×2 (06:19→17:43)
[2022-12-06 08:27] LABS: Hematocrit (blood only) 28.5 % (42.0-52.0); Hemoglobin 9.4 g/dl (14.0-18.0); Mean Corpuscular Hemoglobin 30.8 pg (25.0-34.0); Mean Corpuscular Volume 93.4 fL (80.0-100.0); Mean Platelet Volume 11.8 fL (9.4-12.4); Platelet Count 346 K/uL (130-400); RDW Coefficient of Variation 14.8 % (11.5-14.5); RDW Standard Deviation 50.4 fL (36.4-46.3); Red Blood Count 3.05 M/uL (4.70-6.10)
[2022-12-06] MEDS: FLUTICASONE FUROATE 100MCG 14 PUFFS/INHALER INH SCH (08:35)
[2022-12-06] MEDS: TRIAMCINOLONE ACET 0.1% OINT 15 GM TUBE EXT SCH ×3 (08:35→21:28)
[2022-12-06] MEDS: DOCUSATE SODIUM/SENNA 50/8.6MG TAB PO SCH ×2 (08:35→20:00)
[2022-12-06] MEDS: CITALOPRAM 20 MG TAB PO SCH ×2 (08:35→19:59)
[2022-12-06] MEDS: PANTOprazole 40 MG TAB PO SCH ×2 (08:35→21:28)
[2022-12-06] MEDS: VITAMIN B COMPLEX TAB PO SCH (08:35)
[2022-12-06] MEDS: MAGNESIUM CHLORIDE W/CALCIUM 64MG DELAYED REL TAB PO SCH ×2 (08:35→19:59)
[2022-12-06] MEDS: UMECLIDINIUM/VILANTEROL 62.5/25MCG 7 PUFFS/INHALER INH SCH (08:35)
[2022-12-06] MEDS: MULTIVITAMIN TAB PO SCH (08:35)
[2022-12-06] MEDS: INSULIN ASPART PER UNIT CHARGE SC SCH ×4 (08:36→21:24)
[2022-12-06] MEDS: FUROSEMIDE 40 MG TAB PO SCH (08:37)
[2022-12-06] MEDS: FERROUS SULFATE 325 MG TAB PO SCH (08:37)
[2022-12-06 08:39] LABS: Albumin Globulin Ratio 0.5 (0.9-2); Albumin Level 2.1 gm/dl (3.4-5.0); Bilirubin,Total 1.1 mg/dl (0.2-1.0); Calcium 8.5 mg/dl (8.6-10.3); Creatinine Clr Calc Pharmacy 130.7 ml/min; Est GFR (African American) 105.3 ml/min; Est GFR (Non-African American) 90.9 ml/min; Globulin 4.1 gm/dl (2.5-4.0); Magnesium 1.6 mg/dl (1.7-2.4); Phosphorus 3.3 mg/dl (2.5-4.9); Potassium 4.1 mmol/L (3.5-5.1); Total Protein 6.2 gm/dl (6.0-8.3)
[2022-12-06 08:44] LABS: Basophils # (auto) 0.06 K/uL (0.00-0.20); Basophils % (auto) 0.7 %; Eosinophils # (auto) 0.12 K/uL (0.00-0.50); Eosinophils % (auto) 1.3 %; Immature Granulocytes # (auto) 0.62 K/uL (0.01-0.20); Immature Granulocytes % (auto) 6.8 %; Lymphocytes # (auto) 1.76 K/uL (1.20-3.40); Lymphocytes % (auto) 19.3 %; Monocytes # (auto) 0.66 K/uL (0.11-0.59); Monocytes % (auto) 7.3 %; Neutrophils # (auto) 5.88 K/uL (1.40-6.50); Neutrophils % (auto) 64.6 %; Polychromasia 1+; Target Cells 1+
[2022-12-06 08:48] LABS: Prothrombin Time 11.4 Seconds (9.0-12.0)
[2022-12-06] MEDS: LACTATED RINGER'S 1,000 ML IV SCH ×2 (13:48→14:09)
--- NOTE | 2022-12-06 13:55 | Pharmacy Report ---
Pharmacy PK ABX Note - Date of Service December 06, 2022 - Assessment and Plan Assessment 12/06: * Vancomycin level this morning predicts an AUC/VISHAL within goal range, continue current regimen 12/04: * Vanc level obtained this morning, indicating that current regimen is appropriate to continue (predicted AUC 461mg/L.hr). * Would prefer AUC at higher end of 400-600mg/L.hr range. PM dose of vanc was delayed by 4 hours yesterday. Expect that level would have been higher without this delay, achieving AUC at the higher end of goal. * No changes at this time. 12/02: * 67 year old M receiving vancomycin for treatment of MRSA bacteremia. Pertinent microbiologic data includes: blood culture growing MRSA from 11/26; blood culture growing MRSA from 11/27; blood culture growing MRSA from 11/28. Blood cultures from 11/29 (+) MRSA. 12/01 surveillance cultures negative at 24h. ID following. * Day # 4 of antimicrobial therapy. Plan Vancomycin * Continue Vanc 1250mg IV q12h * Daily serum creatinine ordered * No further levels have been ordered at this time. Will consider ordering additional levels/labs as clinically indicated if patient is still hospitalized. Pharmacy will continue to follow and will adjust dose/frequency as necessary. Thank you. Pharmacy has transitioned to AUC monitoring for vancomycin. AUC/VISHAL is the preferred PK/PD target and is associated with decreased risk of nephrotoxicity compared to traditional trough targets.
--- NOTE | 2022-12-06 14:36 | Orthopedic Progress Note ---
Date of Service December 05, 2022 Assessment & Plan (1) Septic arthritis of shoulder, right: Plan: POD #2 status post arthroscopic irrigation and debridement right shoulder with debridement of rotator cuff tear/glenoid labral tear, subacromial decompression, extensive synovectomy with removal of loose body. Maintain drain. Will pull on 12/06/2022. Continue IV antibiotics. Encourage Codman's exercises right shoulder when able to tolerate. Await final antibiotic culture results. Anticipate 6 weeks of IV antibiotics after final identification of bacterial pathogen is determined. Thank you for the opportunity to consult in the care of this patient. Mitch aRmirez DO [facility], [phone] (2) Septic arthritis of knee, right: Plan: Postop day #1 status post arthroscopic irrigation debridement right knee with partial medial meniscectomy and partial lateral meniscectomy with debridement of ACL and extensive synovectomy with removal of large intra-articular loose bodies x3. Maintain drain. Will likely pull on 12/07/2022. Continue IV antibiotics. Encourage gentle range of motion as able to tolerate. Continue to ice the knee. Await final antibiotic culture results. Anticipate 6 weeks of IV antibiotics at final identification of bacteria is determined. Thank you for the opportunity to consult in the care of this patient. Mitch Ramirez DO [facility], [phone] (3) Rotator cuff tear arthropathy of right shoulder: (4) Tear of medial meniscus of right knee: (5) MRSA bacteremia: Admission and Anticipated Discharge Date Admission Date: November 26, 2022 Subjective Patient seen and examined while on rounds. Patient sitting up and alert in hospital bed. Dressings and drains intact right shoulder and right knee. Patient states he is feeling markedly improved in both reduction of pain and cognitive function since surgery of the right shoulder and right knee. Physical Exam Constitutional: WD/WN, vitals as above Eyes: PERRL, conjunctivae normal, anicteric sclerae ENMT: external ear and nose normal, oropharynx normal Neck: trachea midline, no thyromegaly Respiratory: Respirations unlabored and no evidence of conversational dyspnea. Gastrointestinal (Abdomen): Abdomen soft and nontender. Distention improving. Musculoskeletal: Right shoulder foam tape dressing and drain intact. Moderate drainage approximately 20 cc in the Hemovac drain shoulder. Passive range of motion of shoulder performed with marked improvement in pain. Compartments are soft. Radial/ulnar/median nerve sensory and motor function are grossly intact however patient has chronic atrophic findings in the hand with chronic loss of fine motor function bilateral hands. Right knee sterile dry dressing and Garrison wrap with drain intact. Moderate drainage approximately 30 cc in the Hemovac drain right knee. Serosanguineous drainage without evidence of purulence. Passive range of motion of the right knee with decreased irritability. Compartments are soft. Homans is negative. Distal neurovascular status is intact with palpable pedal pulses. Neurologic: PERRL, EOMI, accommodation nl, no face palsy, no dysarthria Psychiatric: A+Ox3, euthymic affect Results & Data Vital Signs (Past 12 Hours) Vital Signs Temp Pulse Pulse Resp BP Pulse Ox O2 Del Method 12/06/22 12:12 37.2 C 72 19 134/68 94 Nasal Cannula 12/06/22 08:17 36.8 C 72 19 122/70 93 Nasal Cannula 12/06/22 07:54 70 12/06/22 07:54 Nasal Cannula 12/06/22 02:49 36.9 C 74 20 122/72 99 BiPAP 12/06/22 02:38 75 29 H O2 Flow Rate FiO2 12/06/22 12:12 3.0 12/06/22 08:17 3.0 12/06/22 07:54 12/06/22 07:54 3 12/06/22 02:49 3 12/06/22 02:38 30 Laboratory Results Reviewed.
--- NOTE | 2022-12-06 15:30 | Hospitalist Progress Note ---
Date of Service December 06, 2022 Assessment & Plan (1) Sepsis: (2) Hypercapnic respiratory failure, chronic: (3) Hyponatremia: (4) Falls: (5) Hypomagnesemia: (6) Diabetes mellitus, type II: (7) Anemia: (8) Nocturnal hypoxia: (9) COPD (chronic obstructive pulmonary disease): (10) Depression: (11) Cirrhosis: (12) Chronic pain syndrome: Plan: Plan Mr. Carbajal is 67 year old gentleman who follows with [facility] with complex medical history of DM II, prior chronic pain no longer on narcotics, cirrhosis, history of splenectomy, history of Jazmyne's gangrene, lymphedema, nocturnal hypoxia who presented on 11/26 with multiple falls at home and found to have MRSA bacteremia. TTE was not able to r/o abscess/vegetations and JAKE was attempted but not successful due to encephalopathy and respiratory liability. Given cardiac comorbidities, if source is cardiac in nature, it would not project management; however, there was looming concern for septic joint given subcutaneous edema and effusion of right shoulder noted on repeat CT with con on 12/01. Course has been complicated by metabolic encephalopathy and acute on chronic hypercapnic respiratory failure, prompting over night transfer to ICU on 11/30. Patient not deemed a candidate for AJKE given varices and respiratory status, therefore unable to r/o cardiac etiology of bacteremia. Course in icu with relative hypotension. VBG with in uptrending pCO2. Per ICU, deemed appropriate for downgrade on 12/02 with patient to continue bipap and wean as able throughout day. Given intermittent fevers, hypotension, poor TTE imaging/inability to obtain JAKE, and findings on CT, IR aspiration of shoulder was pursued on 12/02. Aspirate within values suggestive for septic arthritis, likely explaining poor clinical progress. Patient underwent washout/shoulder synovectomy and extensive debridement. Right knee also with concerns of septic arthritis during surgical evaluation on 12/03. Now s/p right knee washout on 12/04. Discussed with Dr Story Infectious disease, [[place] text communication] new recommendations for duration of abx. The plan is for 6 weeks of therapy from 12/04 (last washout). This prolonged duration is due to inability to confirm/refute presence of vegetations with JAKE. EOT 01/15/2023 #Acute metabolic encephalopathy *resolved -Transferred to ICU given progressive hypercarbia and worsening mentation on 11/30 -Appears to be at baseline #Right shoulder septic arthritis #Extensive synovitis of right shoulder #Right knee septic arthritis #Persistent MRSA bacteremia, unclear source #Sepsis 2/2 MRSA bacteremia*resolved #Leukocytosis *resolved On admission, HR 110, WBC 15.16, meeting SIRs criteria. Lactate wnl, procal 4.75 CT abd/pelvis without acute infectious abnormality but did note mildly thickened appendiceal tip with a small appendiceal nodule. No evidence for acute appendicitis. CTA chest with suspected right glenohumeral joint effusion with adjacent stranding and two punctate locules of soft tissue gas. The findings are likely related to severe osteoarthritis. However, a superimposed infectious etiology would be difficult to completely exclude. Dedicated shoulder xray notes severe OA; UA abnormal with trace leuk est, + nitrite, 3+ blood, urine Cx with no significant growth at this time. CT R shoulder with subcutaneous edema and effusion; Blood cultures +11/26-11/29 NRSA, repeat NGTD, synovial aspirate R Shoulder MRSA 12/02 -IR aspiration 12/02: WBC 81123, 91% PMNS -Orthopedics called on 12/01: discussed options with Dr Ca -s/p extensive washout of right shoulder 12/03 -s/p right knee washout 12/04 -Continue Vancomycin EOT 01/15/2023 #Acute on Chronic hypercapnic respiratory failure *stable/baseline Baselin 5 L requirement, per pulm now at baseline and stable Continue bipap 18 over 8 with naps and overnight Oxygen saturation goal no higher 88-92% Encourage weight loss when pending discharge CPT ordered Encourage OOB, PT/OT Pulm on consult, reports overall improvement/stable respiratory status #Hyponatremia iso cirrhosis *stable/resolved Na 124 on admission Serum osm 277, urine osm 608, urine na 10 on admission Nephrology consulted: 11/28 Urea 15mg BID, discontinued 12/01 1.5 L fluid limit towards which protein shakes do not count when taking p.o. again and at discharge Transitioned to 40mg lasix daily po #Hypomagnesemia -Replace as needed with IV #Chronic normocytic anemia Stable #Large rotator cuff tear, right #Severe osteoarthritis, right shoulder #Mechanical falls #Rhabdomyolysis *resolved No acute fracture or traumatic findings on imaging as above Head CT with no suggestive cause CK elevated at 4266 on admission and downtrending to 1263 CT imaging of arm, elbow and forearm: OA v ? septic joint PT/OT eval once more stable -Joint washout 12/03 with chondroplasty/synovectomy -Right knee 12/04 with wash out #DMII A1c 7.5 in June 2022, repeat currently 7.6 Hold home agents Basal/bolus insulin while in-patient #COPD History of tobacco use, no longer smoking Continue Trelegy, DuoNebs #Depression Continue SSRI #Compensated Cirrhosis Listed on outpatient paperwork from [facility], patient a poor historian so unclear Abdomen/pelvis CT notes cirrhosis with varices formation. T. bili 2.1, AST 198, ALT 59 and downtrending currently ALP elevated, ? related to septic joint ammonia WNL, no signs of HE CMP and INR in am Lasix 40mg daily, hold on ivelisse given K #Chronic Pain syndrome Pt noting he is in significant pain, noted that his pain was not currently being treated. Previously on narcotics but PCP discontinued when he failed UDS. UDS on admission positive for marijuana, endorses daily use Given pt's Hx of frequent falls, severe OA and complaints that his pain is not being treated appropriately, previously temporarily treated while hospitalized with the following regimen: tylenol 1000mg q8h prn for mild pain, po oxycodone 5mg q8h prn for moderate pain and dilaudid 0.5mg q6h prn for severe pain. Minimal opioid requirement DVT Ppx: Lovenox Code status: DNR/DNI per conversation PCP: CLIFTON Pena [facility] Dispo: Pending placement and PT./OT updated referrals, SIXTO in place--removal maybe 12/07 Admission and Anticipated Discharge Date Admission Date: November 26, 2022 Subjective NAEO Remarks continuous improvement, reports pain but less than pain that was present preoperatively Review of Systems Review of Systems: All systems reviewed & are unremarkable except as noted in Subjective Physical Exam Constitutional: WD/WN, vitals as above Respiratory: normal respiratory effort, lungs clear to auscultation 3L NC Results & Data Results & Data Vital Signs (Past 12 Hours) Vital Signs Temp Pulse Pulse Resp BP Pulse Ox O2 Del Method 12/06/22 12:12 37.2 C 72 19 134/68 94 Nasal Cannula 12/06/22 08:17 36.8 C 72 19 122/70 93 Nasal Cannula 12/06/22 07:54 70 12/06/22 07:54 Nasal Cannula O2 Flow Rate 12/06/22 12:12 3.0 12/06/22 08:17 3.0 12/06/22 07:54 12/06/22 07:54 3 Laboratory Results Short CBC 12/06/22 Range/Units 07:55 WBC 9.10 (4.8-10.8) K/ul Hgb 9.4 L (14.0-18.0) g/dl Hct 28.5 L (42.0-52.0) % Plt Count 346 (130-400) K/uL BMP 12/06/22 07:55 Sodium 137 Potassium 4.1 Chloride 97 L Carbon Dioxide 38 H BUN 18 Creatinine 0.82 Glucose 129 H Calcium 8.5 L Liver Function 12/06/22 Range/Units 07:55 Total Bilirubin 1.1 H (0.2-1.0) mg/dl AST 64 H (13-39) U/L ALT 42 (7-52) U/L Alkaline Phosphatase 288 H (34-104) U/L Albumin 2.1 L (3.4-5.0) gm/dl Medications Administered Home Medications Medication Instructions Recorded Confirmed Last Taken acetaminophen 500 mg tablet 500 mg PO BID PRN Pain 11/26/22 11/26/22 Unknown albuterol sulfate 2.5 mg/3 mL 2.5 mg inhalation Q4H PRN 11/26/22 11/26/22 Unknown (0.083 %) solution for nebulization Shortness Of Breath Or Wheezing baclofen 10 mg tablet 10 mg PO TID PRN Muscle Spasm 11/26/22 11/26/22 Unknown bisacodyl 5 mg tablet 5 mg PO HS 11/26/22 11/26/22 Unknown bumetanide 2 mg tablet 2 mg PO DAILY 11/26/22 11/26/22 Unknown citalopram 20 mg tablet 20 mg PO BID 11/26/22 11/26/22 Unknown doxylamine succinate 25 mg tablet 25 mg PO HS PRN Sleep 11/26/22 11/26/22 Unknown ferrous sulfate 325 mg (65 mg 325 mg PO DAILY 11/26/22 11/26/22 Unknown iron) tablet fluticasone fur. 100 mcg-umeclid 1 inh inhalation DAILY 11/26/22 11/26/22 Unknown 62.5 mcg-vilant 25 mcg inhalat.powder (Trelegy Ellipta) guselkumab 100 mg/mL subcutaneous 100 mg subcut UD 11/26/22 11/26/22 Unknown auto-injector (Tremfya) insulin degludec 200 unit/mL (3 20 unit subcut HS 11/26/22 11/26/22 Unknown mL) subcutaneous pen (Tresiba FlexTouch U-200 insulin) magnesium 500 mg tablet 15 mg PO DAILY 11/26/22 11/26/22 Unknown metformin 500 mg tablet 1,000 mg PO BID 11/26/22 11/26/22 Unknown multivit,Ca,min-iron 8 mg-folic 1 tab PO DAILY 11/26/22 11/26/22 Unknown acid 200 mcg-lycopene 600 mcg tablet (Centrum Men) pantoprazole 40 mg tablet,delayed 40 mg PO BID 11/26/22 11/26/22 Unknown release vitamin B complex 1 tab PO DAILY 11/26/22 11/26/22 Unknown Active Medications Generic Name Dose Route Start Last Admin Trade Name Markoq PRN Reason Stop Dose Admin Acetaminophen 1,000 mg 11/26/22 21:00 12/06/22 13:02 Acetaminophen 500 Mg Tab PO 12/26/22 20:59 1,000 mg Q8 TIFFANI Administration Bisacodyl 5 mg 11/26/22 21:00 12/05/22 21:01 Bisacodyl 5 Mg Tabec PO 12/26/22 20:59 5 mg HS TIFFANI Administration Citalopram Hydrobromide 20 mg 11/26/22 21:00 12/06/22 08:35 Citalopram 20 Mg Tab PO 12/26/22 20:59 20 mg BID TIFFANI Administration Ferrous Sulfate 325 mg 11/27/22 09:00 12/06/22 08:37 Ferrous Sulfate 325 Mg Tab PO 12/27/22 08:59 325 mg DAILY TIFFANI Administration Fluticasone Furoate 1 puffs 11/27/22 09:00 12/06/22 08:35 Fluticasone Furoate 100mcg 14 Puffs/Inhaler INH 12/27/22 08:59 1 puffs DAILY TIFFANI Administration Furosemide 40 mg 12/06/22 09:00 12/06/22 08:37 Furosemide 40 Mg Tab PO 01/05/23 08:59 40 mg QAM TIFFANI Administration Vancomycin HCl 1,250 mg/ 275 mls @ 200 mls/hr 12/02/22 14:00 12/06/22 07:53 Sodium Chloride IV 12/16/22 13:59 Infused Q12H TIFFANI Infusion Protocol Lactated Ringer's 1,000 mls @ 15 mls/hr 12/03/22 15:00 12/06/22 14:09 Lr IV 01/02/23 14:59 15 mls/hr .Q24H TIFFANI Administration Insulin Aspart 0 units 11/26/22 21:00 12/06/22 13:02 Insulin Aspart Per Unit Charge SC 12/26/22 20:59 5 units ACHS TIFFANI Administration Insulin Glargine 0 units 11/26/22 21:00 12/05/22 20:59 Lantus Per Unit Charge SQ 12/26/22 20:59 8 units HS TIFFANI Administration Magnesium Chloride 64 mg 11/30/22 09:00 12/06/22 08:35 Magnesium Chloride W/Calcium 64mg Delayed Rel Tab PO 12/30/22 08:59 64 mg BID TIFFANI Administration Melatonin 3 mg 11/29/22 01:36 12/02/22 20:12 Melatonin 3 Mg Tab PO 12/29/22 01:35 3 mg HS PRN Administration Sleep Multivitamins 1 tab 11/27/22 09:00 12/06/22 08:35 Multivitamin Tab PO 12/27/22 08:59 1 tab QAM TIFFANI Administration Pantoprazole Sodium 40 mg 12/02/22 21:00 12/06/22 08:35 Pantoprazole 40 Mg Tab PO 01/01/23 20:59 40 mg BID TIFFANI Administration Senna/Docusate Sodium 1 tab 12/05/22 20:30 12/06/22 08:35 Docusate Sodium/Senna 50/8.6mg Tab PO 01/04/23 20:29 1 tab BID TIFFANI Administration Triamcinolone Acetonide 1 appln 12/05/22 21:00 12/06/22 13:02 Triamcinolone Acet 0.1% Oint 15 Gm Tube EXT 01/04/23 20:59 1 appln TID TIFFANI Administration Umeclidinium/Vilanterol 1 puffs 11/27/22 09:00 12/06/22 08:35 Umeclidinium/Vilanterol 62.5/25mcg 7 Puffs/Inhaler INH 12/27/22 08:59 1 puffs DAILY TIFFANI Administration Vitamin B Complex 1 tab 11/27/22 09:00 12/06/22 08:35 Vitamin B Complex Tab PO 12/27/22 08:59 1 tab DAILY TIFFANI Administration (1) Sepsis Sepsis acute organ dysfunction status: without acute organ dysfunction Sepsis type: sepsis due to unspecified organism Qualified Code(s): A41.9 - Sepsis, unspecified organism (4) Falls Encounter type: initial encounter Qualified Code(s): W19.XXXA - Unspecified fall, initial encounter
--- NOTE | 2022-12-06 17:54 | Orthopedic Progress Note ---
Date of Service December 06, 2022 Assessment & Plan (1) Septic arthritis of shoulder, right: Plan: POD #3 status post arthroscopic irrigation and debridement right shoulder with debridement of rotator cuff tear/glenoid labral tear, subacromial decompression, extensive synovectomy with removal of loose body. Continue IV antibiotics. Encourage Codman's exercises right shoulder when able to tolerate. Anticipate 6 weeks of IV antibiotics after final identification of bacterial pathogen is determined. Thank you for the opportunity to consult in the care of this patient. Mitch Ramirez [facility], [phone] (2) Septic arthritis of knee, right: Plan: Postop day #2 status post arthroscopic irrigation debridement right knee with partial medial meniscectomy and partial lateral meniscectomy with debridement of ACL and extensive synovectomy with removal of large intra-articular loose bodies x3. Maintain drain. Will likely pull on 12/07/2022. Continue IV antibiotics. Encourage gentle range of motion as able to tolerate. Continue to ice the knee. Await final antibiotic culture results. Anticipate 6 weeks of IV antibiotics at final identification of bacteria is determined. Thank you for the opportunity to consult in the care of this patient. Mitch Ramirez [facility], [phone] (3) Rotator cuff tear arthropathy of right shoulder: (4) Tear of medial meniscus of right knee: (5) MRSA bacteremia: Admission and Anticipated Discharge Date Admission Date: November 26, 2022 Subjective Patient seen on rounds. Pain with marked improvement right shoulder and right knee.Much less pain than was present preoperatively. No F/C/N/V/D. Physical Exam Constitutional: WD/WN, vitals as above Eyes: PERRL, conjunctivae normal, anicteric sclerae ENMT: external ear and nose normal, oropharynx normal Neck: trachea midline, no thyromegaly Respiratory: No conversational dyspnea. Gastrointestinal (Abdomen): Abdomen soft/NT/ND. Musculoskeletal: Right shoulder incisions intact/benign. Drain pulled. Dressing in place. Dry. No local erythema. N/V status intact. Right knee dressing and drain in place. No strike through. Compartments soft. Tao's neg. DNVSI. Neurologic: PERRL, EOMI, accommodation nl, no face palsy, no dysarthria Psychiatric: A+Ox3, euthymic affect Results & Data Vital Signs (Past 12 Hours) Vital Signs Temp Pulse Pulse Resp BP Pulse Ox O2 Del Method 12/06/22 15:37 37.2 C 81 19 127/70 93 Nasal Cannula 12/06/22 12:12 37.2 C 72 19 134/68 94 Nasal Cannula 12/06/22 08:17 36.8 C 72 19 122/70 93 Nasal Cannula 12/06/22 07:54 70 12/06/22 07:54 Nasal Cannula O2 Flow Rate 12/06/22 15:37 3.0 12/06/22 12:12 3.0 12/06/22 08:17 3.0 12/06/22 07:54 12/06/22 07:54 3 Laboratory Results Reviewed.
[2022-12-06] MEDS ORDERED: traMADol HCL 50 MG TABLET PO STA (19:24)
[2022-12-06] MEDS: bisacodyL 5 MG TABEC PO SCH (20:04)
[2022-12-06] MEDS: LANTUS PER UNIT CHARGE SQ SCH (21:25)
[2022-12-06] MEDS: MELATONIN 3 MG TAB PO PRN (21:30)
[2022-12-07] MEDS: ACETAMINOPHEN 500 MG TAB PO SCH ×3 (06:01→20:46)
[2022-12-07] MEDS: VANCOMYCIN HCL 1,250 MG in SODIUM CHLORIDE 0.9% 250 ML IV SCH ×2 (06:01→18:34)
[2022-12-07 06:32] LABS: Hematocrit (blood only) 27.7 % (42.0-52.0); Hemoglobin 9.2 g/dl (14.0-18.0); Mean Corpuscular Hemoglobin 30.9 pg (25.0-34.0); Mean Corpuscular Hgb Conc 33.2 g/dL (32.0-36.0); Mean Platelet Volume 11.8 fL (9.4-12.4); Platelet Count 366 K/uL (130-400); RDW Coefficient of Variation 14.7 % (11.5-14.5); RDW Standard Deviation 48.5 fL (36.4-46.3); Red Blood Count 2.98 M/uL (4.70-6.10); White Blood Count 10.95 K/ul (4.8-10.8)
[2022-12-07 06:50] LABS: Albumin Globulin Ratio 0.5 (0.9-2); Albumin Level 2.2 gm/dl (3.4-5.0); BUN Creatinine Ratio 21.8 (10-20); Bilirubin,Total 1.1 mg/dl (0.2-1.0); Calcium 8.7 mg/dl (8.6-10.3); Creatinine Clr Calc Pharmacy 137.6 ml/min; Est GFR (African American) 107.5 ml/min; Est GFR (Non-African American) 92.8 ml/min; Globulin 4.3 gm/dl (2.5-4.0); Magnesium 1.4 mg/dl (1.7-2.4); Phosphorus 3.5 mg/dl (2.5-4.9); Potassium 3.9 mmol/L (3.5-5.1); Total Protein 6.5 gm/dl (6.0-8.3)
--- NOTE | 2022-12-07 09:01 | Hospitalist Progress Note ---
Date of Service December 07, 2022 Assessment & Plan (1) Sepsis: (2) Hypercapnic respiratory failure, chronic: (3) Hyponatremia: (4) Falls: (5) Hypomagnesemia: (6) Diabetes mellitus, type II: (7) Anemia: (8) Nocturnal hypoxia: (9) COPD (chronic obstructive pulmonary disease): (10) Depression: (11) Cirrhosis: (12) Chronic pain syndrome: Plan: Plan Mr. Carbajal is 67 year old gentleman who follows with [facility] with complex medical history of DM II, prior chronic pain no longer on narcotics, cirrhosis, history of splenectomy, history of Jazmyne's gangrene, lymphedema, nocturnal hypoxia who presented on 11/26 with multiple falls at home and found to have MRSA bacteremia. TTE was not able to r/o abscess/vegetations and JAKE was attempted but not successful due to encephalopathy and respiratory liability. 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 Course has been complicated by metabolic encephalopathy and acute on chronic hypercapnic respiratory failure, prompting over night transfer to ICU on 11/30. Patient not deemed a candidate for JAKE given varices and respiratory status, therefore unable to r/o cardiac etiology of bacteremia. Course in icu with relative hypotension. VBG with in uptrending pCO2. Per ICU, deemed appropriate for downgrade on 12/02 with patient to continue bipap and wean as able throughout day. Given intermittent fevers, hypotension, poor TTE imaging/inability to obtain JAKE, and findings on CT, IR aspiration of shoulder was pursued on 12/02. Aspirate within values suggestive for septic arthritis, likely explaining poor clinical progress. Patient underwent washout/shoulder synovectomy and extensive debridement. Right knee also with concerns of septic arthritis during surgical evaluation on 12/03. Now s/p right knee washout on 12/04. Discussed with Dr Story Infectious disease, [[place] text communication] new recommendations for duration of abx. The plan is for 6 weeks of therapy from 12/04 (last washout). This prolonged duration is due to inability to confirm/refute presence of vegetations with JAKE. EOT 01/15/2023 Patient reporting daily improvement and eager to transition to rehab. Currently multiple authorizations are pending. #Right shoulder septic arthritis #Extensive synovitis of right shoulder #Right knee septic arthritis #Persistent MRSA bacteremia, unclear source #Sepsis 2/2 MRSA bacteremia*resolved #Leukocytosis *resolved On admission, HR 110, WBC 15.16, meeting SIRs criteria. Lactate wnl, procal 4.75 CT abd/pelvis without acute infectious abnormality but did note mildly thickened appendiceal tip with a small appendiceal nodule. No evidence for acute appendicitis. CTA chest with suspected right glenohumeral joint effusion with adjacent stranding and two punctate locules of soft tissue gas. The findings are likely related to severe osteoarthritis. However, a superimposed infectious etiology would be difficult to completely exclude. Dedicated shoulder xray notes severe OA; UA abnormal with trace leuk est, + nitrite, 3+ blood, urine Cx with no significant growth at this time. CT R shoulder with subcutaneous edema and effusion; Blood cultures +11/26-11/29 NRSA, repeat NGTD, synovial aspirate R Shoulder MRSA 12/02 -IR aspiration 12/02: WBC 37951, 91% PMNS -Orthopedics called on 12/01: discussed options with Dr Ca -s/p extensive washout of right shoulder 12/03 -s/p right knee washout 12/04 -Continue Vancomycin EOT 01/15/2023 -Trough level elevated overnight, pharmacy managing #Acute metabolic encephalopathy *resolved -Transferred to ICU given progressive hypercarbia and worsening mentation on 11/30 -Appears to be at baseline #Acute on Chronic hypercapnic respiratory failure *stable/baseline Baselin 5 L requirement, per pulm now at baseline and stable Continue bipap 18 over 8 with naps and overnight Oxygen saturation goal no higher 88-92% Encourage weight loss when pending discharge CPT ordered Encourage OOB, PT/OT Pulm on consult, reports overall improvement/stable respiratory status #Hyponatremia iso cirrhosis *stable/resolved Na 124 on admission Serum osm 277, urine osm 608, urine na 10 on admission Nephrology consulted: 11/28 Urea 15mg BID, discontinued 12/01 1.5 L fluid limit towards which protein shakes do not count when taking p.o. again and at discharge Transitioned to 40mg lasix daily po #Hypomagnesemia -Replace as needed with IV #Chronic normocytic anemia Stable #Large rotator cuff tear, right #Severe osteoarthritis, right shoulder #Mechanical falls #Rhabdomyolysis *resolved No acute fracture or traumatic findings on imaging as above Head CT with no suggestive cause CK elevated at 4266 on admission and downtrending to 1263 CT imaging of arm, elbow and forearm: OA v ? 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 T. bili 2.1, AST 198, ALT 59 and downtrending currently ALP elevated, ? related to septic joint ammonia WNL, no signs of HE CMP and INR in am Lasix 40mg daily, hold on ivelisse given K #Chronic Pain syndrome Pt noting he is in significant pain, noted that his pain was not currently being treated. Previously on narcotics but PCP discontinued when he failed UDS. UDS on admission positive for marijuana, endorses daily use Given pt's Hx of frequent falls, severe OA and complaints that his pain is not being treated appropriately, previously temporarily treated while hospitalized with the following regimen: tylenol 1000mg q8h prn for mild pain, po oxycodone 5mg q8h prn for moderate pain and dilaudid 0.5mg q6h prn for severe pain. Minimal opioid requirement DVT Ppx: Lovenox Code status: DNR/DNI per conversation PCP: CLIFTON Pena [facility] Dispo: Pending placement and PT./OT updated referrals, SIXTO in place--removal maybe 12/07 Admission and Anticipated Discharge Date Admission Date: November 26, 2022 Subjective NAEO Reports fatigue given multiple overnight interrupts, but states that overall he feels well and wants to transfer soon Review of Systems Review of Systems: All systems reviewed & are unremarkable except as noted in Subjective Physical Exam Constitutional: WD/WN, vitals as above Respiratory: normal respiratory effort, lungs clear to auscultation Cardiovascular: RRR, no murmur, no edema Gastrointestinal (Abdomen): normal bowel sounds, soft, nontender, no hepatosplenomegaly Skin: no rashes, warm and dry SIXTO drain with serous draining on right knee Results & Data Results & Data Vital Signs (Past 12 Hours) Vital Signs Temp Pulse Pulse Resp BP Pulse Ox O2 Del Method 12/07/22 08:00 71 12/07/22 08:00 Nasal Cannula 12/07/22 08:12 36.8 C 70 19 113/59 L 92 Nasal Cannula 12/07/22 07:12 71 12/07/22 03:35 75 32 H 95 12/07/22 02:52 36.5 C 75 137/76 97 BiPAP 12/06/22 22:20 80 12/07/22 01:05 83 21 94 12/06/22 23:03 37.3 C 79 20 110/62 93 Nasal Cannula O2 Flow Rate FiO2 12/07/22 08:00 12/07/22 08:00 3 12/07/22 08:12 3.0 12/07/22 07:12 12/07/22 03:35 30 12/07/22 02:52 12/06/22 22:20 12/07/22 01:05 30 12/06/22 23:03 3 Laboratory Results Short CBC 12/07/22 Range/Units 05:59 WBC 10.95 H (4.8-10.8) K/ul Hgb 9.2 L (14.0-18.0) g/dl Hct 27.7 L (42.0-52.0) % Plt Count 366 (130-400) K/uL BMP 12/07/22 05:59 Sodium 135 L Potassium 3.9 Chloride 94 L Carbon Dioxide 37 H BUN 17 Creatinine 0.78 Glucose 106 H Calcium 8.7 Liver Function 12/07/22 Range/Units 05:59 Total Bilirubin 1.1 H (0.2-1.0) mg/dl AST 58 H (13-39) U/L ALT 41 (7-52) U/L Alkaline Phosphatase 314 H (34-104) U/L Albumin 2.2 L (3.4-5.0) gm/dl Medications Administered Home Medications Medication Instructions Recorded Confirmed Last Taken acetaminophen 500 mg tablet 500 mg PO BID PRN Pain 11/26/22 11/26/22 Unknown albuterol sulfate 2.5 mg/3 mL 2.5 mg inhalation Q4H PRN 11/26/22 11/26/22 Unknown (0.083 %) solution for nebulization Shortness Of Breath Or Wheezing baclofen 10 mg tablet 10 mg PO TID PRN Muscle Spasm 11/26/22 11/26/22 Unknown bisacodyl 5 mg tablet 5 mg PO HS 11/26/22 11/26/22 Unknown bumetanide 2 mg tablet 2 mg PO DAILY 11/26/22 11/26/22 Unknown citalopram 20 mg tablet 20 mg PO BID 11/26/22 11/26/22 Unknown doxylamine succinate 25 mg tablet 25 mg PO HS PRN Sleep 11/26/22 11/26/22 Unknown ferrous sulfate 325 mg (65 mg 325 mg PO DAILY 11/26/22 11/26/22 Unknown iron) tablet fluticasone fur. 100 mcg-umeclid 1 inh inhalation DAILY 11/26/22 11/26/22 Unknown 62.5 mcg-vilant 25 mcg inhalat.powder (Trelegy Ellipta) guselkumab 100 mg/mL subcutaneous 100 mg subcut UD 11/26/22 11/26/22 Unknown auto-injector (Tremfya) insulin degludec 200 unit/mL (3 20 unit subcut HS 11/26/22 11/26/22 Unknown mL) subcutaneous pen (Tresiba FlexTouch U-200 insulin) magnesium 500 mg tablet 15 mg PO DAILY 11/26/22 11/26/22 Unknown metformin 500 mg tablet 1,000 mg PO BID 11/26/22 11/26/22 Unknown multivit,Ca,min-iron 8 mg-folic 1 tab PO DAILY 11/26/22 11/26/22 Unknown acid 200 mcg-lycopene 600 mcg tablet (Centrum Men) pantoprazole 40 mg tablet,delayed 40 mg PO BID 11/26/22 11/26/22 Unknown release vitamin B complex 1 tab PO DAILY 11/26/22 11/26/22 Unknown Active Medications Generic Name Dose Route Start Last Admin Trade Name Freq PRN Reason Stop Dose Admin Acetaminophen 1,000 mg 11/26/22 21:00 12/07/22 13:04 Acetaminophen 500 Mg Tab PO 12/26/22 20:59 1,000 mg Q8 TIFFANI Administration Bisacodyl 5 mg 11/26/22 21:00 12/06/22 20:04 Bisacodyl 5 Mg Tabec PO 12/26/22 20:59 5 mg HS TIFFANI Administration Citalopram Hydrobromide 20 mg 11/26/22 21:00 12/07/22 09:46 Citalopram 20 Mg Tab PO 12/26/22 20:59 20 mg BID TIFFANI Administration Ferrous Sulfate 325 mg 11/27/22 09:00 12/06/22 08:37 Ferrous Sulfate 325 Mg Tab PO 12/27/22 08:59 325 mg DAILY TIFFANI Administration Fluticasone Furoate 1 puffs 11/27/22 09:00 12/07/22 09:46 Fluticasone Furoate 100mcg 14 Puffs/Inhaler INH 12/27/22 08:59 1 puffs DAILY TIFFANI Administration Furosemide 40 mg 12/06/22 09:00 12/07/22 09:46 Furosemide 40 Mg Tab PO 01/05/23 08:59 40 mg QAM TIFFANI Administration Hydromorphone HCl 0.5 mg 12/07/22 13:01 12/07/22 13:08 Hydromorphone Inj 0.5 Mg/0.5 Ml Syr IV 12/21/22 13:00 0.5 mg Q6H PRN Administration Pain greater than 4 Vancomycin HCl 1,250 mg/ 275 mls @ 200 mls/hr 12/02/22 14:00 12/07/22 08:32 Sodium Chloride IV 12/16/22 13:59 Infused Q12H TIFFANI Infusion Protocol Lactated Ringer's 1,000 mls @ 15 mls/hr 12/03/22 15:00 12/06/22 14:09 Lr IV 01/02/23 14:59 15 mls/hr .Q24H TIFFANI Administration Insulin Aspart 0 units 11/26/22 21:00 12/07/22 13:04 Insulin Aspart Per Unit Charge SC 12/26/22 20:59 5 units ACHS TIFFANI Administration Insulin Glargine 0 units 11/26/22 21:00 12/06/22 21:25 Lantus Per Unit Charge SQ 12/26/22 20:59 15 units HS TIFFANI Administration Magnesium Chloride 64 mg 11/30/22 09:00 12/07/22 09:46 Magnesium Chloride W/Calcium 64mg Delayed Rel Tab PO 12/30/22 08:59 64 mg BID TIFFANI Administration Melatonin 3 mg 11/29/22 01:36 12/06/22 21:30 Melatonin 3 Mg Tab PO 12/29/22 01:35 3 mg HS PRN Administration Sleep Multivitamins 1 tab 11/27/22 09:00 12/07/22 09:46 Multivitamin Tab PO 12/27/22 08:59 1 tab QAM TIFFANI Administration Pantoprazole Sodium 40 mg 12/02/22 21:00 12/07/22 09:46 Pantoprazole 40 Mg Tab PO 01/01/23 20:59 40 mg BID TIFFANI Administration Senna/Docusate Sodium 1 tab 12/05/22 20:30 12/07/22 09:46 Docusate Sodium/Senna 50/8.6mg Tab PO 01/04/23 20:29 1 tab BID TIFFANI Administration Triamcinolone Acetonide 1 appln 12/05/22 21:00 12/07/22 13:04 Triamcinolone Acet 0.1% Oint 15 Gm Tube EXT 01/04/23 20:59 1 appln TID TIFFANI Administration Umeclidinium/Vilanterol 1 puffs 11/27/22 09:00 12/07/22 09:46 Umeclidinium/Vilanterol 62.5/25mcg 7 Puffs/Inhaler INH 12/27/22 08:59 1 puffs DAILY TIFFANI Administration Vitamin B Complex 1 tab 11/27/22 09:00 12/07/22 09:46 Vitamin B Complex Tab PO 12/27/22 08:59 1 tab DAILY TIFFANI Administration (1) Sepsis Sepsis acute organ dysfunction status: without acute organ dysfunction Sepsis type: sepsis due to unspecified organism Qualified Code(s): A41.9 - Sepsis, unspecified organism (4) Falls Encounter type: initial encounter Qualified Code(s): W19.XXXA - Unspecified fall, initial encounter
[2022-12-07] MEDS: INSULIN ASPART PER UNIT CHARGE SC SCH ×4 (09:45→20:44)
[2022-12-07] MEDS: TRIAMCINOLONE ACET 0.1% OINT 15 GM TUBE EXT SCH ×3 (09:46→20:47)
[2022-12-07] MEDS: FLUTICASONE FUROATE 100MCG 14 PUFFS/INHALER INH SCH (09:46)
[2022-12-07] MEDS: UMECLIDINIUM/VILANTEROL 62.5/25MCG 7 PUFFS/INHALER INH SCH (09:46)
[2022-12-07] MEDS: PANTOprazole 40 MG TAB PO SCH ×2 (09:46→20:50)
[2022-12-07] MEDS: MULTIVITAMIN TAB PO SCH (09:46)
[2022-12-07] MEDS: CITALOPRAM 20 MG TAB PO SCH ×2 (09:46→20:48)
[2022-12-07] MEDS: VITAMIN B COMPLEX TAB PO SCH (09:46)
[2022-12-07] MEDS: DOCUSATE SODIUM/SENNA 50/8.6MG TAB PO SCH ×2 (09:46→20:49)
[2022-12-07] MEDS: FUROSEMIDE 40 MG TAB PO SCH (09:46)
[2022-12-07] MEDS: MAGNESIUM CHLORIDE W/CALCIUM 64MG DELAYED REL TAB PO SCH ×2 (09:46→20:48)
[2022-12-07] MEDS: HYDROmorphone INJ 0.5 MG/0.5 ML SYR IV PRN ×2 (13:08→18:34)
[2022-12-07] MEDS: FERROUS SULFATE 325 MG TAB PO SCH (17:50)
--- NOTE | 2022-12-07 18:39 | Orthopedic Progress Note ---
Date of Service December 07, 2022 Assessment & Plan (1) Septic arthritis of shoulder, right: Plan: POD #4 status post arthroscopic irrigation and debridement right shoulder with debridement of rotator cuff tear/glenoid labral tear, subacromial decompression, extensive synovectomy with removal of loose body. Continue IV antibiotics. Encourage Codman's exercises right shoulder when able to tolerate. Anticipate 6 weeks of IV antibiotics. Orthopedics will sign off at this time. Patient to follow-up in clinic 2 to 4 weeks postop. Sutures may be removed by nursing if transferred to ECF. Thank you for the opportunity to consult in the care of this patient. Mitch Ramirez DO [facility], [phone] (2) Septic arthritis of knee, right: Plan: Postop day #3 status post arthroscopic irrigation debridement right knee with partial medial meniscectomy and partial lateral meniscectomy with debridement of ACL and extensive synovectomy with removal of large intra-articular loose bodies x3. Drain pulled today. Dressing change scheduled for today. Continue IV antibiotics. Encourage gentle range of motion as able to tolerate. Continue to ice the knee. Anticipate 6 weeks of IV antibiotics. Orthopedics will sign off at this time. Patient to follow-up in clinic 2 to 4 weeks postop. Sutures may be removed by nursing if transferred to ECF. Thank you for the opportunity to consult in the care of this patient. Mitch Ramirez DO [facility], [phone] (3) Rotator cuff tear arthropathy of right shoulder: (4) Tear of medial meniscus of right knee: (5) MRSA bacteremia: Admission and Anticipated Discharge Date Admission Date: November 26, 2022 Subjective Patient reports marked improvement in right shoulder pain. Continues to have significant pain in the right knee with motion and with standing. Attempted physical therapy however had discomfort with standing right knee. No fevers or chills. No shortness of breath or chest pain. No nausea, vomiting or diarrhea. Reports fatigue given multiple overnight interrupts, but states that overall he feels well and wants to transfer soon. Would like to have fewer interruptions during the evening if at all possible to allow for increased rest. Physical Exam Constitutional: WD/WN, vitals as above Eyes: PERRL, conjunctivae normal, anicteric sclerae ENMT: external ear and nose normal, oropharynx normal Neck: trachea midline, no thyromegaly Respiratory: No conversational dyspnea. Unlabored breathing. Gastrointestinal (Abdomen): Abdomen soft, nontender. Obese. Musculoskeletal: Right shoulder incisions are benign with sutures intact. No erythema or significant effusion. Decreased irritability with passive range of motion right shoulder. Neurovascular status is unchanged. Stable. Right knee drain pulled with serosanguineous discharge in Hemovac. No evidence of purulence. Right knee irritable with passive range of motion. Dressing to be changed right knee today. Calves are soft. Homans negative. Distal neurovascular status stable. Pedal pulses palpable. Feet are warm. Neurologic: PERRL, EOMI, accommodation nl, no face palsy, no dysarthria Psychiatric: A+Ox3, euthymic affect Results & Data Vital Signs (Past 12 Hours) Vital Signs Temp Pulse Pulse Resp BP Pulse Ox O2 Del Method 12/07/22 15:06 36.8 C 72 19 93/54 L 97 Nasal Cannula 12/07/22 11:42 36.8 C 72 19 122/63 95 Nasal Cannula 12/07/22 08:00 71 12/07/22 08:00 Nasal Cannula 12/07/22 08:12 36.8 C 70 19 113/59 L 92 Nasal Cannula 12/07/22 07:12 71 O2 Flow Rate 12/07/22 15:06 3.0 12/07/22 11:42 3.0 12/07/22 08:00 12/07/22 08:00 3 12/07/22 08:12 3.0 12/07/22 07:12 Laboratory Results Laboratories reviewed, specifically mild increase in white blood cell count, slightly elevated ESR and decreasing CRP.
[2022-12-07] MEDS: LANTUS PER UNIT CHARGE SQ SCH (20:45)
[2022-12-07] MEDS: bisacodyL 5 MG TABEC PO SCH (20:46)
[2022-12-07] MEDS: MAGNESIUM OXIDE 400 MG TAB PO SCH (20:49)
[2022-12-07] MEDS: MELATONIN 3 MG TAB PO PRN (21:07)
[2022-12-08] MEDS: ACETAMINOPHEN 500 MG TAB PO SCH ×3 (05:44→21:37)
[2022-12-08] MEDS: VANCOMYCIN HCL 1,250 MG in SODIUM CHLORIDE 0.9% 250 ML IV SCH ×2 (06:09→17:44)
[2022-12-08 08:12] LABS: Creatinine Clr Calc Pharmacy 148.7 ml/min; Est GFR (African American) 111.1 ml/min; Est GFR (Non-African American) 95.9 ml/min
[2022-12-08] MEDS: HYDROmorphone INJ 0.5 MG/0.5 ML SYR IV PRN (08:47)
[2022-12-08] MEDS: INSULIN ASPART PER UNIT CHARGE SC SCH ×4 (08:47→21:27)
[2022-12-08] MEDS: FLUTICASONE FUROATE 100MCG 14 PUFFS/INHALER INH SCH (08:50)
[2022-12-08] MEDS: VITAMIN B COMPLEX TAB PO SCH (08:50)
[2022-12-08] MEDS: UMECLIDINIUM/VILANTEROL 62.5/25MCG 7 PUFFS/INHALER INH SCH (08:50)
[2022-12-08] MEDS: PANTOprazole 40 MG TAB PO SCH ×2 (08:50→21:33)
[2022-12-08] MEDS: DOCUSATE SODIUM/SENNA 50/8.6MG TAB PO SCH ×2 (08:50→21:31)
[2022-12-08] MEDS: FUROSEMIDE 40 MG TAB PO SCH (08:50)
[2022-12-08] MEDS: CITALOPRAM 20 MG TAB PO SCH ×2 (08:50→21:30)
[2022-12-08] MEDS: MAGNESIUM OXIDE 400 MG TAB PO SCH ×2 (08:50→21:32)
[2022-12-08] MEDS: FERROUS SULFATE 325 MG TAB PO SCH (08:50)
[2022-12-08] MEDS: MAGNESIUM CHLORIDE W/CALCIUM 64MG DELAYED REL TAB PO SCH ×2 (08:50→21:31)
[2022-12-08] MEDS: MULTIVITAMIN TAB PO SCH (08:50)
[2022-12-08] MEDS: TRIAMCINOLONE ACET 0.1% OINT 15 GM TUBE EXT SCH ×3 (08:51→21:33)
--- NOTE | 2022-12-08 13:36 | XRay Report ---
XR knee RT 1 or 2V routine HISTORY: 67 years-old Male increase in right knee pain chronic right knee pain COMPARISON: 11/26/2022 TECHNIQUE: 2 views of the right knee FINDINGS: Severe tricompartmental osteoarthritis again noted. Moderate size joint effusion. No acute fracture o r dislocation. Vascular calcifications. IMPRESSION: 1. Severe osteoarthritis without acute fracture. 2. Moderate joint effusion. ACT 112: Negative or not required by law. The above report was generated using voice recognition software. It may contain grammatical, syntax o r spelling errors. Electronically signed by: Anthony Lin M.D. 12/08/2022 1:34 PM
--- NOTE | 2022-12-08 17:01 | Hospitalist Progress Note ---
Date of Service December 08, 2022 Assessment & Plan (1) Sepsis: (2) Hypercapnic respiratory failure, chronic: (3) Hyponatremia: (4) Falls: (5) Hypomagnesemia: (6) Diabetes mellitus, type II: (7) Anemia: (8) Nocturnal hypoxia: (9) COPD (chronic obstructive pulmonary disease): (10) Depression: (11) Cirrhosis: (12) Chronic pain syndrome: Plan: Plan Mr. Carbajal is 67 year old gentleman who follows with [facility] with complex medical history of DM II, prior chronic pain no longer on narcotics, cirrhosis, history of splenectomy, history of Jazmyne's gangrene, lymphedema, nocturnal hypoxia who presented on 11/26 with multiple falls at home and found to have MRSA bacteremia. TTE was not able to r/o abscess/vegetations and JAKE was attempted but not successful due to encephalopathy and respiratory liability. 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 Course has been complicated by metabolic encephalopathy and acute on chronic hypercapnic respiratory failure, prompting over night transfer to ICU on 11/30. Patient not deemed a candidate for JAKE given varices and respiratory status, therefore unable to r/o cardiac etiology of bacteremia. Course in icu with relative hypotension. VBG with in uptrending pCO2. Per ICU, deemed appropriate for downgrade on 12/02 with patient to continue bipap and wean as able throughout day. Given intermittent fevers, hypotension, poor TTE imaging/inability to obtain JAKE, and findings on CT, IR aspiration of shoulder was pursued on 12/02. Aspirate within values suggestive for septic arthritis, likely explaining poor clinical progress. Patient underwent washout/shoulder synovectomy and extensive debridement. Right knee also with concerns of septic arthritis during surgical evaluation on 12/03. Now s/p right knee washout on 12/04. Discussed with Dr Story Infectious disease, [[place] text communication] new recommendations for duration of abx. The plan is for 6 weeks of therapy from 12/04 (last washout). This prolonged duration is due to inability to confirm/refute presence of vegetations with JAKE. EOT 01/15/2023 Patient reporting daily improvement and eager to transition to rehab. Currently multiple authorizations are pending. #Right shoulder septic arthritis #Extensive synovitis of right shoulder #Right knee septic arthritis #Persistent MRSA bacteremia, unclear source #Sepsis 2/2 MRSA bacteremia*resolved #Leukocytosis *resolved On admission, HR 110, WBC 15.16, meeting SIRs criteria. Lactate wnl, procal 4.75 CT abd/pelvis without acute infectious abnormality but did note mildly thickened appendiceal tip with a small appendiceal nodule. No evidence for acute appendicitis. CTA chest with suspected right glenohumeral joint effusion with adjacent stranding and two punctate locules of soft tissue gas. The findings are likely related to severe osteoarthritis. However, a superimposed infectious etiology would be difficult to completely exclude. Dedicated shoulder xray notes severe OA; UA abnormal with trace leuk est, + nitrite, 3+ blood, urine Cx with no significant growth at this time. CT R shoulder with subcutaneous edema and effusion; Blood cultures +11/26-11/29 NRSA, repeat NGTD, synovial aspirate R Shoulder MRSA 12/02 -IR aspiration 12/02: WBC 14554, 91% PMNS -Orthopedics called on 12/01: -s/p extensive washout of right shoulder 12/03 -s/p right knee washout 12/04 -Continue Vancomycin EOT 01/15/2023 -pharmacy managing #Acute metabolic encephalopathy *resolved -Transferred to ICU given progressive hypercarbia and worsening mentation on 11/30 -Appears to be at baseline #Acute on Chronic hypercapnic respiratory failure *stable/baseline Baselin 5 L requirement, per pulm now at baseline and stable Continue bipap 18 over 8 with naps and overnight Oxygen saturation goal no higher 88-92% Encourage weight loss CPT ordered Encourage OOB, PT/OT Pulm on consult, reports overall improvement/stable respiratory status #Hyponatremia iso cirrhosis *stable/resolved Na 124 on admission Serum osm 277, urine osm 608, urine na 10 on admission Nephrology consulted: 11/28 Urea 15mg BID, discontinued 12/01 1.5 L fluid limit towards which protein shakes do not count when taking p.o. again and at discharge Transitioned to 40mg lasix daily po #Hypomagnesemia -Replace as needed with IV #Chronic normocytic anemia Stable #Large rotator cuff tear, right #Severe osteoarthritis, right shoulder #Mechanical falls #Rhabdomyolysis *resolved No acute fracture or traumatic findings on imaging as above Head CT with no suggestive cause CK elevated at 4266 on admission and downtrending to 1263 CT imaging of arm, elbow and forearm: OA v ? septic joint PT/OT eval once more stable -Joint washout 12/03 with chondroplasty/synovectomy -Right knee 12/04 with wash out #DMII A1c 7.5 in June 2022, repeat currently 7.6 Hold home agents Basal/bolus insulin while in-patient #COPD History of tobacco use, no longer smoking Continue Bethany Medina #Depression Continue SSRI #Compensated Cirrhosis Listed on outpatient paperwork from [facility], patient a poor historian so unclear Abdomen/pelvis CT notes cirrhosis with varices formation. T. bili 2.1, AST 198, ALT 59 and downtrending currently ALP elevated, ? related to septic joint ammonia WNL, no signs of HE CMP and INR in am Lasix 40mg daily. #Chronic Pain syndrome Pt noting he is in significant pain, noted that his pain was not currently being treated. Previously on narcotics but PCP discontinued when he failed UDS. UDS on admission positive for marijuana, endorses daily use Given pt's Hx of frequent falls, severe OA and complaints that his pain is not being treated appropriately, previously temporarily treated while hospitalized with the following regimen: tylenol 1000mg q8h prn for mild pain, po oxycodone 5mg q8h prn for moderate pain and dilaudid 0.5mg q6h prn for severe pain. Minimal opioid requirement DVT Ppx: Lovenox Code status: DNR/DNI per conversation PCP: CLIFTON Pena [facility] Dispo: Pending placement and PT./OT updated referrals, SIXTO in place--removal maybe 12/07 Admission and Anticipated Discharge Date Admission Date: November 26, 2022 Subjective Patient was seen and examined at bedside. Patient was lying in bed, on 3 L oxygen via nasal cannula, resting comfortably, not in any acute distress. Patient reports no pain at right shoulder. Reports some pain in the right knee with motion and with standing. No fever or chills. No generalized feeling of illness, reports eating okay and moving ostomy output okay. Physical Exam Physical Exam: GENERAL: Alert and oriented x3. NAD, on 3L O2 via NC. HEENT: No pallor, no icterus. Pupils equal, round and reactive to light. Oral mucosa moist. NECK: No JVD, no neck masses. HEART: S1 and S2 heard. Regular rate and rhythm. No murmur, no gallop. RESPIRATORY SYSTEM: Normal AP diameter. No accessory muscle use. No wheezing, no crackles. ABDOMEN: Soft, bowel sounds present, nontender, no distention. Ostomy bag w/ fecal output noted. CENTRAL NERVOUS SYSTEM: No facial droop. Speech is clear. Obeys simple commands. Moves extremities. EXTREMITIES: Rt shoulder w/ dressng c/d/i. Rt knee w/ dressing c/d/i. Rt knee pain w/ movement. Results & Data Results & Data Vital Signs (Past 12 Hours) Vital Signs Temp Pulse Pulse Resp BP Pulse Ox O2 Del Method 12/08/22 15:00 73 12/08/22 15:03 36.7 C 70 18 140/74 Nasal Cannula 12/08/22 11:28 36.8 C 69 18 111/63 92 Nasal Cannula 12/08/22 07:41 Nasal Cannula 12/08/22 08:07 37.1 C 67 18 112/64 93 Nasal Cannula 12/08/22 07:25 70 O2 Flow Rate 12/08/22 15:00 12/08/22 15:03 3 12/08/22 11:28 3 12/08/22 07:41 3 12/08/22 08:07 3 12/08/22 07:25 (1) Sepsis Sepsis acute organ dysfunction status: without acute organ dysfunction Sepsis type: sepsis due to unspecified organism Qualified Code(s): A41.9 - Sepsis, unspecified organism (4) Falls Encounter type: initial encounter Qualified Code(s): W19.XXXA - Unspecified fall, initial encounter
[2022-12-08] MEDS: LANTUS PER UNIT CHARGE SQ SCH (21:27)
[2022-12-08] MEDS: MELATONIN 3 MG TAB PO PRN (21:29)
[2022-12-08] MEDS: ENOXAPARIN INJ 40 MG/0.4 ML SYR SQ SCH (21:29)
[2022-12-08] MEDS: bisacodyL 5 MG TABEC PO SCH (21:37)
[2022-12-09] MEDS ORDERED: VANCOMYCIN LEVEL ONE (05:30)
[2022-12-09 06:27] LABS: Hematocrit (blood only) 27.4 % (42.0-52.0); Hemoglobin 8.9 g/dl (14.0-18.0); Mean Corpuscular Hemoglobin 30.8 pg (25.0-34.0); Mean Corpuscular Hgb Conc 32.5 g/dL (32.0-36.0); Mean Corpuscular Volume 94.8 fL (80.0-100.0); Mean Platelet Volume 11.9 fL (9.4-12.4); Platelet Count 357 K/uL (130-400); RDW Coefficient of Variation 14.9 % (11.5-14.5); RDW Standard Deviation 51.7 fL (36.4-46.3); Red Blood Count 2.89 M/uL (4.70-6.10); White Blood Count 8.22 K/ul (4.8-10.8)
[2022-12-09] MEDS: ACETAMINOPHEN 500 MG TAB PO SCH ×3 (06:32→20:11)
[2022-12-09 06:45] LABS: BUN Creatinine Ratio 23.6 (10-20); Calcium 9.1 mg/dl (8.6-10.3); Creatinine Clr Calc Pharmacy 148.2 ml/min; Est GFR (African American) 111.1 ml/min; Est GFR (Non-African American) 95.9 ml/min; Magnesium 1.4 mg/dl (1.7-2.4); Phosphorus 3.7 mg/dl (2.5-4.9); Potassium 3.9 mmol/L (3.5-5.1)
[2022-12-09] MEDS: VANCOMYCIN HCL 1,250 MG in SODIUM CHLORIDE 0.9% 250 ML IV SCH ×2 (07:28→18:36)
[2022-12-09] MEDS: UMECLIDINIUM/VILANTEROL 62.5/25MCG 7 PUFFS/INHALER INH SCH (08:02)
[2022-12-09] MEDS: FLUTICASONE FUROATE 100MCG 14 PUFFS/INHALER INH SCH (08:02)
[2022-12-09] MEDS: PANTOprazole 40 MG TAB PO SCH ×2 (08:03→20:12)
[2022-12-09] MEDS: DOCUSATE SODIUM/SENNA 50/8.6MG TAB PO SCH ×2 (08:03→20:12)
[2022-12-09] MEDS: MAGNESIUM OXIDE 400 MG TAB PO SCH ×2 (08:03→20:13)
[2022-12-09] MEDS: MULTIVITAMIN TAB PO SCH (08:03)
[2022-12-09] MEDS: MAGNESIUM CHLORIDE W/CALCIUM 64MG DELAYED REL TAB PO SCH ×2 (08:03→20:12)
[2022-12-09] MEDS: CITALOPRAM 20 MG TAB PO SCH ×2 (08:03→20:12)
[2022-12-09] MEDS: FUROSEMIDE 40 MG TAB PO SCH (08:03)
[2022-12-09] MEDS: VITAMIN B COMPLEX TAB PO SCH (08:03)
[2022-12-09] MEDS: TRIAMCINOLONE ACET 0.1% OINT 15 GM TUBE EXT SCH ×3 (08:03→20:12)
[2022-12-09] MEDS: INSULIN ASPART PER UNIT CHARGE SC SCH ×4 (08:46→20:10)
[2022-12-09] MEDS: HYDROmorphone INJ 0.5 MG/0.5 ML SYR IV PRN ×3 (09:44→23:01)
[2022-12-09] MEDS: FERROUS SULFATE 325 MG TAB PO SCH (09:44)
[2022-12-09] MEDS: MAGNESIUM SULFATE / D5W 1 GM/100 ML BAG IV SCH ×2 (09:44→11:17)
--- NOTE | 2022-12-09 10:23 | Pharmacy Report ---
Pharmacy PK ABX Note - Date of Service December 09, 2022 - Assessment and Plan Assessment 12/09: * Vancomycin level this AM predicts an AUC/VISHAL within goal range, continue current regimen. 12/06: * Vancomycin level this morning predicts an AUC/VISHAL within goal range, continue current regimen 12/04: * Vanc level obtained this morning, indicating that current regimen is appropriate to continue (predicted AUC 461mg/L.hr). * Would prefer AUC at higher end of 400-600mg/L.hr range. PM dose of vanc was delayed by 4 hours yesterday. Expect that level would have been higher without this delay, achieving AUC at the higher end of goal. * No changes at this time. 12/02: * 67 year old M receiving vancomycin for treatment of MRSA bacteremia. Pertinent microbiologic data includes: blood culture growing MRSA from 11/26; blood culture growing MRSA from 11/27; blood culture growing MRSA from 11/28. Blood cultures from 11/29 (+) MRSA. 12/01 surveillance cultures negative at 24h. ID following. * Day # 4 of antimicrobial therapy. Plan Vancomycin * Continue Vanc 1250mg IV q12h * Daily serum creatinine ordered * No further levels have been ordered at this time. Will consider ordering additional levels/labs as clinically indicated if patient is still hospitalized. Pharmacy will continue to follow and will adjust dose/frequency as necessary. Thank you. Pharmacy has transitioned to AUC monitoring for vancomycin. AUC/VISHAL is the preferred PK/PD target and is associated with decreased risk of nephrotoxicity compared to traditional trough targets.
--- NOTE | 2022-12-09 14:19 | Hospitalist Progress Note ---
Date of Service December 09, 2022 Assessment & Plan (1) Sepsis: (2) Hypercapnic respiratory failure, chronic: (3) Hyponatremia: (4) Falls: (5) Hypomagnesemia: (6) Diabetes mellitus, type II: (7) Anemia: (8) Nocturnal hypoxia: (9) COPD (chronic obstructive pulmonary disease): (10) Depression: (11) Cirrhosis: (12) Chronic pain syndrome: Plan: Plan Mr. Carbajal is 67 year old gentleman who follows with [facility] with complex medical history of DM II, prior chronic pain no longer on narcotics, cirrhosis, history of splenectomy, history of Jazmyne's gangrene, lymphedema, nocturnal hypoxia who presented on 11/26 with multiple falls at home and found to have MRSA bacteremia. TTE was not able to r/o abscess/vegetations and JAKE was attempted but not successful due to encephalopathy and respiratory liability. 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 Course has been complicated by metabolic encephalopathy and acute on chronic hypercapnic respiratory failure, prompting over night transfer to ICU on 11/30. Patient not deemed a candidate for JAKE given varices and respiratory status, therefore unable to r/o cardiac etiology of bacteremia. Course in icu with relative hypotension. VBG with in uptrending pCO2. Per ICU, deemed appropriate for downgrade on 12/02 with patient to continue bipap and wean as able throughout day. Given intermittent fevers, hypotension, poor TTE imaging/inability to obtain JAKE, and findings on CT, IR aspiration of shoulder was pursued on 12/02. Aspirate within values suggestive for septic arthritis, likely explaining poor clinical progress. Patient underwent washout/shoulder synovectomy and extensive debridement. Right knee also with concerns of septic arthritis during surgical evaluation on 12/03. Now s/p right knee washout on 12/04. Discussed with Dr Story Infectious disease, [[place] text communication] new recommendations for duration of abx. The plan is for 6 weeks of therapy from 12/04 (last washout). This prolonged duration is due to inability to confirm/refute presence of vegetations with JAKE. EOT 01/15/2023 Patient reporting daily improvement and eager to transition to rehab. Currently multiple authorizations are pending. #Right shoulder septic arthritis #Extensive synovitis of right shoulder #Right knee septic arthritis #Persistent MRSA bacteremia, unclear source #Sepsis 2/2 MRSA bacteremia*resolved #Leukocytosis *resolved On admission, HR 110, WBC 15.16, meeting SIRs criteria. Lactate wnl, procal 4.75 CT abd/pelvis without acute infectious abnormality but did note mildly thickened appendiceal tip with a small appendiceal nodule. No evidence for acute appendicitis. CTA chest with suspected right glenohumeral joint effusion with adjacent stranding and two punctate locules of soft tissue gas. The findings are likely related to severe osteoarthritis. However, a superimposed infectious etiology would be difficult to completely exclude. Dedicated shoulder xray notes severe OA; UA abnormal with trace leuk est, + nitrite, 3+ blood, urine Cx with no significant growth at this time. CT R shoulder with subcutaneous edema and effusion; Blood cultures +11/26-11/29 NRSA, repeat NGTD, synovial aspirate R Shoulder MRSA 12/02 -IR aspiration 12/02: WBC 25196, 91% PMNS -Orthopedics called on 12/01: -s/p extensive washout of right shoulder 12/03 -s/p right knee washout 12/04 -Continue Vancomycin EOT 01/15/2023 -pharmacy managing -Dressing changes per ortho recs. #Acute metabolic encephalopathy *resolved -Transferred to ICU given progressive hypercarbia and worsening mentation on 11/30 -Appears to be at baseline #Acute on Chronic hypercapnic respiratory failure *stable/baseline Baselin 5 L requirement, per pulm now at baseline and stable Continue bipap 18 over 8 with naps and overnight Oxygen saturation goal no higher 88-92% Encourage weight loss CPT ordered Encourage OOB, PT/OT Pulm evaled, reports overall improvement/stable respiratory status #Hyponatremia iso cirrhosis *stable/resolved Na 124 on admission Serum osm 277, urine osm 608, urine na 10 on admission Nephrology consulted: 11/28 Urea 15mg BID, discontinued 12/01 1.5 L fluid limit towards which protein shakes do not count when taking p.o. again and at discharge Bumex resumed, lasix dc'd. #Hypomagnesemia -Replace as needed with IV #Chronic normocytic anemia Stable #Large rotator cuff tear, right #Severe osteoarthritis, right shoulder #Mechanical falls #Rhabdomyolysis *resolved No acute fracture or traumatic findings on imaging as above Head CT with no suggestive cause CK elevated at 4266 on admission and downtrending to 1263 CT imaging of arm, elbow and forearm: OA v ? septic joint PT/OT eval once more stable -Joint washout 12/03 with chondroplasty/synovectomy -Right knee 12/04 with wash out #DMII A1c 7.5 in June 2022, repeat currently 7.6 Hold home agents Basal/bolus insulin while in-patient #COPD History of tobacco use, no longer smoking Continue Bethany Medina #Depression Continue SSRI #Compensated Cirrhosis Listed on outpatient paperwork from [facility], patient a poor historian so unclear Abdomen/pelvis CT notes cirrhosis with varices formation. T. bili 2.1, AST 198, ALT 59 and downtrending currently ALP elevated, ? related to septic joint ammonia WNL, no signs of HE CMP and INR in am Lasix 40mg daily to home bumex. #Chronic Pain syndrome Pt noting he is in significant pain, noted that his pain was not currently being treated. Previously on narcotics but PCP discontinued when he failed UDS. UDS on admission positive for marijuana, endorses daily use Given pt's Hx of frequent falls, severe OA and complaints that his pain is not being treated appropriately, previously temporarily treated while hospitalized with the following regimen: tylenol 1000mg q8h prn for mild pain, po oxycodone 5mg q8h prn for moderate pain and dilaudid 0.5mg q6h prn for severe pain. Minimal opioid requirement DVT Ppx: Lovenox Code status: DNR/DNI per conversation PCP: CLIFTON Pena [facility] Dispo: Pending placement . med/surg. Admission and Anticipated Discharge Date Admission Date: November 26, 2022 Subjective Patient was seen and examined at bedside. Patient was lying in bed, on 3 L oxygen via nasal cannula, resting comfortably, not in any acute distress. Patient reports no pain at right shoulder. Reports some pain in the right knee with motion and with standing, has been stable. No fever or chills. No generalized feeling of illness, reports eating okay and moving ostomy output okay. Physical Exam Physical Exam: GENERAL: Alert and oriented x3. NAD, on 3L O2 via NC. HEENT: No pallor, no icterus. Pupils equal, round and reactive to light. Oral mucosa moist. NECK: No JVD, no neck masses. HEART: S1 and S2 heard. Regular rate and rhythm. No murmur, no gallop. RESPIRATORY SYSTEM: Normal AP diameter. No accessory muscle use. No wheezing, no crackles. ABDOMEN: Soft, bowel sounds present, nontender, no distention. Ostomy bag w/ fecal output noted. CENTRAL NERVOUS SYSTEM: No facial droop. Speech is clear. Obeys simple commands. Moves extremities. EXTREMITIES: Rt shoulder w/ dressng c/d/i. Rt knee w/ dressing c/d/i. Rt knee pain w/ movement. Results & Data Results & Data Vital Signs (Past 12 Hours) Vital Signs Temp Pulse Pulse Resp BP Pulse Ox O2 Del Method 12/09/22 11:23 36.9 C 73 17 137/80 94 Nasal Cannula 12/09/22 08:00 69 12/09/22 08:00 Nasal Cannula 12/09/22 08:00 36.7 C 69 20 103/57 L 98 Nasal Cannula 12/09/22 03:26 37.0 C 72 20 110/65 98 BiPAP O2 Flow Rate FiO2 12/09/22 11:23 12/09/22 08:00 12/09/22 08:00 3 12/09/22 08:00 12/09/22 03:26 30 (1) Sepsis Sepsis acute organ dysfunction status: without acute organ dysfunction Sepsis type: sepsis due to unspecified organism Qualified Code(s): A41.9 - Sepsis, unspecified organism (4) Falls Encounter type: initial encounter Qualified Code(s): W19.XXXA - Unspecified fall, initial encounter
[2022-12-09] MEDS ORDERED: BACLOFEN 10 MG TAB PO PRN (14:21)
[2022-12-09] MEDS: LANTUS PER UNIT CHARGE SQ SCH (20:11)
[2022-12-09] MEDS: bisacodyL 5 MG TABEC PO SCH (20:11)
[2022-12-09] MEDS: MELATONIN 3 MG TAB PO PRN (20:12)
[2022-12-09] MEDS: ENOXAPARIN INJ 40 MG/0.4 ML SYR SQ SCH (20:12)
[2022-12-10] MEDS ORDERED: LORATADINE 10 MG TAB PO ONE (01:30)
[2022-12-10] MEDS: ACETAMINOPHEN 500 MG TAB PO SCH (06:11)
[2022-12-10] MEDS: VANCOMYCIN HCL 1,250 MG in SODIUM CHLORIDE 0.9% 250 ML IV SCH ×2 (06:11→18:06)
[2022-12-10] MEDS ORDERED: ACETAMINOPHEN 325 MG TAB PO PRN (08:15)
[2022-12-10 09:10] LABS: Creatinine Clr Calc Pharmacy 138.6 ml/min; Est GFR (African American) 108.1 ml/min; Est GFR (Non-African American) 93.2 ml/min
[2022-12-10] MEDS: INSULIN ASPART PER UNIT CHARGE SC SCH ×4 (09:25→19:53)
[2022-12-10] MEDS: MULTIVITAMIN TAB PO SCH (09:28)
[2022-12-10] MEDS: PANTOprazole 40 MG TAB PO SCH ×2 (09:28→19:57)
[2022-12-10] MEDS: BUMETANIDE 1 MG TAB PO SCH (09:28)
[2022-12-10] MEDS: MAGNESIUM OXIDE 400 MG TAB PO SCH ×2 (09:28→19:55)
[2022-12-10] MEDS: VITAMIN B COMPLEX TAB PO SCH (09:28)
[2022-12-10] MEDS: MAGNESIUM CHLORIDE W/CALCIUM 64MG DELAYED REL TAB PO SCH ×2 (09:28→19:56)
[2022-12-10] MEDS: FERROUS SULFATE 325 MG TAB PO SCH (09:29)
[2022-12-10] MEDS: FLUTICASONE FUROATE 100MCG 14 PUFFS/INHALER INH SCH (09:29)
[2022-12-10] MEDS: DOCUSATE SODIUM/SENNA 50/8.6MG TAB PO SCH ×2 (09:29→19:59)
[2022-12-10] MEDS: CITALOPRAM 20 MG TAB PO SCH ×2 (09:29→19:56)
[2022-12-10] MEDS: UMECLIDINIUM/VILANTEROL 62.5/25MCG 7 PUFFS/INHALER INH SCH (09:30)
[2022-12-10] MEDS: TRIAMCINOLONE ACET 0.1% OINT 15 GM TUBE EXT SCH ×3 (09:36→20:01)
[2022-12-10] MEDS: oxyCODONE/ACETAMINOPHEN 5mg/325mg TAB PO PRN ×2 (09:42→18:15)
--- NOTE | 2022-12-10 15:37 | Hospitalist Progress Note ---
Date of Service December 10, 2022 Assessment & Plan (1) Sepsis: (2) Hypercapnic respiratory failure, chronic: (3) Hyponatremia: (4) Falls: (5) Hypomagnesemia: (6) Diabetes mellitus, type II: (7) Anemia: (8) Nocturnal hypoxia: (9) COPD (chronic obstructive pulmonary disease): (10) Depression: (11) Cirrhosis: (12) Chronic pain syndrome: Plan: Plan Mr. Carbajal is 67 year old gentleman who follows with [facility] with complex medical history of DM II, prior chronic pain no longer on narcotics, cirrhosis, history of splenectomy, history of Jazmyne's gangrene, lymphedema, nocturnal hypoxia who presented on 11/26 with multiple falls at home and found to have MRSA bacteremia. TTE was not able to r/o abscess/vegetations and JAKE was attempted but not successful due to encephalopathy and respiratory liability. Given cardiac comorbidities, if source is cardiac in nature, it would not pattern changer and repairer; however, there was looming concern for septic joint given subcutaneous edema and effusion of right shoulder noted on repeat CT with con on 12/01. Course has been complicated by metabolic encephalopathy and acute on chronic hypercapnic respiratory failure, prompting over night transfer to ICU on 11/30. Patient not deemed a candidate for JAKE given varices and respiratory status, therefore unable to r/o cardiac etiology of bacteremia. Course in icu with relative hypotension. VBG with in uptrending pCO2. Per ICU, deemed appropriate for downgrade on 12/02 with patient to continue bipap and wean as able throughout day. Given intermittent fevers, hypotension, poor TTE imaging/inability to obtain JAKE, and findings on CT, IR aspiration of shoulder was pursued on 12/02. Aspirate within values suggestive for septic arthritis, likely explaining poor clinical progress. Patient underwent washout/shoulder synovectomy and extensive debridement. Right knee also with concerns of septic arthritis during surgical evaluation on 12/03. Now s/p right knee washout on 12/04. Discussed with Dr Story Infectious disease, [[place] text communication] new recommendations for duration of abx. The plan is for 6 weeks of therapy from 12/04 (last washout). This prolonged duration is due to inability to confirm/refute presence of vegetations with JAKE. EOT 01/15/2023 Patient reporting daily improvement and eager to transition to rehab. Currently multiple authorizations are pending. #Right shoulder septic arthritis #Extensive synovitis of right shoulder #Right knee septic arthritis #Persistent MRSA bacteremia, unclear source #Sepsis 2/2 MRSA bacteremia*resolved #Leukocytosis *resolved On admission, HR 110, WBC 15.16, meeting SIRs criteria. Lactate wnl, procal 4.75 CT abd/pelvis without acute infectious abnormality but did note mildly thickened appendiceal tip with a small appendiceal nodule. No evidence for acute appendicitis. CTA chest with suspected right glenohumeral joint effusion with adjacent stranding and two punctate locules of soft tissue gas. The findings are likely related to severe osteoarthritis. However, a superimposed infectious etiology would be difficult to completely exclude. Dedicated shoulder xray notes severe OA; UA abnormal with trace leuk est, + nitrite, 3+ blood, urine Cx with no significant growth at this time. CT R shoulder with subcutaneous edema and effusion; Blood cultures +11/26-11/29 NRSA, repeat NGTD, synovial aspirate R Shoulder MRSA 12/02 -IR aspiration 12/02: WBC 30165, 91% PMNS -Orthopedics called on 12/01: -s/p extensive washout of right shoulder 12/03 -s/p right knee washout 12/04 -Continue Vancomycin EOT 01/15/2023 -pharmacy managing -Dressing changes per ortho recs. #Acute metabolic encephalopathy *resolved -Transferred to ICU given progressive hypercarbia and worsening mentation on 11/30 -Appears to be at baseline #Acute on Chronic hypercapnic respiratory failure *stable/baseline Baselin 5 L requirement, per pulm now at baseline and stable Continue bipap 18 over 8 with naps and overnight Oxygen saturation goal no higher 88-92% Encourage weight loss CPT ordered Encourage OOB, PT/OT Pulm evaled, reports overall improvement/stable respiratory status #Hyponatremia iso cirrhosis *stable/resolved Na 124 on admission Serum osm 277, urine osm 608, urine na 10 on admission Nephrology consulted: 11/28 Urea 15mg BID, discontinued 12/01 1.5 L fluid limit towards which protein shakes do not count when taking p.o. again and at discharge Bumex resumed, lasix dc'd. #Hypomagnesemia -Replace as needed with IV #Chronic normocytic anemia Stable #Large rotator cuff tear, right #Severe osteoarthritis, right shoulder #Mechanical falls #Rhabdomyolysis *resolved No acute fracture or traumatic findings on imaging as above Head CT with no suggestive cause CK elevated at 4266 on admission and downtrending to 1263 CT imaging of arm, elbow and forearm: OA v ? septic joint PT/OT eval once more stable -Joint washout 12/03 with chondroplasty/synovectomy -Right knee 12/04 with wash out #DMII A1c 7.5 in June 2022, repeat currently 7.6 Hold home agents Basal/bolus insulin while in-patient #COPD History of tobacco use, no longer smoking Continue Bethany Medina #Depression Continue SSRI #Compensated Cirrhosis Listed on outpatient paperwork from [facility], patient a poor historian so unclear Abdomen/pelvis CT notes cirrhosis with varices formation. T. bili 2.1, AST 198, ALT 59 and downtrending currently ALP elevated, ? related to septic joint ammonia WNL, no signs of HE CMP and INR in am Lasix 40mg daily to home bumex. #Chronic Pain syndrome Pt noting he is in significant pain, noted that his pain was not currently being treated. Previously on narcotics but PCP discontinued when he failed UDS. UDS on admission positive for marijuana, endorses daily use Given pt's Hx of frequent falls, severe OA and complaints that his pain is not being treated appropriately, previously temporarily treated while hospitalized with the following regimen: tylenol 1000mg q8h prn for mild pain, po oxycodone 5mg q8h prn for moderate pain and dilaudid 0.5mg q6h prn for severe pain. Minimal opioid requirement DVT Ppx: Lovenox Code status: DNR/DNI per conversation PCP: CLIFTON Pena [facility] Dispo: Pending placement . med/surg. Admission and Anticipated Discharge Date Admission Date: November 26, 2022 Subjective Patient was seen and examined at bedside. Patient was sitting up in bed, on 3 L oxygen via nasal cannula, working w/ pt/ot, not in any acute distress. Patient reports no pain at right shoulder. Reports some pain in the right knee with motion and with standing, has been stable. No fever or chills. No generalized feeling of illness, reports eating okay and moving ostomy output okay. PICC line consent obtained, order placed. Physical Exam Physical Exam: GENERAL: Alert and oriented x3. NAD, on 3L O2 via NC. HEENT: No pallor, no icterus. Pupils equal, round and reactive to light. Oral mucosa moist. NECK: No JVD, no neck masses. HEART: S1 and S2 heard. Regular rate and rhythm. No murmur, no gallop. RESPIRATORY SYSTEM: Normal AP diameter. No accessory muscle use. No wheezing, no crackles. ABDOMEN: Soft, bowel sounds present, nontender, no distention. Ostomy bag w/ fecal output noted. CENTRAL NERVOUS SYSTEM: No facial droop. Speech is clear. Obeys simple commands. Moves extremities. EXTREMITIES: Rt shoulder w/ dressng c/d/i. Rt knee w/ dressing c/d/i. Rt knee pain w/ movement. 2+ ble edema Results & Data Results & Data Vital Signs (Past 12 Hours) Vital Signs Temp Pulse Resp BP Pulse Ox O2 Del Method O2 Flow Rate 12/10/22 06:20 36.8 C 78 16 147/89 H 96 Nasal Cannula 3 (1) Sepsis Sepsis acute organ dysfunction status: without acute organ dysfunction Sepsis type: sepsis due to unspecified organism Qualified Code(s): A41.9 - Sepsis, unspecified organism (4) Falls Encounter type: initial encounter Qualified Code(s): W19.XXXA - Unspecified fall, initial encounter
[2022-12-10] MEDS: ENOXAPARIN INJ 40 MG/0.4 ML SYR SQ SCH (18:05)
[2022-12-10] MEDS: LANTUS PER UNIT CHARGE SQ SCH (19:53)
[2022-12-10] MEDS: MELATONIN 3 MG TAB PO PRN (19:57)
[2022-12-10] MEDS: bisacodyL 5 MG TABEC PO SCH (19:59)
[2022-12-11] MEDS: VANCOMYCIN HCL 1,250 MG in SODIUM CHLORIDE 0.9% 250 ML IV SCH ×2 (05:31→17:04)
[2022-12-11] MEDS: oxyCODONE/ACETAMINOPHEN 5mg/325mg TAB PO PRN ×3 (06:12→20:55)
[2022-12-11 06:57] LABS: Creatinine Clr Calc Pharmacy 133.4 ml/min; Est GFR (African American) 106.4 ml/min; Est GFR (Non-African American) 91.8 ml/min
[2022-12-11] MEDS: MAGNESIUM CHLORIDE W/CALCIUM 64MG DELAYED REL TAB PO SCH ×2 (08:48→20:53)
[2022-12-11] MEDS: FERROUS SULFATE 325 MG TAB PO SCH (08:48)
[2022-12-11] MEDS: BUMETANIDE 1 MG TAB PO SCH (08:48)
[2022-12-11] MEDS: MULTIVITAMIN TAB PO SCH (08:48)
[2022-12-11] MEDS: CITALOPRAM 20 MG TAB PO SCH ×2 (08:48→20:52)
[2022-12-11] MEDS: PANTOprazole 40 MG TAB PO SCH ×2 (08:48→20:52)
[2022-12-11] MEDS: MAGNESIUM OXIDE 400 MG TAB PO SCH ×2 (08:49→20:52)
[2022-12-11] MEDS: UMECLIDINIUM/VILANTEROL 62.5/25MCG 7 PUFFS/INHALER INH SCH (08:49)
[2022-12-11] MEDS: VITAMIN B COMPLEX TAB PO SCH (08:49)
[2022-12-11] MEDS: FLUTICASONE FUROATE 100MCG 14 PUFFS/INHALER INH SCH (08:49)
[2022-12-11] MEDS: TRIAMCINOLONE ACET 0.1% OINT 15 GM TUBE EXT SCH ×3 (08:50→20:54)
[2022-12-11] MEDS: INSULIN ASPART PER UNIT CHARGE SC SCH ×4 (08:55→20:53)
[2022-12-11] MEDS: DOCUSATE SODIUM/SENNA 50/8.6MG TAB PO SCH ×2 (09:02→20:52)
[2022-12-11] MEDS ORDERED: diphenhydrAMINE HCL 25 MG/10 ML UDC PO PRN (13:34)
[2022-12-11] MEDS: diphenhydrAMINE HCl 12.5 MG/5 ML UDC PO PRN (15:07)
--- NOTE | 2022-12-11 15:10 | Hospitalist Progress Note ---
Date of Service December 11, 2022 Assessment & Plan (1) Sepsis: (2) Hypercapnic respiratory failure, chronic: (3) Hyponatremia: (4) Falls: (5) Hypomagnesemia: (6) Diabetes mellitus, type II: (7) Anemia: (8) Nocturnal hypoxia: (9) COPD (chronic obstructive pulmonary disease): (10) Depression: (11) Cirrhosis: (12) Chronic pain syndrome: Plan: Plan Mr. Carbajal is 67 year old gentleman who follows with [facility] with complex medical history of DM II, prior chronic pain no longer on narcotics, cirrhosis, history of splenectomy, history of Jazmyne's gangrene, lymphedema, nocturnal hypoxia who presented on 11/26 with multiple falls at home and found to have MRSA bacteremia. TTE was not able to r/o abscess/vegetations and JAKE was attempted but not successful due to encephalopathy and respiratory liability. Given cardiac comorbidities, if source is cardiac in nature, it would not traveler changer; however, there was looming concern for septic joint given subcutaneous edema and effusion of right shoulder noted on repeat CT with con on 12/01. Course has been complicated by metabolic encephalopathy and acute on chronic hypercapnic respiratory failure, prompting over night transfer to ICU on 11/30. Patient not deemed a candidate for JAKE given varices and respiratory status, therefore unable to r/o cardiac etiology of bacteremia. Course in icu with relative hypotension. VBG with in uptrending pCO2. Per ICU, deemed appropriate for downgrade on 12/02 with patient to continue bipap and wean as able throughout day. Given intermittent fevers, hypotension, poor TTE imaging/inability to obtain JAKE, and findings on CT, IR aspiration of shoulder was pursued on 12/02. Aspirate within values suggestive for septic arthritis, likely explaining poor clinical progress. Patient underwent washout/shoulder synovectomy and extensive debridement. Right knee also with concerns of septic arthritis during surgical evaluation on 12/03. Now s/p right knee washout on 12/04. Discussed with Dr Story Infectious disease, [[place] text communication] new recommendations for duration of abx. The plan is for 6 weeks of therapy from 12/04 (last washout). This prolonged duration is due to inability to confirm/refute presence of vegetations with JAKE. EOT 01/15/2023 Patient reporting daily improvement and eager to transition to rehab. Currently multiple authorizations are pending. PICC line was difficult, iv team to re-eval for picc line again; if not able will call vascular sx to help w/ access for iv vanc on dc. #Right shoulder septic arthritis #Extensive synovitis of right shoulder #Right knee septic arthritis #Persistent MRSA bacteremia, unclear source #Sepsis 2/2 MRSA bacteremia*resolved #Leukocytosis *resolved On admission, HR 110, WBC 15.16, meeting SIRs criteria. Lactate wnl, procal 4.75 CT abd/pelvis without acute infectious abnormality but did note mildly thickened appendiceal tip with a small appendiceal nodule. No evidence for acute appendicitis. CTA chest with suspected right glenohumeral joint effusion with adjacent stranding and two punctate locules of soft tissue gas. The findings are likely related to severe osteoarthritis. However, a superimposed infectious etiology would be difficult to completely exclude. Dedicated shoulder xray notes severe OA; UA abnormal with trace leuk est, + nitrite, 3+ blood, urine Cx with no significant growth at this time. CT R shoulder with subcutaneous edema and effusion; Blood cultures +11/26-11/29 NRSA, repeat NGTD, synovial aspirate R Shoulder MRSA 12/02 -IR aspiration 12/02: WBC 80831, 91% PMNS -Orthopedics called on 12/01: -s/p extensive washout of right shoulder 12/03 -s/p right knee washout 12/04 -Continue Vancomycin EOT 01/15/2023 -pharmacy managing -Dressing changes per ortho recs. #Acute metabolic encephalopathy *resolved -Transferred to ICU given progressive hypercarbia and worsening mentation on 11/30 -Appears to be at baseline #Acute on Chronic hypercapnic respiratory failure *stable/baseline Baselin 5 L requirement, per pulm now at baseline and stable Continue bipap 18 over 8 with naps and overnight Oxygen saturation goal no higher 88-92% Encourage weight loss CPT ordered Encourage OOB, PT/OT Pulm evaled, reports overall improvement/stable respiratory status #Hyponatremia iso cirrhosis *stable/resolved Na 124 on admission Serum osm 277, urine osm 608, urine na 10 on admission Nephrology consulted: 11/28 Urea 15mg BID, discontinued 12/01 1.5 L fluid limit towards which protein shakes do not count when taking p.o. again and at discharge Bumex resumed, lasix dc'd. #Hypomagnesemia -Replace as needed with IV #Chronic normocytic anemia Stable #Large rotator cuff tear, right #Severe osteoarthritis, right shoulder #Mechanical falls #Rhabdomyolysis *resolved No acute fracture or traumatic findings on imaging as above Head CT with no suggestive cause CK elevated at 4266 on admission and downtrending to 1263 CT imaging of arm, elbow and forearm: OA v ? septic joint PT/OT eval once more stable -Joint washout 12/03 with chondroplasty/synovectomy -Right knee 12/04 with wash out #DMII A1c 7.5 in June 2022, repeat currently 7.6 Hold home agents Basal/bolus insulin while in-patient #COPD History of tobacco use, no longer smoking Continue AlleBethany nathan #Depression Continue SSRI #Compensated Cirrhosis Listed on outpatient paperwork from [facility], patient a poor historian so unclear Abdomen/pelvis CT notes cirrhosis with varices formation. T. bili 2.1, AST 198, ALT 59 and downtrending currently ALP elevated, ? related to septic joint ammonia WNL, no signs of HE CMP and INR in am Lasix 40mg daily to home bumex. #Chronic Pain syndrome Pt noting he is in significant pain, noted that his pain was not currently being treated. Previously on narcotics but PCP discontinued when he failed UDS. UDS on admission positive for marijuana, endorses daily use Given pt's Hx of frequent falls, severe OA and complaints that his pain is not being treated appropriately, previously temporarily treated while hospitalized with the following regimen: tylenol 1000mg q8h prn for mild pain, po oxycodone 5mg q8h prn for moderate pain and dilaudid 0.5mg q6h prn for severe pain. Minimal opioid requirement DVT Ppx: Lovenox Code status: DNR/DNI per conversation PCP: CLIFTON Pena [facility] Dispo: Pending iv access for vanc on dc . med/surg. Admission and Anticipated Discharge Date Admission Date: November 26, 2022 Subjective Patient was seen and examined at bedside. Patient was sitting up in bed, on 3 L oxygen via nasal cannula, working w/ pt/ot, not in any acute distress. Patient reports no pain at right shoulder. Reports some pain in the right knee with motion and with standing, has been stable. No fever or chills. No generalized feeling of illness, reports eating okay and moving ostomy output okay. Physical Exam Physical Exam: GENERAL: Alert and oriented x3. NAD, on 3L O2 via NC. HEENT: No pallor, no icterus. Pupils equal, round and reactive to light. Oral mucosa moist. NECK: No JVD, no neck masses. HEART: S1 and S2 heard. Regular rate and rhythm. No murmur, no gallop. RESPIRATORY SYSTEM: Normal AP diameter. No accessory muscle use. No wheezing, no crackles. ABDOMEN: Soft, bowel sounds present, nontender, no distention. Ostomy bag w/ fecal output noted. CENTRAL NERVOUS SYSTEM: No facial droop. Speech is clear. Obeys simple commands. Moves extremities. EXTREMITIES: Rt shoulder w/ dressng c/d/i. Rt knee w/ dressing c/d/i. Rt knee pain w/ movement. 2+ ble edema Results & Data Results & Data Vital Signs (Past 12 Hours) Vital Signs Temp Pulse Resp BP Pulse Ox O2 Del Method O2 Flow Rate 12/11/22 13:05 Nasal Cannula 3 12/11/22 07:17 36.9 C 76 18 110/58 L 98 Nasal Cannula 3 (1) Sepsis Sepsis acute organ dysfunction status: without acute organ dysfunction Sepsis type: sepsis due to unspecified organism Qualified Code(s): A41.9 - Sepsis, unspecified organism (4) Falls Encounter type: initial encounter Qualified Code(s): W19.XXXA - Unspecified fall, initial encounter
[2022-12-11] MEDS: ENOXAPARIN INJ 40 MG/0.4 ML SYR SQ SCH (17:02)
[2022-12-11] MEDS: bisacodyL 5 MG TABEC PO SCH (20:52)
[2022-12-11] MEDS: MELATONIN 3 MG TAB PO PRN (20:52)
[2022-12-11] MEDS: LANTUS PER UNIT CHARGE SQ SCH (20:53)
[2022-12-12] MEDS: oxyCODONE/ACETAMINOPHEN 5mg/325mg TAB PO PRN ×3 (05:27→22:35)
[2022-12-12] MEDS: VANCOMYCIN HCL 1,250 MG in SODIUM CHLORIDE 0.9% 250 ML IV SCH ×2 (05:30→17:20)
[2022-12-12 06:23] LABS: Creatinine Clr Calc Pharmacy 135.1 ml/min; Est GFR (African American) 106.9 ml/min; Est GFR (Non-African American) 92.3 ml/min
[2022-12-12] MEDS: MAGNESIUM CHLORIDE W/CALCIUM 64MG DELAYED REL TAB PO SCH ×2 (09:16→22:37)
[2022-12-12] MEDS: PANTOprazole 40 MG TAB PO SCH ×2 (09:16→22:38)
[2022-12-12] MEDS: DOCUSATE SODIUM/SENNA 50/8.6MG TAB PO SCH ×2 (09:16→22:34)
[2022-12-12] MEDS: MAGNESIUM OXIDE 400 MG TAB PO SCH ×2 (09:16→22:34)
[2022-12-12] MEDS: FLUTICASONE FUROATE 100MCG 14 PUFFS/INHALER INH SCH (09:16)
[2022-12-12] MEDS: MULTIVITAMIN TAB PO SCH (09:16)
[2022-12-12] MEDS: UMECLIDINIUM/VILANTEROL 62.5/25MCG 7 PUFFS/INHALER INH SCH (09:16)
[2022-12-12] MEDS: VITAMIN B COMPLEX TAB PO SCH (09:16)
[2022-12-12] MEDS: FERROUS SULFATE 325 MG TAB PO SCH (09:16)
[2022-12-12] MEDS: CITALOPRAM 20 MG TAB PO SCH ×2 (09:16→22:37)
[2022-12-12] MEDS: INSULIN ASPART PER UNIT CHARGE SC SCH ×4 (09:20→22:35)
[2022-12-12] MEDS: TRIAMCINOLONE ACET 0.1% OINT 15 GM TUBE EXT SCH ×3 (09:21→22:38)
[2022-12-12] MEDS: diphenhydrAMINE HCl 12.5 MG/5 ML UDC PO PRN ×2 (09:31→17:18)
[2022-12-12] MEDS: BUMETANIDE 1 MG TAB PO SCH (11:19)
--- NOTE | 2022-12-12 16:24 | Hospitalist Progress Note ---
Date of Service December 12, 2022 Assessment & Plan (1) Sepsis: (2) Hypercapnic respiratory failure, chronic: (3) Hyponatremia: (4) Falls: (5) Hypomagnesemia: (6) Diabetes mellitus, type II: (7) Anemia: (8) Nocturnal hypoxia: (9) COPD (chronic obstructive pulmonary disease): (10) Depression: (11) Cirrhosis: (12) Chronic pain syndrome: Plan: Plan Mr. Carbajal is 67 year old gentleman who follows with [facility] with complex medical history of DM II, prior chronic pain no longer on narcotics, cirrhosis, history of splenectomy, history of Jazmyne's gangrene, lymphedema, nocturnal hypoxia who presented on 11/26 with multiple falls at home and found to have MRSA bacteremia. TTE was not able to r/o abscess/vegetations and JAKE was attempted but not successful due to encephalopathy and respiratory liability. 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 Course has been complicated by metabolic encephalopathy and acute on chronic hypercapnic respiratory failure, prompting over night transfer to ICU on 11/30. Patient not deemed a candidate for JAKE given varices and respiratory status, therefore unable to r/o cardiac etiology of bacteremia. Course in icu with relative hypotension. VBG with in uptrending pCO2. Per ICU, deemed appropriate for downgrade on 12/02 with patient to continue bipap and wean as able throughout day. Given intermittent fevers, hypotension, poor TTE imaging/inability to obtain JAKE, and findings on CT, IR aspiration of shoulder was pursued on 12/02. Aspirate within values suggestive for septic arthritis, likely explaining poor clinical progress. Patient underwent washout/shoulder synovectomy and extensive debridement. Right knee also with concerns of septic arthritis during surgical evaluation on 12/03. Now s/p right knee washout on 12/04. Discussed with Dr Story Infectious disease, [[place] text communication] new recommendations for duration of abx. The plan is for 6 weeks of therapy from 12/04 (last washout). This prolonged duration is due to inability to confirm/refute presence of vegetations with JAKE. EOT 01/15/2023 Patient reporting daily improvement and eager to transition to rehab. Currently multiple authorizations are pending. PICC line was difficult, iv team to re-eval for picc line again; if not able will call vascular sx to help w/ access for iv vanc on dc. #Right shoulder septic arthritis #Extensive synovitis of right shoulder #Right knee septic arthritis #Persistent MRSA bacteremia, unclear source #Sepsis 2/2 MRSA bacteremia*resolved #Leukocytosis *resolved On admission, HR 110, WBC 15.16, meeting SIRs criteria. Lactate wnl, procal 4.75 CT abd/pelvis without acute infectious abnormality but did note mildly thickened appendiceal tip with a small appendiceal nodule. No evidence for acute appendicitis. CTA chest with suspected right glenohumeral joint effusion with adjacent stranding and two punctate locules of soft tissue gas. The findings are likely related to severe osteoarthritis. However, a superimposed infectious etiology would be difficult to completely exclude. Dedicated shoulder xray notes severe OA; UA abnormal with trace leuk est, + nitrite, 3+ blood, urine Cx with no significant growth at this time. CT R shoulder with subcutaneous edema and effusion; Blood cultures +11/26-11/29 NRSA, repeat NGTD, synovial aspirate R Shoulder MRSA 12/02 -IR aspiration 12/02: WBC 87343, 91% PMNS -Orthopedics called on 12/01: -s/p extensive washout of right shoulder 12/03 -s/p right knee washout 12/04 -Continue Vancomycin EOT 01/15/2023 -pharmacy managing -Dressing changes per ortho recs. #Acute metabolic encephalopathy *resolved -Transferred to ICU given progressive hypercarbia and worsening mentation on 11/30 -Appears to be at baseline #Acute on Chronic hypercapnic respiratory failure *stable/baseline Baselin 5 L requirement, per pulm now at baseline and stable Continue bipap 18 over 8 with naps and overnight Oxygen saturation goal no higher 88-92% Encourage weight loss CPT ordered Encourage OOB, PT/OT Pulm evaled, reports overall improvement/stable respiratory status #Hyponatremia iso cirrhosis *stable/resolved Na 124 on admission Serum osm 277, urine osm 608, urine na 10 on admission Nephrology consulted: 11/28 Urea 15mg BID, discontinued 12/01 1.5 L fluid limit towards which protein shakes do not count when taking p.o. again and at discharge Bumex resumed, lasix dc'd. #Hypomagnesemia -Replace as needed with IV #Chronic normocytic anemia Stable #Large rotator cuff tear, right #Severe osteoarthritis, right shoulder #Mechanical falls #Rhabdomyolysis *resolved No acute fracture or traumatic findings on imaging as above Head CT with no suggestive cause CK elevated at 4266 on admission and downtrending to 1263 CT imaging of arm, elbow and forearm: OA v ? septic joint PT/OT eval once more stable -Joint washout 12/03 with chondroplasty/synovectomy -Right knee 12/04 with wash out #DMII A1c 7.5 in June 2022, repeat currently 7.6 Hold home agents Basal/bolus insulin while in-patient #COPD History of tobacco use, no longer smoking Continue Bethany Medina #Depression Continue SSRI #Compensated Cirrhosis Listed on outpatient paperwork from [facility], patient a poor historian so unclear Abdomen/pelvis CT notes cirrhosis with varices formation. T. bili 2.1, AST 198, ALT 59 and downtrending currently ALP elevated, ? related to septic joint ammonia WNL, no signs of HE CMP and INR in am Lasix 40mg daily to home bumex. #Chronic Pain syndrome Pt noting he is in significant pain, noted that his pain was not currently being treated. Previously on narcotics but PCP discontinued when he failed UDS. UDS on admission positive for marijuana, endorses daily use Given pt's Hx of frequent falls, severe OA and complaints that his pain is not being treated appropriately, previously temporarily treated while hospitalized with the following regimen: tylenol 1000mg q8h prn for mild pain, po oxycodone 5mg q8h prn for moderate pain and dilaudid 0.5mg q6h prn for severe pain. Minimal opioid requirement DVT Ppx: Lovenox Code status: DNR/DNI per conversation PCP: CLIFTON Pena [facility] Dispo: per iv team can't perform picc line x 2; will consult vascular Sx in AM. Admission and Anticipated Discharge Date Admission Date: November 26, 2022 Subjective Patient was seen and examined at bedside. Patient was sitting up in bed, on 3 L oxygen via nasal cannula, working w/ pt/ot, not in any acute distress. Patient reports no pain at right shoulder. Reports improving right knee pain with motion and with standing. No fever or chills. No generalized feeling of illness, reports eating okay and moving ostomy output okay. Physical Exam 2 Physical Exam: GENERAL: Alert and oriented x3. NAD, on 3L O2 via NC. HEENT: No pallor, no icterus. Pupils equal, round and reactive to light. Oral mucosa moist. NECK: No JVD, no neck masses. HEART: S1 and S2 heard. Regular rate and rhythm. No murmur, no gallop. RESPIRATORY SYSTEM: Normal AP diameter. No accessory muscle use. No wheezing, no crackles. ABDOMEN: Soft, bowel sounds present, nontender, no distention. Ostomy bag w/ fecal output noted. CENTRAL NERVOUS SYSTEM: No facial droop. Speech is clear. Obeys simple commands. Moves extremities. EXTREMITIES: Rt shoulder w/ dressng c/d/i. Rt knee w/ dressing c/d/i. Rt knee pain w/ movement. 2+ ble edema Results & Data Results & Data Vital Signs (Past 12 Hours) Vital Signs Temp Pulse Pulse Resp BP BP Pulse Ox 12/12/22 15:12 12/12/22 14:20 37.4 C 76 16 114/69 98 12/12/22 09:13 71 108/68 97 12/12/22 06:56 37 C 69 15 93/54 L 89 L O2 Del Method O2 Flow Rate 12/12/22 15:12 Nasal Cannula 3 12/12/22 14:20 Nasal Cannula 3 12/12/22 09:13 Nasal Cannula 3 12/12/22 06:56 Nasal Cannula 3 (1) Sepsis Sepsis acute organ dysfunction status: without acute organ dysfunction Sepsis type: sepsis due to unspecified organism Qualified Code(s): A41.9 - Sepsis, unspecified organism (4) Falls Encounter type: initial encounter Qualified Code(s): W19.XXXA - Unspecified fall, initial encounter
[2022-12-12] MEDS: ENOXAPARIN INJ 40 MG/0.4 ML SYR SQ SCH (17:18)
[2022-12-12] MEDS: MELATONIN 3 MG TAB PO PRN (22:34)
[2022-12-12] MEDS: LANTUS PER UNIT CHARGE SQ SCH (22:35)
[2022-12-12] MEDS: bisacodyL 5 MG TABEC PO SCH (22:39)
[2022-12-13] MEDS: diphenhydrAMINE HCl 12.5 MG/5 ML UDC PO PRN ×4 (00:28→21:36)
[2022-12-13] MEDS ORDERED: VANCOMYCIN LEVEL ONE (05:00)
[2022-12-13] MEDS: VANCOMYCIN HCL 1,250 MG in SODIUM CHLORIDE 0.9% 250 ML IV SCH ×2 (06:02→17:21)
[2022-12-13 06:20] LABS: Creatinine Clr Calc Pharmacy 114.8 ml/min; Est GFR (African American) 97.4 ml/min; Est GFR (Non-African American) 84.1 ml/min
--- NOTE | 2022-12-13 08:17 | Communication Note ---
Date of Service: December 13, 2022 Will plan on placement on muñoz tomorrow. Will see patient in am Made him npo after midnight.
--- NOTE | 2022-12-13 08:55 | Pharmacy Report ---
Pharmacy PK ABX Note - Date of Service December 13, 2022 - Assessment and Plan Assessment 12/13: * Day #15 of antimicrobials. 6 weeks of IV vancomycin planned with stop date of 01/15/23 per ID. Vancomycin level this AM predicts an AUC/VISHAL within the goal range. * SCr did bump slightly from 0.79 --> 0.93 mg/dL this AM. Will continue with daily monitoring of renal function for now. * Next level in 4 days. 12/09: * Vancomycin level this AM predicts an AUC/VISHAL within goal range, continue current regimen. 12/06: * Vancomycin level this morning predicts an AUC/VISHAL within goal range, continue current regimen 12/04: * Vanc level obtained this morning, indicating that current regimen is appropriate to continue (predicted AUC 461mg/L.hr). * Would prefer AUC at higher end of 400-600mg/L.hr range. PM dose of vanc was delayed by 4 hours yesterday. Expect that level would have been higher without this delay, achieving AUC at the higher end of goal. * No changes at this time. 12/02: * 67 year old M receiving vancomycin for treatment of MRSA bacteremia. Pertinent microbiologic data includes: blood culture growing MRSA from 11/26; blood culture growing MRSA from 11/27; blood culture growing MRSA from 11/28. Blood cultures from 11/29 (+) MRSA. 12/01 surveillance cultures negative at 24h. ID following. * Day #4 of antimicrobial therapy. Plan Vancomycin * Current regimen: 1250 mg IV every 12 hours * Random level obtained 12/13/22 resulted as 18.9 mcg/mL. This is predicted to achieve target AUC/VISHAL of 400-600 mg/L.hr * Predicted AUC at steady state: 521 mg/L.hr * Continue 1250 mg IV every 12 hours * Repeat random level ordered for: 12/17/22 Pharmacy will continue to follow and will adjust dose/frequency as necessary. Thank you. Pharmacy has transitioned to AUC monitoring for vancomycin. AUC/VISHAL is the preferred PK/PD target and is associated with decreased risk of nephrotoxicity compared to traditional trough targets.
[2022-12-13] MEDS: INSULIN ASPART PER UNIT CHARGE SC SCH ×4 (09:10→21:37)
[2022-12-13] MEDS: VITAMIN B COMPLEX TAB PO SCH (09:13)
[2022-12-13] MEDS: MAGNESIUM OXIDE 400 MG TAB PO SCH ×2 (09:13→21:41)
[2022-12-13] MEDS: MAGNESIUM CHLORIDE W/CALCIUM 64MG DELAYED REL TAB PO SCH ×2 (09:13→21:41)
[2022-12-13] MEDS: CITALOPRAM 20 MG TAB PO SCH ×2 (09:14→21:39)
[2022-12-13] MEDS: FERROUS SULFATE 325 MG TAB PO SCH (09:14)
[2022-12-13] MEDS: BUMETANIDE 1 MG TAB PO SCH (09:14)
[2022-12-13] MEDS: MULTIVITAMIN TAB PO SCH (09:14)
[2022-12-13] MEDS: PANTOprazole 40 MG TAB PO SCH ×2 (09:14→21:40)
[2022-12-13] MEDS: UMECLIDINIUM/VILANTEROL 62.5/25MCG 7 PUFFS/INHALER INH SCH (09:15)
[2022-12-13] MEDS: TRIAMCINOLONE ACET 0.1% OINT 15 GM TUBE EXT SCH ×3 (09:16→21:38)
[2022-12-13] MEDS: FLUTICASONE FUROATE 100MCG 14 PUFFS/INHALER INH SCH (09:16)
[2022-12-13] MEDS: DOCUSATE SODIUM/SENNA 50/8.6MG TAB PO SCH ×2 (09:24→21:38)
[2022-12-13] MEDS: oxyCODONE/ACETAMINOPHEN 5mg/325mg TAB PO PRN ×3 (09:35→21:39)
--- NOTE | 2022-12-13 11:20 | Hospitalist Progress Note ---
Date of Service December 13, 2022 Assessment & Plan (1) Sepsis: (2) Hypercapnic respiratory failure, chronic: (3) Hyponatremia: (4) Falls: (5) Hypomagnesemia: (6) Diabetes mellitus, type II: (7) Anemia: (8) Nocturnal hypoxia: (9) COPD (chronic obstructive pulmonary disease): (10) Depression: (11) Cirrhosis: (12) Chronic pain syndrome: Plan: Plan Mr. Carbajal is 67 year old gentleman who follows with [facility] with complex medical history of DM II, prior chronic pain no longer on narcotics, cirrhosis, history of splenectomy, history of Jazmyne's gangrene, lymphedema, nocturnal hypoxia who presented on 11/26 with multiple falls at home and found to have MRSA bacteremia. TTE was not able to r/o abscess/vegetations and JAKE was attempted but not successful due to encephalopathy and respiratory liability. Given cardiac comorbidities, if source is cardiac in nature, it would not change advisor; however, there was looming concern for septic joint given subcutaneous edema and effusion of right shoulder noted on repeat CT with con on 12/01. Course has been complicated by metabolic encephalopathy and acute on chronic hypercapnic respiratory failure, prompting over night transfer to ICU on 11/30. Patient not deemed a candidate for JAKE given varices and respiratory status, therefore unable to r/o cardiac etiology of bacteremia. Course in icu with relative hypotension. VBG with in uptrending pCO2. Per ICU, deemed appropriate for downgrade on 12/02 with patient to continue bipap and wean as able throughout day. Given intermittent fevers, hypotension, poor TTE imaging/inability to obtain JAKE, and findings on CT, IR aspiration of shoulder was pursued on 12/02. Aspirate within values suggestive for septic arthritis, likely explaining poor clinical progress. Patient underwent washout/shoulder synovectomy and extensive debridement. Right knee also with concerns of septic arthritis during surgical evaluation on 12/03. Now s/p right knee washout on 12/04. Discussed with Dr Story Infectious disease, [[place] text communication] new recommendations for duration of abx. The plan is for 6 weeks of therapy from 12/04 (last washout). This prolonged duration is due to inability to confirm/refute presence of vegetations with JAKE. EOT 01/15/2023 Patient reporting daily improvement and eager to transition to rehab. Currently multiple authorizations are pending. PICC line was difficult and IV team unable to assess, Vascular to place [facility] in am. for IV vanco #Right shoulder septic arthritis #Extensive synovitis of right shoulder #Right knee septic arthritis #Persistent MRSA bacteremia, unclear source #Sepsis 2/2 MRSA bacteremia*resolved #Leukocytosis *resolved On admission, HR 110, WBC 15.16, meeting SIRs criteria. Lactate wnl, procal 4.75 ---CT abd/pelvis without acute infectious abnormality but did note mildly thickened appendiceal tip with a small appendiceal nodule. No evidence for acute appendicitis. ---CTA chest with suspected right glenohumeral joint effusion with adjacent stranding and two punctate locules of soft tissue gas. The findings are likely related to severe osteoarthritis. However, a superimposed infectious etiology would be difficult to completely exclude. ---Dedicated shoulder xray notes severe OA; UA abnormal with trace leuk est, + nitrite, 3+ blood, urine Cx with no significant growth at this time. ---CT R shoulder with subcutaneous edema and effusion; Blood cultures +11/26- 11/29 NRSA, repeat NGTD, synovial aspirate R Shoulder MRSA 12/02 -IR aspiration 12/02: WBC 16506, 91% PMNS -Orthopedics called on 12/01: -s/p extensive washout of right shoulder 12/03 -s/p right knee washout 12/04 -Continue Vancomycin EOT 01/15/2023 -pharmacy managing -Dressing changes per ortho recs. Vascular consulted and to place [facility] in a.m., NPO after midnight CBC, CMP, Mag am. #Acute metabolic encephalopathy *resolved -Transferred to ICU given progressive hypercarbia and worsening mentation on 11/30 -Appears to be at baseline #Acute on Chronic hypercapnic respiratory failure *stable/baseline Baselin 5 L requirement, per pulm now at baseline and stable Continue bipap 18 over 8 with naps and overnight Oxygen saturation goal no higher 88-92% Encourage weight loss CPT ordered Encourage OOB, PT/OT Pulm evaled, reports overall improvement/stable respiratory status #Hyponatremia iso cirrhosis *stable/resolved Na 124 on admission Serum osm 277, urine osm 608, urine na 10 on admission Nephrology consulted: 11/28 Urea 15mg BID, discontinued 12/01 1.5 L fluid limit towards which protein shakes do not count when taking p.o. again and at discharge Bumex resumed, lasix dc'd. #Hypomagnesemia -Replace as needed with IV #Chronic normocytic anemia Stable #Large rotator cuff tear, right #Severe osteoarthritis, right shoulder #Mechanical falls #Rhabdomyolysis *resolved No acute fracture or traumatic findings on imaging as above Head CT with no suggestive cause CK elevated at 4266 on admission and downtrending to 1263 CT imaging of arm, elbow and forearm: OA v ? septic joint PT/OT eval once more stable -Joint washout 12/03 with chondroplasty/synovectomy -Right knee 12/04 with wash out #DMII A1c 7.5 in June 2022, repeat currently 7.6 Hold home agents Basal/bolus insulin while in-patient #COPD History of tobacco use, no longer smoking Continue Bethany Medina #Depression Continue SSRI #Compensated Cirrhosis Listed on outpatient paperwork from [facility], patient a poor historian so unclear Abdomen/pelvis CT notes cirrhosis with varices formation. T. bili 2.1, AST 198, ALT 59 and downtrending currently ALP elevated, ? related to septic joint ammonia WNL, no signs of HE CMP and INR in am Lasix 40mg daily to home bumex. #Chronic Pain syndrome Pt noting he is in significant pain, noted that his pain was not currently being treated. Previously on narcotics but PCP discontinued when he failed UDS. UDS on admission positive for marijuana, endorses daily use Given pt's Hx of frequent falls, severe OA and complaints that his pain is not being treated appropriately, previously temporarily treated while hospitalized with the following regimen: tylenol 1000mg q8h prn for mild pain, po oxycodone 5mg q8h prn for moderate pain and dilaudid 0.5mg q6h prn for severe pain. Minimal opioid requirement DVT Ppx: Lovenox Code status: DNR/DNI per conversation PCP: CLIFTON Pena [facility] Dispo: vascular consulted for access, NPO after midnight Pt was seen and examined in collaboration with Dr. Hensley, please see addendum Admission and Anticipated Discharge Date Admission Date: November 26, 2022 Supervising Physician Co-Signing Physician Notes Patient was seen and examined at bedside as a follow-up of septic arthritis, currently receiving vancomycin. Patient was sleepy, oriented. Vascular surgery consulted today for IV access for outpatient vancomycin therapy. Plan for [facility] tomorrow morning. N.p.o. midnight. On examination, 3 L oxygen, not in acute distress. Rest of the exam as above. I have seen and examined the patient and have discussed the case with the provider above. I agree with the assessment and plan as stated. Subjective Patient was seen and examined in 320. Follow-up septic arthritis, MRSA bacteremia and hypercapnic respiratory failure. Patient is very tired today. He offers no acute concerns. Discussed with patient will see vascular to obtain access for IV Vanco. He denies fever, chills, sweats, chest pain, shortness breath, nausea, vomit, abdominal pain. Friedman catheter is in place. Review of Systems Review of Systems: All systems reviewed & are unremarkable except as noted in HPI & below Physical Exam Physical Exam: Gen: WD/WN, obese, male, tired but easily arouses to verbal stimulation NAD, A&O x3 HEENT: Normocephalic, atraumatic, conjunctivae moist, sclerae anicteric, mucous membranes moist. Lung: Clear to Auscultation bilaterally, no wheezes/rales/rhonchi Heart: Regular rate, regular rhythm, no murmurs, rubs, or gallops Abdomen: Soft, NT, ND +BS x 4, ostomy bag with fecal output Extremities: Lower extremity edema, right shoulder dressing CDI, right knee dressing CDI Skin: Warm, no rash, negative turgor. Results & Data Results & Data Vital Signs (Past 12 Hours) Vital Signs Temp Pulse Pulse Resp BP Pulse Ox O2 Del Method 12/13/22 07:27 Nasal Cannula 12/13/22 07:42 37.5 C 69 18 123/66 99 CPAP 12/13/22 03:21 70 94 O2 Flow Rate FiO2 12/13/22 07:27 3 12/13/22 07:42 12/13/22 03:21 30 Laboratory Results BMP 12/13/22 05:38 Creatinine 0.93 Medications Administered Current Inpatient Medications Acetaminophen (Acetaminophen 325 Mg Tab) 650 mg PO Q8H PRN PRN Reason: mild to mod pain; fever Stop: 01/09/23 08:14 Albuterol (Albuterol 0.083% Nebu Soln 3 Ml Vial) 2.5 mg INH Q4H PRN; Protocol PRN Reason: Shortness Of Breath Or Wheezing Stop: 12/26/22 17:08 Baclofen (Baclofen 10 Mg Tab) 10 mg PO TID PRN PRN Reason: Muscle Spasm Stop: 01/08/23 14:20 Bisacodyl (Bisacodyl 5 Mg Tabec) 5 mg PO HS TIFFANI Stop: 12/26/22 20:59 Last Admin: 12/12/22 22:39 Dose: 5 mg Bumetanide (Bumetanide 1 Mg Tab) 2 mg PO DAILY TIFFANI Stop: 01/09/23 08:59 Last Admin: 12/13/22 09:14 Dose: 2 mg Citalopram Hydrobromide (Citalopram 20 Mg Tab) 20 mg PO BID TIFFANI Stop: 12/26/22 20:59 Last Admin: 12/13/22 09:14 Dose: 20 mg Dextrose (Dextrose 50% 50 Ml Syringe) 25 - 50 ml IV UD PRN; Protocol PRN Reason: Hypoglycemia Protocol Stop: 12/26/22 20:30 Diphenhydramine HCl (Diphenhydramine Hcl 12.5 Mg/5 Ml Udc) 12.5 mg PO Q6H PRN PRN Reason: allergic reaction/itching Stop: 01/10/23 14:32 Last Admin: 12/13/22 09:27 Dose: 12.5 mg Enoxaparin Sodium (Enoxaparin Inj 40 Mg/0.4 Ml Syr) 40 mg SQ Q24H TIFFANI Stop: 01/07/23 16:59 Last Admin: 12/12/22 17:18 Dose: 40 mg Ferrous Sulfate (Ferrous Sulfate 325 Mg Tab) 325 mg PO DAILY TIFFANI Stop: 12/27/22 08:59 Last Admin: 12/13/22 09:14 Dose: 325 mg Fluticasone Furoate (Fluticasone Furoate 100mcg 14 Puffs/Inhaler) 1 puffs INH DAILY TIFFANI Stop: 12/27/22 08:59 Last Admin: 12/13/22 09:16 Dose: 1 puffs Glucagon (Glucagon For Inj 1 Mg Vial) 1 mg SQ UD PRN; Protocol PRN Reason: Hypoglycemia Protocol Stop: 12/26/22 20:30 Glucose (Glucose 10 Tab/Tube) 4 - 8 tab PO UD PRN; Protocol PRN Reason: Hypoglycemia Treatment Stop: 12/26/22 20:30 Glucose (Glucose 40% Gel 15 Gm Tube) 15 - 30 gm PO UD PRN; Protocol PRN Reason: Hypoglycemia Protocol Stop: 12/26/22 20:30 Vancomycin HCl 1,250 mg/ (Sodium Chloride) 275 mls @ 200 mls/hr IV Q12H TIFFANI; Protocol Stop: 12/16/22 13:59 Last Infusion: 12/13/22 07:31 Dose: Infused Insulin Aspart (Insulin Aspart Per Unit Charge) 0 units SC ACHS TIFFANI Stop: 12/26/22 20:59 Last Admin: 12/13/22 09:10 Dose: 6 units Insulin Glargine (Lantus Per Unit Charge) 0 units SQ HS TIFFANI Stop: 12/26/22 20:59 Last Admin: 12/12/22 22:35 Dose: 8 units Magnesium Chloride (Magnesium Chloride W/Calcium 64mg Delayed Rel Tab) 64 mg PO BID [facility] Stop: 12/30/22 08:59 Last Admin: 12/13/22 09:13 Dose: 64 mg Magnesium Oxide (Magnesium Oxide 400 Mg Tab) 400 mg PO BID [facility] Stop: 01/06/23 20:59 Last Admin: 12/13/22 09:13 Dose: 400 mg Melatonin (Melatonin 3 Mg Tab) 3 mg PO HS PRN PRN Reason: Sleep Stop: 12/29/22 01:35 Last Admin: 12/12/22 22:34 Dose: 3 mg Miscellaneous (Carbohydrates For Hypoglycemia ) 15 - 30 gm PO UD PRN PRN Reason: Hypoglycemia Protocol Stop: 12/26/22 20:30 Miscellaneous Information (Vancomycin Consult Active) 1 each N/A UD PRN PRN Reason: Consult Stop: 12/29/22 15:42 Multivitamins (Multivitamin Tab) 1 tab PO QAM [facility] Stop: 12/27/22 08:59 Last Admin: 12/13/22 09:14 Dose: 1 tab Ondansetron HCl (Ondansetron Inj 2 Mg/Ml 2 Ml Vial) 4 mg IV Q6H PRN PRN Reason: Nausea Stop: 12/26/22 20:30 Oxycodone/Acetaminophen (Oxycodone/Acetaminophen 5mg/325mg Tab) 1 tab PO Q6H PRN PRN Reason: moderate to severe pain Stop: 12/24/22 08:14 Last Admin: 12/13/22 09:35 Dose: 1 tab Pantoprazole Sodium (Pantoprazole 40 Mg Tab) 40 mg PO BID TIFFANI Stop: 01/01/23 20:59 Last Admin: 12/13/22 09:14 Dose: 40 mg Polyethylene Glycol (Polyethylene (Miralax) 17 Gm Pack) 17 gm PO DAILY PRN PRN Reason: Constipation Stop: 12/26/22 20:30 Senna/Docusate Sodium (Docusate Sodium/Senna 50/8.6mg Tab) 1 tab PO BID TIFFANI Stop: 01/04/23 20:29 Last Admin: 12/13/22 09:24 Dose: 1 tab Triamcinolone Acetonide (Triamcinolone Acet 0.1% Oint 15 Gm Tube) 1 appln EXT TID TIFFANI Stop: 01/04/23 20:59 Last Admin: 12/13/22 09:16 Dose: 1 appln Umeclidinium/Vilanterol (Umeclidinium/Vilanterol 62.5/25mcg 7 Puffs/Inhaler) 1 puffs INH DAILY TIFFANI Stop: 12/27/22 08:59 Last Admin: 12/13/22 09:15 Dose: 1 puffs Vitamin B Complex (Vitamin B Complex Tab) 1 tab PO DAILY TIFFANI Stop: 12/27/22 08:59 Last Admin: 12/13/22 09:13 Dose: 1 tab (1) Sepsis Sepsis acute organ dysfunction status: without acute organ dysfunction Sepsis type: sepsis due to unspecified organism Qualified Code(s): A41.9 - Sepsis, unspecified organism (4) Falls Encounter type: initial encounter Qualified Code(s): W19.XXXA - Unspecified fall, initial encounter
[2022-12-13] MEDS: ENOXAPARIN INJ 40 MG/0.4 ML SYR SQ SCH (17:20)
[2022-12-13] MEDS: LANTUS PER UNIT CHARGE SQ SCH (21:36)
[2022-12-13] MEDS: MELATONIN 3 MG TAB PO PRN (21:38)
[2022-12-13] MEDS: bisacodyL 5 MG TABEC PO SCH (21:39)
[2022-12-14] MEDS: VANCOMYCIN HCL 1,250 MG in SODIUM CHLORIDE 0.9% 250 ML IV SCH ×2 (06:18→17:42)
[2022-12-14 06:44] LABS: Basophils # (auto) 0.05 K/uL (0.00-0.20); Basophils % (auto) 0.8 %; Eosinophils # (auto) 0.15 K/uL (0.00-0.50); Eosinophils % (auto) 2.5 %; Hematocrit (blood only) 26.1 % (42.0-52.0); Hemoglobin 8.3 g/dl (14.0-18.0); Immature Granulocytes # (auto) 0.03 K/uL (0.01-0.20); Immature Granulocytes % (auto) 0.5 %; Lymphocytes # (auto) 1.76 K/uL (1.20-3.40); Lymphocytes % (auto) 29.4 %; Mean Corpuscular Hemoglobin 30.6 pg (25.0-34.0); Mean Corpuscular Hgb Conc 31.8 g/dL (32.0-36.0); Mean Corpuscular Volume 96.3 fL (80.0-100.0); Mean Platelet Volume 12.1 fL (9.4-12.4); Monocytes # (auto) 1.07 K/uL (0.11-0.59); Monocytes % (auto) 17.9 %; Neutrophils # (auto) 2.93 K/uL (1.40-6.50); Neutrophils % (auto) 48.9 %; Platelet Count 384 K/uL (130-400); RDW Coefficient of Variation 14.2 % (11.5-14.5); RDW Standard Deviation 49.9 fL (36.4-46.3); Red Blood Count 2.71 M/uL (4.70-6.10); White Blood Count 5.99 K/ul (4.8-10.8)
[2022-12-14 07:17] LABS: Albumin Globulin Ratio 0.5 (0.9-2); Albumin Level 2.4 gm/dl (3.4-5.0); BUN Creatinine Ratio 23.2 (10-20); Bilirubin,Total 0.6 mg/dl (0.2-1.0); Creatinine Clr Calc Pharmacy 112.3 ml/min; Est GFR (African American) 94.9 ml/min; Est GFR (Non-African American) 81.9 ml/min; Globulin 5.3 gm/dl (2.5-4.0); Magnesium 1.4 mg/dl (1.7-2.4); Potassium 4.1 mmol/L (3.5-5.1); Total Protein 7.7 gm/dl (6.0-8.3)
[2022-12-14] MEDS: oxyCODONE/ACETAMINOPHEN 5mg/325mg TAB PO PRN ×2 (07:52→19:50)
[2022-12-14] MEDS: INSULIN ASPART PER UNIT CHARGE SC SCH ×4 (08:22→21:27)
[2022-12-14] MEDS: MAGNESIUM CHLORIDE W/CALCIUM 64MG DELAYED REL TAB PO SCH ×2 (08:24→21:30)
[2022-12-14] MEDS: FERROUS SULFATE 325 MG TAB PO SCH (08:24)
[2022-12-14] MEDS: MULTIVITAMIN TAB PO SCH (08:24)
[2022-12-14] MEDS: PANTOprazole 40 MG TAB PO SCH ×2 (08:25→21:30)
[2022-12-14] MEDS: CITALOPRAM 20 MG TAB PO SCH ×2 (08:25→21:30)
[2022-12-14] MEDS: VITAMIN B COMPLEX TAB PO SCH (08:26)
[2022-12-14] MEDS: BUMETANIDE 1 MG TAB PO SCH (08:26)
[2022-12-14] MEDS: FLUTICASONE FUROATE 100MCG 14 PUFFS/INHALER INH SCH (08:27)
[2022-12-14] MEDS: UMECLIDINIUM/VILANTEROL 62.5/25MCG 7 PUFFS/INHALER INH SCH (08:27)
[2022-12-14] MEDS: TRIAMCINOLONE ACET 0.1% OINT 15 GM TUBE EXT SCH ×3 (08:28→21:28)
[2022-12-14 08:52] LABS: Base Excess VBG 17.7 mEq/L; HCO3 VBG 46 mmol/L; Oxygen Saturation VBG < 60.0 %; PCO2 VBG 69 mmHg (38-50); PO2 VBG 32 mmHg; pH VBG 7.43 (7.36-7.41)
[2022-12-14] MEDS: MAGNESIUM OXIDE 400 MG TAB PO SCH ×2 (09:31→21:31)
[2022-12-14] MEDS: diphenhydrAMINE HCl 12.5 MG/5 ML UDC PO PRN (09:32)
[2022-12-14] MEDS: DOCUSATE SODIUM/SENNA 50/8.6MG TAB PO SCH ×2 (09:32→21:29)
[2022-12-14] MEDS: MAGNESIUM SULFATE / D5W 1 GM/100 ML BAG IV SCH ×2 (09:32→11:27)
--- NOTE | 2022-12-14 11:28 | Hospitalist Progress Note ---
Date of Service December 14, 2022 Assessment & Plan (1) Sepsis: (2) Hypercapnic respiratory failure, chronic: (3) Hyponatremia: (4) Falls: (5) Hypomagnesemia: (6) Diabetes mellitus, type II: (7) Anemia: (8) Nocturnal hypoxia: (9) COPD (chronic obstructive pulmonary disease): (10) Depression: (11) Cirrhosis: (12) Chronic pain syndrome: Plan: Plan Mr. Carbajal is 67 year old gentleman who follows with [facility] with complex medical history of DM II, prior chronic pain no longer on narcotics, cirrhosis, history of splenectomy, history of Jazmyne's gangrene, lymphedema, nocturnal hypoxia who presented on 11/26 with multiple falls at home and found to have MRSA bacteremia. TTE was not able to r/o abscess/vegetations and JAKE was attempted but not successful due to encephalopathy and respiratory liability. Given cardiac comorbidities, if source is cardiac in nature, it would not roll changer; however, there was looming concern for septic joint given subcutaneous edema and effusion of right shoulder noted on repeat CT with con on 12/01. Course has been complicated by metabolic encephalopathy and acute on chronic hypercapnic respiratory failure, prompting over night transfer to ICU on 11/30. Patient not deemed a candidate for JAKE given varices and respiratory status, therefore unable to r/o cardiac etiology of bacteremia. Course in icu with relative hypotension. VBG with in uptrending pCO2. Per ICU, deemed appropriate for downgrade on 12/02 with patient to continue bipap and wean as able throughout day. Given intermittent fevers, hypotension, poor TTE imaging/inability to obtain JAKE, and findings on CT, IR aspiration of shoulder was pursued on 12/02. Aspirate within values suggestive for septic arthritis, likely explaining poor clinical progress. Patient underwent washout/shoulder synovectomy and extensive debridement. Right knee also with concerns of septic arthritis during surgical evaluation on 12/03. Now s/p right knee washout on 12/04. Discussed with Dr Drew hanks Infectious disease, [[facility] text communication] new recommendations for duration of abx. The plan is for 6 weeks of therapy from 12/04 (last washout). This prolonged duration is due to inability to confirm/refute presence of vegetations with JAKE. EOT 01/15/2023 Patient reporting daily improvement and eager to transition to rehab. Currently multiple authorizations are pending. PICC line was difficult and IV team unable to assess, Vascular to place MUÑOZ in am. for IV vanco #Right shoulder septic arthritis #Extensive synovitis of right shoulder #Right knee septic arthritis #Persistent MRSA bacteremia, unclear source #Sepsis 2/2 MRSA bacteremia*resolved #Leukocytosis *resolved On admission, HR 110, WBC 15.16, meeting SIRs criteria. Lactate wnl, procal 4.75 ---CT abd/pelvis without acute infectious abnormality but did note mildly thickened appendiceal tip with a small appendiceal nodule. No evidence for acute appendicitis. ---CTA chest with suspected right glenohumeral joint effusion with adjacent stranding and two punctate locules of soft tissue gas. The findings are likely related to severe osteoarthritis. However, a superimposed infectious etiology would be difficult to completely exclude. ---Dedicated shoulder xray notes severe OA; UA abnormal with trace leuk est, + nitrite, 3+ blood, urine Cx with no significant growth at this time. ---CT R shoulder with subcutaneous edema and effusion; Blood cultures +11/26- 11/29 NRSA, repeat NGTD, synovial aspirate R Shoulder MRSA 12/02 -IR aspiration 12/02: WBC 77720, 91% PMNS -Orthopedics called on 12/01: -s/p extensive washout of right shoulder 12/03 -s/p right knee washout 12/04 -Continue Vancomycin EOT 01/15/2023 -pharmacy managing -Dressing changes per ortho recs. Vascular consulted and to place MUÑOZ in a.m., NPO after midnight CBC, CMP, Mag am. - viewed by undersigned #Acute metabolic encephalopathy *resolved -Transferred to ICU given progressive hypercarbia and worsening mentation on 11/30 -Appears to be at baseline #Acute on Chronic hypercapnic respiratory failure *stable/baseline Baseline 5 L requirement, per pulm now at baseline and stable Continue bipap 18 over 8 with naps and overnight Oxygen saturation goal no higher 88-92% Encourage weight loss CPT ordered Encourage OOB, PT/OT Pulm evaled, reports overall improvement/stable respiratory status #Hyponatremia iso cirrhosis *stable/resolved Na 124 on admission Serum osm 277, urine osm 608, urine na 10 on admission Nephrology consulted: 11/28 Urea 15mg BID, discontinued 12/01 1.5 L fluid limit towards which protein shakes do not count when taking p.o. again and at discharge Bumex resumed, lasix dc'd. #Hypomagnesemia -Replace as needed with IV - 1.4 today -increase oral max ox to 800mg bid #Chronic normocytic anemia Stable #Large rotator cuff tear, right #Severe osteoarthritis, right shoulder #Mechanical falls #Rhabdomyolysis *resolved No acute fracture or traumatic findings on imaging as above Head CT with no suggestive cause CK elevated at 4266 on admission and downtrending to 1263 CT imaging of arm, elbow and forearm: OA v ? septic joint PT/OT eval once more stable -Joint washout 12/03 with chondroplasty/synovectomy -Right knee 12/04 with wash out -pt with increased pain, will increase oxy IR to 5-10mg q6hr prn, ICE TID, monitor increase stool softener as well to 2 tabs bid #DMII A1c 7.5 in June 2022, repeat currently 7.6 Hold home agents Basal/bolus insulin while in-patient #COPD History of tobacco use, no longer smoking Continue Bethany Medina #Depression Continue SSRI #Compensated Cirrhosis Listed on outpatient paperwork from [facility], patient a poor historian so unclear Abdomen/pelvis CT notes cirrhosis with varices formation. T. bili 2.1, AST 198, ALT 59 and downtrending currently ALP elevated, ? related to septic joint ammonia WNL, no signs of HE CMP and INR in am Bumex. #Chronic Pain syndrome Pt noting he is in significant pain, noted that his pain was not currently being treated. Previously on narcotics but PCP discontinued when he failed UDS. UDS on admission positive for marijuana, endorses daily use increase OXY IR to 5-10mg with scale q6h, ICE TID pt with minimal movement of RLE due to pain and surgery which has made PT difficult, will try to optimize pain control DVT Ppx: Lovenox Code status: DNR/DNI per conversation PCP: CLIFTON Pena [facility] Dispo: to undergo muñoz placement today, hopeful for d/c in next 1-2 days if all goes well Pt was seen and examined in collaboration with Dr. Hensley, please see addendum Admission and Anticipated Discharge Date Admission Date: November 26, 2022 Supervising Physician Co-Signing Physician Notes Patient was seen and examined at bedside as a follow-up of septic arthritis, currently receiving vancomycin. Patient was sleepy, oriented. Vascular surgery consulted for IV access for outpatient vancomycin therapy. Plan for Muñoz today. On examination, 3 L oxygen, not in acute distress. Rest of the exam as above. I have seen and examined the patient and have discussed the case with the provider above. I agree with the assessment and plan as stated. Subjective Patient was seen and examined in 320. Follow-up septic arthritis, MRSA bacteremia and hypercapnic respiratory failure. Patient is complaining of R knee pain. Stating the pain meds aren't helping. He is also saying his stool is hard and having difficulty with output from ostomy. He denies f/c/s, chest pain, sob, n/v/d, abd pain. Planning for Muñoz cath today. Review of Systems Review of Systems: All systems reviewed & are unremarkable except as noted in HPI & below Physical Exam Physical Exam: Gen: WD/WN, obese, male, NAD, A&O x3 HEENT: Normocephalic, atraumatic, conjunctivae moist, sclerae anicteric, mucous membranes moist. Lung: Clear to Auscultation bilaterally, no wheezes/rales/rhonchi Heart: Regular rate, regular rhythm, no murmurs, rubs, or gallops Abdomen: pbese, Soft, NT, ND +BS x 4, ostomy bag with fecal output Extremities: Lower extremity edema trace, right shoulder dressing CDI, right knee dressing CDI Skin: Warm, no rash, negative turgor. Results & Data Results & Data Vital Signs (Past 12 Hours) Vital Signs Temp Pulse Resp BP Pulse Ox O2 Del Method O2 Flow Rate 12/14/22 08:10 Nasal Cannula 3 12/14/22 07:18 37.1 C 65 18 120/70 99 CPAP 12/14/22 03:11 19 FiO2 12/14/22 08:10 12/14/22 07:18 12/14/22 03:11 35 Laboratory Results Short CBC 12/14/22 Range/Units 06:16 WBC 5.99 (4.8-10.8) K/ul Hgb 8.3 L (14.0-18.0) g/dl Hct 26.1 L (42.0-52.0) % Plt Count 384 (130-400) K/uL BMP 12/14/22 06:16 Sodium 135 L Potassium 4.1 Chloride 91 L Carbon Dioxide 41 H* BUN 22 Creatinine 0.95 Glucose 139 H Calcium 10.0 Liver Function 12/14/22 Range/Units 06:16 Total Bilirubin 0.6 (0.2-1.0) mg/dl AST 49 H (13-39) U/L ALT 38 (7-52) U/L Alkaline Phosphatase 340 H (34-104) U/L Albumin 2.4 L (3.4-5.0) gm/dl Medications Administered Current Inpatient Medications Acetaminophen (Acetaminophen 325 Mg Tab) 650 mg PO Q8H PRN PRN Reason: mild to mod pain; fever Stop: 01/09/23 08:14 Albuterol (Albuterol 0.083% Nebu Soln 3 Ml Vial) 2.5 mg INH Q4H PRN; Protocol PRN Reason: Shortness Of Breath Or Wheezing Stop: 12/26/22 17:08 Baclofen (Baclofen 10 Mg Tab) 10 mg PO TID PRN PRN Reason: Muscle Spasm Stop: 01/08/23 14:20 Bisacodyl (Bisacodyl 5 Mg Tabec) 5 mg PO HS TIFFANI Stop: 12/26/22 20:59 Last Admin: 12/13/22 21:39 Dose: 5 mg Bumetanide (Bumetanide 1 Mg Tab) 2 mg PO DAILY TIFFANI Stop: 01/09/23 08:59 Last Admin: 12/14/22 08:26 Dose: 2 mg Citalopram Hydrobromide (Citalopram 20 Mg Tab) 20 mg PO BID TIFFANI Stop: 12/26/22 20:59 Last Admin: 12/14/22 08:25 Dose: 20 mg Dextrose (Dextrose 50% 50 Ml Syringe) 25 - 50 ml IV UD PRN; Protocol PRN Reason: Hypoglycemia Protocol Stop: 12/26/22 20:30 Diphenhydramine HCl (Diphenhydramine Hcl 12.5 Mg/5 Ml Udc) 12.5 mg PO Q6H PRN PRN Reason: allergic reaction/itching Stop: 01/10/23 14:32 Last Admin: 12/14/22 09:32 Dose: 12.5 mg Enoxaparin Sodium (Enoxaparin Inj 40 Mg/0.4 Ml Syr) 40 mg SQ Q24H TIFFANI Stop: 01/07/23 16:59 Last Admin: 12/13/22 17:20 Dose: 40 mg Ferrous Sulfate (Ferrous Sulfate 325 Mg Tab) 325 mg PO DAILY TIFFANI Stop: 12/27/22 08:59 Last Admin: 12/14/22 08:24 Dose: 325 mg Fluticasone Furoate (Fluticasone Furoate 100mcg 14 Puffs/Inhaler) 1 puffs INH DAILY TIFFANI Stop: 12/27/22 08:59 Last Admin: 12/14/22 08:27 Dose: 1 puffs Glucagon (Glucagon For Inj 1 Mg Vial) 1 mg SQ UD PRN; Protocol PRN Reason: Hypoglycemia Protocol Stop: 12/26/22 20:30 Glucose (Glucose 10 Tab/Tube) 4 - 8 tab PO UD PRN; Protocol PRN Reason: Hypoglycemia Treatment Stop: 12/26/22 20:30 Glucose (Glucose 40% Gel 15 Gm Tube) 15 - 30 gm PO UD PRN; Protocol PRN Reason: Hypoglycemia Protocol Stop: 12/26/22 20:30 Vancomycin HCl 1,250 mg/ (Sodium Chloride) 275 mls @ 200 mls/hr IV Q12H [facility]; Protocol Stop: 12/16/22 13:59 Last Infusion: 12/14/22 08:00 Dose: Infused Magnesium Sulfate/Dextrose (Magnesium Sulfate / D5w) 1 gm in 100 mls @ 50 mls/hr IV Q2H [facility] Stop: 12/14/22 11:59 Last Admin: 12/14/22 09:32 Dose: 50 mls/hr Insulin Aspart (Insulin Aspart Per Unit Charge) 0 units SC ACHS TIFFANI Stop: 12/26/22 20:59 Last Admin: 12/14/22 08:22 Dose: Not Given Insulin Glargine (Lantus Per Unit Charge) 0 units SQ HS [facility] Stop: 12/26/22 20:59 Last Admin: 12/13/22 21:36 Dose: 15 units Magnesium Chloride (Magnesium Chloride W/Calcium 64mg Delayed Rel Tab) 64 mg PO BID [facility] Stop: 12/30/22 08:59 Last Admin: 12/14/22 08:24 Dose: 64 mg Magnesium Oxide (Magnesium Oxide 400 Mg Tab) 800 mg PO BID [facility] Stop: 01/13/23 08:59 Last Admin: 12/14/22 09:31 Dose: 800 mg Melatonin (Melatonin 3 Mg Tab) 3 mg PO HS PRN PRN Reason: Sleep Stop: 12/29/22 01:35 Last Admin: 12/13/22 21:38 Dose: 3 mg Miscellaneous (Carbohydrates For Hypoglycemia ) 15 - 30 gm PO UD PRN PRN Reason: Hypoglycemia Protocol Stop: 12/26/22 20:30 Miscellaneous Information (Vancomycin Consult Active) 1 each N/A UD PRN PRN Reason: Consult Stop: 12/29/22 15:42 Multivitamins (Multivitamin Tab) 1 tab PO QAM TIFFANI Stop: 12/27/22 08:59 Last Admin: 12/14/22 08:24 Dose: 1 tab Ondansetron HCl (Ondansetron Inj 2 Mg/Ml 2 Ml Vial) 4 mg IV Q6H PRN PRN Reason: Nausea Stop: 12/26/22 20:30 Oxycodone/Acetaminophen (Oxycodone/Acetaminophen 5mg/325mg Tab) 1 - 2 tab PO Q6H PRN PRN Reason: moderate to severe pain Stop: 12/24/22 08:14 Pantoprazole Sodium (Pantoprazole 40 Mg Tab) 40 mg PO BID TIFFANI Stop: 01/01/23 20:59 Last Admin: 12/14/22 08:25 Dose: 40 mg Polyethylene Glycol (Polyethylene (Miralax) 17 Gm Pack) 17 gm PO DAILY PRN PRN Reason: Constipation Stop: 12/26/22 20:30 Senna/Docusate Sodium (Docusate Sodium/Senna 50/8.6mg Tab) 2 tab PO BID TIFFANI Stop: 01/13/23 08:59 Last Admin: 12/14/22 09:32 Dose: 2 tab Triamcinolone Acetonide (Triamcinolone Acet 0.1% Oint 15 Gm Tube) 1 appln EXT TID TIFFANI Stop: 01/04/23 20:59 Last Admin: 12/14/22 08:28 Dose: 1 appln Umeclidinium/Vilanterol (Umeclidinium/Vilanterol 62.5/25mcg 7 Puffs/Inhaler) 1 puffs INH DAILY TIFFANI Stop: 12/27/22 08:59 Last Admin: 12/14/22 08:27 Dose: 1 puffs Vitamin B Complex (Vitamin B Complex Tab) 1 tab PO DAILY TIFFANI Stop: 12/27/22 08:59 Last Admin: 12/14/22 08:26 Dose: 1 tab (1) Sepsis Sepsis acute organ dysfunction status: without acute organ dysfunction Sepsis type: sepsis due to unspecified organism Qualified Code(s): A41.9 - Sepsis, unspecified organism (4) Falls Encounter type: initial encounter Qualified Code(s): W19.XXXA - Unspecified fall, initial encounter
[2022-12-14] MEDS ORDERED: SODIUM CHLORIDE 0.9% 1,000 ML IV SCH (14:15)
--- NOTE | 2022-12-14 14:34 | Consultation ---
Date of Consultation December 14, 2022 Assessment & Plan (1) MRSA bacteremia: Pt with severe bacteremia and septic arthritis, requiring terminal operator abx. IV team unable to place PICC line. Planning on muñoz catheter insertion for IV abx today in OR by Dr Gonzalez. Procedure, risks, benefits, and alternatives discussed with pt by myself at Dr Gonzalez's request. Pt expresses understanding and agreement to proceed. Patient was seen, examined, and chart reviewed. Agree with exam and treatment plan of the Vascular PA. History of Present Illness Reason for Consultation: No IV access, need muñoz catheter Attending Physician: Sin Hensley MD History of Present Illness 67 yo m with hx of DMII, liver cirrhosis, anemia, chronic pain, arthritis, COPD, depression, GERD, admitted with fever and illness, found to have septic arthritis and bacteremia, seen in consultation today for muñoz catheter insertion for IV abx. Pt states he was living at home and independent prior to this admission, but was having more trouble getting around his house d/t R knee pain. States his R shoulder is feeling improved since admission, but his R knee is not. Has chronic weakness/ numbness/poor function of R arm since falling on it a long time ago and causing "nerve damage." Pt admits fatigue/malaise. Denies VARGHESE, fever presently, chest pain, SOB, adb pain, N/V, rest pain, claudication, other complaints. Allergies Allergy/AdvReac Type Severity Reaction Status Date / Time morphine AdvReac Unknown Hallucinati Verified 11/26/22 17:04 ng Home Medications Medication Instructions Recorded Confirmed Type acetaminophen 500 mg tablet 500 mg PO BID PRN Pain 11/26/22 11/26/22 History albuterol sulfate 2.5 mg/3 mL 2.5 mg inhalation Q4H PRN 11/26/22 11/26/22 History (0.083 %) solution for nebulization Shortness Of Breath Or Wheezing baclofen 10 mg tablet 10 mg PO TID PRN Muscle Spasm 11/26/22 11/26/22 History bisacodyl 5 mg tablet 5 mg PO HS 11/26/22 11/26/22 History bumetanide 2 mg tablet 2 mg PO DAILY 11/26/22 11/26/22 History citalopram 20 mg tablet 20 mg PO BID 11/26/22 11/26/22 History doxylamine succinate 25 mg tablet 25 mg PO HS PRN Sleep 11/26/22 11/26/22 History ferrous sulfate 325 mg (65 mg 325 mg PO DAILY 11/26/22 11/26/22 History iron) tablet fluticasone fur. 100 mcg-umeclid 1 inh inhalation DAILY 11/26/22 11/26/22 History 62.5 mcg-vilant 25 mcg inhalat.powder (Trelegy Ellipta) guselkumab 100 mg/mL subcutaneous 100 mg subcut UD 11/26/22 11/26/22 History auto-injector (Tremfya) insulin degludec 200 unit/mL (3 20 unit subcut HS 11/26/22 11/26/22 History mL) subcutaneous pen (Tresiba FlexTouch U-200 insulin) magnesium 500 mg tablet 15 mg PO DAILY 11/26/22 11/26/22 History metformin 500 mg tablet 1,000 mg PO BID 11/26/22 11/26/22 History multivit,Ca,min-iron 8 mg-folic 1 tab PO DAILY 11/26/22 11/26/22 History acid 200 mcg-lycopene 600 mcg tablet (Centrum Men) pantoprazole 40 mg tablet,delayed 40 mg PO BID 11/26/22 11/26/22 History release vitamin B complex 1 tab PO DAILY 11/26/22 11/26/22 History Patient History Medical History Anemia Chronic pain syndrome Cirrhosis COPD (chronic obstructive pulmonary disease) Depression Diabetes mellitus, type II Hypercapnic respiratory failure, chronic MRSA bacteremia Nocturnal hypoxia Surgical History Amputated finger S/P colon resection Family History Other Heart disease Stroke Social History Smoking Status: Never smoker Second Hand Exposure: No; Do You Dip or Chew Tobacco: No; Hx Alcohol Use: No Hx Substance Use: No Preferred Language: Sami Communication Ability: Effective Water Meter Reader Required: No Beliefs That Will Affect Care: None Current Living Situation: Family Current Living Situation Comment: Lives w/ daughter who is w/c bound Other Information That Helps Us Care for You: No Feels Safe at Home: Yes Safety Concerns: Feels Safe At This Time Assistive Devices: Cane, Oxygen - at Night, Oxygen - Continuous and Walker Review of Systems Review of Systems: All systems reviewed & are unremarkable except as noted in HPI & below Physical Exam Constitutional: WD/WN, vitals as above cooperative; not in distress ENMT: Ears: no hearing impairment Neck: trachea midline Respiratory: normal respiratory effort, lungs clear to auscultation Auscultation: + diminished lung sounds Cardiovascular: Rate/Rhythm: regular rate and regular rhythm Vessels: posterior tibial pulses present, dorsalis pedis pulses present and radial pulses present; + abnormal peripheral pulses Extremities: normal capillary refill and + edema (R shoulder and R knee) Gastrointestinal (Abdomen): Inspection/Auscultation: abdomen normal to inspection and normal bowel sounds Percussion/Palpation: abdomen soft; abdomen nontender Musculoskeletal: Extremities: no cyanosis Skin: no rashes, warm and dry Neurologic: moves all extremities, + focal motor deficit (R hand weak/unable to grasp pen well, fingers stiff) and awake; not confused Psychiatric: A+Ox3, euthymic affect Results & Data Vital Signs (Past 12 Hours) Vital Signs Temp Pulse Resp BP Pulse Ox O2 Del Method O2 Flow Rate 12/14/22 08:10 Nasal Cannula 3 12/14/22 07:18 37.1 C 65 18 120/70 99 CPAP 12/14/22 03:11 19 FiO2 12/14/22 08:10 12/14/22 07:18 12/14/22 03:11 35
[2022-12-14] MEDS ORDERED: LIDOCAINE 1% LOCAL 20 ML VIAL ONE (15:15)
[2022-12-14] MEDS ORDERED: MIDAZOLAM HCL 1 MG/ML 2ML VIAL ONE (15:15)
[2022-12-14] MEDS ORDERED: fentaNYL citrate PF 100 MCG/2 ML VIAL ONE (15:15)
--- NOTE | 2022-12-14 16:06 | Pre Anesthesia Assessment ---
Date of Service December 14, 2022 Pre Sedation Assessment Vital Signs Temp Pulse Pulse Resp BP BP Pulse Ox 12/14/22 16:00 66 18 137/75 97 12/14/22 15:55 66 18 136/74 97 12/14/22 15:50 68 18 142/79 H 96 12/14/22 15:45 68 18 141/78 H 96 12/14/22 15:40 68 18 160/81 H 96 12/14/22 15:35 68 18 155/88 H 96 12/14/22 14:31 36.9 C 71 20 101/54 L 94 12/14/22 08:10 12/14/22 07:18 37.1 C 65 18 120/70 99 12/14/22 03:11 19 12/13/22 23:13 77 26 H 91 12/13/22 21:21 37.1 C 72 18 100/61 96 12/13/22 19:52 O2 Del Method O2 Flow Rate FiO2 12/14/22 16:00 Oxymask 4 12/14/22 15:55 Oxymask 4 12/14/22 15:50 Oxymask 4 12/14/22 15:45 Oxymask 4 12/14/22 15:40 Oxymask 4 12/14/22 15:35 Oxymask 4 12/14/22 14:31 Nasal Cannula 3 12/14/22 08:10 Nasal Cannula 3 12/14/22 07:18 CPAP 12/14/22 03:11 35 12/13/22 23:13 35 12/13/22 21:21 Nasal Cannula 3.5 12/13/22 19:52 Nasal Cannula 3 Cardiovascular RRR, no murmur, no edema Respiratory normal respiratory effort, lungs clear to auscultation Pre-Sedation Airway Assessment Smoking Status: Never smoker Hx Sleep Apnea: Yes Short, Thick Neck: Yes Thyromental Distance: > or= 3.5 Finger Breadths Oral Cavity: + Dental Abnormalities Mallampati Class: III ASA: ASA3 NPO Status Date of Last Intake of Fluids: 12/13/22 Time of Last Intake of Fluids: 23:00 Date of Last Intake of Solid Food: 12/13/22 Time of Last Intake of Solid Foods: 23:00 Procedure Planning Contraindications for Sedation: none Current Medications Reviewed: Yes Notes The planned sedation has been discussed with the patient. Informed Consent was obtained. I have identified the patient, determined the appropriateness of sedation and have assessed the patient immediately prior to the procedure. All medicine(s) and interventions are by my order.
[2022-12-14] MEDS ORDERED: VISIPAQUE IV PRN (16:07)
--- NOTE | 2022-12-14 16:15 | Procedure Note ---
Angiogram Post Procedure Fluoroscopy Time (minutes): 2.3 Conscious Sedation Time (minutes): 27 Radiation (mGy): 48 Contrast: 10 Post Operative Report Pre & Post Diagnosis Operation Date: 12/14/22 14:00 Pre-Op Diagnosis: Lack of IV Access Post-Op Diagnosis: Lack of IV Access I identified the patient and participated in the time-out.: Yes Procedure Operation Date: 12/14/22 14:00 Actual Procedures p Insertion of Holbrook Catheter, Left Internal Jugular Approach, Ultrasound Localization of Left Internal Jugular Vein, Fluroscopy for Positioning, Moderate Sedation [id number](Left) - Venu Gonzalez MD Surgeon Venu Gonzalez MD [employer] None Estimated Blood Loss 5 Findings Consistent with Post-Op Diagnosis Specimens none Anesthesia Type RN Sedation Complications none Disposition Accompanied Patient To Recovery: No Disposition: Recovery Room Indications This is a 67-year-old gentleman who 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 He does need long-term antibiotics. He has no IV access. Holbrook catheter was recommended for his 6-week course of home antibiotics. I have discussed the risks options and benefits of the procedure with the patient. The patient understands the risks options and benefits and agrees to the procedure. Description of Procedure Patient was taken to the angio suite and placed in the supine position. The left side of the neck and chest wall were prepped and draped in a sterile manner. The patient was identified and a timeout performed. Local anesthesia was then administered to the appropriate areas of the neck and chest wall. Ultrasound was then used to locate the left internal jugular vein. The vein compressed easily, had no filing defects, and was patent. The vein was then punctured under direct ultrasound imaging. A guidewire was then passed centrally under fluoroscopic imaging. A stab wound was then made in the anterior chest wall and a single-lumen Holbrook catheter was passed from the stab wound on the chest wall to the puncture site on the neck. The peel-away sheath was inserted through the puncture site. The Holbrook catheter was then inserted through the sheath to a central position in the distal superior vena cava. The peel away sheath was then removed. The tip of the catheter did not look like it was in the superior vena cava but rather the innominate vein. We therefore put a wire through the catheter. I cannot pass the wire centrally. The wire was removed and a superior venacavogram was done through the port. This showed me that the innominate vein was patent as well as the superior vena cava but came off at the right ankle. We then reinserted the 035 Glidewire through the catheter. The wire was then manipulated down and through the superior vena cava into the inferior vena cava. The Holbrook catheter was then advanced to the point in the distal superior vena cava. The wire was removed. The Holbrook catheter aspirated and flushed very easily. The catheter was then sutured in place using nylon sutures. The puncture was then closed using a 4-0 Vicryl subcuticular suture. Dermabond was used for a dressing on the puncture site. The port was again aspirated and flushed easily and was then packed with heparin. A sterile dressing was applied to the catheter. The patient left the operation room in satisfactory condition and tolerated the procedure well. All needle and sponge counts were correct at the end of the procedure. I attest to the content of the Intraoperative Record and any orders documented therein. Any exceptions are noted below.
--- NOTE | 2022-12-14 16:28 | Post Anesthesia Assessment ---
Date of Service December 14, 2022 Post Sedation Assessment Vital Signs Temp Pulse Pulse Resp BP BP Pulse Ox 12/14/22 16:13 66 18 147/80 H 97 12/14/22 16:08 66 18 142/78 H 97 12/14/22 16:05 66 18 147/82 H 97 12/14/22 16:00 66 18 137/75 97 12/14/22 15:55 66 18 136/74 97 12/14/22 15:50 68 18 142/79 H 96 12/14/22 15:45 68 18 141/78 H 96 12/14/22 15:40 68 18 160/81 H 96 12/14/22 15:35 68 18 155/88 H 96 12/14/22 14:31 36.9 C 71 20 101/54 L 94 12/14/22 08:10 12/14/22 07:18 37.1 C 65 18 120/70 99 12/14/22 03:11 19 12/13/22 23:13 77 26 H 91 12/13/22 21:21 37.1 C 72 18 100/61 96 12/13/22 19:52 O2 Del Method O2 Flow Rate FiO2 12/14/22 16:13 Oxymask 4 12/14/22 16:08 Oxymask 4 12/14/22 16:05 Oxymask 4 12/14/22 16:00 Oxymask 4 12/14/22 15:55 Oxymask 4 12/14/22 15:50 Oxymask 4 12/14/22 15:45 Oxymask 4 12/14/22 15:40 Oxymask 4 12/14/22 15:35 Oxymask 4 12/14/22 14:31 Nasal Cannula 3 12/14/22 08:10 Nasal Cannula 3 12/14/22 07:18 CPAP 12/14/22 03:11 35 12/13/22 23:13 35 12/13/22 21:21 Nasal Cannula 3.5 12/13/22 19:52 Nasal Cannula 3 Recovery Score Activity: Moves 4 extremities Respiration: Deep Breath/Cough Circulation: +/-20% PreAnes Value Consciousness: Fully Awake Oxygen Saturation: O2 needed for >90% Post Anesthesia Score: 9 Discharge Sedation Level of Care: Fast Track Phase II Post Sedation Plan On clinical assessment, the patient appears to have tolerated the sedation without complications. Patient is recovering as anticipated. Patient will continue to be monitored by nursing and may be discharged when sedation discharge criteria are met per below protocol. Upon Completions of procedure up to 15 minutes continue every 5 minute vital signs and the P.A.R. score; then discharge to a Phase I or Fast Track to Phase II per the following guidelines: * Discharge Patient to appropriate Phase II area if PAR is 8 or greater or return to pre- procedure baseline. The post - procedure orders will be as directed. * If PAR score is less than 8 or not return to pre-procedure baseline then patient will follow Phase I monitoring till PAR is reached for Phase II. The Phase I may be done in procedure room or may call to secure a Phase I area. * If naloxone or flumazenil are used for reversal, hold in Phase I for continued monitoring from when last reversal dose was given for a minimum of 60 minutes or longer pending the nurse and/or physician discretion of patient condition before discharge to Phase II. Please call the Sedation Physician to re-evaluate and complete post-note for discharge to Phase II area. Do NOT discharge from procedure sedation or Phase 1 until post- sedation evaluation note is complete by procedure /sedation MD Sedation Discharge Instructions to be given to the patient at discharge to home.
[2022-12-14] MEDS: ENOXAPARIN INJ 40 MG/0.4 ML SYR SQ SCH (17:41)
[2022-12-14] MEDS: LANTUS PER UNIT CHARGE SQ SCH (21:27)
[2022-12-14] MEDS: bisacodyL 5 MG TABEC PO SCH (21:28)
[2022-12-14] MEDS: MELATONIN 3 MG TAB PO PRN (21:29)
[2022-12-15] MEDS: VANCOMYCIN HCL 1,250 MG in SODIUM CHLORIDE 0.9% 250 ML IV SCH (06:01)
[2022-12-15] MEDS: oxyCODONE/ACETAMINOPHEN 5mg/325mg TAB PO PRN ×2 (07:50→14:24)
[2022-12-15] MEDS: MAGNESIUM CHLORIDE W/CALCIUM 64MG DELAYED REL TAB PO SCH (07:50)
[2022-12-15] MEDS: MAGNESIUM OXIDE 400 MG TAB PO SCH (07:50)
[2022-12-15] MEDS: VITAMIN B COMPLEX TAB PO SCH (07:51)
[2022-12-15] MEDS: DOCUSATE SODIUM/SENNA 50/8.6MG TAB PO SCH (07:51)
[2022-12-15] MEDS: BUMETANIDE 1 MG TAB PO SCH (07:51)
[2022-12-15] MEDS: FERROUS SULFATE 325 MG TAB PO SCH (07:51)
[2022-12-15] MEDS: CITALOPRAM 20 MG TAB PO SCH (07:52)
[2022-12-15] MEDS: TRIAMCINOLONE ACET 0.1% OINT 15 GM TUBE EXT SCH ×2 (07:52→14:25)
[2022-12-15] MEDS: MULTIVITAMIN TAB PO SCH (07:52)
[2022-12-15] MEDS: PANTOprazole 40 MG TAB PO SCH (07:52)
[2022-12-15] MEDS: INSULIN ASPART PER UNIT CHARGE SC SCH ×2 (08:32→12:17)
[2022-12-15 09:12] LABS: BUN Creatinine Ratio 26.5 (10-20); Calcium 9.8 mg/dl (8.6-10.3); Creatinine Clr Calc Pharmacy 128.5 ml/min; Est GFR (African American) 104.8 ml/min; Est GFR (Non-African American) 90.4 ml/min; Magnesium 1.5 mg/dl (1.7-2.4); Potassium 3.8 mmol/L (3.5-5.1)
[2022-12-15 09:19] LABS: Basophils # (auto) 0.04 K/uL (0.00-0.20); Basophils % (auto) 0.8 %; Eosinophils # (auto) 0.11 K/uL (0.00-0.50); Eosinophils % (auto) 2.2 %; Hematocrit (blood only) 26.5 % (42.0-52.0); Hemoglobin 8.4 g/dl (14.0-18.0); Immature Granulocytes # (auto) 0.02 K/uL (0.01-0.20); Immature Granulocytes % (auto) 0.4 %; Lymphocytes # (auto) 1.55 K/uL (1.20-3.40); Lymphocytes % (auto) 31.4 %; Mean Corpuscular Hgb Conc 31.7 g/dL (32.0-36.0); Mean Corpuscular Volume 97.8 fL (80.0-100.0); Mean Platelet Volume 11.9 fL (9.4-12.4); Monocytes # (auto) 0.71 K/uL (0.11-0.59); Monocytes % (auto) 14.4 %; Neutrophils # (auto) 2.51 K/uL (1.40-6.50); Neutrophils % (auto) 50.8 %; Platelet Count 393 K/uL (130-400); RDW Coefficient of Variation 14.2 % (11.5-14.5); RDW Standard Deviation 50.8 fL (36.4-46.3); Red Blood Count 2.71 M/uL (4.70-6.10); White Blood Count 4.94 K/ul (4.8-10.8)
[2022-12-15 09:30] LABS: Ferritin 379.6 ng/ml (8-388)
[2022-12-15 09:47] LABS: Folate (Folic Acid),Ser orPlas > 22.30 ng/ml (>5.38)
[2022-12-15 09:48] LABS: Vitamin B12 1500 pg/ml (180-914)
[2022-12-15] MEDS: MAGNESIUM SULFATE / D5W 1 GM/100 ML BAG IV SCH ×2 (11:15→13:15)
--- NOTE | 2022-12-15 11:52 | Discharge Summary ---
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 is identified. There is no evidence for a right elbow joint effusion. There may be lateral elbow soft tissue swelling. Exam is mildly compromised given difficulty positioning. There is mild osteoarthritis. IMPRESSION: 1. No acute fracture. Exam mildly compromised given difficulty positioning. 2. No evidence for a right elbow joint effusion. ACT 112: Negative or not required by law. Electronically signed by: Franklyn Man M.D. 11/26/2022 3:26 PM Shoulder X-Ray 11/26/22 19:41 XR shoulder RT min 2V routine CLINICAL HISTORY: pain TECHNIQUE: 2 views of the right shoulder were obtained. Comparison: Comparison is made to CT chest 11/26/2022 FINDINGS: There is no evidence of an acute fracture. Prominent degenerative changes are seen at the glenohumeral joint. The overlying soft tissues are unremarkable. The visualized portions of the lungs are clear. IMPRESSION: Prominent osteoarthritic changes are seen in the shoulder joint without evidence of acute fracture. ACT 112: Negative or not required by law. Electronically signed by: Patel Up M.D. 11/27/2022 9:45 AM Chest X-Ray 12/01/22 12:35 XR chest 1V portable HISTORY: f/u fluid status; hypoxic pt COMPARISON: Chest CT 11/26/2022. FINDINGS: There are low lung volumes. No pneumothorax. No pleural effusions. The heart is mildly enlarged. Emphysema and mild diffuse interstitial thickening persists. No new focal lung consolidations to suggest a pneumonia. There is mild central pulmonary vascular congestion without overt edema. This is similar to the prior study. IMPRESSION: Stable cardiomegaly and mild central pulmonary vascular congestion without overt edema. ACT 112: Negative or not required by law. Electronically signed by: Ced Buchanan M.D. 12/01/2022 2:[address] 12/01/22 15:47 CT forearm RT w con, CT elbow RT w con CLINICAL HISTORY: r/o infection TECHNIQUE: Multidetector row helical CT of the right forearm was performed without intravenous contrast. Coronal and sagittal reformations were obtained. Automated dose lowering techniques and/or adjustment according to patient size were utilized for this examination. CT DOSE: 4130.49 mGy.cm Comparison: Comparison is made to elbow radiograph 11/27/2019 FINDINGS: Exam is limited by patient positioning. No joint effusion is seen. Mild osteoar thritic degenerative changes are seen. IMPRESSION: No acute fracture or dislocation. There is mild osteoarthritic degenerative change in the elbow ACT 112: Negative or not required by law. Electronically signed by: Patel Up M.D. 12/01/2022 12:[address] 12/01/22 15:47 CT forearm RT w con, CT elbow RT w con CLINICAL HISTORY: r/o infection TECHNIQUE: Multidetector row helical CT of the right forearm was performed without intravenous contrast. Coronal and sagittal reformations were obtained. Automated dose lowering techniques and/or adjustment according to patient size were utilized for this examination. CT DOSE: 4130.49 mGy.cm Comparison: Comparison is made to elbow radiograph 11/27/2019 FINDINGS: Exam is limited by patient positioning. No joint effusion is seen. Mild osteoarthritic degenerative changes are seen. IMPRESSION: No acute fracture or dislocation. There is mild osteoarthritic degenerative change in the elbow ACT 112: Negative or not required by law. Electronically signed by: Patel Up M.D. 12/01/2022 12:[address] 12/01/22 15:47 CT humerus RT w con CT DOSE: CLINICAL HISTORY: r/o infection . Right shoulder pain. Fall. TECHNIQUE: Multiaxial CT images the right humerus were performed following the intravenous administration of contrast. Sagittal and coronal reformations were also obtained. A dose lowering technique was utilized adhering to the principles of ALARA. COMPARISON STUDY: Chest CTA 11/26/2022. FINDINGS: No acute fracture or dislocation within the right humerus. Severe osteoarthritis at the glenohumeral joint with subchondral cystic change, subchondral sclerosis, large marginal osteophytes. There are multiple intra- articular loose bodies seen at the glenohumeral joint. No definite destructive changes at the glenohumeral joint. However, this is only partially imaged on this study. There is a moderate right shoulder effusion with peripheral enhancement of the synovial lining. Narrowing of the subacromial space consistent with chronic rotator cuff injury. Mild subcutaneous edema within the right shoulder/upper arm. IMPRESSION: 1. No acute fracture or dislocation within the right humerus. 2. Moderate effusion of the right glenohumeral joint with enhancement of the synovial lining. This could be due to the chronic/severe osteoarthritis. However, a superimposed infection would be difficult to exclude by imaging. No definite destructive changes identified at the glenohumeral joint. 3. Mild subcutaneous edema within the right shoulder/upper arm. ACT 112: Negative or not required by law. Electronically signed by: Ced Buchanan M.D. 12/01/2022 12:11 PM Arthrography Joint Steriod Inject 12/02/22 11:00 Fluoroscopic guided left shoulder joint aspiration INDICATION: Persistent bacteremia; rule out septic arthritis PROCEDURE: Procedure and risks were explained. Informed consent was obtained. A final timeout was completed. The left shoulder was prepped and draped in sterile fashion. 1% lidocaine was utilized for skin anesthesia. Utilizing fluoroscopic guidance, an 18-gauge 10 cm Chiba needle was advanced into the left shoulder joint capsule. 2 permanent spot images were obtained. Approximately 11 mL of blood-tinged joint fluid was aspirated and sent to lab for analysis. The needle was removed and Band-Aid applied. The patient tolerated the procedure well. Total fluoroscopy time 9 seconds. DAP is 0.298 mcGy/m2. IMPRESSION: Left shoulder joint aspiration as above. Performed, dictated, and signed by Kang Oneill PA-C; to be co-signed by Dr. Ced Buchanan. Electronically signed by: Ced Buchanan M.D. 12/02/2022 1:45 PM Knee X-Ray 12/08/22 12:57 XR knee RT 1 or 2V routine HISTORY: 67 years-old Male increase in right knee pain chronic right knee pain COMPARISON: 11/26/2022 TECHNIQUE: 2 views of the right knee FINDINGS: Severe tricompartmental osteoarthritis again noted. Moderate size joint effusion. No acute fracture or dislocation. Vascular calcifications. IMPRESSION: 1. Severe osteoarthritis without acute fracture. 2. Moderate joint effusion. ACT 112: Negative or not required by law. The above report was generated using voice recognition software. It may contain grammatical, syntax or spelling errors. Electronically signed by: Anthony Lin M.D. 12/08/2022 1:34 PM Pending Results Patient Have Any Pending Studies at Discharge: No Discharge Instructions Given to Patient (Per Discharging Provider) MEDICATION CHANGES: Vancomycin, 1.25 g every 12 hours, next trough due on 12/17 at 530. IV Vancomycin continued through 01/15/23. Oxycodone 5mg, 1-2 tablets every 6 hours as needed for pain. Give 1 tablet for mild-mod pain 1-6 and 2 tablets for severe pain rated 7-10. Senna S, two tablets twice daily. Ferrous sulfate 325mg daily for low iron. Recommend daily prophylaxis with Lovenox 40mg SQ for 4 weeks due to immobility. PENDING TEST RESULTS: None RECOMMENDATIONS FOR FOLLOW-UP: You will need to have sutures removed from R shoulder and R knee in 10 days. This can be done by nursing [facility]. You will follow up with Dr. Ramirez in 2 weeks after discharge from rehab. His number is [facility], [phone]. Please call to arrange appointment. Please have a trial of void and have merritt catheter removed on Tuesday12/17/22. Perform routine colostomy care and Holbrook cath site care. Flush Hol[place] cath site with heparin flushes after every use. Recommend weekly CBC, BMP, Mag, CRP. Follow Vancomycin trough and adjust accordingly. Next trough due 12/17/22 @ 0530, Dayhoit vanco trough level 10-20, with a goal of 15. Continue Bipap at night. Continue routine 3L of oxygen. Change dressing to R knee and R shoulder daily and as needed. Dry dressing is fine. OTHER INSTRUCTIONS: Seek medical attention if you have: * temperature above 101 * chest pain or trouble breathing * abdominal pain, nausea, vomiting * diarrhea, dark stools or bloody stools * any unanswered questions or concerns Call 911 if symptoms are severe. Please take good care of yourself. It has been a pleasure taking care of you. Please take care of yourself. If you have any questions regarding your recent hospitalization please contact [facility] and request [employer] @ [phone]. Maria E Gibbs PA-C Total Time Total Time Spent Total Time Spent (In Minutes): 60 minutes Supervising Physician Co-Signing Physician Notes Patient seen and examined at bedside. Discussed with above provider. Patient discharged to rehab for IV antibiotics Trial of void in next few days Continue PT OT Follow-up with orthopedic as scheduled.
[2022-12-15] MEDS: FLUTICASONE FUROATE 100MCG 14 PUFFS/INHALER INH SCH (11:59)
[2022-12-15] MEDS: UMECLIDINIUM/VILANTEROL 62.5/25MCG 7 PUFFS/INHALER INH SCH (11:59)
[2022-12-15] MEDS: diphenhydrAMINE HCl 12.5 MG/5 ML UDC PO PRN (16:01)
[2022-12-17] MEDS ORDERED: VANCOMYCIN LEVEL ONE (05:30)
--- NOTE | 2022-12-21 09:38 | Coding Query ---
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 Please assist us with the question(s) below: Coding Question(s): The Fluoroscopy Report on 12/02/22 documents Left shoulder joint aspiration, however, the Operative Report by Dr. Ramirez on 12/03/22 documents, "had a guided aspiration performed of the right shoulder". Please clarify below the laterality of the shoulder joint aspiration done on 12/02/22: ( ) Right Shoulder ( ) Left Shoulder Physician's Response(s): Thank you Keila Muñoz Principal Diagnosis: "that condition established after study, to be chiefly responsible for occasioning the admission of the patient to the hospital for care." Co-Existing Principal Diagnosis: "when two or more diagnoses equally meet the criteria for principal diagnosis as determined by the circumstances of admission, diagnostic work up, and/or therapy provided, and the Alphabetic Index, Tabular List, or another coding guideline does not provide sequencing direction, any one of the diagnoses may be sequenced first." "When the physician has documented what appears to be a current diagnosis in the body of the record, but has not included the diagnosis in the final diagnostic statement, the physician should be asked whether the diagnosis should be added." (Source [facility]oding [facility] 2 QTR90. p3-4) JIHAN
== END 2022-12-15 16:19 | DRG 853 ==
LOC: ED 10:59 → SUATTDRO 16:12 → 2E 16:12 → 1E 11-30 15:15 → 4W 12-03 18:54 → 3E 12-09 17:38